=== PATIENT | female | born 1945 | race Caucasian/White ===

== ENCOUNTER 2019-06-09 15:03 | Inpatient (IN) | payer MEDICARE, MEDICAID, SELFPAY ==
[2019-06-09 15:04] VITALS: BP 131/70; PULSE 100; RESP 18; TEMP 37.2; O2SAT 91; BMI 32.3
--- NOTE | 2019-06-09 15:06 | ED_ITS ---
Entered by Jenni Bateman, acting as scribe for Aiden Drew DO HPI - SOB/Dyspnea General: Chief Complaint: Shortness of Breath/Dyspnea Stated Complaint: SHORT OF BREATH Time Seen by Provider: 06/09/19 15:05 Source: EMS Mode of arrival: EMS Limitations: other History of Present Illness: HPI Narrative: [facility] with increased shortness of breath and fever. per nursing staff pt has dementia. pt states her head hurts from a fall. pt denies any other symptoms at this time. Patient has had a low-grade fever. Initially when I seen her she is somewhat responsive she is clutching at a stuffed animal on her chest. She denied any chest pain denies any shortness of breath patient is significantly demented. Later she really did not answer any questions at all. I did ask her several nonsensical questions to which she attempted to answer. Did not believe there is really much we can trust from her history. halfway reports that she had a T-max of 100.2. She had been caught had some cough and congestion. MD elicited complaint: shortness of breath Onset (ago): day(s) (today) Timing: constant and progressively worsening Severity: moderate Exacerbating factors: exertion and other (head, fall x 3 days pt has dementia) Relieving factors: nothing Known history of: other (dementia) Associated symptoms: Reports fever(s) and other (fever) Treatment prior to arrival: none Related Data: Home oxygen amount: none Review of Systems General: Reports: ROS unobtainable due to medical condition (dementia) Const: Reports: fever PFSH ED PFSH: Medical History (Updated 06/10/19 @ 15:53 by Aiden Drew DO) Anxiety Blindness Chronic kidney disease, stage III (moderate) Chronic pain Coronary artery disease Dementia Depression Diabetes mellitus GERD (gastroesophageal reflux disease) Hyperlipidemia Ischemic cardiomyopathy Obesity Seizure disorder Surgical History (Updated 06/09/19 @ 18:35 by Boubacar Mcmullen MD) H/O hemorrhoidectomy H/O hysterectomy for benign disease H/O knee surgery History of breast biopsy History of cholecystectomy History of hip surgery Stented coronary artery Family History (Updated 06/09/19 @ 18:35 by Boubacar Mcmullen MD) Brother Cancer Colon cancer Social History (Updated 03/11/20 @ 18:36 by Boubacar Mcmullen MD) Smoking and tobacco status: former smoker Alcohol intake: never Substance/Drug Use: never Physical Exam Const: COMMON NORMALS: no apparent distress GENERAL APPEARANCE: cooperative ORIENTATION/CONSCIOUSNESS: Yes awake; not oriented to person, not oriented to place and not oriented to time HENMT: COMMON NORMALS: normocephalic, head/scalp atraumatic, hearing grossly normal bilaterally, external ears normal, EAC's normal, TM's normal bilaterally, nasal mucous membranes and turbinates normal, moist oral mucous membranes and oropharynx normal HEAD & SCALP: normocephalic and atraumatic NOSE: nasal mucous membranes and turbinates normal EXTERNAL EAR: Yes external ears normal EXTERNAL AUDITORY CANAL: EAC's normal TYMPANIC MEMBRANE: TM's normal bi laterally Eye: COMMON NORMALS: PERRL, EOMs intact bilaterally, conjunctivae normal and no scleral icterus CONJUNCTIVA: Yes conjunctivae normal PUPIL: Yes PERRL Neck/C-Spine: COMMON NORMALS: full ROM, no lymphadenopathy, supple and no JVD Lymph: LYMPHATIC: no lymphadenopathy noted and no lymphedema noted Resp: COMMON NORMALS: normal respiratory effort, no retractions, no use of accessory muscles and clear to auscultation bilaterally AUSCULTATION: clear to auscultation bilaterally Cardio: COMMON NORMALS: no JVD, regular rate, regular rhythm and no murmurs RATE: regular rate RHYTHM: regular rhythm GI: COMMON NORMALS: soft to palpation and no hepatosplenomegaly AUSCULTATION: Yes normoactive bowel sounds PALPATION: Yes soft, No tender, No guarding and Yes no hepatosplenomegaly Extremity: COMMON NORMALS: normal to inspection, normal capillary refill, no clubbing, cyanosis or edema, no calf tenderness and no pedal edema Neuro: SENSORIUM/ORIENTATION: No oriented to person, No oriented to place and No oriented to time Skin: COMMON NORMALS: no rashes or lesions noted GENERAL SKIN EXAM: no rashes or lesions noted Course ED course: Distal EKG was a little concerning for some changes especially in V1 and 2 with some flipped T waves in 1 [address]VL[address] I discussed Dr. Garcia he did not feel there were acute at this time patient was denying any chest pain although that was somewhat subjective her dementia. Also assessed discussed Dr. Garcia that she was demented and probably not able to give legitimate consent for any kind of invasive procedures. Troponin did come back markedly elevated some which may be due to demand from her due to her congestive heart failure to BNP was also elevated. Discussed with Dr. Calle he was able to contact the next of kin that they did make the patient a no code. Vital Signs: Vital signs: Vital Signs Temperature 98.0 F 06/10/19 04:20 Pulse Rate 75 06/10/19 15:36 Respiratory Rate 16 06/10/19 15:36 Blood Pressure 113/68 06/10/19 15:36 Pulse Oximetry 100 06/10/19 15:36 MDM - SOB/Dyspnea Lab Data: Labs: Lab Results 06/09/19 06/09/19 06/09/19 Range/Units 15:28 15:28 15:28 WBC 10.0 (4.0-10.0) 10^3/ uL RBC 3.16 L (4.1-5.3) 10^6/u L Hgb 9.7 L (11.5-15.3) g/dL Hct 31.7 L (37.0-47.0) % MCV 100.3 H (81-99) fL MCH 30.7 (28.0-34.0) pg MCHC 30.6 (30.0-36.0) g/dL RDW 13.0 (12.1-15.1) % Plt Count 153 (130-400) 10^3/c mm MPV 9.3 (7.4-10.4) fL Neut % (Auto) 69.4 % Lymph % (Auto) 14.8 % [place] % (Auto) 15.2 % Eos % (Auto) 0.0 % Baso % (Auto) 0.3 % Neut # (Auto) 7.0 (1.8-7.7) 10^3/u L Lymph # (Auto) 1.5 (0.8-4.8) 10^3/u L [place] # (Auto) 1.5 H (0.2-0.9) 10^3/u L Eos # (Auto) 0.0 (0.0-0.8) 10^3/u L Baso # (Auto) 0.0 (0.0-0.1) 10^3/u L Nucleated RBC % (a uto) 0 % Nucleated RBCs # 0.0 /100WBC Sodium 137 (136-145) mmol/L Potassium 3.6 (3.5-5.1) mmol/L Chloride 105 (98-107) mmol/L Carbon Dioxide 19 L (22-29) mmol/L Anion Gap 16.6 (5-19) BUN 42 H (8-23) mg/dL Creatinine 2.1 H (0.5-0.9) mg/dL Glucose 344 H (65-115) mg/dL Calculated Osmolal ity 295 (285-295) mOsm/k g Calcium 9.0 (8.5-10.5) mg/dL Total Bilirubin 0.4 (0.15-1.2) mg/dL AST 34 H (0-32) U/L ALT 9 (0-33) U/L Alkaline Phosphata se 80 (35-105) IU/L Troponin T Baselin e 1805 H* (0-10) ng/mL Troponin T 120 Min [place] (0-10) ng/mL Delta Troponin T (0-10) ABS# NT-Pro-B Natriuret Pep > 55614 H (0-125) pg/mL Total Protein 6.9 (6.6-8.7) g/dL Albumin 2.9 L (3.5-5.2) g/dL Globulin 4.0 (1.3-4.6) g/dL Influenza Type A A g (Negative) POC Influenza B Ag (Negative) 06/09/19 06/09/19 Range/Units 15:45 17:10 WBC (4.0-10.0) 10^3/ uL RBC (4.1-5.3) 10^6/u L Hgb (11.5-15.3) g/dL Hct (37.0-47.0) % MCV (81-99) fL MCH (28.0-34.0) pg MCHC (30.0-36.0) g/dL RDW (12.1-15.1) % Plt Count (130-400) 10^3/c mm MPV (7.4-10.4) fL Neut % (Auto) % Lymph % (Auto) % [place] % (Auto) % Eos % (Auto) % Baso % (Auto) % Neut # (Auto) (1.8-7.7) 10^3/u L Lymph # (Auto) (0.8-4.8) 10^3/u L [place] # (Auto) (0.2-0.9) 10^3/u L Eos # (Auto) (0.0-0.8) 10^3/u L Baso # (Auto) (0.0-0.1) 10^3/u L Nucleated RBC % (a uto) % Nucleated RBCs # /100WBC Sodium (136-145) mmol/L Potassium (3.5-5.1) mmol/L Chloride (98-107) mmol/L Carbon Dioxide (22-29) mmol/L Anion Gap (5-19) BUN (8-23) mg/dL Creatinine (0.5-0.9) mg/dL Glucose (65-115) mg/dL Calculated Osmolal ity (285-295) mOsm/k g Calcium (8.5-10.5) mg/dL Total Bilirubin (0.15-1.2) mg/dL AST (0-32) U/L ALT (0-33) U/L Alkaline Phosphata se (35-105) IU/L Troponin T Baselin e (0-10) ng/mL Troponin T 120 Min [place] 1769 H (0-10) ng/mL Delta Troponin T -36 L (0-10) ABS# NT-Pro-B Natriuret Pep (0-125) pg/mL Total Protein (6.6-8.7) g/dL Albumin (3.5-5.2) g/dL Globulin (1.3-4.6) g/dL Influenza Type A A g Negative (Negative) POC Influenza B Ag Negative (Negative) Discharge Plan Discharge Patient Disposition: Admitted As Inpatient Admit Provider: Boubacar Mcmullen Clinical Impression: Non-ST elevation myocardial infarction (NSTEMI), Hypoxia, Acute systolic heart failure, UTI (urinary tract infection), Anemia Condition: Stable Interventions: ED Discharge Assessment Last Done: 06/09/19 18:49 Discharge Date/Time: 06/09/19 18:57 Coding Level of Care Code ED [place] Rug Setter for g Fwjud The documentation recorded by the Fransico ruby Bridget Annette, accurately reflects the service I personally performed and the decisions made by Viki wylie Curtis L, DO Jun 09, 2019 15:03
--- NOTE | 2019-06-09 15:18 | XR_ITS ---
WS: [id number] Portable AP upright chest, 06/09/2019 Clinical Data: dyspnea/cough Comparison: Portable chest, 11/09/2018. Findings: The heart remains enlarged. The aortic arch and descending aorta minimally tortuous. There are diffuse opacities throughout the right lung and the left lower lobe which could represent an unus ual pulmonary edema or diffuse pneumonia. Only the left upper lobe is clear. No nodules, masses or ef fusions are seen. No pneumothorax is present. There are clips in the right upper quadrant from stellar milagros. XR/XR chest 1V portable [id number] Impression: 1. Diffuse opacities in the right lung and left lower lobe which could represen t unusual pulmonary edema or acute pneumonia and recommend follow-up chest x-ra y in one to 2 days. 2. Cardiomegaly.
--- NOTE | 2019-06-09 15:19 | ECG_ITS ---
Measurements Intervals [place] Rate: 97 P: 13 MT: 193 QRS: -14 QRSD: 109 T: 178 QT: 362 QTc: 461 SINUS RHYTHM ANTERIOR MYOCARDIAL INFARCTION , PROBABLY RECENT [40+ ms Q WAVE AND/OR ST/T ABNORMALITY IN V3/V4] Compared to ECG 11/09/2018 21:46:37 First degree AV block no longer present Myocardial infarct finding still present Electronically Signed On 06-09-2019 19:34:36 CDT by Lorenzo Garcia M.D. [id number]
[2019-06-09 15:33] LABS: Basophils % 0.3 %; Hematocrit 31.7 % (37.0-47.0); Hemoglobin 9.7 g/dL (11.5-15.3); Lymphocytes # 1.5 10^3/uL (0.8-4.8); Lymphocytes % 14.8 %; Mean Corpuscular HGB Conc 30.6 g/dL (30.0-36.0); Mean Corpuscular Hemoglobin 30.7 pg (28.0-34.0); Mean Corpuscular Volume 100.3 fL (81-99); Mean Platelet Volume 9.3 fL (7.4-10.4); Monocytes # 1.5 10^3/uL (0.2-0.9); Monocytes % 15.2 %; Neutrophils % 69.4 %; Nucleated Red Blood Cells % 0 %; Platelet Count 153 10^3/cmm (130-400); Red Blood Count 3.16 10^6/uL (4.1-5.3)
[2019-06-09 16:00] LABS: Alanine Aminotransferase 9 U/L (0-33); Albumin Level 2.9 g/dL (3.5-5.2); Alkaline Phosphatase 80 IU/L (35-105); Anion Gap 16.6 (5-19); Aspartate Amino Transferase 34 U/L (0-32); Blood Urea Nitrogen 42 mg/dL (8-23); Carbon Dioxide 19 mmol/L (22-29); Chloride 105 mmol/L (98-107); Glucose 344 mg/dL (65-115); Osmolality Calculated 295 mOsm/kg (285-295); Potassium 3.6 mmol/L (3.5-5.1); Sodium 137 mmol/L (136-145); Total Bilirubin 0.4 mg/dL (0.15-1.2); Total Protein 6.9 g/dL (6.6-8.7)
[2019-06-09 16:15] LABS: Influenza A by IFA Negative (Negative); Influenza B by IFA Negative (Negative)
[2019-06-09 16:24] LABS: NT Pro B Type Natriuretic Pept > 70000 pg/mL (0-125)
[2019-06-09 16:32] LABS: Troponin(5th) Baseline 1805 ng/mL (0-10)
[2019-06-09] MEDS: aztreonam 1,000 MG in sodium chloride 0.9% (plus) 50 ML 100 MG IV (17:48)
[2019-06-09] MEDS: FUROsemide 10 mg/mL SDV 10mL 80 MG IVP (17:48)
[2019-06-09 17:50] LABS: Troponin 5 2HR 1769 ng/mL (0-10); Troponin 5 2HR Delta -36 ABS# (0-10)
[2019-06-09] MEDS: vancomycin 1,000 MG in sodium chloride 0.9% 250 ML 250 MG IV (18:00)
--- NOTE | 2019-06-09 18:30 | PM.HP ---
Providers/Chief Complaint Primary Care Provider: Kamlesh Stevens Chief Complaint: SHORT OF BREATH History of Present Illness Perla oRque is a 74 year old female who presents to the hospital from her [place] [facility] with history of dyspnea last night. She had temperature up to 100.2. She has been coughing and congested, and apparently had not felt well in general. halfway was concerned she had a UTI, as urine appeared dirty and they were awaiting a culture. This morning she seemed worse so was sent to the hospital. From discussion with the [place] [facility] she is confused, and delusional at all times, and has had gradual decline over the years they have been caring for her. Review of Systems General: Reports: ROS unobtainable due to mental status (Advanced dementia) Medications/Allergies Home Medications Medication Instructions Recorded Confirmed Last Taken Type PNV cmb#95-ferrous fumarate-FA 1 tab PO DAILY 06/09/19 06/09/19 Unknown History [] acetaminophen 650 mg PO QID PRN 06/09/19 06/09/19 Unknown History ascorbic acid (vitamin C) [Vitamin 500 mg PO DAILY 06/09/19 06/09/19 Unknown History C] bisacodyl [Dulcolax (bisacodyl)] 10 mg ID DAILY PRN 06/09/19 06/09/19 Unknown History brimonidine 1 drp OPHTHALMIC (EYE) TID 06/09/19 06/09/19 Unknown History cholecalciferol (vitamin D3) 1,000 unit PO DAILY 06/09/19 06/09/19 Unknown History [Vitamin D3] clopidogrel [Plavix] 75 mg PO DAILY 06/09/19 06/09/19 Unknown History divalproex [Depakote] 250 mg PO DAILY 06/09/19 06/09/19 Unknown History divalproex [Depakote] 500 mg PO BEDTIME 06/09/19 06/09/19 Unknown History docusate sodium 100 mg PO BID 06/09/19 06/09/19 Unknown History furosemide [Lasix] 10 mg PO DAILY 06/09/19 06/09/19 Unknown History hydrocodone-acetaminophen 1 tab PO Q6H PRN 06/09/19 06/09/19 Unknown History insulin NPH isoph U-100 human 10 unit SUBCUT DAILY 06/09/19 06/09/19 Unknown History [Novolin N Flexpen] insulin regular human [Novolin R See Rx Instructions .ROUTE .COMPLEX 06/09/19 06/09/19 Unknown History Flexpen] isosorbide dinitrate 15 mg PO DAILY 06/09/19 06/09/19 Unknown History latanoprost [Xalatan] 1 drp OPHTHALMIC (EYE) QPM 06/09/19 06/09/19 Unknown History loperamide 2 mg PO Q6H PRN 06/09/19 06/09/19 Unknown History lorazepam [Ativan] 0.5 mg PO Q6H PRN 06/09/19 06/09/19 Unknown History magnesium hydroxide [Milk of 30 ml PO DAILY PRN 06/09/19 06/09/19 Unknown History Magnesia] metoprolol tartrate 12.5 mg PO BID 06/09/19 06/09/19 Unknown History nitroglycerin [Nitrostat] 0.4 mg SUBLINGUAL Q5M PRN 06/09/19 06/09/19 Unknown History nystatin 1 applic TOPICAL BID 06/09/19 06/09/19 Unknown History polysaccharide iron complex 150 mg PO DAILY 06/09/19 06/09/19 Unknown History [Poly-Iron] promethazine 25 mg PO Q6H PRN 06/09/19 06/09/19 Unknown History quetiapine [Seroquel] 25 mg PO DAILY 06/09/19 06/09/19 Unknown History quetiapine [Seroquel] 100 mg PO BEDTIME 06/09/19 06/09/19 Unknown History senna 8.6 mg PO BID PRN 06/09/19 06/09/19 Unknown History simvastatin 20 mg PO BEDTIME 06/09/19 06/09/19 Unknown History tamsulosin [Flomax] 0.4 mg PO DAILY 06/09/19 06/09/19 Unknown History triamcinolone acetonide 1 applic TOPICAL QID 06/09/19 06/09/19 Unknown History venlafaxine 25 mg PO DAILY 06/09/19 06/09/19 Unknown History Allergies Allergy/AdvReac Type Severity Reaction Status Date / Time butorphanol [From Stadol] Allergy Unknown Verified 06/09/19 15:21 diphenhydramine Allergy Unknown Verified 06/09/19 15:21 [From Benadryl] indomethacin [From Indocin] Allergy Unknown Verified 06/09/19 15:21 ketorolac [From Toradol] Allergy Unknown Verified 06/09/19 15:21 levofloxacin [From Levaquin] Allergy Unknown Verified 06/09/19 15:21 methazolamide Allergy Unknown Verified 06/09/19 15:21 [From Neptazane] NSAIDS (Non-Steroidal Allergy Unknown Verified 06/09/19 15:21 Anti-Inflamma ondansetron [From Zofran] Allergy Unknown Verified 06/09/19 15:21 Penicillins Allergy Unknown Verified 06/09/19 15:21 prochlorperazine Allergy Unknown Verified 06/09/19 15:21 [From Compazine] Sulfa (Sulfonamide Allergy Unknown Verified 06/09/19 15:21 Antibiotics) sumatriptan [From Imitrex] Allergy Unknown Verified 06/09/19 15:21 tramadol [From Ultram] Allergy Unknown Verified 06/09/19 15:21 PFSH Acute PFSH: Medical History (Updated 06/09/19 @ 18:41 by Boubacar Mcmullen MD) Anxiety Blindness Chronic kidney disease, stage III (moderate) Chronic pain Coronary artery disease Dementia Depression Diabetes mellitus GERD (gastroesophageal reflux disease) Hyperlipidemia Ischemic cardiomyopathy Obesity Seizure disorder Surgical History (Updated 06/09/19 @ 18:35 by Boubacar Mcmullen MD) H/O hemorrhoidectomy H/O hysterectomy for benign disease H/O knee surgery History of breast biopsy History of cholecystectomy History of hip surgery Stented coronary artery Family History (Updated 06/09/19 @ 18:35 by Boubacar Mcmullen MD) Brother Cancer Colon cancer Social History (Updated 06/09/19 @ 18:36 by Boubacar Mcmullen MD) Smoking and tobacco status: former smoker Alcohol intake: never Substance/Drug Use: never Vitals/I&O/Wt Last Vital Signs Temp 98.9 F 06/09/19 15:04 Pulse 100 06/09/19 15:04 Resp 18 06/09/19 15:04 BP 131/70 06/09/19 15:04 Pulse Ox 91 06/09/19 15:04 Weight last 48 hrs Weight 90.718 kg Physical Exam Narrative: EXAM NARRATIVE: General exam demonstrates an obese white female, confused, yelling continually. Redirects and can answer yes or no but not reliably. HEENT: Left pupil anisochoric. Right appears normal Neck supple no lymphadenopathy Cardiovascular heart sounds distant. Regular rate and rhythm. Lungs diminished breath sounds bilaterally Abdomen is soft with positive bowel sounds. No obvious organomegaly demonstrates [place] Extremities no cyanosis clubbing or edema Skin no rash Neuro confused. Moves all 4 extremities. Data : 06/09/19 15:28 06/09/19 15:28 Other Labs: Troponin is 1800. BNP greater than 70,000. AST 34. Urinalysis pending. Chest X demonstrates pulmonary edema, cardiomegaly Culture was obtained EKG demonstrates small amount of ST elevation V1 and 2, with flipped T waves noted laterally Micro: Microbiology 06/09/19 17:10 Blood Culture - Preliminary Blood SPECIMEN COLLECTED 06/09/19 17:10 Blood Culture - Preliminary Blood SPECIMEN COLLECTED A&P Assessment and plan (1) Hypoxia: This is likely secondary to her acute pulmonary edema. Diuresis is indicated. She is received a dose of Lasix in the emergency department. Continue 60 mg IV every 12 hours Oxygen as needed Status: Acute Code(s): R09.02 - Hypoxemia (2) Acute systolic heart failure: Continue diuresis with Lasix as initiated by the emergency department Status: Acute Code(s): I50.21 - Acute systolic (congestive) heart failure (3) Non-ST elevation myocardial infarction (NSTEMI): Continue Plavix, statin, beta-melvin. At this point considering her underlying comorbidities, anemia, severe underlying dementia she will not be fully anticoagulated. Status: Acute Code(s): I21.4 - Non-ST elevation (NSTEMI) myocardial infarction (4) UTI (urinary tract infection): Probable UTI based on urinalysis taken at nursing facility. Secondary to her past history of ESBL, Primaxin will be initiated. Will await urinalysis here as well. She did have a history of temperature of 100.2 at the nursing facility as well. Status: Acute Code(s): N39.0 - Urinary tract infection, site not specified (5) Anemia: Appears to be chronic and stable Status: Acute Code(s): D64.9 - Anemia, unspecified Additional A&P Information Underlying advanced dementia. This will impair her ability to understand any invasive treatments. I called and discussed this with her brother who reports he is her contact and nearest relative. I discussed with him the situation. He reports she has had advanced dementia for quite some time. After reviewing the situation with him, she was made allow natural . He reports that this is what she would have wanted considering her underlying dementia. I will continue her behavioral medicine she receives at the nursing facility as this improves her quality of life. This includes antipsychotic as well as Ativan. Chronic kidney disease, appears to be at baseline Diabetes mellitus. Sliding scale insulin will be instituted A multitude of other medical problems, see past medical history Lovenox for DVT prophylaxis Allow natural If she worsens, family would consider comfort measures. Attestations Medical Necessity Statement*: Will need greater than 2 midnight stay for treatment of acute pulmonary edema Time Spent in Patient Care: Greater than 35 minutes Coding Level of Care Code Acute Billet Bed Operator for Stew Romero Diagnoses Hypoxia R09.02 Acute systolic heart failure I50.21 Non-ST elevation myocardial infarction (NSTEMI) I21.4 UTI (urinary tract infection) N39.0 Anemia D64.9
[2019-06-09 18:49] VITALS: BP 149/86; PULSE 94; RESP 18; O2SAT 97
[2019-06-09 18:58] LABS: Add Urine Microscopic? YES; Bilirubin Urine Neg (NEGATIVE); Blood Urine 3+ (Negative); Glucose Urine UA 2+ (Normal); Ketones Urine 1+ (Negative); Leukocyte Esterase Urine 2+ (Negative); Nitrate Urine Negative (Negative); Protein Urine 3+ (Negative); Urine Appearance Cloudy (CLEAR); Urine Color Yellow (Yellow); Urobilinogen Urine Norm (Negative); pH Urine 5 (5-7)
[2019-06-09 18:59] LABS: Add Urine Culture? Yes; Amorphous Sediment Urine 2+; Bacteria Urine 2+; WBC Urine >100 /hpf (0-5)
[2019-06-09 20:52] VITALS: BP 125/75; PULSE 92; RESP 21; TEMP 37.2; O2SAT 92
--- NOTE | 2019-06-09 21:52 | ECG_ITS ---
Measurements Intervals [place] Rate: 93 P: 19 NM: 197 QRS: -22 QRSD: 110 T: 168 QT: 382 QTc: 477 SINUS RHYTHM WITH SINUS ARRHYTHMIA POSSIBLE ANTERIOR MYOCARDIAL INFARCTION , OF INDETERMINATE AGE [30 ms Q WAVE IN V3/V4, OR R < 0.2 mV IN V4] ST DEVIATION AND MODERATE T-WAVE ABNORMALITY, CONSIDER LATERAL ISCHEMIA [-0.1+ mV T WAVE IN I/aVL/V5/V6] Compared to ECG 11/09/2018 21:46:37 T-wave abnormality now present Possible ischemia now present First degree AV block no longer present Myocardial infarct finding still present Electronically Signed On 06-09-2019 19:38:08 CDT by Lorenzo Garcia M.D. [id number]
[2019-06-09 22:05] LABS: Troponin 5 6HR 1608 ng/mL (0-10)
[2019-06-09] MEDS: quetiapine 100 mg Tablet PO (23:04)
[2019-06-09] MEDS: HYDROcodone-acetaminophen 5-325 mg Tablet 1 TAB PO (23:04)
[2019-06-09] MEDS: divalproex DR 500 mg Tablet PO (23:04)
[2019-06-09] MEDS: heparin 5,000 unit/mL INJ 1 mL 5000 UNIT SUBCUT (23:05)
[2019-06-09] MEDS: LORazepam 0.5 mg Tablet PO (23:05)
[2019-06-09] MEDS: atorvastatin 40 mg Tablet PO (23:09)
[2019-06-09 23:26] LABS: Glucose Point of Care 339 mg/dL (70-110)
[2019-06-10] VITALS (9 sets, daily range): BP systolic 92–122; BP diastolic 55–68; PULSE 69–82; RESP 14–20; TEMP 36.6–37.2; O2SAT 96–100
--- NOTE | 2019-06-10 02:18 | PC.NURSE ---
Addendum entered by Hina Ansari RN 06/10/19 04:59: Dr. Marino notified about patients blood pressure of 77/49 (a few others in that area) and he said to give her a 500 ml fluid bolus, but before we could administer it patients blood pressure came up to 109/56, and he was notified and said to hold the bolus but watch her. Original Note: patient came from ER via strecher. patient alert and oriented but cranky and vocally inappropriate regarding her catheter and hospital admission, she didnt want to be in the hospital and doesnt want the catheter in says it hurts. checked by two nurses and is in correctly but she was very innappropriate in her words for both to staff. with her night meds she was also given a hydro for pain and her dose of ativan for her high anxiety. A few hours later her bp had dropped some but started coming back up a few minutes later and her sats went to 89 and o2 was placed and they immediately went back to 92. will continue to monitor. patient resting quietly at this time.
--- NOTE | 2019-06-10 02:19 | PC.NURSE ---
Patient placed on 2 L NC due to oxygen saturation at 87 percent. Oxygen saturation is now 97 percent. Will continue to monitor on continuous pulse ox.
--- NOTE | 2019-06-10 03:32 | PC.NURSE ---
Dr. Marino notified of patient blood pressure running 70s-90s systolic. 500 mL bolus ordered. Soon, patient's blood pressure came up to 113/70 and maintained low 100s systolic. Bolus was held and Dr. Marino was notified.
[2019-06-10 04:10] LABS: Basophils % 0.4 %; Eosinophils % 0.3 %; Hematocrit 27.9 % (37.0-47.0); Hemoglobin 8.5 g/dL (11.5-15.3); Lymphocytes # 1.4 10^3/uL (0.8-4.8); Lymphocytes % 18.8 %; Mean Corpuscular HGB Conc 30.5 g/dL (30.0-36.0); Mean Corpuscular Hemoglobin 32.1 pg (28.0-34.0); Mean Corpuscular Volume 105.3 fL (81-99); Mean Platelet Volume 9.6 fL (7.4-10.4); Monocytes % 14.2 %; Neutrophils # 4.8 10^3/uL (1.8-7.7); Neutrophils % 66.2 %; Nucleated Red Blood Cells % 0 %; Platelet Count 144 10^3/cmm (130-400); Red Blood Count 2.65 10^6/uL (4.1-5.3); Red Cell Distribution Width 13.1 % (12.1-15.1); White Blood Count 7.3 10^3/uL (4.0-10.0)
[2019-06-10 04:26] LABS: Anion Gap 14.5 (5-19); Blood Urea Nitrogen 42 mg/dL (8-23); Calcium 8.7 mg/dL (8.5-10.5); Carbon Dioxide 21 mmol/L (22-29); Chloride 106 mmol/L (98-107); Glucose 218 mg/dL (65-115); Osmolality Calculated 290 mOsm/kg (285-295); Potassium 3.5 mmol/L (3.5-5.1); Sodium 138 mmol/L (136-145)
[2019-06-10] MEDS: FUROsemide 10 mg/mL SDV 10mL 60 MG IVP (05:26)
[2019-06-10] MEDS: sodium chloride 0.9% 500 ML 999 ML IV (06:09)
--- NOTE | 2019-06-10 06:15 | PC.NURSE ---
patients bp lowered to 80s over 40s, called Dr. Marino and we agreed on starting the 500 ml bolus. patient on q 15 min bps.
[2019-06-10 06:32] LABS: Glucose Point of Care 281 mg/dL (70-110)
--- NOTE | 2019-06-10 08:58 | P.PN_ITS ---
Subjective Subjective: Interval history: Perla was confused this morning but able to relate to me that she does not want her catheter. Medications: Reviewed: Yes Vitals/I&O/Wt Last Vital Signs Temp 98.0 F 06/10/19 04:20 Pulse 77 06/10/19 07:41 Resp 18 06/10/19 07:41 BP 117/61 06/10/19 07:41 Pulse Ox 100 06/10/19 07:41 06/09/19 06/10/19 06/10/19 22:59 06:59 14:59 Intake Total 260 / 260 120 / 120 Output Total 1650 / 1650 Balance -1390 / -1390 120 / 120 Weight last 48 hrs Weight 82.1 kg Weight 90.718 kg Physical Exam Narrative: EXAM NARRATIVE: General exam is no apparent distress. She is laying flat in bed. Cardiovascular regular rate and rhythm without murmur Lungs clear. No crackles Abdomen is soft with positive bowel sounds Extremities no cyanosis clubbing or edema Urinary Catheter Management^: Reagn: Cath Placed During This Visit: yes Urinary Catheter Date of Insertion: 06/09/19 Urinary Catheter Time of Insertion: 18:56 Data : 06/10/19 03:25 06/10/19 03:25 Micro: Microbiology 06/09/19 17:10 Blood Culture - Preliminary Blood SPECIMEN COLLECTED 06/09/19 17:10 Blood Culture - Preliminary Blood SPECIMEN COLLECTED A&P Assessment and plan (1) Hypoxia: This is likely secondary to her acute pulmonary edema. Diuresis initiated. She currently clinically does not appear fluid overloaded. Will discontinue IV Lasix Changed to Lasix 60 mg every morning Discontinue Regan, significantly uncomfortable for this patient who we are focusing on quality of life Oxygen as needed Secondary to fever, abnormal chest x-ray check MRSA PCR Status: Acute Code(s): R09.02 - Hypoxemia (2) Acute systolic heart failure: Change Lasix to 60 mg p.o. daily Status: Acute Code(s): I50.21 - Acute systolic (congestive) heart failure (3) Non-ST elevation myocardial infarction (NSTEMI): Continue Plavix, statin, beta-melvin. At this point considering her underlying comorbidities, anemia, severe underlying dementia she will not be fully anticoagulated. Status: Acute Code(s): I21.4 - Non-ST elevation (NSTEMI) myocardial infarction (4) UTI (urinary tract infection): Probable UTI based on urinalysis taken at nursing facility. Secondary to her past history of ESBL, Primaxin will be initiated. Will await urinalysis here as well. She did have a history of temperature of 100.2 at the nursing facility as well. Primaxin has been started. Await culture. Status: Acute Code(s): N39.0 - Urinary tract infection, site not specified (5) Anemia: Appears to be chronic and stable Status: Acute Code(s): D64.9 - Anemia, unspecified Additional A&P Information Underlying advanced dementia. This will impair her ability to understand any invasive treatments. I called and discussed this with her brother who reports he is her contact and nearest relative. I discussed with him the situation. He reports she has had advanced dementia for quite some time. After reviewing the situation with him, she was made allow natural . He reports that this is what she would have wanted considering her underlying dementia. I will continue her behavioral medicine she receives at the nursing facility as this improves her quality of life. This includes antipsychotic as well as Ativan. Chronic kidney disease, appears to be at baseline Diabetes mellitus. Sliding scale insulin will be instituted A multitude of other medical problems, see past medical history Lovenox for DVT prophylaxis Allow natural If she worsens, family would consider comfort measures. 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
[2019-06-10] MEDS: metoprolol tartrate 25 mg Tablet 12.5 MG PO ×2 (10:45→18:35)
[2019-06-10] MEDS: heparin 5,000 unit/mL INJ 1 mL 5000 UNIT SUBCUT ×2 (10:45→21:20)
[2019-06-10] MEDS: clopidogrel 75 mg Tablet PO (10:45)
[2019-06-10] MEDS: quetiapine 25 mg Tablet PO (10:46)
[2019-06-10] MEDS: divalproex DR 250 mg Tablet PO (10:47)
[2019-06-10] MEDS: isosorbide dinitrate 20 mg Tablet PO ×2 (10:47→10:49)
[2019-06-10] MEDS: tamsulosin 0.4 mg Capsule PO (10:47)
[2019-06-10] MEDS: venlafaxine ER (24HR) 75 mg Capsule PO (11:22)
[2019-06-10 11:49] LABS: Glucose Point of Care 165 mg/dL (70-110)
[2019-06-10 16:49] LABS: Glucose Point of Care 128 mg/dL (70-110)
[2019-06-10 21:18] LABS: Glucose Point of Care 265 mg/dL (70-110)
[2019-06-10] MEDS: atorvastatin 40 mg Tablet PO (21:20)
[2019-06-10] MEDS: quetiapine 100 mg Tablet PO (21:20)
[2019-06-10] MEDS: divalproex DR 500 mg Tablet PO (21:20)
[2019-06-10] MEDS: latanoprost 0.005% Op Soln 2.5 mL Btl 1 DROP EYE-BOTH (21:21)
[2019-06-11] VITALS (13 sets, daily range): BP systolic 103–127; BP diastolic 48–76; PULSE 73–94; RESP 10–18; TEMP 36.4–37.1; O2SAT 91–98
[2019-06-11 04:19] LABS: Basophils # 0.1 10^3/uL (0.0-0.1); Basophils % 0.8 %; Eosinophils # 0.4 10^3/uL (0.0-0.8); Eosinophils % 7.1 %; Hematocrit 25.9 % (37.0-47.0); Hemoglobin 7.8 g/dL (11.5-15.3); Lymphocytes # 1.9 10^3/uL (0.8-4.8); Lymphocytes % 32.2 %; Mean Corpuscular HGB Conc 30.1 g/dL (30.0-36.0); Mean Corpuscular Hemoglobin 30.6 pg (28.0-34.0); Mean Corpuscular Volume 101.6 fL (81-99); Mean Platelet Volume 9.8 fL (7.4-10.4); Monocytes # 0.8 10^3/uL (0.2-0.9); Monocytes % 13.3 %; Neutrophils # 2.8 10^3/uL (1.8-7.7); Neutrophils % 46.4 %; Nucleated Red Blood Cells % 0 %; Platelet Count 145 10^3/cmm (130-400); Red Blood Count 2.55 10^6/uL (4.1-5.3); Red Cell Distribution Width 13.1 % (12.1-15.1)
[2019-06-11 04:41] LABS: Anion Gap 16.7 (5-19); Blood Urea Nitrogen 44 mg/dL (8-23); Calcium 8.5 mg/dL (8.5-10.5); Carbon Dioxide 20 mmol/L (22-29); Chloride 107 mmol/L (98-107); Glucose 159 mg/dL (65-115); Osmolality Calculated 291 mOsm/kg (285-295); Potassium 3.7 mmol/L (3.5-5.1); Sodium 140 mmol/L (136-145)
[2019-06-11 06:35] LABS: Glucose Point of Care 197 mg/dL (70-110)
--- NOTE | 2019-06-11 07:36 | PM.PN ---
Subjective Subjective: Interval history: Perla awakens easily. She denies any complaints. She is confused but conversant. Medications: Reviewed: Yes Vitals/I&O/Wt Last Vital Signs Temp 97.9 F 06/11/19 00:00 Pulse 86 06/11/19 04:00 Resp 18 06/11/19 04:00 BP 111/69 06/11/19 04:00 Pulse Ox 97 06/11/19 04:00 06/10/19 06/11/19 06/11/19 22:59 06:59 14:59 Intake Total 680.000 / 1020.000 120 / 1140.000 Output Total 400 / 800 Balance 280.000 / 220.000 120 / 340.000 Weight last 48 hrs Weight 82.1 kg Weight 90.718 kg Physical Exam Narrative: EXAM NARRATIVE: General exam is no apparent distress. Cardiovascular regular rate and rhythm without murmur Lungs clear. No crackles Abdomen is soft with positive bowel sounds Extremities no cyanosis clubbing or edema Urinary Catheter Management^: Regan: Cath Placed During This Visit: yes Urinary Catheter Date of Insertion: 06/09/19 Urinary Catheter Time of Insertion: 18:56 Data : 06/11/19 03:15 06/11/19 03:15 Micro: Microbiology 06/09/19 17:10 Blood Culture - Preliminary Blood NEGATIVE TO DATE 06/09/19 17:10 Blood Culture - Preliminary Blood NEGATIVE TO DATE 06/10/19 11:10 MRSA Culture - Final Nose Other data: Chest x-ray per my read demonstrates persistent infiltrate right lung A&P Assessment and plan (1) Hypoxia: This is likely secondary to her acute pulmonary edema. Received IV diuresis on admission. This has been changed to p.o. which she is tolerating Renal function overall stable and appears to be at baseline. She is requiring only minimal oxygen Status: Acute Code(s): R09.02 - Hypoxemia (2) Acute systolic heart failure: Lasix 60 mg p.o. daily. She appears compensated. Clinically she does not appear fluid overloaded. Chest x-ray repeated today does not demonstrate much clearing of her right lung infiltrate. Will check a noncontrast CT chest. She was placed on Primaxin on admission secondary to UTI, past history of ESBL. This should be sufficient at this time for pneumonia. Status: Acute Code(s): I50.21 - Acute systolic (congestive) heart failure (3) Non-ST elevation myocardial infarction (NSTEMI): Continue Plavix, statin, beta-melvin. At this point considering her underlying comorbidities, anemia, severe underlying dementia she will not be fully anticoagulated. Status: Acute Code(s): I21.4 - Non-ST elevation (NSTEMI) myocardial infarction (4) UTI (urinary tract infection): Probable UTI based on urinalysis taken at nursing facility. Secondary to her past history of ESBL, Primaxin will be initiated. Will await urinalysis here as well. She did have a history of temperature of 100.2 at the nursing facility as well. Primaxin has been started. Awaiting culture Status: Acute Code(s): N39.0 - Urinary tract infection, site not specified (5) Anemia: Anemia is worse Check stool Hemoccult, anemia panel Discontinue heparin subcutaneous Continue Plavix for now Add Protonix twice daily Status: Acute Code(s): D64.9 - Anemia, unspecified Additional A&P Information Underlying advanced dementia. This will impair her ability to understand any invasive treatments. I called and discussed this with her brother who reports he is her contact and nearest relative. I discussed with him the situation. He reports she has had advanced dementia for quite some time. After reviewing the situation with him, she was made allow natural . He reports that this is what she would have wanted considering her underlying dementia. I will continue her behavioral medicine she receives at the nursing facility as this improves her quality of life. This includes antipsychotic as well as Ativan. Chronic kidney disease, appears to be at baseline Diabetes mellitus. Sliding scale insulin will be instituted A multitude of other medical problems, see past medical history Discontinue heparin for DVT prophylaxis secondary to worsening anemia Allow natural If she worsens, family would consider comfort measures. 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
--- NOTE | 2019-06-11 07:44 | CT_ITS ---
WS: [id number] CT CHEST TECHNIQUE: Noncontrast CT of the chest with coronal and sagittal reformatted images. CLINICAL INFORMATION: abnormal CXR COMPARISON: None. DLP: 864.[address] scans at [facility] use at least one of these dose optimization techniques: automat ed exposure control; mA and/or kV adjustment per patient size (includes targeted exams where dose is matched to clinical indication); or iterative reconstruction. FINDINGS: Small bilateral pleural effusions with compressive atelectasis in the lung bases. Pleural effusion la rger on the right. Both pleural effusions slightly increased compared to CT December 21, 2017. Hazy groundglass infiltrates in the upper lobes likely infectious in etiology. Mild chronic emphysematous changes. Cardiomegaly. Prominent and has a bronchovascular thickening likely reactive. Small thyroid nodules. Aortic calcification. Coronary calcification. Pneumobilia unchanged since 2018. Cholecystectomy. Splenic artery calcification. Pancreatic atrophy. Normal caliber upper abdominal aorta. Moderate thoracic kyphosis. Anterior hypertrophic changes thora cic spine. IMPRESSION: 1. Small right greater than left pleural effusions with compressive atelectasis in the lung bases. T his is increased slightly since the CT in 2018. Compressive consolidative atelectasis worse in the ri ght lung base. 2. Hazy groundglass infiltrates in the right greater than left upper lobes likely infectious in etio logy. 3. Bronchovascular thickening along the hilum with prominent hilar lymph nodes likely reactive. 4. Cardiomegaly. 5. Pneumobilia partially visualized in the liver unchanged since 2018
--- NOTE | 2019-06-11 07:57 | XR_ITS ---
WS: [id number] Portable AP upright chest, 06/11/2019 Clinical Data: Follow-up pneumonia Comparison: Portable chest, 06/09/2019. Findings: The diffuse opacities in both lungs have not changed. There may be an additional opacity no w in the left upper lobe. Again this may represent acute pneumonia or an unusual pulmonary edema. The heart remains enlarged. The aortic arch and descending aorta show calcification and tortuosity. Cortney tor leads are on the chest and upper abdominal wall. There are clips in the right upper quadrant from a cholecystectomy. XR/XR chest 1V portable [id number] Impression: 1. Diffuse opacities in right lung and left lower lobe unchanged. 2. Increase in opacity in left upper lobe. 3. Atherosclerosis and cardiomegaly.
[2019-06-11] MEDS: divalproex DR 250 mg Tablet PO (08:28)
[2019-06-11] MEDS: FUROsemide 10 mg/mL SDV 2mL 20 MG IVP (08:28)
[2019-06-11] MEDS: clopidogrel 75 mg Tablet PO (08:29)
[2019-06-11] MEDS: tamsulosin 0.4 mg Capsule PO (08:29)
[2019-06-11] MEDS: metoprolol tartrate 25 mg Tablet 12.5 MG PO ×2 (08:29→17:37)
[2019-06-11] MEDS: FUROsemide 40 mg Tablet 60 MG PO (08:29)
[2019-06-11] MEDS: venlafaxine ER (24HR) 75 mg Capsule PO (08:29)
[2019-06-11] MEDS: pantoprazole DR 40 mg Tablet PO ×2 (08:29→17:37)
[2019-06-11] MEDS: quetiapine 25 mg Tablet PO (08:29)
[2019-06-11 09:44] LABS: Ferritin 259 ng/mL (15-150); Iron 42 ug/dL (37-145); Percent Saturation 42.4 % (20-50); Total Iron Binding Capacity 99 mcg/dl; Unsaturated Iron Binding 57 ug/dL (112-347)
[2019-06-11 10:00] LABS: Vitamin B12 285 pg/mL (232-1245)
[2019-06-11 12:13] LABS: Glucose Point of Care 145 mg/dL (70-110)
[2019-06-11 17:06] LABS: Glucose Point of Care 120 mg/dL (70-110)
[2019-06-11] MEDS: latanoprost 0.005% Op Soln 2.5 mL Btl 1 DROP EYE-BOTH (17:37)
[2019-06-11] MEDS: quetiapine 100 mg Tablet PO (20:31)
[2019-06-11] MEDS: divalproex DR 500 mg Tablet PO (20:31)
[2019-06-11] MEDS: atorvastatin 40 mg Tablet PO (20:31)
[2019-06-11] MEDS: HYDROcodone-acetaminophen 5-325 mg Tablet 1 TAB PO (20:48)
[2019-06-12] VITALS: BP 126/68; PULSE 79; RESP 12; TEMP 36.8; O2SAT 96
[2019-06-12 02:48] LABS: Glucose Point of Care 207 mg/dL (70-110)
[2019-06-12 04:00] VITALS: BP 120/71; PULSE 78; RESP 10; TEMP 36.6; O2SAT 90
[2019-06-12 04:13] LABS: Basophils % 0.7 %; Eosinophils # 0.4 10^3/uL (0.0-0.8); Eosinophils % 7.8 %; Hematocrit 29.5 % (37.0-47.0); Hemoglobin 9.9 g/dL (11.5-15.3); Lymphocytes # 1.5 10^3/uL (0.8-4.8); Lymphocytes % 27.8 %; Mean Corpuscular HGB Conc 33.6 g/dL (30.0-36.0); Mean Corpuscular Hemoglobin 34.5 pg (28.0-34.0); Mean Corpuscular Volume 102.8 fL (81-99); Mean Platelet Volume 9.5 fL (7.4-10.4); Monocytes # 0.7 10^3/uL (0.2-0.9); Monocytes % 11.8 %; Neutrophils # 2.8 10^3/uL (1.8-7.7); Neutrophils % 51.5 %; Nucleated Red Blood Cells % 0 %; Platelet Count 177 10^3/cmm (130-400); Red Blood Count 2.87 10^6/uL (4.1-5.3); Red Cell Distribution Width 13.2 % (12.1-15.1); White Blood Count 5.5 10^3/uL (4.0-10.0)
--- NOTE | 2019-06-12 04:37 | PC.NURSE ---
1700 antibiotic was given late d/t blood still going until after 1900. one iv access, patient didnt want another iv in.
[2019-06-12 04:52] LABS: Anion Gap 14.8 (5-19); Blood Urea Nitrogen 48 mg/dL (8-23); Calcium 8.8 mg/dL (8.5-10.5); Carbon Dioxide 25 mmol/L (22-29); Chloride 104 mmol/L (98-107); Glucose 201 mg/dL (65-115); Osmolality Calculated 294 mOsm/kg (285-295); Potassium 3.8 mmol/L (3.5-5.1); Sodium 140 mmol/L (136-145)
[2019-06-12 06:26] LABS: Glucose Point of Care 186 mg/dL (70-110)
[2019-06-12 07:31] VITALS: BP 117/61; PULSE 83; RESP 14; O2SAT 94
[2019-06-12] MEDS: FUROsemide 40 mg Tablet PO (08:33)
[2019-06-12] MEDS: quetiapine 25 mg Tablet PO (08:33)
[2019-06-12] MEDS: promethazine 25 mg Tablet PO ×2 (08:33→22:21)
[2019-06-12] MEDS: clopidogrel 75 mg Tablet PO (08:34)
[2019-06-12] MEDS: isosorbide dinitrate 20 mg Tablet PO (08:34)
[2019-06-12] MEDS: tamsulosin 0.4 mg Capsule PO (08:34)
[2019-06-12] MEDS: metoprolol tartrate 25 mg Tablet 12.5 MG PO (08:35)
[2019-06-12] MEDS: venlafaxine ER (24HR) 75 mg Capsule PO (08:35)
[2019-06-12] MEDS: pantoprazole DR 40 mg Tablet PO ×2 (08:35→17:21)
--- NOTE | 2019-06-12 09:07 | DCPLANNER ---
Pg 2 of IM updated and attempted review with pt however she is sleepy, copy provided.
[2019-06-12] MEDS: divalproex DR 250 mg Tablet PO (09:54)
[2019-06-12 11:06] VITALS: BP 104/57; PULSE 76; RESP 18; TEMP 36.8; O2SAT 93
[2019-06-12 11:27] LABS: Glucose Point of Care 152 mg/dL (70-110)
--- NOTE | 2019-06-12 11:53 | P.PN_ITS ---
Subjective Subjective: Interval history: Patient this morning is laying in bed, she has a bucket at bedside, stating that she does not feel well this morning, feels nauseous, has no complaints of shortness of breath, no fevers, no chills, has baseline dementia afebrile overnight, normotensive, no reported bloody stools, no telemetry changes, no complaints of chest pain Vitals/I&O/Wt Last Vital Signs Temp 98.3 F 06/12/19 11:06 Pulse 76 06/12/19 11:06 Resp 18 06/12/19 11:06 BP 104/57 06/12/19 11:06 Pulse Ox 93 06/12/19 11:06 06/11/19 06/12/19 06/12/19 22:59 06:59 14:59 Intake Total 790 / 1270 280 / 1550 100 / 100 Output Total 400 / 400 Balance 390 / 870 280 / 1150 100 / 100 Weight last 48 hrs Weight 80.83 kg Physical Exam Const: COMMON NORMALS: no apparent distress EXAM LIMITATIONS: altered mental status HENMT: COMMON NORMALS: normocephalic HEAD & SCALP: normocephalic Neck/C-Spine: COMMON NORMALS: no JVD Resp: COMMON NORMALS: normal respiratory effort, no retractions, no use of accessory muscles and clear to auscultation bilaterally AUSCULTATION: clear to auscultation bilaterally Cardio: COMMON NORMALS: no JVD, regular rate, regular rhythm, S1 normal heart sound and S2 normal heart sound RATE: regular rate RHYTHM: regular rhythm HEART SOUNDS: S1 normal and S2 normal GI: COMMON NORMALS: normal to inspection, nondistended, normoactive bowel sounds, soft to palpation, non-tender, no hepatosplenomegaly, no masses and no bruits PALPATION: Yes soft and Yes no hepatosplenomegaly Extremity: COMMON NORMALS: normal capillary refill, no clubbing, cyanosis or edema, no calf tenderness and no pedal edema Urinary Catheter Management^: Regan: Cath Placed During This Visit: yes Urinary Catheter Date of Insertion: 06/09/19 Urinary Catheter Time of Insertion: 18:56 Data : 06/12/19 03:31 06/12/19 03:31 Micro: Microbiology 06/09/19 18:13 Urine Culture - Preliminary Urine,Clean Catch Gram Negative Rods A&P Assessment and plan (1) Hypoxia: -Acute hypoxic respiratory failure secondary to pulmonary edema and acute systolic heart failure -On Lasix 40 mg once daily -Creatinine is minimally elevated at 2.1 -She is requiring only minimal oxygen Status: Acute Code(s): R09.02 - Hypoxemia (2) Acute systolic heart failure: -Continue Lasix 40 mg once daily -Not in current exacerbation Status: Acute Code(s): I50.21 - Acute systolic (congestive) heart failure (3) Non-ST elevation myocardial infarction (NSTEMI): -Continue Plavix, statin, beta-melvin -tropnin 1805 baseline, 6 hour 1608, delta -197 -EKG showed deep Q waves in anterior chest leads concerning for anterior wall WA -Also has ST depressions in 1, aVL V5 V6 indicating lateral ischemia -Currently has no complaints of chest pain, shortness of breath -At this point considering her underlying comorbidities, anemia, severe underlying dementia, GI bleed she will not be fully anticoagulated -We will obtain an echocardiogram -Patient is DNR Status: Acute Code(s): I21.4 - Non-ST elevation (NSTEMI) myocardial infarction (4) UTI (urinary tract infection): -Has a history of ESBL E. coli UTIs in the past -Currently on Primaxin -Urine culture shows gram-negative rods Status: Acute Code(s): N39.0 - Urinary tract infection, site not specified (5) Anemia: Anemia is worse Check stool Hemoccult pedning Discontinue heparin subcutaneous Continue Plavix for now Add Protonix twice daily Status: Acute Code(s): D64.9 - Anemia, unspecified (6) PNA (pneumonia): -CT chest showed Hazy groundglass infiltrates in the right greater than left upper lobes likely infectious in etiology. -Cultures so far have been unremarkable -Continue Primaxin Status: Acute Code(s): J18.9 - Pneumonia, unspecified organism (7) GI bleed: -Status post 1 unit PRBC -Hemoglobin today 9.9 -Likely patient has an upper or lower GI bleed, anticoagulation has been held -Unfortunately given her NSTEMI, Plavix has to be continued unless hemoglobin starts to drop more significantly, or she starts to have bloody or black stools -We will continue to monitor hemoglobin Status: Acute Code(s): K92.2 - Gastrointestinal hemorrhage, unspecified Additional A&P Information Underlying advanced dementia. This will impair her ability to understand any invasive treatments. I called and discussed this with her brother who reports he is her contact and nearest relative. I discussed with him the situation. He reports she has had advanced dementia for quite some time. After reviewing the situation with him, she was made allow natural . He reports that this is what she would have wanted considering her underlying dementia. I will continue her behavioral medicine she receives at the nursing facility as this improves her quality of life. This includes antipsychotic as well as Ativan. Chronic kidney disease, appears to be at baseline Diabetes mellitus. Sliding scale insulin will be instituted A multitude of other medical problems, see past medical history Discontinue heparin for DVT prophylaxis secondary to worsening anemia Allow natural If she worsens, family would consider comfort measures. 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
[2019-06-12] MEDS: sodium chloride 0.9% 1,000 ML 75 ML IV (13:34)
[2019-06-12 15:50] VITALS: BP 118/56; PULSE 86; RESP 13; TEMP 36.8; O2SAT 97
[2019-06-12 16:56] LABS: Glucose Point of Care 155 mg/dL (70-110)
[2019-06-12] MEDS: latanoprost 0.005% Op Soln 2.5 mL Btl 1 DROP EYE-BOTH (18:35)
[2019-06-12 20:00] VITALS: BP 153/77; PULSE 88; RESP 13; TEMP 36.8; O2SAT 96
[2019-06-12] MEDS: atorvastatin 40 mg Tablet PO (20:18)
[2019-06-12] MEDS: quetiapine 100 mg Tablet PO (20:18)
[2019-06-12] MEDS: divalproex DR 500 mg Tablet PO (20:18)
[2019-06-12 20:59] LABS: Glucose Point of Care 214 mg/dL (70-110)
--- NOTE | 2019-06-12 21:43 | PC.NURSE ---
Patient turning self in bed. Bed alarm activated. Denies pain at this time. Will monitor.
--- NOTE | 2019-06-12 22:51 | PC.NURSE ---
Patient demanding a carton of milk. This nurse explained to patient that this nurse would like for her to stay away from milk at this time. Patient states, I want some milk and I want it now. Milk given;however, patient brought right back up. Promethazine PO given. Incontinent of large amount of urine. CLC done. Aloe Vera applied to buttocks. Denies any other complaints at this time. Will monitor.
[2019-06-13] VITALS (7 sets, daily range): BP systolic 122–153; BP diastolic 66–86; PULSE 85–90; RESP 13–20; TEMP 36.5–36.8; O2SAT 92–97
--- NOTE | 2019-06-13 00:29 | PC.NURSE ---
Repositioned patient to left side. Incontinent of urine. Reshma care performed. Denies pain or nausea at this time. Will monitor.
[2019-06-13] MEDS: sodium chloride 0.9% 1,000 ML 75 ML IV (03:51)
--- NOTE | 2019-06-13 05:08 | PC.NURSE ---
Patient complaining of SCD's. This nurse explained to patient why she needed to wear the SCD's. Voices understanding; however, states, They still hurt. This nurse asked patient if she would agree to wear them for 2 hours and then take them off for 2 hours. Patient in agreement with this. Will monitor.
[2019-06-13 05:10] LABS: Basophils % 0.6 %; Eosinophils # 0.3 10^3/uL (0.0-0.8); Eosinophils % 5.2 %; Hematocrit 33.7 % (37.0-47.0); Hemoglobin 10.8 g/dL (11.5-15.3); Lymphocytes % 21.3 %; Mean Corpuscular Hemoglobin 31.8 pg (28.0-34.0); Mean Corpuscular Volume 99.1 fL (81-99); Mean Platelet Volume 9.2 fL (7.4-10.4); Monocytes # 0.5 10^3/uL (0.2-0.9); Monocytes % 10.7 %; Nucleated Red Blood Cells % 0 %; Platelet Count 210 10^3/cmm (130-400); Red Cell Distribution Width 13.1 % (12.1-15.1); White Blood Count 4.8 10^3/uL (4.0-10.0)
[2019-06-13 05:30] LABS: Alanine Aminotransferase < 5 U/L (0-33); Albumin Level 2.7 g/dL (3.5-5.2); Alkaline Phosphatase 76 IU/L (35-105); Anion Gap 18.3 (5-19); Aspartate Amino Transferase 11 U/L (0-32); Blood Urea Nitrogen 42 mg/dL (8-23); Calcium 9.2 mg/dL (8.5-10.5); Carbon Dioxide 21 mmol/L (22-29); Chloride 101 mmol/L (98-107); Globulin 4.1 g/dL (1.3-4.6); Glucose 212 mg/dL (65-115); Magnesium 2.2 mg/dL (1.7-2.3); Osmolality Calculated 288 mOsm/kg (285-295); Phosphorus 3.5 mg/dL (2.5-4.5); Potassium 3.3 mmol/L (3.5-5.1); Sodium 137 mmol/L (136-145); Total Bilirubin 0.3 mg/dL (0.15-1.2); Total Protein 6.8 g/dL (6.6-8.7)
[2019-06-13 06:29] LABS: Glucose Point of Care 205 mg/dL (70-110)
[2019-06-13] MEDS: FUROsemide 40 mg Tablet PO (07:18)
[2019-06-13] MEDS: pantoprazole DR 40 mg Tablet PO ×2 (08:23→17:33)
[2019-06-13] MEDS: clopidogrel 75 mg Tablet PO (08:23)
[2019-06-13] MEDS: quetiapine 25 mg Tablet PO (08:23)
[2019-06-13] MEDS: isosorbide dinitrate 20 mg Tablet PO (08:23)
[2019-06-13] MEDS: divalproex DR 250 mg Tablet PO (08:23)
[2019-06-13] MEDS: venlafaxine ER (24HR) 75 mg Capsule PO (08:23)
[2019-06-13] MEDS: tamsulosin 0.4 mg Capsule PO (08:23)
[2019-06-13 11:37] LABS: Glucose Point of Care 160 mg/dL (70-110)
--- NOTE | 2019-06-13 12:02 | USCV_ITS ---
Perla Roque Age: 74 Gender: F : 1945 Exam Date: 06/13/2019 15:44 Ordering Phys: William Olivarez MD Technologist: Buffy Lima Exam Location: [facility] [place] Indication: SOB BP: 125 / 66 HR: 88 Rhythm: Sinus Technical Quality: Technically difficult study MEASUREMENTS (Male / Female) Normal Values 2D ECHO LV Diastolic Diameter PLAX 4.8 cm 4.2 - 5.9 / 3.9 - 5.3 cm LV Systolic Diameter PLAX 3.8 cm LV Chamber Size 3.9 cm IVS Diastolic Thickness 1.5 cm 0.6 - 1.0 / 0.6 - 0.9 cm IVS Systolic Thickness 2.0 cm LVPW Diastolic Thickness 1.4 cm 0.6 - 1.0 / 0.6 - 0.9 cm LVPW Systolic Thickness 1.1 cm RV Chamber Size 1.8 cm LVOT Diameter 2.0 cm LV Ejection Fraction 2D Teich 42.3 % LA Diameter 4.5 cm LA Width 2.6 cm LA Height 4.0 cm RA Width 1.8 cm RA Height 3.9 cm Aorta at Sinotubular Diameter 2.3 cm M-MODE LV Diastolic Diameter MM 6.3 cm 4.2 - 5.9 / 3.9 - 5.3 cm LV Systolic Diameter MM 5.2 cm LV Ejection Fraction MM Teich 34.3 % IVS Diastolic Thickness MM 1.9 cm 0.6 - 1.0 / 0.6 - 0.9 cm IVS Systolic Thickness MM 1.8 cm LVPW Diastolic Thickness MM 1.0 cm 0.6 - 1.0 / 0.6 - 0.9 cm LVPW Systolic Thickness MM 1.2 cm Aortic Annulus Diameter 3.4 cm LA Ao Ratio MM 1.3 MV E Point Septal Separation 0.6 cm DOPPLER AV Peak Velocity 84.0 cm/s LVOT Peak Velocity 62.0 cm/s AV Area Cont Eq vti 3.0 cm squared AV Area Cont Eq pk 2.3 cm squared MV Area PHT 4.0 cm squared Mitral E to A Ratio 0.8 MV E' Velocity 4.0 cm/s Mitral E to MV E' Ratio 18.1 Mitral E to LV E' Lateral Ratio 19.0 Mitral E to LV E' Septal Ratio 17.7 TV Peak E Velocity 68.0 cm/s Right Atrial Pressure 3.0 mmHg PV Peak Velocity 65.0 cm/s RV Acceleration Time 0.1 s RV Ejection Time 0.2 s RV AcT/ET 0.4 FINDINGS Left Ventricle Normal left ventricular cavity size. Normal left ventricular wall thickness. Moderately decreased left ventricular systolic function. Grade I/IV diastolic dysfunction (abnormal relaxation filling pattern), normal to mildly elevated filling pressures. Left ventricular ejection fraction is estimated at 35-40 %. Right Ventricle Normal right ventricular size and systolic function. Normal right ventricular systolic pressure. Right Atrium The right atrium is normal in size. Left Atrium Mildly increased left atrial size. Mitral Valve Mitral valve not well visualized. Aortic Valve Aortic valve not well visualized. No aortic valve stenosis. Tricuspid Valve Tricuspid valve not well visualized. Pulmonic Valve Pulmonic valve not well visualized. Pericardium Normal pericardium without effusion. Aorta Normal ascending aorta dimension. CONCLUSIONS Normal left ventricular cavity size. Normal left ventricular wall thickness. Moderately decreased left ventricular systolic function. Grade I/IV diastolic dysfunction (abnormal relaxation filling pattern), normal to mildly elevated filling pressures. Left ventricular ejection fraction is estimated at 35-40 %. Mildly increased left atrial size. Technically limited study. No significant valve abnormalities. From the previous study dated 12/13/2017, there has been no change Dr. Lorenzo Garcia MD (Electronically Signed) Final Date: 14 June 2019 10:54 S
--- NOTE | 2019-06-13 14:09 | XRR_ITS ---
PROCEDURE INFORMATION: Exam: XR Chest, 1 View Exam date and time: 06/13/2019 2:11 PM Age: 74 years old Clinical indication: Device placement; Picc; Additional info: Picc line placement TECHNIQUE: Imaging protocol: XR of the chest Views: 1 view. COMPARISON: CR XR chest 1V portable [id number] 06/11/2019 6:09 AM FINDINGS: Lungs: Diffuse parenchymal densities are noted throughout the right lung consistent with pulmonary edema. Pleural space: Bilateral lower lobe pleural effusions. No pneumothorax. Heart/Mediastinum: Unremarkable. No cardiomegaly. Bones/joints: Unremarkable. A PICC line is present on the right side extending into the SVC. XR/XR chest 1V portable [id number] IMPRESSION: Right hilar pulmonary edema Bilateral lower lobe pleural effusions Right side PICC line extends to the SVC
--- NOTE | 2019-06-13 16:25 | PM.PN ---
Subjective Subjective: Interval history: This morning patient is alert oriented x3, is quite cheerful, states that she enjoyed the grapes and pineapples that she had for lunch, she is answering all questions appropriately I spoke to the alf, patient makes her own decisions, only family members listed as a trampoline team coach, and her brother. I discussed with the patient her hospital course, her pneumonia, ESBL E. coli UTI, her new NSTEMI, voiced understanding, all questions answered In terms of her ESBL E. coli UTI, in my opinion the best course of action would be a PICC line placement with IV antibiotics, Primaxin for at least 14 days, as she came in with sepsis and altered mental status concerning for UTI. The other option would be suboptimal treatment with oral antibiotics for 14 days, with the risk of recurrence of the infection. I discussed the risks and benefits of a PICC line placement, patient voiced understanding, all questions answered. Patient agreed to PICC line placement with IV antibiotics for the next 14 days. I spoke to patient about her NSTEMI, we are currently medically managing, currently on Plavix only due to concerns of GI bleed, she does not want aggressive interventions, okay with intervention so far, cardiac echocardiogram ordered, 1 stents available, will discuss with cardiology for outpatient follow-up. Patient voiced understanding, all questions answered. Vitals/I&O/Wt Last Vital Signs Temp 98.3 F 06/13/19 03:53 Pulse 85 06/13/19 15:25 Resp 17 06/13/19 15:25 BP 146/67 06/13/19 15:25 Pulse Ox 97 06/13/19 11:32 06/13/19 06/13/19 06/13/19 06:59 14:59 22:59 Intake Total 1390 / 1930 280 / 280 Output Total 100 / 100 Balance 1290 / 1830 280 / 280 Weight last 48 hrs Weight 81.329 kg Weight 80.83 kg Physical Exam Const: COMMON NORMALS: no apparent distress and oriented x3 HENMT: COMMON NORMALS: normocephalic HEAD & SCALP: normocephalic Neck/C-Spine: COMMON NORMALS: no JVD Resp: COMMON NORMALS: normal respiratory effort, no retractions, no use of accessory muscles and clear to auscultation bilaterally AUSCULTATION: clear to auscultation bilaterally Cardio: COMMON NORMALS: no JVD, regular rate, regular rhythm, S1 normal heart sound and S2 normal heart sound RATE: regular rate RHYTHM: regular rhythm HEART SOUNDS: S1 normal and S2 normal GI: COMMON NORMALS: normal to inspection, nondistended, normoactive bowel sounds, soft to palpation, non-tender, no hepatosplenomegaly, no masses and no bruits PALPATION: Yes soft and Yes no hepatosplenomegaly Extremity: COMMON NORMALS: normal capillary refill, no clubbing, cyanosis or edema, no calf tenderness and no pedal edema Neuro: COMMON NORMALS: oriented x3 Psych: COMMON NORMALS: mental status grossly normal Urinary Catheter Management^: Regan: Cath Placed During This Visit: yes Urinary Catheter Date of Insertion: 06/09/19 Urinary Catheter Time of Insertion: 18:56 Data : 06/13/19 04:29 06/13/19 04:29 Micro: Microbiology 06/09/19 18:13 Urine Culture - Final Urine,Clean Catch Escherichia coli esbl A&P Assessment and plan (1) Hypoxia: -Acute hypoxic respiratory failure secondary to pulmonary edema and acute systolic heart failure -On Lasix 40 mg once daily -Creatinine is minimally elevated at 2.0 -She is requiring only minimal oxygen Status: Acute Code(s): R09.02 - Hypoxemia (2) Acute systolic heart failure: -Continue Lasix 40 mg once daily -Not in current exacerbation Status: Acute Code(s): I50.21 - Acute systolic (congestive) heart failure (3) Non-ST elevation myocardial infarction (NSTEMI): -Continue Plavix, statin, beta-melvin -tropnin 1805 baseline, 6 hour 1608, delta -197 -EKG showed deep Q waves in anterior chest leads concerning for anterior wall IA -Also has ST depressions in 1, aVL V5 V6 indicating lateral ischemia -Currently has no complaints of chest pain, shortness of breath -At this point considering her underlying comorbidities, anemia, severe underlying dementia, GI bleed she will not be fully anticoagulated -We will obtain an echocardiogram -Patient is is now full code Status: Acute Code(s): I21.4 - Non-ST elevation (NSTEMI) myocardial infarction (4) UTI (urinary tract infection): -Has a history of ESBL E. coli UTIs in the past, currently ESBL E. coli -Currently on Primaxin -PICC line will be placed for Primaxin for 14 days Status: Acute Code(s): N39.0 - Urinary tract infection, site not specified (5) Anemia: Anemia is stable at 10.8 Check stool Hemoccult pedning Discontinue heparin subcutaneous Continue Plavix for now Add Protonix twice daily Status: Acute Code(s): D64.9 - Anemia, unspecified (6) PNA (pneumonia): -CT chest showed Hazy groundglass infiltrates in the right greater than left upper lobes likely infectious in etiology. -Cultures so far have been unremarkable -Continue Primaxin Status: Acute Code(s): J18.9 - Pneumonia, unspecified organism (7) GI bleed: -Status post 1 unit PRBC -Hemoglobin today 9.9 -Likely patient has an upper or lower GI bleed, anticoagulation has been held -Unfortunately given her NSTEMI, Plavix has to be continued unless hemoglobin starts to drop more significantly, or she starts to have bloody or black stools -We will continue to monitor hemoglobin Status: Acute Code(s): K92.2 - Gastrointestinal hemorrhage, unspecified Additional A&P Information She has underlying dementia, is blind, perhaps with her sepsis secondary to UTI she had delirium, but this morning it was alert oriented x3, answers all questions appropriately, understands her current hospitalization, understands the risks and benefits, can make her own decisions for now, will keep her brother updated -Patient wants to care change her CODE STATUS full code Chronic kidney disease, appears to be at baseline Diabetes mellitus. Sliding scale insulin will be instituted A multitude of other medical problems, see past medical history Discontinue heparin for DVT prophylaxis secondary to worsening anemia Full code Attestations Medical Necessity Statement*: Patient requires continued hospitalization for ESBL E. coli UTI Coding Level of Care Code Acute Public Health Epidemiologist for [facility] Fwd Diagnoses Hypoxia R09.02 Acute systolic heart failure I50.21 Non-ST elevation myocardial infarction (NSTEMI) I21.4 UTI (urinary tract infection) N39.0 Anemia D64.9 PNA (pneumonia) J18.9 GI bleed K92.2
[2019-06-13 17:03] LABS: Glucose Point of Care 202 mg/dL (70-110)
[2019-06-13] MEDS: latanoprost 0.005% Op Soln 2.5 mL Btl 1 DROP EYE-BOTH (17:35)
--- NOTE | 2019-06-13 18:10 | PC.NURSE ---
imipenin retimed...due to iv infiltrated..and had to wait until pick line was put in to administer dose.
[2019-06-13] MEDS: HYDROcodone-acetaminophen 5-325 mg Tablet 1 TAB PO (20:13)
[2019-06-13] MEDS: quetiapine 100 mg Tablet PO (20:14)
[2019-06-13] MEDS: atorvastatin 40 mg Tablet PO (20:14)
[2019-06-13] MEDS: divalproex DR 500 mg Tablet PO (20:14)
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
[2019-06-13 20:40] LABS: Glucose Point of Care 185 mg/dL (70-110)
[2019-06-13] MEDS: LORazepam 2 mg/mL INJ 1 mL 0.5 MG IVP (22:35)
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
--- NOTE | 2019-06-14 00:19 | PC.NURSE ---
Patient refusing to let staff turn her except for once thus far this shift. Will continue to try. Refuses SCD's. Will monitor.l
[2019-06-14 04:00] VITALS: BP 135/72; PULSE 84; RESP 16; TEMP 36.4; O2SAT 95
[2019-06-14] MEDS: sodium chloride 0.9% 1,000 ML 75 ML IV (04:03)
--- NOTE | 2019-06-14 05:12 | PC.NURSE ---
Requesting staff leave her alone. This nurse went in to draw blood from PICC line. Patient states, Why in the hell can't you leave me alone? This nurse explained to patient that I was attempting to draw blood from PICC line so she wouldn't have to be stuck with another needle. Patient states, Well hell....go ahead...might as well. Labs drawn from PICC line. Patient covers her face up with covers. (This is normal for her). Will monitor.
[2019-06-14 05:19] LABS: Basophils % 0.4 %; Eosinophils # 0.4 10^3/uL (0.0-0.8); Eosinophils % 7.9 %; Hematocrit 30.1 % (37.0-47.0); Hemoglobin 9.7 g/dL (11.5-15.3); Lymphocytes # 1.6 10^3/uL (0.8-4.8); Lymphocytes % 29.6 %; Mean Corpuscular HGB Conc 32.2 g/dL (30.0-36.0); Mean Corpuscular Volume 99.3 fL (81-99); Mean Platelet Volume 9.1 fL (7.4-10.4); Monocytes # 0.7 10^3/uL (0.2-0.9); Monocytes % 12.4 %; Neutrophils # 2.7 10^3/uL (1.8-7.7); Neutrophils % 49.5 %; Nucleated Red Blood Cells % 0 %; Platelet Count 191 10^3/cmm (130-400); Red Blood Count 3.03 10^6/uL (4.1-5.3); Red Cell Distribution Width 13.3 % (12.1-15.1); White Blood Count 5.3 10^3/uL (4.0-10.0)
[2019-06-14 05:46] LABS: Alanine Aminotransferase < 5 U/L (0-33); Albumin Level 2.7 g/dL (3.5-5.2); Alkaline Phosphatase 68 IU/L (35-105); Anion Gap 14.6 (5-19); Aspartate Amino Transferase 11 U/L (0-32); Blood Urea Nitrogen 36 mg/dL (8-23); Calcium 9.1 mg/dL (8.5-10.5); Carbon Dioxide 26 mmol/L (22-29); Chloride 103 mmol/L (98-107); Globulin 3.4 g/dL (1.3-4.6); Glucose 163 mg/dL (65-115); Osmolality Calculated 291 mOsm/kg (285-295); Phosphorus 3.6 mg/dL (2.5-4.5); Potassium 3.6 mmol/L (3.5-5.1); Sodium 140 mmol/L (136-145); Total Bilirubin 0.2 mg/dL (0.15-1.2); Total Protein 6.1 g/dL (6.6-8.7)
[2019-06-14 06:09] LABS: Glucose Point of Care 156 mg/dL (70-110)
[2019-06-14] MEDS: FUROsemide 40 mg Tablet PO (07:39)
[2019-06-14 07:48] VITALS: BP 139/73; PULSE 82; RESP 16; TEMP 36.8; O2SAT 99
[2019-06-14] MEDS: venlafaxine ER (24HR) 75 mg Capsule PO (08:59)
[2019-06-14] MEDS: tamsulosin 0.4 mg Capsule PO (08:59)
[2019-06-14] MEDS: pantoprazole DR 40 mg Tablet PO (08:59)
[2019-06-14] MEDS: quetiapine 25 mg Tablet PO (09:00)
[2019-06-14] MEDS: isosorbide dinitrate 20 mg Tablet PO (09:00)
[2019-06-14] MEDS: clopidogrel 75 mg Tablet PO (09:00)
[2019-06-14] MEDS: divalproex DR 250 mg Tablet PO (09:38)
[2019-06-14] MEDS: HYDROcodone-acetaminophen 5-325 mg Tablet 1 TAB PO (09:45)
[2019-06-14 11:40] LABS: Glucose Point of Care 155 mg/dL (70-110)
[2019-06-14 12:00] VITALS: BP 90/54; PULSE 81; RESP 16; TEMP 36.2; O2SAT 91
[2019-06-14 12:30] VITALS: BP 90/54; PULSE 81; RESP 16; TEMP 36.2; O2SAT 91
--- NOTE | 2019-06-14 12:48 | DCPLANNER ---
Pg 2 of IM updated and reviewed with pt. No questions, copy provided.
--- NOTE | 2019-06-14 15:15 | PC.CHAP ---
Pastoral Care Encounter/Spiritual Assessment Type of Contact [] Declined child support officer visit [] Patient/Family/Request visit [] Outpatient visit [] Follow-up visit [] Physician referral [] Code/Alert [x] Routine visit [] Staff referral [] Actively dying [] Patient sleeping [] Family support [] [] Out of room [] Palliative care [] [] Receiving care in room [] Pre-surgical visit [] Trauma [] Long length of stay [x] ICU visit [] Other: Relational/Emotional Strength [] Patient feels connected with others/family/visitors/staff [] Distress [] Loneliness/isolation [] Abandonment Spirituality of Patient [] Person of Ivonne [] Attends Roman Catholic of their Ivonne [] Believes in Prayer [] Reads Bible or Latter-Day materials [] There are Spiritual issues to be addressed Raise Miner Interventions [] Prayer [] Active listening [] Non-anxious presence [] Spiritual/emotional support [] Crisis/trauma care [] Spiritual counseling [] Bereavement support [] Provided bereavement packet [] Provided Bible/devotional materials [] Provided toy/stuffed animal, coloring book to patient or family member [] Provided Communion [] Anointing/[place] [] Salvation [] Completed spiritual assessment [] Other: Impact on Illness or Injury [] Angry [] Fearful [] Anxious [] Often cries [] Exhaustion [] Unable to work [] Unable to attend alevism [] Unable to walk/stand [] Unable to read [] Unable to drive [] Unable to eat/drink [] Unable to sleep [] Unable to be with family [] Patient intubated [] Other: isolation Summary Patient was under precautions at the time of child support officer visit. Visit was attempted by Raise Minerkody Gruber. Time spent with patient 3 minutes
[2019-06-14 15:57] VITALS: BP 131/67; PULSE 84; RESP 16; TEMP 36.7; O2SAT 92
--- NOTE | 2019-06-14 18:28 | PM.DCS ---
Discharge Providers Date of Admission: 06/09/19 18:06 Date of Discharge: June 14, 2019 Attending Provider at Admission: Boubacar Mcmullen MD Attending Provider at Discharge: William Olivarez MD Primary Care Provider: Kamlesh Stevens Diagnoses at Discharge Discharge Diagnosis (1) Hypoxia: Status: Acute (2) Acute systolic heart failure: Status: Acute (3) Non-ST elevation myocardial infarction (NSTEMI): Status: Acute (4) UTI (urinary tract infection): Status: Acute (5) Anemia: Status: Acute (6) PNA (pneumonia): Status: Acute (7) GI bleed: Status: Acute Reason for Visit Reason for Visit: Reason For Visit: SHORT OF BREATH Hospital Course Discharge Summary: Perla Roque is a 74 year old female who presents to the hospital from her intermediate with history of dyspnea, temperature of 100.2, concerns for UTI Patient was admitted for acute hypoxic respiratory failure secondary to pulmonary edema, systolic heart failure, pneumonia, received IV antibiotics, diuretic therapy, improved. On discharge, required room air, discharged on Lasix therapy, IV antibiotics for ESBL E. coli UTI as below, with close follow-up with her physician as outpatient. Patient was found to have altered mental status secondary to ESBL E. coli UTI, PICC line was placed, and patient will receive a total 14 days of IV antibiotics, remaining 8 days of Invanz. Patient was also found to have a non-ST elevation myocardial infarct on admission, elevated troponins, with EKG showing deep Q waves in anterior chest leads, ST depressions in 1, aVL, V5 V6, but patient was asymptomatic. Echocardiogram had no wall motion abnormalities, due to patient's underlying coronary disease, anemia, severe underlying dementia, GI bleed, anticoagulation and antiplatelet therapy were minimized. Echocardiogram showed grade 1 out of 4 diastolic dysfunction, left ventricle ejection fraction 35 to 40%, compared to echo on 12/18/2017, no apparent change. Due to patient's present concerns of GI bleed, she was discharged on only Plavix, KLAUDIA inhibitor, beta-melvin. With close follow-up with cardiology as outpatient. During patient's admission she was also found to have a GI bleed, hemoglobin is low 7.8, status post 1 unit PRBC, discharged on Protonix 40 twice daily, with a follow-up with general surgery as outpatient. intermediate was also advised to monitor for bloody stools, monitor hemoglobin. At baseline patient has dementia, is blind, had episodes of confusion during her admission, at one point she could not make decisions for herself, so her brother made decisions for her, however in the last 72 hours before discharge, patient was alert oriented x3, answers all questions appropriately, wanted to remain a full code, wanted all interventions for her ESBL E. coli UTI including the PICC line, IV antibiotics, and wanted medical interventions for her non-ST elevation myocardial infarct. Wanted all interventions for a GI bleed. Physical Exam Const: COMMON NORMALS: no apparent distress and oriented x3 HENMT: COMMON NORMALS: normocephalic HEAD & SCALP: normocephalic Neck/C-Spine: COMMON NORMALS: no JVD Resp: COMMON NORMALS: normal respiratory effort, no retractions, no use of accessory muscles and clear to auscultation bilaterally AUSCULTATION: clear to auscultation bilaterally Cardio: COMMON NORMALS: no JVD, regular rate, regular rhythm, S1 normal heart sound and S2 normal heart sound RATE: regular rate RHYTHM: regular rhythm HEART SOUNDS: S1 normal and S2 normal GI: COMMON NORMALS: normal to inspection, nondistended, normoactive bowel sounds, soft to palpation, non-tender, no hepatosplenomegaly, no masses and no bruits PALPATION: Yes soft and Yes no hepatosplenomegaly Extremity: COMMON NORMALS: normal capillary refill, no clubbing, cyanosis or edema, no calf tenderness and no pedal edema Neuro: COMMON NORMALS: oriented x3 Psych: COMMON NORMALS: mental status grossly normal Urinary Catheter Management^: Regan: Cath Placed During This Visit: yes Urinary Catheter Date of Insertion: 06/09/19 Urinary Catheter Time of Insertion: 18:56 Discharge Data Data Completed and Pending: Completed Studies During Hospitalization Category Date Time Status CT chest wo con 7 1250 Routine Cat Scan 06/11/19 07:44 Completed XR chest 1V carroll ble [id number] Routine Exams 06/11/19 07:57 Completed XR chest 1V carroll ble [id number] Routine Exams 06/13/19 14:09 Completed XR chest 1V carroll ble [id number] Stat Exams 06/09/19 15:18 Completed CV echo complete* [id number] Stat Ultrasound 06/13/19 12:02 Completed Pending at discharge Category Date Time Status Arterial Blood Ga s Full Routine Lab 06/09/19 15:32 Received Labs from last 24 hours 06/14/19 06/14/19 06/14/19 11:03 06:00 04:45 WBC RBC Hgb Hct MCV MCH MCHC RDW Plt Count MPV Neut % (Auto) Lymph % (Auto) Rincon % (Auto) Eos % (Auto) Baso % (Auto) Neut # (Auto) Lymph # (Auto) Rincon # (Auto) Eos # (Auto) Baso # (Auto) Nucleated RBC % (a uto) Nucleated RBCs # Sodium 140 Potassium 3.6 Chloride 103 Carbon Dioxide 26 Anion Gap 14.6 BUN 36 H Creatinine 1.8 H Glucose 163 H POC Glucose 155 156 Calculated Osmolal ity 291 Calcium 9.1 Phosphorus 3.6 Magnesium 2.0 Total Bilirubin 0.2 AST 11 ALT < 5 Alkaline Phosphata se 68 Total Protein 6.1 L Albumin 2.7 L Globulin 3.4 06/14/19 06/13/19 04:45 20:25 WBC 5.3 RBC 3.03 L Hgb 9.7 L Hct 30.1 L MCV 99.3 H MCH 32.0 MCHC 32.2 RDW 13.3 Plt Count 191 MPV 9.1 Neut % (Auto) 49.5 Lymph % (Auto) 29.6 Rincon % (Auto) 12.4 Eos % (Auto) 7.9 Baso % (Auto) 0.4 Neut # (Auto) 2.7 Lymph # (Auto) 1.6 Rincon # (Auto) 0.7 Eos # (Auto) 0.4 Baso # (Auto) 0.0 Nucleated RBC % (a uto) 0 Nucleated RBCs # 0.0 Sodium Potassium Chloride Carbon Dioxide Anion Gap BUN Creatinine Glucose POC Glucose 185 Calculated Osmolal ity Calcium Phosphorus Magnesium Total Bilirubin AST ALT Alkaline Phosphata se Total Protein Albumin Globulin Vitals: Last Vital Signs Temp 98.0 F 06/14/19 15:57 Pulse 84 06/14/19 15:57 Resp 16 06/14/19 15:57 BP 131/67 06/14/19 15:57 Pulse Ox 92 06/14/19 15:57 Discharge Plan Discharge Patient Disposition: Xfer SNF Condition: Stable Prescriptions: New atorvastatin 40 mg Tablet 40 mg PO BEDTIME 30 Days Qty: 30 RF: 0 pantoprazole 40 mg Tablet,Delayed Release (Dr/Ec) 40 mg PO BID 30 Days Qty: 60 RF: 0 ertapenem 1 gram recon soln 500 mg IV DAILY 8 Days Qty: 10 RF: 0 lisinopril 5 mg tablet 5 mg PO DAILY 30 Days Qty: 30 RF: 0 Continued Seroquel 25 mg Tablet 25 mg PO DAILY RF: 0 Xalatan 0.005 % Drops 1 drp OPHTHALMIC (EYE) QPM RF: 0 acetaminophen 325 mg Tablet 650 mg PO QID PRN (Reason: Pain) RF: 0 Depakote 250 mg Tablet,Delayed Release (Dr/Ec) 250 mg PO DAILY RF: 0 nystatin 100,000 unit/gram Ointment 1 applic TOPICAL BID RF: 0 hydrocodone-acetaminophen 5-325 mg Tablet 1 tab PO Q6H PRN (Reason: Pain) RF: 0 venlafaxine 25 mg Tablet 25 mg PO DAILY RF: 0 Poly-Iron 150 mg iron Capsule 150 mg PO DAILY RF: 0 loperamide 2 mg Tablet 2 mg PO Q6H PRN (Reason: Diarrhea) RF: 0 Plavix 75 mg Tablet 75 mg PO DAILY RF: 0 Depakote 500 mg Tablet,Delayed Release (Dr/Ec) 500 mg PO BEDTIME RF: 0 Seroquel 100 mg Tablet 100 mg PO BEDTIME RF: 0 triamcinolone acetonide 0.1 % Cream 1 applic TOPICAL QID RF: 0 Ativan 0.5 mg Tablet 0.5 mg PO Q6H PRN (Reason: Anxiety) RF: 0 Milk of Magnesia 400 mg/5 mL Suspension 30 ml PO DAILY PRN (Reason: Constipation) RF: 0 Flomax 0.4 mg Capsule 0.4 mg PO DAILY RF: 0 Dulcolax (bisacodyl) 10 mg Suppository 10 mg DC DAILY PRN (Reason: Constipation) RF: 0 promethazine 25 mg Tablet 25 mg PO Q6H PRN (Reason: Nausea) RF: 0 Nitrostat 0.4 mg Tablet, Sublingual 0.4 mg SUBLINGUAL Q5M PRN (Reason: Chest Pain) RF: 0 Vitamin C 500 mg Capsule, Extended Release 500 mg PO DAILY RF: 0 docusate sodium 100 mg Capsule 100 mg PO BID RF: 0 Novolin R Flexpen 100 unit/mL (3 mL) Insulin Pen See Rx Instructions .ROUTE .COMPLEX RF: 0 Novolin N Flexpen 100 unit/mL (3 mL) Insulin Pen 10 unit SUBCUT DAILY RF: 0 metoprolol tartrate 25 mg Tablet 12.5 mg PO BID RF: 0 senna 8.6 mg Capsule 8.6 mg PO BID PRN (Reason: Constipation) RF: 0 brimonidine 0.1 % Drops 1 drp OPHTHALMIC (EYE) TID RF: 0 Vitamin D3 2,000 unit Tablet 1,000 unit PO DAILY RF: 0 28 mg iron- 800 mcg Tablet 1 tab PO DAILY RF: 0 Changed isosorbide dinitrate 10 mg Tablet 20 mg PO DAILY Qty: 0 RF: 0 Lasix 20 mg Tablet 40 mg PO DAILY Qty: 0 RF: 0 Discontinued simvastatin 20 mg Tablet 20 mg PO BEDTIME RF: 0 Discharge Orders: Discharge Order (Routine); Ordered 06/14/19 Ordered By: William Olivarez Other Ambulatory Orders: Complete Blood Count w/Auto (DAILY) Timeframe: 20190615 Location: Determined by Patient Ordered By: William Olivarez Complete Blood Count w/Auto (DAILY) Timeframe: 20190616 Location: Determined by Patient Ordered By: William Olivarez Complete Blood Count w/Auto (DAILY) Timeframe: 20190617 Location: Determined by Patient Ordered By: William Olivarez Complete Blood Count w/Auto (DAILY) Timeframe: 20190618 Location: Determined by Patient Ordered By: William Olivarez Complete Blood Count w/Auto (DAILY) Timeframe: 20190619 Location: Determined by Patient Ordered By: William Olivarez Complete Blood Count w/Auto (DAILY) Timeframe: 20190620 Location: Determined by Patient Ordered By: William Olivarez Complete Blood Count w/Auto (DAILY) Timeframe: 20190621 Location: Determined by Patient Ordered By: William Olivarez Comprehensive Metabolic Panel (Routine) Timeframe: 1 Week Facility: [facility] - Location: Lab - Main Lab Ordered By: William Olivarez Referrals: [facility] [Outside] Rodo Galaviz MD [Physician] - 2 weeks (GI bleed) Ana Ontiveros MD [Physician] - 1 week Discharge Diet: Advance as tolerated Discharge Activity: Resume usual activity Patient Instructions: GI Bleeding, Myocardial Infarction (DC), Gastrointestinal Bleeding (DC), Gastrointestinal Bleeding (GEN), Urinary Tract Infection in Women (DC), Extended Spectrum Beta Lactamase (GEN), Post Heart Attack Stoplight Activity Restrictions/Additional Instructions: -please invanz 500mg once daily for 8 days -please take plavix daily -please monitor for bloody stools -monitor hgb -For NSTEMI: plavix, beta melvin, lisinopril, atorvastatin, follow up with cardiology -For GI bleed, monitor for bloody stools, black stools, continue Protonix, monitor hemoglobin -for ARGENIS monior creatinine Discharge Date/Time: 06/14/19 16:41 Discharge Attestations Time Spent in Discharge Care*: less than 30 min Quality Metrics Clinical Quality Measures During this hospital stay, did patient experience: None Coding Level of Care Code Acute 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
[2019-06-17 18:28] LABS: ABG PCO2 32.3 mmHg (35-45); ABG PH Result 7.41 (7.35-7.45); Alveolar-Arterial Oxygen Gradi 89.3 mmHg (5-10); Arterial Blood Gas Hematocrit 31.7 % (37-47); Base Excess ABG -3.8 mmol/L (-2.0-2.0); Blood Gas Allen Test Pos; Blood Gas Sample Site Radial, right; Blood Gas Sample Type Arterial; HCO3 ABG 20.2 mmol/L (22-26); HGB O2 Sat 91.5 % (95-100); Ionized Calcium Level - ABG 1.2 mmol/L (1.1-1.4); Methemoglobin 0.7 % (0.4-1.5); Oxygen Device NC; Oxygen Saturation ABG 93.2; PO2 ABG 66.6 mmHg (80.0-100.0); Potassium Level - ABG 3.3 mmol/L (3.5-5.0); Total Hemoglobin 10.3 g/dL (12-16)
== END 2019-06-14 16:41 | disposition skilled nursing facility (03) | DRG 280 ==
LOC: ER 16:12 → CSU 18:44
PROVIDERS: Admitting Provider Internal Medicine; Emergency Provider Family Medicine; Family Provider Nurse Practitioner Family; PCP Family Medicine; Visit Provider Family Medicine
DX: I21.4 Non-ST elevation (NSTEMI) myocardial infarction (principal); J96.01 Acute respiratory failure with hypoxia; J18.9 Pneumonia, unspecified organism; I50.21 Acute systolic (congestive) heart failure; N39.0 Urinary tract infection, site not specified; K92.2 Gastrointestinal hemorrhage, unspecified; N18.3 Chronic kidney disease, stage 3 (moderate); B96.20 Unspecified Escherichia coli [E. coli] as the cause of diseases classified elsewhere; I25.10 Atherosclerotic heart disease of native coronary artery without angina pectoris; F03.90 Unspecified dementia, unspecified severity, without behavioral disturbance, psychotic disturbance, mood disturbance, and anxiety; E78.5 Hyperlipidemia, unspecified; E11.22 Type 2 diabetes mellitus with diabetic chronic kidney disease; D63.1 Anemia in chronic kidney disease; Z66 Do not resuscitate; E66.9 Obesity, unspecified; Z68.28 Body mass index [BMI] 28.0-28.9, adult; Z87.891 Personal history of nicotine dependence; Z79.82 Long term (current) use of aspirin; Z79.4 Long term (current) use of insulin; Z79.84 Long term (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 of oral hypoglycemic drugs; Z79.51 Long term (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 of inhaled steroids
CPT/HCPCS: 12345; 36415; 36416; 36430; 36569; 36592; 36600; 51702; 71045; 71250; 80048; 80051; 80053; 81001; 82607; 82728; 82810; 82962; 83540; 83550; 83735; 83880; 83986; 84100; 84484; 85025; 86850; 86900; 86920; 87040; 87077; 87086; 87186; 87641; 87804; 93005; 93306; 96372; 96375; 97110; 97161; 97165; 97530; 99283; J0743; J1335; J1644; J1815; J1940; J2060; J3370; J3490; J7030; J7040; J7050; P9016; Q0169

== ENCOUNTER 2019-06-16 10:41 | Inpatient (IN) | payer MEDICARE, MEDICAID, SELFPAY ==
[2019-06-16] VITALS (15 sets, daily range): BP systolic 108–160; BP diastolic 56–99; PULSE 79–88; RESP 14–17; TEMP 36.5–36.6; O2SAT 92–98; BMI 35.5
--- NOTE | 2019-06-16 10:42 | ED_ITS ---
Entered by Jenni Bateman, acting as scribe for Babak Flowers DO HPI - Chest Pain General: Chief Complaint: Chest Pain Stated Complaint: CP Time Seen by Provider: 06/16/19 10:42 Source: patient and EMS Mode of arrival: EMS Limitations: no limitations History of Present Illness: HPI narrative: 74 yo female presents with chest pain. pt is very lethargic. pt has had a cough. pt was recently admitted to the hospital for [facility]stem[facility]. pt denies any other symptoms at this time. complaint: chest pain Onset (ago): day(s) Timing of current episode: still present Prior episodes: Yes Onset: during rest Pain location: substernal Pain radiation: none Severity: mild Relieving factors: nothing Exacerbating factors: nothing Associated symptoms: Reports nausea and other (cough) Treatment prior to arrival: none Review of Systems General: Reports: 10 or more systems reviewed and unremarkable except in HPI and below Const: Reports: fatigue and other (lethargic) Card: Reports: chest pain Resp: Reports: productive cough GI: Reports: nausea PFSH ED PFSH: Medical History (Updated 06/12/19 @ 12:03 by William Olivarez MD) Anxiety Blindness Chronic kidney disease, stage III (moderate) Chronic pain Coronary artery disease Dementia Depression Diabetes mellitus GERD (gastroesophageal reflux disease) Hyperlipidemia Ischemic cardiomyopathy Obesity Seizure disorder Surgical History (Updated 06/09/19 @ 18:35 by Boubacar Mcmullen MD) H/O hemorrhoidectomy H/O hysterectomy for benign disease H/O knee surgery History of breast biopsy History of cholecystectomy History of hip surgery Stented coronary artery Family History (Updated 06/09/19 @ 18:35 by Boubacar Mcmullen MD) Brother Cancer Colon cancer Social History (Updated 06/09/19 @ 18:36 by Boubacar Mcmullen MD) Smoking and tobacco status: former smoker Alcohol intake: never Physical Exam Const: GENERAL APPEARANCE: lethargic ORIENTATION/CONSCIOUSNESS: Yes lethargic HENMT: MOUTH: moist mucous membranes abnormal Neuro: SENSORIUM/ORIENTATION: Yes lethargic Course Vital Signs: Vital signs: Vital Signs Temperature 97.7 F 06/16/19 10:42 Pulse Rate 82 06/16/19 15:46 Respiratory Rate 16 06/16/19 15:46 Blood Pressure 114/68 03/18/20 15:46 Pulse Oximetry 94 06/16/19 15:46 MDM - Chest Pain Lab Data: Labs: Lab Results 06/16/19 06/16/19 06/16/19 Range/Units 11:09 11:09 11:09 WBC 7.2 (4.0-10.0) 10^3/ uL RBC 3.33 L (4.1-5.3) 10^6/u L Hgb 10.6 L (11.5-15.3) g/dL Hct 32.8 L (37.0-47.0) % MCV 98.5 (81-99) fL MCH 31.8 (28.0-34.0) pg MCHC 32.3 (30.0-36.0) g/dL RDW 13.3 (12.1-15.1) % Plt Count 196 (130-400) 10^3/c mm MPV 8.8 (7.4-10.4) fL Neut % (Auto) 69.6 % Lymph % (Auto) 14.7 % [place] % (Auto) 11.2 % Eos % (Auto) 3.6 % Baso % (Auto) 0.6 % Neut # (Auto) 5.0 (1.8-7.7) 10^3/u L Lymph # (Auto) 1.1 (0.8-4.8) 10^3/u L [place] # (Auto) 0.8 (0.2-0.9) 10^3/u L Eos # (Auto) 0.3 (0.0-0.8) 10^3/u L Baso # (Auto) 0.0 (0.0-0.1) 10^3/u L Nucleated RBC % (a uto) 0 % Nucleated RBCs # 0.0 /100WBC Sodium 137 (136-145) mmol/L Potassium 3.7 (3.5-5.1) mmol/L Chloride 99 (98-107) mmol/L Carbon Dioxide 29 (22-29) mmol/L Anion Gap 12.7 (5-19) BUN 29 H (8-23) mg/dL Creatinine 2.0 H (0.5-0.9) mg/dL Glucose 185 H (65-115) mg/dL Calculated Osmolal ity 286 (285-295) mOsm/k g Calcium 8.9 (8.5-10.5) mg/dL Total Bilirubin 0.3 (0.15-1.2) mg/dL AST 17 (0-32) U/L ALT < 5 (0-33) U/L Alkaline Phosphata se 86 (35-105) IU/L Troponin T Jhonatan e 1523 H* (0-10) ng/mL Troponin T 120 Min [place] (0-10) ng/mL Delta Troponin T (0-10) ABS# NT-Pro-B Natriuret Pep 28616 H (0-125) pg/mL Total Protein 7.1 (6.6-8.7) g/dL Albumin 2.8 L (3.5-5.2) g/dL Globulin 4.3 (1.3-4.6) g/dL Urine Color (Yellow) Urine Appearance (CLEAR) Urine pH (5-7) Ur Specific Gravit y (1.005-1.030) Urine Protein (Negative) Urine Glucose (UA) (Normal) Urine Ketones (Negative) Urine Blood (Negative) Urine Nitrate (Negative) Urine Bilirubin (NEGATIVE) Urine Urobilinogen (Negative) mg/dL Ur Leukocyte Mary ase (Negative) Urine RBC (0-2) /hpf Urine WBC (0-5) /hpf Ur Squamous Epith Cells (0-5) Urine Bacteria (NONE) 06/16/19 06/16/19 Range/Units 11:37 13:15 WBC (4.0-10.0) 10^3/ uL RBC (4.1-5.3) 10^6/u L Hgb (11.5-15.3) g/dL Hct (37.0-47.0) % MCV (81-99) fL MCH (28.0-34.0) pg MCHC (30.0-36.0) g/dL RDW (12.1-15.1) % Plt Count (130-400) 10^3/c mm MPV (7.4-10.4) fL Neut % (Auto) % Lymph % (Auto) % [place] % (Auto) % Eos % (Auto) % Baso % (Auto) % Neut # (Auto) (1.8-7.7) 10^3/u L Lymph # (Auto) (0.8-4.8) 10^3/u L [place] # (Auto) (0.2-0.9) 10^3/u L Eos # (Auto) (0.0-0.8) 10^3/u L Baso # (Auto) (0.0-0.1) 10^3/u L Nucleated RBC % (a uto) % Nucleated RBCs # /100WBC Sodium (136-145) mmol/L Potassium (3.5-5.1) mmol/L Chloride (98-107) mmol/L Carbon Dioxide (22-29) mmol/L Anion Gap (5-19) BUN (8-23) mg/dL Creatinine (0.5-0.9) mg/dL Glucose (65-115) mg/dL Calculated Osmolal ity (285-295) mOsm/k g Calcium (8.5-10.5) mg/dL Total Bilirubin (0.15-1.2) mg/dL AST (0-32) U/L ALT (0-33) U/L Alkaline Phosphata se (35-105) IU/L Troponin T Baselin e (0-10) ng/mL Troponin T 120 Min [place] 1418 H (0-10) ng/mL Delta Troponin T -105 L (0-10) ABS# NT-Pro-B Natriuret Pep (0-125) pg/mL Total Protein (6.6-8.7) g/dL Albumin (3.5-5.2) g/dL Globulin (1.3-4.6) g/dL Urine Color Yellow (Yellow) Urine Appearance Hazy A (CLEAR) Urine pH 5 (5-7) Ur Specific Gravit y 1.015 (1.005-1.030) Urine Protein 2+ H (Negative) Urine Glucose (UA) Norm (Normal) Urine Ketones Negative (Negative) Urine Blood 3+ H (Negative) Urine Nitrate Negative (Negative) Urine Bilirubin Neg (NEGATIVE) Urine Urobilinogen Norm (Negative) mg/dL Ur Leukocyte Mary ase 2+ H (Negative) Urine RBC 0-4 H (0-2) /hpf Urine WBC >100 H (0-5) /hpf Ur Squamous Epith Cells 0-4 H (0-5) Urine Bacteria 1+ H (NONE) Discharge Plan Discharge Prescriptions: No Action quetiapine [Seroquel] 25 mg Tablet 25 mg PO QAM RF: 0 latanoprost [Xalatan] 0.005 % Drops 1 drp OPHTHALMIC (EYE) QPM RF: 0 acetaminophen 325 mg Tablet 650 mg PO Q6H PRN (Reason: Pain) RF: 0 divalproex [Depakote] 250 mg Tablet,Delayed Release (Dr/Ec) 250 mg PO DAILY RF: 0 hydrocodone-acetaminophen 5-325 mg Tablet 1 tab PO Q6H PRN (Reason: Pain) RF: 0 venlafaxine 25 mg Tablet 25 mg PO DAILY RF: 0 polysaccharide iron complex [Poly-Iron] 150 mg iron Capsule 150 mg PO DAILY RF: 0 loperamide 2 mg Tablet 2 mg PO Q6H PRN (Reason: Diarrhea) RF: 0 clopidogrel [Plavix] 75 mg Tablet 75 mg PO DAILY RF: 0 divalproex [Depakote] 500 mg Tablet,Delayed Release (Dr/Ec) 500 mg PO BEDTIME RF: 0 quetiapine [Seroquel] 100 mg Tablet 100 mg PO BEDTIME RF: 0 lorazepam [Ativan] 0.5 mg Tablet 0.5 mg PO Q6H PRN (Reason: Anxiety) RF: 0 magnesium hydroxide [Milk of Magnesia] 400 mg/5 mL Suspension 30 ml PO DAILY PRN (Reason: Constipation) RF: 0 tamsulosin [Flomax] 0.4 mg Capsule 0.4 mg PO DAILY RF: 0 bisacodyl [Dulcolax (bisacodyl)] 10 mg Suppository 10 mg MN DAILY PRN (Reason: Constipation) RF: 0 promethazine 25 mg Tablet 25 mg PO Q6H PRN (Reason: Nausea) RF: 0 nitroglycerin [Nitrostat] 0.4 mg Tablet, Sublingual 0.4 mg SUBLINGUAL Q5M PRN (Reason: Chest Pain) RF: 0 ascorbic acid (vitamin C) [Vitamin C] 500 mg Capsule, Extended Release 500 mg PO DAILY RF: 0 docusate sodium 100 mg Capsule 100 mg PO BID RF: 0 Novolin R Flexpen 100 unit/mL (3 mL) Insulin Pen See Rx Instructions .ROUTE .COMPLEX RF: 0 Novolin N Flexpen 100 unit/mL (3 mL) Insulin Pen 10 unit SUBCUT QAM RF: 0 metoprolol tartrate 25 mg Tablet 12.5 mg PO BID RF: 0 senna 8.6 mg Capsule 8.6 mg PO Q12H PRN (Reason: Constipation) RF: 0 brimonidine 0.1 % Drops 1 drp OPHTHALMIC (EYE) TID RF: 0 cholecalciferol (vitamin D3) [Vitamin D3] 2,000 unit Tablet 1,000 unit PO DAILY RF: 0 PNV cmb#95-ferrous fumarate-FA [] 28 mg iron- 800 mcg Tablet 1 tab PO DAILY RF: 0 atorvastatin 40 mg Tablet 40 mg PO BEDTIME 30 Days Qty: 30 RF: 0 pantoprazole 40 mg Tablet,Delayed Release (Dr/Ec) 40 mg PO BID 30 Days Qty: 60 RF: 0 ertapenem 1 gram recon soln 500 mg IV DAILY 8 Days Qty: 10 RF: 0 isosorbide dinitrate 10 mg Tablet 20 mg PO DAILY Qty: 0 RF: 0 furosemide [Lasix] 20 mg Tablet 40 mg PO DAILY Qty: 0 RF: 0 lisinopril 5 mg tablet 5 mg PO DAILY 30 Days Qty: 30 RF: 0 sodium chloride 0.9 % Solution See Rx Instructions .ROUTE .COMPLEX RF: 0 Coding Level of Care Code ED Law Clerk for Chg Fwd Exam Expanded Problem Focused The documentation recorded by the Fransico ruby Bridget Annette, accurately reflects the service I personally performed and the decisions made by Lionel wylie Donald P, Jun 16, 2019 10:41
--- NOTE | 2019-06-16 11:00 | XR_ITS ---
WS: [id number] XR chest 1V portable [id number] REASON FOR EXAM: dyspnea FINDINGS: Dramatic resolution of the pulmonary edema changes in both lung nath. The PICC line is again seen in good position. There is low-grade infiltrate in the left lower lung. There is borderline cardiomegaly seen. XR/XR chest 1V portable [id number] IMPRESSION: Resolved pulmonary edema Low-grade infiltrate basilar portion left lower lung PICC line in good position. Borderline cardiomegaly.
--- NOTE | 2019-06-16 11:00 | ECG_ITS ---
Measurements Intervals [place] Rate: 86 P: 31 CT: 205 QRS: -26 QRSD: 114 T: 153 QT: 389 QTc: 465 SINUS RHYTHM LEFT VENTRICULAR HYPERTROPHY AND ST-T CHANGE [VOLTAGE CRITERIA PLUS ST/T ABNO ABNORMALITY] ANTERIOR MYOCARDIAL INFARCTION , Old Electronically Signed On 06-17-2019 12:42:30 CDT by Kofi Ontiveros [id number]
[2019-06-16] MEDS: sodium chloride 0.9% 500 ML 999 ML IV (11:12)
[2019-06-16 11:14] LABS: Basophils % 0.6 %; Eosinophils # 0.3 10^3/uL (0.0-0.8); Eosinophils % 3.6 %; Hematocrit 32.8 % (37.0-47.0); Hemoglobin 10.6 g/dL (11.5-15.3); Lymphocytes # 1.1 10^3/uL (0.8-4.8); Lymphocytes % 14.7 %; Mean Corpuscular HGB Conc 32.3 g/dL (30.0-36.0); Mean Corpuscular Hemoglobin 31.8 pg (28.0-34.0); Mean Corpuscular Volume 98.5 fL (81-99); Mean Platelet Volume 8.8 fL (7.4-10.4); Monocytes # 0.8 10^3/uL (0.2-0.9); Monocytes % 11.2 %; Neutrophils % 69.6 %; Nucleated Red Blood Cells % 0 %; Platelet Count 196 10^3/cmm (130-400); Red Blood Count 3.33 10^6/uL (4.1-5.3); Red Cell Distribution Width 13.3 % (12.1-15.1); White Blood Count 7.2 10^3/uL (4.0-10.0)
--- NOTE | 2019-06-16 11:15 | PC.NURSE ---
XR performed at bedside
[2019-06-16 11:38] LABS: Alanine Aminotransferase < 5 U/L (0-33); Albumin Level 2.8 g/dL (3.5-5.2); Alkaline Phosphatase 86 IU/L (35-105); Anion Gap 12.7 (5-19); Aspartate Amino Transferase 17 U/L (0-32); Blood Urea Nitrogen 29 mg/dL (8-23); Calcium 8.9 mg/dL (8.5-10.5); Carbon Dioxide 29 mmol/L (22-29); Chloride 99 mmol/L (98-107); Globulin 4.3 g/dL (1.3-4.6); Glucose 185 mg/dL (65-115); Osmolality Calculated 286 mOsm/kg (285-295); Potassium 3.7 mmol/L (3.5-5.1); Sodium 137 mmol/L (136-145); Total Bilirubin 0.3 mg/dL (0.15-1.2); Total Protein 7.1 g/dL (6.6-8.7)
[2019-06-16 11:39] LABS: NT Pro B Type Natriuretic Pept 24465 pg/mL (0-125)
[2019-06-16 11:45] LABS: Troponin(5th) Baseline 1523 ng/mL (0-10)
[2019-06-16 12:23] LABS: Add Urine Microscopic? YES; Bilirubin Urine Neg (NEGATIVE); Blood Urine 3+ (Negative); Glucose Urine UA Norm (Normal); Ketones Urine Negative (Negative); Leukocyte Esterase Urine 2+ (Negative); Nitrate Urine Negative (Negative); Protein Urine 2+ (Negative); Specific Gravity, Urine 1.015 (1.005-1.030); Urine Appearance Hazy (CLEAR); Urine Color Yellow (Yellow); Urobilinogen Urine Norm (Negative); pH Urine 5 (5-7)
[2019-06-16 12:33] LABS: Add Urine Culture? Yes; Bacteria Urine 1+; RBC Urine 0-4 /hpf (0-2); Squamous Epithelial Cell Urine 0-4 (0-5); WBC Urine >100 /hpf (0-5)
--- NOTE | 2019-06-16 13:00 | ECG_ITS ---
Measurements Intervals [place] Rate: 83 P: 44 HI: 222 QRS: -23 QRSD: 112 T: 154 QT: 397 QTc: 469 SINUS RHYTHM WITH FIRST DEGREE AV BLOCK Old ANTERIOR MYOCARDIAL INFARCTION [40+ ms Q WAVE AND/OR ST/T ABNORMALITY IN V3/V4], PRO Electronically Signed On 06-17-2019 12:46:15 CDT by Kofi Ontiveros [email or web address]
[2019-06-16 13:49] LABS: Troponin 5 2HR 1418 ng/mL (0-10)
[2019-06-16] MEDS: cefTRIAXone 1,000 MG in sodium chloride 0.9% (plus) 50 ML 100 MG IV (14:07)
--- NOTE | 2019-06-16 14:53 | PC.NURSE ---
Spoke with PATIENCE Mcgrath at [facility] and gave update regarding pt admission.
--- NOTE | 2019-06-16 16:12 | PM.HP ---
Providers/Chief Complaint Primary Care Provider: Kamlesh Stevens Chief Complaint: CP History of Present Illness Perla Roque is a 74 year old female is a pleasant 74-year-old female with a past medical history of dementia, legally blind, insulin-dependent type 2 diabetes mellitus, recurrent history of ESBL E. coli UTIs, hypertension, hyperlipidemia, CAD status post stenting in [place] 2 to 3 years ago, systolic heart failure, transient ischemic attack, epilepsy, chronic back pain, chronic migraines, PTSD, anxiety and depression, history of mild to moderate anemia with low level monoclonal gammopathy, CKD stage II-III who presents to [facility] due to complaints of chest pain. According to the senior living at baseline, patient can carry on a conversation, is 1 person assist, can get up with help, uses a walker, can feed herself, she can make her own decisions, she is a full code. Patient was recently discharged from [facility] due to altered mental status secondary to ESBL E. coli UTI, she has been getting Invanz as outpatient. Her admission was also complicated by a NSTEMI, GI bleed, anemia, weakness. According to the senior living, this morning patient has severe substernal chest pain, was given 3 nitros, pain did not improve, so she was brought to the emergency room for further evaluation, for the last few days that she got the hospital, she is been ambulating with assistance, no complaints of shortness of breath, no complaints of chest pain other than the episode today. According to the senior living patient can make her own decisions, she is a full code, and she does not want her brother to make decisions for her. Speaking with the patient this this afternoon, her primary complaint is headache, weakness, fatigue, she she is hungry today, would like to eat something, and her hip has been bothering her, she has a lot of back pain. When prying her further, when I asked why she was here, she said because she has a lot of back pain, a lot of hip pain, and she is really hungry would like to eat something, and her head is hurting her. When I asked her if she had chest pain, she said yes, she this morning she had an episode of substernal chest pain, radiated down her left arm, lasted 10 to 15 minutes, no shortness of breath, no lightheadedness, dizziness, no diaphoresis, no nausea, no vomiting. Patient denies previous history of chest pain. She does state that she has a history of CAD, she was stented sometime in [place] maybe 2 to 3 years ago, but is not exactly sure. Patient is really not concerned with her chest pain today, she really want something for headache and would like to eat something. She states that she also feels really weak, fatigued, tired, would like us to help her with that. Review of Systems Const: Reports: fatigue and malaise; Denies: fever or chills Eyes: Denies: change in vision or blurry vision ENMT: Denies: nasal congestion Card: Reports: chest pain; Denies: irregular heart rhythm, edema or syncope Resp: Denies: shortness of breath, productive cough, non-productive cough or wheezing GI: Denies: abdominal pain, nausea, vomiting, vomiting blood, diarrhea, constipation, blood in stool or black tarry stool : Denies: flank pain, painful urination or urinary frequency Musc: Denies: neck pain or back pain Skin/Breast: Denies: rash Neuro: Denies: headache, dizziness or vertigo Psych: Denies: anxiety or depression Endo: Denies: excessive urination or excessive thirst Medications/Allergies Home Medications Medication Instructions Recorded Confirmed Last Taken Type sodium chloride 0.9 % See Rx Instructions .ROUTE .COMPLEX 06/16/19 06/16/19 06/15/19 History Allergies Allergy/AdvReac Type Severity Reaction Status Date / Time butorphanol [From Stadol] Allergy Unknown Verified 06/09/19 15:21 diphenhydramine Allergy Unknown Verified 06/09/19 15:21 [From Benadryl] indomethacin [From Indocin] Allergy Unknown Verified 06/09/19 15:21 ketorolac [From Toradol] Allergy Unknown Verified 06/09/19 15:21 levofloxacin [From Levaquin] Allergy Unknown Verified 06/09/19 15:21 methazolamide Allergy Unknown Verified 06/09/19 15:21 [From Neptazane] NSAIDS (Non-Steroidal Allergy Unknown Verified 06/09/19 15:21 Anti-Inflamma ondansetron [From Zofran] Allergy Unknown Verified 06/09/19 15:21 Penicillins Allergy Unknown Verified 06/09/19 15:21 prochlorperazine Allergy Unknown Verified 06/09/19 15:21 [From Compazine] Sulfa (Sulfonamide Allergy Unknown Verified 06/09/19 15:21 Antibiotics) sumatriptan [From Imitrex] Allergy Unknown Verified 06/09/19 15:21 tramadol [From Ultram] Allergy Unknown Verified 06/09/19 15:21 Additional Medication Information Additional Medication Information: atorvastatin 40 mg Tablet 40 mg PO BEDTIME 30 Days Qty: 30 RF: 0 pantoprazole 40 mg Tablet,Delayed Release (Dr/Ec) 40 mg PO BID 30 Days Qty: 60 RF: 0 ertapenem 1 gram recon soln 500 mg IV DAILY 8 Days Qty: 10 RF: 0 lisinopril 5 mg tablet 5 mg PO DAILY 30 Days Qty: 30 RF: 0 Seroquel 25 mg Tablet 25 mg PO DAILY RF: 0 Xalatan 0.005 % Drops 1 drp OPHTHALMIC (EYE) QPM RF: 0 acetaminophen 325 mg Tablet 650 mg PO QID PRN (Reason: Pain) RF: 0 Depakote 250 mg Tablet,Delayed Release (Dr/Ec) 250 mg PO DAILY RF: 0 nystatin 100,000 unit/gram Ointment 1 applic TOPICAL BID RF: 0 hydrocodone-acetaminophen 5-325 mg Tablet 1 tab PO Q6H PRN (Reason: Pain) RF: 0 venlafaxine 25 mg Tablet 25 mg PO DAILY RF: 0 Poly-Iron 150 mg iron Capsule 150 mg PO DAILY RF: 0 loperamide 2 mg Tablet 2 mg PO Q6H PRN (Reason: Diarrhea) RF: 0 Plavix 75 mg Tablet 75 mg PO DAILY RF: 0 Depakote 500 mg Tablet,Delayed Release (Dr/Ec) 500 mg PO BEDTIME RF: 0 Seroquel 100 mg Tablet 100 mg PO BEDTIME RF: 0 triamcinolone acetonide 0.1 % Cream 1 applic TOPICAL QID RF: 0 Ativan 0.5 mg Tablet 0.5 mg PO Q6H PRN (Reason: Anxiety) RF: 0 Milk of Magnesia 400 mg/5 mL Suspension 30 ml PO DAILY PRN (Reason: Constipation) RF: 0 Flomax 0.4 mg Capsule 0.4 mg PO DAILY RF: 0 Dulcolax (bisacodyl) 10 mg Suppository 10 mg NM DAILY PRN (Reason: Constipation) RF: 0 promethazine 25 mg Tablet 25 mg PO Q6H PRN (Reason: Nausea) RF: 0 Nitrostat 0.4 mg Tablet, Sublingual 0.4 mg SUBLINGUAL Q5M PRN (Reason: Chest Pain) RF: 0 Vitamin C 500 mg Capsule, Extended Release 500 mg PO DAILY RF: 0 docusate sodium 100 mg Capsule 100 mg PO BID RF: 0 Novolin R Flexpen 100 unit/mL (3 mL) Insulin Pen See Rx Instructions .ROUTE .COMPLEX RF: 0 Novolin N Flexpen 100 unit/mL (3 mL) Insulin Pen 10 unit SUBCUT DAILY RF: 0 metoprolol tartrate 25 mg Tablet 12.5 mg PO BID RF: 0 senna 8.6 mg Capsule 8.6 mg PO BID PRN (Reason: Constipation) RF: 0 brimonidine 0.1 % Drops 1 drp OPHTHALMIC (EYE) TID RF: 0 Vitamin D3 2,000 unit Tablet 1,000 unit PO DAILY RF: 0 28 mg iron- 800 mcg Tablet 1 tab PO DAILY RF: 0 isosorbide dinitrate 10 mg Tablet 20 mg PO DAILY Qty: 0 RF: 0 Lasix 20 mg Tablet 40 mg PO DAILY Qty: 0 RF: 0 PFSH Acute PFSH: Medical History (Updated 06/16/19 @ 16:21 by William Olivarez MD) Anxiety Blindness Chronic kidney disease, stage III (moderate) Chronic pain Coronary artery disease Dementia Depression Diabetes mellitus GERD (gastroesophageal reflux disease) Hyperlipidemia Ischemic cardiomyopathy Obesity Seizure disorder Surgical History (Updated 06/09/19 @ 18:35 by Boubacar Mcmullen MD) H/O hemorrhoidectomy H/O hysterectomy for benign disease H/O knee surgery History of breast biopsy History of cholecystectomy History of hip surgery Stented coronary artery Family History (Updated 06/09/19 @ 18:35 by Boubacar Mcmullen MD) Brother Cancer Colon cancer Social History (Updated 06/09/19 @ 18:36 by Boubacar Mcmullen MD) Smoking and tobacco status: former smoker Alcohol intake: never Vitals/I&O/Wt Last Vital Signs Temp 97.7 F 06/16/19 10:42 Pulse 82 06/16/19 15:46 Resp 16 06/16/19 15:46 BP 114/68 06/16/19 15:46 Pulse Ox 94 06/16/19 15:46 06/16/19 06/16/19 06/16/19 06:59 14:59 22:59 Intake Total 500 / 500 50 / 550 Balance 500 / 500 50 / 550 Weight last 48 hrs Weight 99.79 kg Physical Exam Const: COMMON NORMALS: no apparent distress and alert GENERAL APPEARANCE: cooperative and comfortable HENMT: COMMON NORMALS: normocephalic HEAD & SCALP: normocephalic Eye: COMMON NORMALS: PERRL, EOMs intact bilaterally and no papilledema GENERAL EYE: normal appearance of both eyes PUPIL: Yes PERRL DIRECT OPHTHALMOSCOPY: Yes no papilledema Neck/C-Spine: COMMON NORMALS: full ROM, no lymphadenopathy, no JVD and thyroid normal THYROID: thyroid normal Lymph: LYMPHATIC: no lymphadenopathy noted Resp: COMMON NORMALS: normal respiratory effort, no retractions, no use of accessory muscles and clear to auscultation bilaterally AUSCULTATION: clear to auscultation bilaterally Cardio: COMMON NORMALS: no JVD, regular rate, regular rhythm, S1 normal heart sound, S2 normal heart sound, no gallops, no clicks and no murmurs RATE: regular rate RHYTHM: regular rhythm HEART SOUNDS: S1 normal and S2 normal GI: COMMON NORMALS: normal to inspection, nondistended, normoactive bowel sounds, soft to palpation, non-tender and no hepatosplenomegaly PALPATION: Yes soft and Yes no hepatosplenomegaly Extremity: COMMON NORMALS: normal to inspection, full ROM and no pedal edema Neuro: COMMON NORMALS: CN's II-XII intact bilaterally, moves all extremities and no focal motor deficits SENSORIUM/ORIENTATION: Yes alert, Yes oriented to person, No oriented to place and No oriented to time Psych: COMMON NORMALS: mental status grossly normal, thought process normal and cooperative THOUGHT PROCESS: normal thought process Data : 06/16/19 11:09 06/16/19 11:09 A&P Assessment and plan (1) Non-ST elevation myocardial infarction (NSTEMI): -Patient had CAD status post stenting, patient is unsure how many stents, unsure when exactly, but was done in [place] maybe 2 to 3 years ago -Patient symptoms do sound cardiac in nature -Patient was seen at [facility] in November 2017, for NSTEMI, that admission she was also shown to have deep Q waves in the anterior leads, and ST depressions in lateral leads, at that point it was also medically managed, as she was deemed poor functional status, no stress test, no cardiac cath -During her last admission, she also had a NSTEMI, baseline troponin was 1805, 6hour 1608, delta 194. EKG showed deep Q waves in anterior chest leads, ST depressions in 1, aVL, V5, V6. Patient was asymptomatic on admission, asymptomatic on discharge, echocardiogram had no wall motion abnormalities, due to patient's underlying coronary disease, anemia, underlying dementia, GI bleed, anticoagulation and antiplatelet therapy were minimized. Echocardiogram showed grade 1 out of 4 diastolic dysfunction, left ventricle ejection fraction 35 to 40%, compared to echo on 12/18/2017, no apparent change. But compared to echocardiogram on 2016, ejection fraction was 60%. Due to patient's present concerns of GI bleed (hemoglobin is low at 7.8, required 1 unit of PRBC, on a Protonix, has a history of hematochezia in the past, was deemed a poor candidate for EGD and colonoscopy in the past), she was discharged on only Plavix, KLAUDIA inhibitor, beta-melvin, and has an aspirin allergy. Patient was supposed will follow up with cardiology, but is here in the hospital -I spoke to patient on her last admission about her history of anterior wall NM and indicated of lateral ischemia, NSTEMI, she opted for medical treatment -I have compared patient's EKG from today from her EKG on previous admission, from her EKG in 2018: It seems like patient has persistent Q waves in anterior leads, and T wave inversions, ST depressions interpretative of lateral ischemia, unchanged since 2018 -Troponin is 1523 -Patient is medically treated with Plavix, beta-melvin, lisinopril, Imdur -Her BNP is 24,000, compared to 70,000 on last admission, chest x-ray does show pulmonary vascular congestion, but significantly improved from her last admission, is on Lasix 40 mg once daily, has no shortness of breath complaints, is not requiring any oxygen -Patient has dementia, is legally blind, is a 1 person assist, answers most questions appropriately -When I asked patient what she wants, she states do what ever you want Plan -Admit to cardiac IMC -I have consulted cardiology, will await recommendations -Continue Plavix, lisinopril, metoprolol, Imdur -patient has an aspirin allergy -I have started patient on therapeutic Lovenox, will monitor hemoglobin closely, as there is concerns for GI bleed -Continue to monitor troponins -No active chest pain, nitro as needed -Is on Lasix 40 mg once daily, chest x-ray showing pulmonary vascular congestion, BNP 24,000, creatinine 2.0, will increase Lasix to 40 twice daily Status: Acute Code(s): I21.4 - Non-ST elevation (NSTEMI) myocardial infarction (2) Acute systolic heart failure: Status: Acute Code(s): I50.21 - Acute systolic (congestive) heart failure (3) Hypoxia: Status: Acute Code(s): R09.02 - Hypoxemia (4) UTI (urinary tract infection): -Switch her over to Primaxin as inpatient for ESBL E. coli UTI Status: Acute Code(s): N39.0 - Urinary tract infection, site not specified (5) Anemia: -Hemoglobin stable at 10.6 Status: Acute Code(s): D64.9 - Anemia, unspecified (6) PNA (pneumonia): Status: Acute Code(s): J18.9 - Pneumonia, unspecified organism (7) GI bleed: Hemoglobin 10.6 Continue to monitor for hematochezia, signs of GI bleeding given that she will be put on Lovenox Status: Acute Code(s): K92.2 - Gastrointestinal hemorrhage, unspecified (8) UTI due to extended-spectrum beta lactamase (ESBL) producing Escherichia coli: Status: Acute Code(s): N39.0 - Urinary tract infection, site not specified; B96.29 - Other Escherichia coli [E. coli] as the cause of diseases classified elsewhere; Z16.12 - Extended spectrum beta lactamase (ESBL) resistance (9) CKD (chronic kidney disease): Monitor creatinine Status: Acute Code(s): N18.9 - Chronic kidney disease, unspecified Attestations Medical Necessity Statement*: Patient requires hospitalization, outpatient, with observation, and NSTEMI Coding Level of Care Code Acute Shot Lighter for [facility] Fwd Diagnoses Non-ST elevation myocardial infarction (NSTEMI) I21.4 Acute systolic heart failure I50.21 Hypoxia R09.02 UTI (urinary tract infection) N39.0 Anemia D64.9 PNA (pneumonia) J18.9 GI bleed K92.2 UTI due to extended-spectrum beta lactamase (ESBL) producing Escherichia coli N39.0; B96.29; Z16.12 CKD (chronic kidney disease) N18.9
--- NOTE | 2019-06-16 17:00 | ECG_ITS ---
Measurements Intervals Guy Rate: 79 P: 16 ID: [id number] QRS: -24 QRSD: 112 T: 153 QT: 416 QTc: 480 SINUS RHYTHM WITH FIRST DEGREE AV BLOCK ANTERIOR MYOCARDIAL INFARCTION , PROBABLY RECENT [40+ ms Q WAVE AND/OR ST/T ABNORMALITY IN V3/V4] ACUTE ME Compared to ECG 06/09/2019 17:58:31 First degree AV block now present Sinus arrhythmia no longer present T-wave abnormality no longer present Possible ischemia no longer present Myocardial infarct finding still present Electronically Signed On 06-17-2019 12:47:10 CDT by Kofi Ontiveros [email or web address]
--- NOTE | 2019-06-16 17:15 | PM.CONSULT ---
Providers/Reason For Consult Consulting Physican/Specialty*: cardiology Reason for Consult*: chest pain Primary Care Provider: Kamlesh Stevens History of Present Illness History of Present Illness 74 year old female known to have dementia, retirement resident, legally blind, insulin dependent diabetes, essential hypertension, hyperlipidemia, known coronary artery disease, status post catheter intervention with stent placement in [facility] 3 years ago, ischemic cardiomyopathy, chronic kidney disease stage II, who is admitted after she was transferred to the ER likely at [facility], for evaluation of: 1. Precordial chest pain for 24 hrs 2. Lethargy weakness and tiredness together with headache for the past 24 hours. Please note history was acquired by reviewing the chart, and talking to the patient at bedside in the emergency room. Continued physician available, patient was at her baseline state of health until about 24 hours prior to presentation since then she has had problems with lethargy weakness tiredness with headaches and overall failure to thrive. In addition, she reports of chest pain radiation to her left arm and left lower extremity, with no associated nausea vomiting diaphoresis, pleuritic component. She does report of localized tenderness involving her left upper and lower extremity, which she states reproduces her discomfort. At the time of this interview, patient appears to be comfortable is chest pain-free, and denies any active cardiac or noncardiac complaints. Regarding her previous cardiac history, patient was used admitted to [facility], with E. coli urinary tract infection, with sepsis, associated mental status changes for which she was started on intravenous antibiotic which was continued on an outpatient basis. In addition during her hospitalization, patient ruled in for non-ST elevation myocardial infarction, for which she was at that time treated medically considering her other comorbid conditions. Review of Systems Const: Denies: fever, chills, change in appetite or change in weight ENMT: Denies: nasal discharge or post nasal drip Card: Reports: other Resp: Reports: other GI: Denies: abdominal pain, nausea, vomiting or heartburn/indigestion : Denies: flank pain, painful urination or urinary frequency Skin/Breast: Denies: rash or itching Neuro: Denies: weakness in extremities or difficulty walking Psych: Denies: mood swings Endo: Denies: cold intolerance or excessive sweating Meds/Allergies Home Medications and Allergies Home Medications Medication Instructions Recorded Confirmed Type Novolin N Flexpen 10 unit SUBCUT QAM 06/09/19 06/16/19 History Novolin R Flexpen See Rx Instructions .ROUTE .COMPLEX 06/09/19 06/16/19 History PNV cmb#95-ferrous fumarate-FA 1 tab PO DAILY 06/09/19 06/16/19 History [] acetaminophen 650 mg PO Q6H PRN 06/09/19 06/16/19 History ascorbic acid (vitamin C) [Vitamin 500 mg PO DAILY 06/09/19 06/16/19 History C] bisacodyl [Dulcolax (bisacodyl)] 10 mg MT DAILY PRN 06/09/19 06/16/19 History brimonidine 1 drp OPHTHALMIC (EYE) TID 06/09/19 06/16/19 History cholecalciferol (vitamin D3) 1,000 unit PO DAILY 06/09/19 06/16/19 History [Vitamin D3] clopidogrel [Plavix] 75 mg PO DAILY 06/09/19 06/16/19 History divalproex [Depakote] 250 mg PO DAILY 06/09/19 06/16/19 History divalproex [Depakote] 500 mg PO BEDTIME 06/09/19 06/16/19 History docusate sodium 100 mg PO BID 06/09/19 06/16/19 History hydrocodone-acetaminophen 1 tab PO Q6H PRN 06/09/19 06/16/19 History latanoprost [Xalatan] 1 drp OPHTHALMIC (EYE) QPM 06/09/19 06/16/19 History loperamide 2 mg PO Q6H PRN 06/09/19 06/16/19 History lorazepam [Ativan] 0.5 mg PO Q6H PRN 06/09/19 06/16/19 History magnesium hydroxide [Milk of 30 ml PO DAILY PRN 06/09/19 06/16/19 History Magnesia] metoprolol tartrate 12.5 mg PO BID 06/09/19 06/16/19 History nitroglycerin [Nitrostat] 0.4 mg SUBLINGUAL Q5M PRN 06/09/19 06/16/19 History polysaccharide iron complex 150 mg PO DAILY 06/09/19 06/16/19 History [Poly-Iron] promethazine 25 mg PO Q6H PRN 06/09/19 06/16/19 History quetiapine [Seroquel] 25 mg PO QAM 06/09/19 06/16/19 History quetiapine [Seroquel] 100 mg PO BEDTIME 06/09/19 06/16/19 History senna 8.6 mg PO Q12H PRN 06/09/19 06/16/19 History tamsulosin [Flomax] 0.4 mg PO DAILY 06/09/19 06/16/19 History venlafaxine 25 mg PO DAILY 06/09/19 06/16/19 History atorvastatin 40 mg PO BEDTIME 30 Days #30 tab 06/14/19 06/16/19 Rx ertapenem 500 mg IV DAILY 8 Days #10 each 06/14/19 06/16/19 Rx furosemide [Lasix] 40 mg PO DAILY #0 tab 06/14/19 06/16/19 Rx isosorbide dinitrate 20 mg PO DAILY #0 tab 06/14/19 06/16/19 Rx lisinopril 5 mg PO DAILY 30 Days #30 tab 06/14/19 06/16/19 Rx pantoprazole 40 mg PO BID 30 Days #60 tab 06/14/19 06/16/19 Rx sodium chloride 0.9 % See Rx Instructions .ROUTE .COMPLEX 06/16/19 06/16/19 History Allergies Allergy/AdvReac Type Severity Reaction Status Date / Time butorphanol [From Stadol] Allergy Unknown Verified 06/09/19 15:21 diphenhydramine Allergy Unknown Verified 06/09/19 15:21 [From Benadryl] indomethacin [From Indocin] Allergy Unknown Verified 06/09/19 15:21 ketorolac [From Toradol] Allergy Unknown Verified 06/09/19 15:21 levofloxacin [From Levaquin] Allergy Unknown Verified 06/09/19 15:21 methazolamide Allergy Unknown Verified 06/09/19 15:21 [From Neptazane] NSAIDS (Non-Steroidal Allergy Unknown Verified 06/09/19 15:21 Anti-Inflamma ondansetron [From Zofran] Allergy Unknown Verified 06/09/19 15:21 Penicillins Allergy Unknown Verified 06/09/19 15:21 prochlorperazine Allergy Unknown Verified 06/09/19 15:21 [From Compazine] Sulfa (Sulfonamide Allergy Unknown Verified 06/09/19 15:21 Antibiotics) sumatriptan [From Imitrex] Allergy Unknown Verified 06/09/19 15:21 tramadol [From Ultram] Allergy Unknown Verified 06/09/19 15:21 PFSH Acute PFSH: Medical History (Updated 06/16/19 @ 17:47 by Kofi Ontiveros MD) Anxiety Blindness Chronic kidney disease, stage III (moderate) Chronic pain Coronary artery disease Dementia Depression Diabetes mellitus GERD (gastroesophageal reflux disease) Hyperlipidemia Ischemic cardiomyopathy Non-ST elevation myocardial infarction (NSTEMI) Obesity Seizure disorder Surgical History H/O hemorrhoidectomy H/O hysterectomy for benign disease H/O knee surgery History of breast biopsy History of cholecystectomy History of hip surgery Stented coronary artery Family History Brother Cancer Colon cancer Social History Smoking and tobacco status: former smoker Alcohol intake: never Vitals/I&O/Wt Last Vital Signs Temp 97.7 F 06/16/19 10:42 Pulse 84 06/16/19 16:17 Resp 16 06/16/19 16:17 BP 118/63 06/16/19 16:17 Pulse Ox 94 06/16/19 16:17 06/16/19 06/16/19 06/16/19 06:59 14:59 22:59 Intake Total 500 / 500 50 / 550 Balance 500 / 500 50 / 550 Weight last 48 hrs Weight 220 lb Physical Exam Const: COMMON NORMALS: no apparent distress and oriented x3 GENERAL APPEARANCE: cooperative and comfortable HENMT: COMMON NORMALS: normocephalic, head/scalp atraumatic, nasal mucous membranes and turbinates normal and oropharynx normal HEAD & SCALP: normocephalic and atraumatic NOSE: nasal mucous membranes and turbinates normal Eye: COMMON NORMALS: PERRL and EOMs intact bilaterally PUPIL: Yes PERRL Neck/C-Spine: COMMON NORMALS: full ROM and no JVD Chest: COMMONS NORMALS: inspection of chest normal Resp: COMMON NORMALS: normal respiratory effort, no use of accessory muscles and clear to auscultation bilaterally AUSCULTATION: clear to auscultation bilaterally Cardio: COMMON NORMALS: no JVD, S1 normal heart sound, S2 normal heart sound, no gallops and no murmurs JUGULAR VENOUS DISTENTION: no JVD HEART SOUNDS: S1 normal and S2 normal GI: COMMON NORMALS: normal to inspection, nondistended, normoactive bowel sounds, soft to palpation and no masses PALPATION: Yes soft Extremity: COMMON NORMALS: normal to inspection and no pedal edema Neuro: COMMON NORMALS: oriented x3 A&P Assessment and plan (1) Chest pain, precordial: 1. Regarding chest pain, based on patient's description it appears chest pain is atypical. 2. Although patient does have ischemic heart disease, and may have obstructive coronary disease, but at this time based on her presentation and description of her pain, is uncertain if her primary presentation is secondary to ischemic heart disease. 3. Regarding elevated troponin values, since his since her recent discharge on 316, current value remains elevated. Will recommend to check serial troponin values to see a trend if this abnormal lab values are residual from previous admission or new to current admission and suggestive of non-ST elevation myocardial infarction. 4. Although at this time, medical and noninvasive treatment plan will be recommended. If patient, or her family, primary hospitalist service request aggressive evaluation recommend cardiac stress testing for re-stratification purposes for ischemic burden. Status: Acute Code(s): R07.2 - Precordial pain (2) CKD (chronic kidney disease): 1. Regarding elevated creatinine level, initiated continue IV hydration. 2. We will closely follow creatinine levels, and avoid KLAUDIA inhibitor's, nonsteroidals at this time. 3. We will closely monitor urine output, and encourage p.o. hydration and possibly IV hydration if required. Status: Acute Code(s): N18.9 - Chronic kidney disease, unspecified (3) Anemia: 1. Will defer treatment and evaluation of this condition to Dr. William Salomon. 2. Regarding CKD, this condition does factor in while determining recommendation regarding invasive cardiac evaluation. Status: Acute Code(s): D64.9 - Anemia, unspecified (4) Cardiomyopathy, ischemic: 1. Would closely follow oxygen requirements, daily I's and O's. 2. Will require echocardiogram for LV function evaluation. 3. We will also review echocardiogram for new wall motion abnormality. Thank you for this consultation, further recommendations will be made based on patient's response to above measures. Status: Acute Code(s): I25.5 - Ischemic cardiomyopathy Coding Level of Care Code Acute Real Estate Management Specialist for g Fwd Exam Comprehensive Diagnoses Chest pain, precordial R07.2 CKD (chronic kidney disease) N18.9 Anemia D64.9 Cardiomyopathy, ischemic I25.5
--- NOTE | 2019-06-16 17:50 | P.HP_ITS ---
Providers/Chief Complaint Primary Care Provider: Kamlesh Stevens Chief Complaint: CP History of Present Illness Perla Roque is a 74 year old female with a past medical history of CAD with recent stenting of diagonal branch, history of mid LAD stenting, hypertension, hyperlipidemia, mild to moderate aortic stenosis, mild aortic insufficiency, history of previous transient ischemic attacks, previous history of syncope Medications/Allergies Home Medications Medication Instructions Recorded Confirmed Last Taken Type sodium chloride 0.9 % See Rx Instructions .ROUTE .COMPLEX 06/16/19 06/16/19 06/15/19 History Allergies Allergy/AdvReac Type Severity Reaction Status Date / Time butorphanol [From Stadol] Allergy Unknown Verified 06/09/19 15:21 diphenhydramine Allergy Unknown Verified 06/09/19 15:21 [From Benadryl] indomethacin [From Indocin] Allergy Unknown Verified 06/09/19 15:21 ketorolac [From Toradol] Allergy Unknown Verified 06/09/19 15:21 levofloxacin [From Levaquin] Allergy Unknown Verified 06/09/19 15:21 methazolamide Allergy Unknown Verified 06/09/19 15:21 [From Neptazane] NSAIDS (Non-Steroidal Allergy Unknown Verified 06/09/19 15:21 Anti-Inflamma ondansetron [From Zofran] Allergy Unknown Verified 06/09/19 15:21 Penicillins Allergy Unknown Verified 06/09/19 15:21 prochlorperazine Allergy Unknown Verified 06/09/19 15:21 [From Compazine] Sulfa (Sulfonamide Allergy Unknown Verified 06/09/19 15:21 Antibiotics) sumatriptan [From Imitrex] Allergy Unknown Verified 06/09/19 15:21 tramadol [From Ultram] Allergy Unknown Verified 06/09/19 15:21 PFSH Acute PFSH: Medical History (Updated 06/16/19 @ 17:47 by Kofi Ontiveros MD) Anxiety Blindness Chronic kidney disease, stage III (moderate) Chronic pain Coronary artery disease Dementia Depression Diabetes mellitus GERD (gastroesophageal reflux disease) Hyperlipidemia Ischemic cardiomyopathy Non-ST elevation myocardial infarction (NSTEMI) Obesity Seizure disorder Surgical History H/O hemorrhoidectomy H/O hysterectomy for benign disease H/O knee surgery History of breast biopsy History of cholecystectomy History of hip surgery Stented coronary artery Family History Brother Cancer Colon cancer Social History Smoking and tobacco status: former smoker Alcohol intake: never Vitals/I&O/Wt Last Vital Signs Temp 97.7 F 06/16/19 10:42 Pulse 84 06/16/19 17:32 Resp 14 06/16/19 17:32 BP 120/62 06/16/19 17:32 Pulse Ox 94 06/16/19 17:32 06/16/19 06/16/19 06/16/19 06:59 14:59 22:59 Intake Total 500 / 500 50 / 550 Balance 500 / 500 50 / 550 Weight last 48 hrs Weight 99.79 kg Data : 06/16/19 11:09 06/16/19 11:09 Coding Level of Care Code Acute 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
--- NOTE | 2019-06-16 17:55 | USCV_ITS ---
Perla Roque Age: 74 Gender: F : 1945 Exam Date: 06/16/2019 18:44 Ordering Phys: Kofi Ontiveros MD ([email or web address]) Technologist: Tash Moctezuma [place] [facility] [place]: CP BP: 135 / 90 HR: 85 Rhythm: Sinus Technical Quality: Adequate MEASUREMENTS (Male / Female) Normal Values 2D ECHO LV Diastolic Diameter PLAX 4.4 cm 4.2 - 5.9 / 3.9 - 5.3 cm LV Systolic Diameter PLAX 3.4 cm LV Chamber Size 2.9 cm IVS Diastolic Thickness 1.2 cm 0.6 - 1.0 / 0.6 - 0.9 cm IVS Systolic Thickness 1.6 cm LVPW Diastolic Thickness 1.9 cm 0.6 - 1.0 / 0.6 - 0.9 cm LVPW Systolic Thickness 2.9 cm RV Chamber Size 2.0 cm LVOT Diameter 2.1 cm LV Ejection Fraction 2D Teich 45.6 % LV Ejection Fraction MOD 2C 45.0 % LV Ejection Fraction 2C AL 45.0 % LA Diameter 4.5 cm LA Width 3.3 cm LA Height 4.0 cm Aorta at Sinotubular Diameter 2.7 cm M-MODE LV Diastolic Diameter MM 5.3 cm 4.2 - 5.9 / 3.9 - 5.3 cm LV Systolic Diameter MM 3.6 cm LV Ejection Fraction MM Teich 58.3 % IVS Diastolic Thickness MM 1.2 cm 0.6 - 1.0 / 0.6 - 0.9 cm IVS Systolic Thickness MM 1.4 cm LVPW Diastolic Thickness MM 1.6 cm 0.6 - 1.0 / 0.6 - 0.9 cm LVPW Systolic Thickness MM 1.8 cm Aortic Annulus Diameter 3.2 cm LA Ao Ratio MM 1.4 MV E Point Septal Separation 1.2 cm DOPPLER AV Peak Velocity 91.0 cm/s LVOT Peak Velocity 76.0 cm/s AV Area Cont Eq vti 3.4 cm squared AV Area Cont Eq pk 2.8 cm squared MV Area PHT 6.9 cm squared Mitral E to A Ratio 8.2 MV E' Velocity 4.0 cm/s Mitral E to MV E' Ratio 21.2 Mitral E to LV E' Lateral Ratio 29.6 Mitral E to LV E' Septal Ratio 16.7 TV Peak E Velocity 43.0 cm/s Right Atrial Pressure 3.0 mmHg PV Peak Velocity 83.0 cm/s RV Acceleration Time 0.1 s RV Ejection Time 0.3 s RV AcT/ET 0.5 FINDINGS Left Ventricle Left ventricular ejection fraction is estimated at 30_ %. Moderately increased left ventricular cavity size. Moderately decreased left ventricular systolic function. Global left ventricular hypokinesis. Right Ventricle Normal right ventricular size. Mildly decreased right ventricular systolic function. Right Atrium Normal right atrial size. Left Atrium Mildly increased left atrial size. Mitral Valve Thickened mitral valve. No mitral valve stenosis. Trace mitral valve regurgitation. Mitral valve not well visualized. Aortic Valve Thickened aortic valve. No aortic valve stenosis. No aortic valve regurgitation. Tricuspid Valve Tricuspid valve not well visualized. Pulmonic Valve Pulmonic valve not well visualized. Pericardium No pericardial or pleural effusion. Aorta CONCLUSIONS Moderate LV dysfunction with EF 30 % No significant valvular abnormalities No pericardial effusion Gallo Ontiveros MD (Electronically Signed) Final Date: 17 June 2019 09:48 S
[2019-06-16 18:19] LABS: Troponin 5 6HR 1298 ng/mL (0-10); Troponin 5 6HR Delta -225 ng/L (0-12)
--- NOTE | 2019-06-16 19:00 | PC.NURSE ---
Admitted to room 104 from ED with complaint of CP. Patient denies complaints. Oriented to room only. I am at [facility]. When told she was in the hospital, patient states, That's bullshit....I'm not either.....I want a sandwich with bologna and onions....look up in that cabinet there and get me some cheetos. Gets upset when told that there are no cheetos. Color pale. Skin warm and dry. Speaking with her mom. SCD's hurts her legs. Refuses to let staff put them on at this time. Very non compliant with care at this time. Will monitor.
[2019-06-16] MEDS: enoxaparin 100 mg/mL Syringe SUBCUT (20:41)
[2019-06-16] MEDS: FUROsemide 10 mg/mL SDV 4mL 40 MG IVP (20:41)
[2019-06-16] MEDS: LORazepam 0.5 mg Tablet PO (20:42)
[2019-06-16] MEDS: divalproex DR 500 mg Tablet PO (20:42)
[2019-06-16] MEDS: pantoprazole DR 40 mg Tablet PO (20:42)
[2019-06-16] MEDS: quetiapine 100 mg Tablet PO (20:43)
[2019-06-16] MEDS: atorvastatin 40 mg Tablet PO (20:43)
[2019-06-16] MEDS: metoprolol tartrate 25 mg Tablet 12.5 MG PO (20:43)
[2019-06-16] MEDS: docusate sodium 100 mg Capsule PO (20:43)
--- NOTE | 2019-06-16 21:02 | PC.PHAR ---
Primaxin dose is adjusted from 500mg IVPB every 6 hours to 250mg IVPB every six hours due to creatinine clearance of 29.85.
[2019-06-16] MEDS: HYDROcodone-acetaminophen 5-325 mg Tablet 1 TAB PO (21:31)
[2019-06-16 22:34] LABS: Glucose Point of Care 158 mg/dL (70-110)
--- NOTE | 2019-06-16 23:04 | PC.NURSE ---
Lying on right side in bed with head covered with covers. Respirations even and unlabored with no distress noted at this time. Will monitor.
[2019-06-17] VITALS (17 sets, daily range): BP systolic 88–160; BP diastolic 40–97; PULSE 67–90; RESP 9–20; TEMP 36.3–36.8; O2SAT 91–99
--- NOTE | 2019-06-17 00:03 | PC.NURSE ---
Patient cussing staff. States, Can't get any sleep here from you bitches bugging me. This nurse explained to patient the reasoning for turning her and changing her. I don't give a shit....you need to leave me alone. Repositioned on right side. Band aid noted on inside of right knee. Dried blood noted on left ear. Patient states, Those damn lightening bugs bit me....I tried to tell them but all they do is mistreat me.....I'm tired of being mistreated. Attempted to obtain VS at this time;however, patient states, Leave me the hell alone.....you aren't doing anything.. Will attempt again later. Will monitor.
--- NOTE | 2019-06-17 04:22 | PC.NURSE ---
Patient placed on 2L/NC secondary to oxygen saturation running upper 80's. Patient slaps at staff when attempting to turn her and change her. Slapped at staff when staff applied oxygen. Why can't you leave me the hell alone. Will monitor.
[2019-06-17 04:26] LABS: Basophils # 0.1 10^3/uL (0.0-0.1); Basophils % 0.8 %; Eosinophils # 0.4 10^3/uL (0.0-0.8); Eosinophils % 6.6 %; Hematocrit 31.7 % (37.0-47.0); Lymphocytes # 1.7 10^3/uL (0.8-4.8); Lymphocytes % 27.8 %; Mean Corpuscular HGB Conc 31.5 g/dL (30.0-36.0); Mean Corpuscular Hemoglobin 31.8 pg (28.0-34.0); Monocytes # 0.7 10^3/uL (0.2-0.9); Monocytes % 11.2 %; Neutrophils # 3.3 10^3/uL (1.8-7.7); Neutrophils % 53.4 %; Nucleated Red Blood Cells % 0 %; Platelet Count 178 10^3/cmm (130-400); Red Blood Count 3.14 10^6/uL (4.1-5.3); Red Cell Distribution Width 13.2 % (12.1-15.1); White Blood Count 6.2 10^3/uL (4.0-10.0)
[2019-06-17 04:46] LABS: Alanine Aminotransferase < 5 U/L (0-33); Albumin Level 2.9 g/dL (3.5-5.2); Alkaline Phosphatase 76 IU/L (35-105); Anion Gap 15.5 (5-19); Aspartate Amino Transferase 14 U/L (0-32); Blood Urea Nitrogen 31 mg/dL (8-23); Carbon Dioxide 27 mmol/L (22-29); Chloride 102 mmol/L (98-107); Globulin 3.6 g/dL (1.3-4.6); Glucose 199 mg/dL (65-115); Magnesium 2.2 mg/dL (1.7-2.3); Osmolality Calculated 295 mOsm/kg (285-295); Phosphorus 4.3 mg/dL (2.5-4.5); Potassium 3.5 mmol/L (3.5-5.1); Sodium 141 mmol/L (136-145); Total Bilirubin 0.2 mg/dL (0.15-1.2); Total Protein 6.5 g/dL (6.6-8.7)
[2019-06-17 06:09] LABS: Glucose Point of Care 195 mg/dL (70-110)
[2019-06-17] MEDS: enoxaparin 100 mg/mL Syringe SUBCUT (06:13)
[2019-06-17] MEDS: insulin nph human 100 units/1 mL 10 UNIT SUBCUT (06:13)
--- NOTE | 2019-06-17 06:27 | PC.NURSE ---
Patient repositioned with brief changed. Cussing staff; however, right back to sleep. Refuses to open eyes. States, What....leave me the hell alone. Refuses to drink water. 0600 Seroquel held at this time. Will monitor.
--- NOTE | 2019-06-17 07:18 | PC.NURSE ---
Patient arousable but does not open eyes and refuses to eat breakfast.
--- NOTE | 2019-06-17 08:16 | P.PN_ITS ---
Subjective Subjective: Interval history: Patient somnolent this morning. Wakes wakes up to painful stimulus. Appears to be in no discomfort including chest pain, shortness of breath. Discussed with nursing staff, apparently got Xanax yesterday, and has been somnolent since. No fever nausea vomiting diarrhea reported per nursing staff and review of records. Medications: Reviewed: Yes Vitals/I&O/Wt Last Vital Signs Temp 97.9 F 06/17/19 07:09 Pulse 74 06/17/19 07:09 Resp 20 H 06/17/19 07:09 BP 110/58 06/17/19 07:09 Pulse Ox 99 06/17/19 07:09 06/16/19 06/17/19 06/17/19 22:59 06:59 14:59 Intake Total 610 / 1110 220 / 1330 Balance 610 / 1110 220 / 1330 Weight last 48 hrs Weight 220 lb Physical Exam 2 Neck/C-Spine: COMMON NORMALS: full ROM and no JVD Resp: COMMON NORMALS: normal respiratory effort, no use of accessory muscles and clear to auscultation bilaterally AUSCULTATION: clear to auscultation bilaterally Cardio: COMMON NORMALS: no JVD, S1 normal heart sound, S2 normal heart sound, no gallops and no murmurs JUGULAR VENOUS DISTENTION: no JVD HEART SOUNDS: S1 normal and S2 normal GI: COMMON NORMALS: normal to inspection, nondistended, normoactive bowel sounds, soft to palpation and no masses PALPATION: Yes soft Extremity: COMMON NORMALS: normal to inspection and no pedal edema Data : 06/17/19 03:00 06/17/19 03:00 Other Labs: Laboratory Tests 06/16/19 06/17/19 06/17/19 17:51 03:00 03:00 Hgb 10.0 L Creatinine 2.0 H Troponin I 6 Hour 1298 H Attestation for Other Data: I personally reviewed and interpreted the following: A&P Assessment and plan (1) Chest pain, precordial: 1. Regarding from presentation, based on the fact, that her troponin T is coming down, in addition to the atypical nature of her chest pain, it appears the patient has not had a reinjury from her recent non-ST elevation myocardial myocardial infarction, and would at this time therefore continue with the previous decision taken regarding conservative medical management. 2. If patient demonstrates recurrent refractory chest pain on exertion, a re- elevation of troponin I, may consider cardiac catheterization. 3. After patient is awake this morning, will discuss these options with the patient, including noninvasive testing. 4. Would optimize medications including antianginal regimen. 5. We will change Lovenox to DVT prophylaxis dosing. 6. Will start aspirin 80 mg p.o. once a day. 7. We will increase Imdur to 30 g p.o. once a day. 8. We will avoid KLAUDIA inhibitor due to renal insufficiency, continue statins, beta-melvin and Plavix. Status: Acute Code(s): R07.2 - Precordial pain (2) Cardiomyopathy, ischemic: 1. At this time patient appears to be compensated from a congestive heart failure standpoint. 2. Would continue continue to monitor I's and O's, daily weights. 3. If patient has increased oxygen requirement may consider diuretics. Status: Acute Code(s): I25.5 - Ischemic cardiomyopathy (3) CKD (chronic kidney disease): 1. At this time patient appears to be at her baseline renal function, will continue to monitor creatinine level during this hospitalization. Status: Acute Qualifiers: Chronic kidney disease stage: stage 3 (moderate) Qualified Code(s): N18.3 - Chronic kidney disease, stage 3 (moderate) Code(s): N18.9 - Chronic kidney disease, unspecified (4) Anemia: 1. Regarding anemia, will follow H&H, continue proton pump inhibitors. 2. Would primarily defer management of anemia to Dr. Salomon. Status: Acute Qualifiers: Anemia type: unspecified type Qualified Code(s): D64.9 - Anemia, unspecified Code(s): D64.9 - Anemia, unspecified (5) UTI (urinary tract infection): 1. Regarding abnormal UA findings, would continue and complete IV an tibiotics as recently initiated during her last hospitalization. Status: Acute Code(s): N39.0 - Urinary tract infection, site not specified Attestations Medical Necessity Statement*: Elevated troponin I, UTI recent, Coding Level of Care Code Acute Counter Top Maker for [facility] Fwd Exam Detailed Diagnoses Chest pain, precordial R07.2 Cardiomyopathy, ischemic I25.5 CKD (chronic kidney disease) N18.3 Chronic kidney disease stage: stage 3 (moderate) Anemia D64.9 Anemia type: unspecified type UTI (urinary tract infection) N39.0
[2019-06-17 09:11] LABS: Troponin T (5th) Once 1124 ng/mL (0-10)
[2019-06-17] MEDS: aspirin 81 mg EC Tablet PO (09:26)
[2019-06-17] MEDS: isosorbide dinitrate 20 mg Tablet 30 MG PO (09:26)
[2019-06-17] MEDS: metoprolol tartrate 25 mg Tablet 12.5 MG PO (09:28)
[2019-06-17] MEDS: tamsulosin 0.4 mg Capsule PO (09:29)
[2019-06-17] MEDS: lisinopril 5 mg Tablet PO (09:29)
[2019-06-17] MEDS: clopidogrel 75 mg Tablet PO (09:29)
[2019-06-17] MEDS: cholecalciferol (vitamin D3) 1,000 unit Tablet 1000 UNIT PO (09:30)
[2019-06-17] MEDS: iron polysaccharide complex 150 mg Capsule PO (09:30)
[2019-06-17] MEDS: pantoprazole DR 40 mg Tablet PO ×2 (09:31→17:51)
[2019-06-17] MEDS: docusate sodium 100 mg Capsule PO ×2 (09:32→17:51)
[2019-06-17] MEDS: divalproex DR 250 mg Tablet PO (09:32)
[2019-06-17] MEDS: ascorbic acid 500 mg Tablet PO (09:35)
[2019-06-17 11:33] LABS: Glucose Point of Care 164 mg/dL (70-110)
--- NOTE | 2019-06-17 15:16 | PC.OT ---
OT NOTE: OT EVALUATION ATTEMPTED. PATIENT IS SLEEPING IN BED WITH COVERS OVER HER HEAD. ASKS IF I COULD COME BACK TOMORROW. OT EVALUATION TO BE ATTEMPTED TOMORROW
--- NOTE | 2019-06-17 16:31 | PC.OT ---
OT EVALUATION ATTEMPTED TWICE. FIRST TIME PATIENT WAS SLEEPING WITH BLANKETS OVER HER HEAD AND MUMBLED NOT NOW . SECOND ATTEMPT WITH P.T.; PATIENT STATED X4 THAT SHE DID NOT WANT TO PARTICIPATE IN ANY TYPE OF THERAPY. DISCHARGE OT ORDERS
--- NOTE | 2019-06-17 16:34 | PC.PT ---
PT note: contacted [facility], pt 'has not stood with walker for months', max x 2 for bed to [facility] to bed transfers. attempted eval and sitting edge of bed though, pt refused, not interested in therapy . no further therapy at this time. D/C services.
--- NOTE | 2019-06-17 16:50 | PM.PN ---
Subjective Subjective: Interval history: This morning patient's has only complaints of knee pain, weakness, poor appetite, denies chest pain, she has received benzodiazepines and narcotic overnight, she is quite drowsy this morning Vitals/I&O/Wt Last Vital Signs Temp 97.6 F 06/17/19 16:00 Pulse 78 06/17/19 16:00 Resp 18 06/17/19 16:00 BP 90/40 06/17/19 16:00 Pulse Ox 94 06/17/19 16:00 06/17/19 06/17/19 06/17/19 06:59 14:59 22:59 Intake Total 220 / 1330 800 / 800 Balance 220 / 1330 800 / 800 Weight last 48 hrs Weight 99.79 kg Physical Exam Const: COMMON NORMALS: no apparent distress and oriented x3 HENMT: COMMON NORMALS: normocephalic HEAD & SCALP: normocephalic Neck/C-Spine: COMMON NORMALS: no JVD Resp: COMMON NORMALS: normal respiratory effort, no retractions, no use of accessory muscles and clear to auscultation bilaterally AUSCULTATION: clear to auscultation bilaterally Cardio: COMMON NORMALS: no JVD, regular rate, regular rhythm, S1 normal heart sound and S2 normal heart sound RATE: regular rate RHYTHM: regular rhythm HEART SOUNDS: S1 normal and S2 normal GI: COMMON NORMALS: normal to inspection, nondistended, normoactive bowel sounds, soft to palpation, non-tender, no hepatosplenomegaly, no masses and no bruits PALPATION: Yes soft and Yes no hepatosplenomegaly Extremity: COMMON NORMALS: normal capillary refill, no clubbing, cyanosis or edema, no calf tenderness and no pedal edema Neuro: COMMON NORMALS: oriented x3 Psych: COMMON NORMALS: mental status grossly normal Data : 06/17/19 03:00 06/17/19 03:00 Micro: Microbiology 06/16/19 11:37 Urine Culture - Preliminary Urine,Clean Catch A&P Assessment and plan (1) Non-ST elevation myocardial infarction (NSTEMI): -Patient had CAD status post stenting, patient is unsure how many stents, unsure when exactly, but was done in [place] maybe 2 to 3 years ago -Patient symptoms do sound cardiac in nature -Patient was seen at [facility] in November 2017, for NSTEMI, that admission she was also shown to have deep Q waves in the anterior leads, and ST depressions in lateral leads, at that point it was also medically managed, as she was deemed poor functional status, no stress test, no cardiac cath -During her last admission, she also had a NSTEMI, baseline troponin was 1805, 6hour 1608, delta 194. EKG showed deep Q waves in anterior chest leads, ST depressions in 1, aVL, V5, V6. Patient was asymptomatic on admission, asymptomatic on discharge, echocardiogram had no wall motion abnormalities, due to patient's underlying coronary disease, anemia, underlying dementia, GI bleed, anticoagulation and antiplatelet therapy were minimized. Echocardiogram showed grade 1 out of 4 diastolic dysfunction, left ventricle ejection fraction 35 to 40%, compared to echo on 12/18/2017, no apparent change. But compared to echocardiogram on 2016, ejection fraction was 60%. Due to patient's present concerns of GI bleed (hemoglobin is low at 7.8, required 1 unit of PRBC, on a Protonix, has a history of hematochezia in the past, was deemed a poor candidate for EGD and colonoscopy in the past), she was discharged on only Plavix, KLAUDIA inhibitor, beta-melvin, and has an aspirin allergy. Patient was supposed will follow up with cardiology, but is here in the hospital -I spoke to patient on her last admission about her history of anterior wall DC and indicated of lateral ischemia, NSTEMI, she opted for medical treatment -I have compared patient's EKG from today from her EKG on previous admission, from her EKG in 2018: It seems like patient has persistent Q waves in anterior leads, and T wave inversions, ST depressions interpretative of lateral ischemia, unchanged since 2018 -Troponin is 1523, has downward trended to 1124 -Patient is medically treated with Plavix, beta-melvin, lisinopril, Imdur -Her BNP is 24,000, compared to 70,000 on last admission, chest x-ray does show pulmonary vascular congestion, but significantly improved from her last admission, is on Lasix 40 mg once daily, has no shortness of breath complaints, is not requiring any oxygen -Patient has dementia, is legally blind, is a 1 person assist, answers most questions appropriately -When I asked patient what she wants, she states do what ever you want Plan -Admit to cardiac IMC -I have consulted cardiology, medically managing NSTEMI, with consideration for cardiac stress test tomorrow morning -Continue Plavix, lisinopril, metoprolol, Imdur -Aspirin will be initiated -Lovenox for DVT prophylaxis -Monitor for chest pain -No active chest pain, nitro as needed -Is on Lasix 40 mg once daily, chest x-ray showing pulmonary vascular congestion, BNP 24,000, creatinine 2.0, will increase Lasix to 40 twice daily Status: Acute Code(s): I21.4 - Non-ST elevation (NSTEMI) myocardial infarction (2) Acute systolic heart failure: Status: Acute Code(s): I50.21 - Acute systolic (congestive) heart failure (3) Hypoxia: Status: Acute Code(s): R09.02 - Hypoxemia (4) UTI (urinary tract infection): -Switch her over to Primaxin as inpatient for ESBL E. coli UTI Status: Acute Code(s): N39.0 - Urinary tract infection, site not specified (5) Anemia: -Hemoglobin stable at 10.6 Status: Acute Qualifiers: Anemia type: unspecified type Qualified Code(s): D64.9 - Anemia, unspecified Code(s): D64.9 - Anemia, unspecified (6) PNA (pneumonia): Status: Acute Code(s): J18.9 - Pneumonia, unspecified organism (7) GI bleed: Hemoglobin 10.6 Continue to monitor for hematochezia, signs of GI bleeding given that she will be put on Lovenox Status: Acute Code(s): K92.2 - Gastrointestinal hemorrhage, unspecified (8) UTI due to extended-spectrum beta lactamase (ESBL) producing Escherichia coli: Status: Acute Code(s): N39.0 - Urinary tract infection, site not specified; B96.29 - Other Escherichia coli [E. coli] as the cause of diseases classified elsewhere; Z16.12 - Extended spectrum beta lactamase (ESBL) resistance (9) CKD (chronic kidney disease): Monitor creatinine Status: Acute Qualifiers: Chronic kidney disease stage: stage 3 (moderate) Qualified Code(s): N18.3 - Chronic kidney disease, stage 3 (moderate) Code(s): N18.9 - Chronic kidney disease, unspecified Attestations Medical Necessity Statement*: Patient requires hospitalization for NSTEMI, will get cardiac stress test tomorrow Coding Level of Care Code Acute Store Operations Specialist for [facility] Diagnoses Non-ST elevation myocardial infarction (NSTEMI) I21.4 Acute systolic heart failure I50.21 Hypoxia R09.02 UTI (urinary tract infection) N39.0 Anemia D64.9 Anemia type: unspecified type PNA (pneumonia) J18.9 GI bleed K92.2 UTI due to extended-spectrum beta lactamase (ESBL) producing Escherichia coli N39.0; B96.29; Z16.12 CKD (chronic kidney disease) N18.3 Chronic kidney disease stage: stage 3 (moderate)
[2019-06-17 16:51] LABS: Glucose Point of Care 90 mg/dL (70-110)
--- NOTE | 2019-06-17 17:33 | PC.NURSE ---
Nurse bladder scanned 442 ml. Supplies gathered for straight cath. Nurse educated patient on the procedure. Patient stated, You won't be putting that damn thing in me. Nurse explained the complications from not voiding. Patient verbalized understanding but continued to refuse procedure. Nurse placed patient on bedpan. Patient voided 150 ml. Physician notified.
[2019-06-17] MEDS: latanoprost 0.005% Op Soln 2.5 mL Btl 1 DROP EYE-BOTH (17:53)
[2019-06-17] MEDS: atorvastatin 40 mg Tablet PO (20:05)
[2019-06-17] MEDS: divalproex DR 500 mg Tablet PO (20:05)
[2019-06-17] MEDS: quetiapine 100 mg Tablet PO (20:05)
[2019-06-17 20:16] LABS: Glucose Point of Care 169 mg/dL (70-110)
[2019-06-18] VITALS (9 sets, daily range): BP systolic 99–111; BP diastolic 45–62; PULSE 74–92; RESP 10–15; TEMP 35.9–38.2; O2SAT 95–100
[2019-06-18 04:12] LABS: Basophils % 0.5 %; Eosinophils # 0.6 10^3/uL (0.0-0.8); Eosinophils % 7.1 %; Hematocrit 31.1 % (37.0-47.0); Hemoglobin 9.6 g/dL (11.5-15.3); Lymphocytes # 1.4 10^3/uL (0.8-4.8); Mean Corpuscular HGB Conc 30.9 g/dL (30.0-36.0); Mean Corpuscular Volume 103.7 fL (81-99); Mean Platelet Volume 9.2 fL (7.4-10.4); Monocytes # 0.9 10^3/uL (0.2-0.9); Monocytes % 11.3 %; Neutrophils % 62.7 %; Nucleated Red Blood Cells % 0 %; Platelet Count 152 10^3/cmm (130-400); Red Cell Distribution Width 13.7 % (12.1-15.1)
[2019-06-18 04:36] LABS: Alanine Aminotransferase < 5 U/L (0-33); Albumin Level 2.6 g/dL (3.5-5.2); Alkaline Phosphatase 74 IU/L (35-105); Anion Gap 15.1 (5-19); Aspartate Amino Transferase 12 U/L (0-32); Blood Urea Nitrogen 30 mg/dL (8-23); Calcium 8.9 mg/dL (8.5-10.5); Carbon Dioxide 27 mmol/L (22-29); Chloride 102 mmol/L (98-107); Globulin 3.9 g/dL (1.3-4.6); Glucose 186 mg/dL (65-115); Magnesium 2.2 mg/dL (1.7-2.3); Osmolality Calculated 292 mOsm/kg (285-295); Phosphorus 4.6 mg/dL (2.5-4.5); Potassium 4.1 mmol/L (3.5-5.1); Sodium 140 mmol/L (136-145); Total Bilirubin 0.3 mg/dL (0.15-1.2); Total Protein 6.5 g/dL (6.6-8.7)
[2019-06-18] MEDS: insulin nph human 100 units/1 mL 10 UNIT SUBCUT (06:00)
[2019-06-18] MEDS: quetiapine 25 mg Tablet PO (06:00)
[2019-06-18 06:08] LABS: Glucose Point of Care 254 mg/dL (70-110)
--- NOTE | 2019-06-18 06:26 | PC.NURSE ---
Patient unable to be injected for Lexiscan stress test this am. Patient only has PICC IV access. Unable to obtain peripheral line at this time. Patient is also refusing to have a new IV attempted. Spoke with greenhouse instructor to see if anyone available to use ultrasound to attempt peripheral IV access.
--- NOTE | 2019-06-18 07:06 | P.PN_ITS ---
Subjective Subjective: Interval history: Patient appears comfortable this morning. Denies any chest pain reports and underwent uneventful night. Discussed with nursing staff, reports patient more awake compared to yesterday morning. No fever chills reported. Tolerating p.o. diet. Patient not completely awake this morning but does respond to questions and communicates. Patient at this time defers proceeding with cardiac stress testing with nursing staff present. Patient was encouraged to consider once she is more awake and will inform the nursing staff about her wishes about proceedin g with a stress test or deferring it at this time for outpatient procedure. Vitals/I&O/Wt Last Vital Signs Temp 96.7 F L 06/18/19 00:00 Pulse 85 06/18/19 02:00 Resp 15 06/18/19 02:00 BP 99/62 06/18/19 04:00 Pulse Ox 98 06/18/19 04:00 06/17/19 06/18/19 06/18/19 22:59 06:59 14:59 Intake Total 220 / 1020 420 / 1440 Output Total 150 / 150 Balance 70 / 870 420 / 1290 Weight last 48 hrs Weight 220 lb Physical Exam Const: COMMON NORMALS: no apparent distress and oriented x3 GENERAL APPEARANCE: cooperative and comfortable HENMT: COMMON NORMALS: normocephalic, head/scalp atraumatic, nasal mucous membranes and turbinates normal and oropharynx normal HEAD & SCALP: normocephalic and atraumatic NOSE: nasal mucous membranes and turbinates normal Eye: COMMON NORMALS: PERRL and EOMs intact bilaterally PUPIL: Yes PERRL Neck/C-Spine: COMMON NORMALS: full ROM and no JVD Chest: COMMONS NORMALS: inspection of chest normal Resp: COMMON NORMALS: normal respiratory effort, no use of accessory muscles and clear to auscultation bilaterally AUSCULTATION: clear to auscultation bilaterally Cardio: COMMON NORMALS: no JVD, S1 normal heart sound, S2 normal heart sound, no gallops and no murmurs JUGULAR VENOUS DISTENTION: no JVD HEART SOUNDS: S1 normal and S2 normal GI: COMMON NORMALS: normal to inspection, nondistended, normoactive bowel sounds, soft to palpation and no masses PALPATION: Yes soft Extremity: COMMON NORMALS: normal to inspection and no pedal edema Neuro: COMMON NORMALS: oriented x3 Data : 06/18/19 03:45 06/18/19 03:45 Micro: Microbiology 06/16/19 11:37 Urine Culture - Preliminary Urine,Clean Catch A&P Assessment and plan (1) Chest pain, precordial: 1. Regarding further evaluation for ischemic heart disease, would offer Lexiscan sestamibi as discussed with Dr. Salomon. 2. At this time patient defers proceeding with the test. Would return to evaluate her in a couple of hours when she is more awake and we discussed her options. 3. Further condition plans been made patient results of testing if completed. 4. We will continue with current antianginal regimen, and may consider adding Ranexa 500 mg p.o. twice daily if patient defers cardiac stress testing. 5. Based on her recent presentation during her last admission, initially in addition to her symptoms, patient has a very high likelihood of having ischemic heart disease of obstructive nature. Although patient would be at least moderate risk considering comorbid factors including renal insufficiency, lack of social support and compliance, but cardiac catheterization or at least cardiac stress testing would be strongly recommended considering her presentation during her previous admission, reduction in ejection fraction, and abnormal EKG findings. 6. We will continue DVT prophylaxis. Status: Acute Code(s): R07.2 - Precordial pain (2) UTI (urinary tract infection): 1. Agree with: The treatment plan as outlined by Dr. Turner. Status: Acute Code(s): N39.0 - Urinary tract infection, site not specified (3) Cardiomyopathy, ischemic: Status: Acute Code(s): I25.5 - Ischemic cardiomyopathy (4) Non-ST elevation myocardial infarction (NSTEMI): 1. Based on trend of troponin T's, it appears that that her current elevation of troponin T, is probably related to recent non-ST elevation microinfarction during her previous hospitalization. Status: Acute Code(s): I21.4 - Non-ST elevation (NSTEMI) myocardial infarction Attestations Medical Necessity Statement*: Recent NSTEMI- Monitoring UTI Coding Level of Care Code Acute C Programmer for [facility] Fwd Exam Comprehensive Diagnoses Chest pain, precordial R07.2 UTI (urinary tract infection) N39.0 Cardiomyopathy, ischemic I25.5 Non-ST elevation myocardial infarction (NSTEMI) I21.4
[2019-06-18] MEDS: sodium chloride 0.9% 1,000 ML 75 ML IV ×2 (08:38→22:29)
[2019-06-18] MEDS: iron polysaccharide complex 150 mg Capsule PO (08:42)
[2019-06-18] MEDS: divalproex DR 250 mg Tablet PO (08:42)
[2019-06-18] MEDS: tamsulosin 0.4 mg Capsule PO (08:43)
[2019-06-18] MEDS: cholecalciferol (vitamin D3) 1,000 unit Tablet 1000 UNIT PO (08:43)
[2019-06-18] MEDS: aspirin 81 mg EC Tablet PO (08:43)
[2019-06-18] MEDS: ascorbic acid 500 mg Tablet PO (08:43)
[2019-06-18] MEDS: pantoprazole DR 40 mg Tablet PO ×2 (08:43→17:37)
[2019-06-18] MEDS: clopidogrel 75 mg Tablet PO (08:43)
[2019-06-18] MEDS: docusate sodium 100 mg Capsule PO ×2 (08:43→17:36)
[2019-06-18] MEDS: enoxaparin 30 mg/0.3 mL Syringe SUBCUT (08:44)
--- NOTE | 2019-06-18 08:48 | PC.NURSE ---
verbal order from Dr. Olivarez hold morning dose of metoprolol and isosorbide. Contraindicated per VS.
--- NOTE | 2019-06-18 11:28 | P.PN_ITS ---
Subjective Subjective: Interval history: This morning patient was quite agitated, she refused blood draws, she refused IV placement, she refused her cardiac stress test I discussed patient's goals of care, patient states that she is tired, she is hungry, she does not want to have testing done as of today at, at other times she states that she does not know. Her primary complaint today is that she feels tired. Given that she has had a NSTEMI, I discussed her goals of care, I discussed options of hospice, patient stated that she was interested, and would like to discuss it with a hospice nurse Unfortunately patient is at times difficult to arouse, does have dementia, she is blind, I have instructed the nurses to hold all narcotics and benzodiazepines, so we can get a true sense of her mental status, as in the past she has been alert oriented x3 to me Vitals/I&O/Wt Last Vital Signs Temp 96.7 F L 06/18/19 00:00 Pulse 92 06/18/19 07:25 Resp 15 06/18/19 07:25 BP 104/54 06/18/19 07:25 Pulse Ox 95 06/18/19 07:25 06/17/19 06/18/19 06/18/19 22:59 06:59 14:59 Intake Total 220 / 1020 420 / 1440 Output Total 150 / 150 Balance 70 / 870 420 / 1290 Physical Exam Const: COMMON NORMALS: no apparent distress and alert HENMT: COMMON NORMALS: normocephalic HEAD & SCALP: normocephalic Neck/C-Spine: COMMON NORMALS: no JVD Resp: COMMON NORMALS: normal respiratory effort, no retractions, no use of accessory muscles and clear to auscultation bilaterally AUSCULTATION: clear to auscultation bilaterally Cardio: COMMON NORMALS: no JVD, regular rate, regular rhythm, S1 normal heart sound and S2 normal heart sound RATE: regular rate RHYTHM: regular rhythm HEART SOUNDS: S1 normal and S2 normal GI: COMMON NORMALS: normal to inspection, nondistended, normoactive bowel sounds, soft to palpation, non-tender, no hepatosplenomegaly, no masses and no bruits PALPATION: Yes soft and Yes no hepatosplenomegaly Extremity: COMMON NORMALS: normal capillary refill, no clubbing, cyanosis or edema, no calf tenderness and no pedal edema Neuro: SENSORIUM/ORIENTATION: Yes alert Data : 06/18/19 03:45 06/18/19 03:45 Micro: Microbiology 06/16/19 11:37 Urine Culture - Preliminary Urine,Clean Catch A&P Assessment and plan (1) Non-ST elevation myocardial infarction (NSTEMI): -Patient had CAD status post stenting, patient is unsure how many stents, unsure when exactly, but was done in [place] maybe 2 to 3 years ago -Patient symptoms do sound cardiac in nature -Patient was seen at [facility] in November 2017, for NSTEMI, that admission she was also shown to have deep Q waves in the anterior leads, and ST depressions in lateral leads, at that point it was also medically managed, as she was deemed poor functional status, no stress test, no cardiac cath -During her last admission, she also had a NSTEMI, baseline troponin was 1805, 6hour 1608, delta 194. EKG showed deep Q waves in anterior chest leads, ST depressions in 1, aVL, V5, V6. Patient was asymptomatic on admission, asymptomatic on discharge, echocardiogram had no wall motion abnormalities, due to patient's underlying coronary disease, anemia, underlying dementia, GI bleed, anticoagulation and antiplatelet therapy were minimized. Echocardiogram showed grade 1 out of 4 diastolic dysfunction, left ventricle ejection fraction 35 to 40%, compared to echo on 12/18/2017, no apparent change. But compared to echocardiogram on 2016, ejection fraction was 60%. Due to patient's present concerns of GI bleed (hemoglobin is low at 7.8, required 1 unit of PRBC, on a Protonix, has a history of hematochezia in the past, was deemed a poor candidate for EGD and colonoscopy in the past), she was discharged on only Plavix, KLAUDIA inhibitor, beta-melvin, and has an aspirin allergy. Patient was supposed will follow up with cardiology, but is here in the hospital -I spoke to patient on her last admission about her history of anterior wall CT and indicated of lateral ischemia, NSTEMI, she opted for medical treatment -I have compared patient's EKG from today from her EKG on previous admission, from her EKG in 2018: It seems like patient has persistent Q waves in anterior leads, and T wave inversions, ST depressions interpretative of lateral ischemia, unchanged since 2018 -Troponin is 1523, has downward trended to 1124 -Patient is medically treated with Plavix, beta-melvin, lisinopril, Imdur -Her BNP is 24,000, compared to 70,000 on last admission, chest x-ray does show pulmonary vascular congestion, but significantly improved from her last admission, is on Lasix 40 mg once daily, has no shortness of breath complaints, is not requiring any oxygen -Patient has dementia, is legally blind, is a 1 person assist, answers most questions appropriately -When I asked patient what she wants, she states do what ever you want Plan -Admit to cardiac IMC -I have consulted cardiology, medically managing NSTEMI, patient has refused cardiac stress testing, continue medical management -Continue Plavix, lisinopril, metoprolol, Imdur -Aspirin will be initiated -Lovenox for DVT prophylaxis -Monitor for chest pain -No active chest pain, nitro as needed -Hold Lasix as creatinine has increased to 2.5, start gentle IV hydration Status: Acute Code(s): I21.4 - Non-ST elevation (NSTEMI) myocardial infarction (2) Acute systolic heart failure: Status: Acute Code(s): I50.21 - Acute systolic (congestive) heart failure (3) Hypoxia: Status: Acute Code(s): R09.02 - Hypoxemia (4) UTI (urinary tract infection): -Switch her over to Primaxin as inpatient for ESBL E. coli UTI Status: Acute Code(s): N39.0 - Urinary tract infection, site not specified (5) Anemia: -Hemoglobin stable at 10.6 Status: Acute Qualifiers: Anemia type: unspecified type Qualified Code(s): D64.9 - Anemia, unspecified Code(s): D64.9 - Anemia, unspecified (6) PNA (pneumonia): Status: Acute Code(s): J18.9 - Pneumonia, unspecified organism (7) GI bleed: Hemoglobin 10.6 Continue to monitor for hematochezia, signs of GI bleeding given that she will be put on Lovenox Status: Acute Code(s): K92.2 - Gastrointestinal hemorrhage, unspecified (8) UTI due to extended-spectrum beta lactamase (ESBL) producing Escherichia coli: Status: Acute Code(s): N39.0 - Urinary tract infection, site not specified; B96.29 - Other Escherichia coli [E. coli] as the cause of diseases classified elsewhere; Z16.12 - Extended spectrum beta lactamase (ESBL) resistance (9) CKD (chronic kidney disease): Monitor creatinine Status: Acute Qualifiers: Chronic kidney disease stage: stage 3 (moderate) Qualified Code(s): N18.3 - Chronic kidney disease, stage 3 (moderate) Code(s): N18.9 - Chronic kidney disease, unspecified Additional A&P Information Patient's main complaint today is that she feels tired, she does not want testing, does not want blood draws, she does not want another IV, she wants to discuss possible hospice option, states she will states that she wants to above all be comfortable Attestations Medical Necessity Statement*: Patient requires admission for N STEMI Coding Level of Care Code Acute Plant Assigner for [facility] Fwd Diagnoses Non-ST elevation myocardial infarction (NSTEMI) I21.4 Acute systolic heart failure I50.21 Hypoxia R09.02 UTI (urinary tract infection) N39.0 Anemia D64.9 Anemia type: unspecified type PNA (pneumonia) J18.9 GI bleed K92.2 UTI due to extended-spectrum beta lactamase (ESBL) producing Escherichia coli N39.0; B96.29; Z16.12 CKD (chronic kidney disease) N18.3 Chronic kidney disease stage: stage 3 (moderate)
[2019-06-18 11:38] LABS: Glucose Point of Care 150 mg/dL (70-110)
--- NOTE | 2019-06-18 14:48 | PC.CHAP ---
Pastoral Care Encounter/Spiritual Assessment Type of Contact [] Declined solution engineer visit [] Patient/Family/Request visit [] Outpatient visit [] Follow-up visit [] Physician referral [] Code/Alert [] Routine visit [] Staff referral [] Actively dying [x] Patient sleeping [] Family support [] [] Out of room [] Palliative care [] [] Receiving care in room [] Pre-surgical visit [] Trauma [] Long length of stay [] ICU visit [] Other: Relational/Emotional Strength [] Patient feels connected with others/family/visitors/staff [] Distress [] Loneliness/isolation [] Abandonment Spirituality of Patient [] Person of Ivonne [] Attends Mu-Ism of their Ivonne [] Believes in Prayer [] Reads Bible or Anabaptist materials [] There are Spiritual issues to be addressed Mill Tender Interventions [] Prayer [] Active listening [] Non-anxious presence [] Spiritual/emotional support [] Crisis/trauma care [] Spiritual counseling [] Bereavement support [] Provided bereavement packet [] Provided Bible/devotional materials [] Provided toy/stuffed animal, coloring book to patient or family member [] Provided Communion [] Anointing/Fallentimber [] Salvation [] Completed spiritual assessment [] Other: Impact on Illness or Injury [] Angry [] Fearful [] Anxious [] Often cries [] Exhaustion [] Unable to work [] Unable to attend catholic [] Unable to walk/stand [] Unable to read [] Unable to drive [] Unable to eat/drink [] Unable to sleep [] Unable to be with family [] Patient intubated [] Other: Summary Patient sleeping at time of visit, solution engineer will request follow-up visit with in coming solution engineer. Time spent with patient 5 min
--- NOTE | 2019-06-18 16:00 | PC.NURSE ---
patient refusing bladder scan at this time.
--- NOTE | 2019-06-18 16:45 | PC.NURSE ---
Nurse notified of BG. Patient alert. Patterson juice given. Nurse to continue to monitor.
[2019-06-18 16:58] LABS: Glucose Point of Care 66 mg/dL (70-110)
[2019-06-18] MEDS: metoprolol tartrate 25 mg Tablet 12.5 MG PO (17:37)
[2019-06-18] MEDS: latanoprost 0.005% Op Soln 2.5 mL Btl 1 DROP EYE-BOTH (17:41)
[2019-06-18 18:25] LABS: Glucose Point of Care 127 mg/dL (70-110)
[2019-06-18 20:46] LABS: Glucose Point of Care 123 mg/dL (70-110)
[2019-06-18] MEDS: atorvastatin 40 mg Tablet PO (20:52)
[2019-06-18] MEDS: divalproex DR 500 mg Tablet PO (20:52)
[2019-06-18] MEDS: quetiapine 100 mg Tablet PO (20:52)
--- NOTE | 2019-06-18 22:07 | PC.NURSE ---
nurse informed patient that a bladder scan was ordered by physician. nurse informed patient what bladder scan was, patient agreed to have bladder scan done. while bladder scanning patient, patient got very agitated with nurse. patient stated i am going to leave this place. can they think of anything else to fucking do to me . nurse informed charge nurse of conflict.
[2019-06-19] VITALS (7 sets, daily range): BP systolic 90–117; BP diastolic 50–67; PULSE 78–88; RESP 14–22; TEMP 36.6; O2SAT 94–99
--- NOTE | 2019-06-19 00:42 | PC.NURSE ---
Bathed patient due to incontinence of urine. Patient yelling and swinging at RNs x2 in to help her stating, I just want to be left alone. Explained to patient that we could not and would not leave her lying in a wet bed. Patient continued to swing at RNs x2. Continued to talk with patient about her care and that we would not let anything bad happen to her and she stated, you don't care. Nobody cares. I just want to go back to senior care. Patient was cleaned and linens changed. Patient is refusing bladder scan at this time stating, I just want to be left alone. Will continue to monitor for incontinence.
[2019-06-19] MEDS: promethazine 25 mg Tablet PO (02:03)
--- NOTE | 2019-06-19 03:59 | PC.NURSE ---
Patient continues to refuse bladder scan
--- NOTE | 2019-06-19 04:00 | PC.NURSE ---
patient refusing to have bladder scanned.
[2019-06-19 05:05] LABS: Basophils # 0.1 10^3/uL (0.0-0.1); Basophils % 0.7 %; Eosinophils # 0.4 10^3/uL (0.0-0.8); Hematocrit 33.1 % (37.0-47.0); Hemoglobin 10.5 g/dL (11.5-15.3); Lymphocytes # 1.3 10^3/uL (0.8-4.8); Lymphocytes % 19.2 %; Mean Corpuscular HGB Conc 31.7 g/dL (30.0-36.0); Mean Corpuscular Hemoglobin 31.9 pg (28.0-34.0); Mean Corpuscular Volume 100.6 fL (81-99); Mean Platelet Volume 9.4 fL (7.4-10.4); Monocytes # 0.9 10^3/uL (0.2-0.9); Monocytes % 12.4 %; Neutrophils # 4.3 10^3/uL (1.8-7.7); Neutrophils % 62.6 %; Nucleated Red Blood Cells % 0 %; Platelet Count 173 10^3/cmm (130-400); Red Blood Count 3.29 10^6/uL (4.1-5.3); Red Cell Distribution Width 13.4 % (12.1-15.1); White Blood Count 6.9 10^3/uL (4.0-10.0)
[2019-06-19 05:18] LABS: Alanine Aminotransferase < 5 U/L (0-33); Albumin Level 2.7 g/dL (3.5-5.2); Alkaline Phosphatase 78 IU/L (35-105); Anion Gap 13.6 (5-19); Aspartate Amino Transferase 12 U/L (0-32); Blood Urea Nitrogen 26 mg/dL (8-23); Carbon Dioxide 27 mmol/L (22-29); Chloride 105 mmol/L (98-107); Globulin 4.2 g/dL (1.3-4.6); Glucose 140 mg/dL (65-115); Magnesium 2.1 mg/dL (1.7-2.3); Osmolality Calculated 293 mOsm/kg (285-295); Phosphorus 3.7 mg/dL (2.5-4.5); Potassium 3.6 mmol/L (3.5-5.1); Sodium 142 mmol/L (136-145); Total Bilirubin 0.4 mg/dL (0.15-1.2); Total Protein 6.9 g/dL (6.6-8.7)
[2019-06-19] MEDS: quetiapine 25 mg Tablet PO (05:42)
[2019-06-19 05:51] LABS: Glucose Point of Care 135 mg/dL (70-110)
--- NOTE | 2019-06-19 08:03 | PC.NURSE ---
bladder scan not performed. patient voided at 0730.
--- NOTE | 2019-06-19 09:04 | XR_ITS ---
WS: [id number] XR chest 1V portable [id number] REASON FOR EXAM: fever FINDINGS: Cardiomegaly is seen. There is arteriosclerotic changes in the arch of the aorta. Compariso n to previous exam on June 16, 2019 the infiltrate in the left lung and effusion have resolved almos t completely. A PICC line is seen the tip is noted at the entrance to the right atrium. XR/XR chest 1V portable [id number] IMPRESSION: PICC line in good position. Cardiomegaly with arteriosclerotic changes Resolved pleural effusions and infiltrate left lung base.
[2019-06-19] MEDS: enoxaparin 30 mg/0.3 mL Syringe SUBCUT (09:24)
[2019-06-19] MEDS: ascorbic acid 500 mg Tablet PO (09:26)
[2019-06-19] MEDS: aspirin 81 mg EC Tablet PO (09:26)
[2019-06-19] MEDS: metoprolol tartrate 25 mg Tablet 12.5 MG PO (09:26)
[2019-06-19] MEDS: isosorbide dinitrate 20 mg Tablet 60 MG PO (09:26)
[2019-06-19] MEDS: tamsulosin 0.4 mg Capsule PO (09:26)
[2019-06-19] MEDS: pantoprazole DR 40 mg Tablet PO (09:26)
[2019-06-19] MEDS: clopidogrel 75 mg Tablet PO (09:26)
[2019-06-19] MEDS: docusate sodium 100 mg Capsule PO (09:26)
[2019-06-19] MEDS: iron polysaccharide complex 150 mg Capsule PO (09:26)
[2019-06-19] MEDS: cholecalciferol (vitamin D3) 1,000 unit Tablet 1000 UNIT PO (09:27)
[2019-06-19] MEDS: divalproex DR 250 mg Tablet PO (09:27)
[2019-06-19 09:32] LABS: Procalcitonin 0.08 ng/mL (0-0.5)
[2019-06-19 09:45] LABS: Influenza A by IFA Negative (Negative); Influenza B by IFA Negative (Negative)
[2019-06-19 11:21] LABS: Glucose Point of Care 241 mg/dL (70-110)
--- NOTE | 2019-06-19 16:02 | PM.DCS ---
Discharge Providers Date of Admission: 06/17/19 17:30 Date of Discharge: June 19, 2019 Attending Provider at Admission: William Olivarez MD Attending Provider at Discharge: William Olivarez MD Primary Care Provider: Kamlesh Stevens Diagnoses at Discharge Discharge Diagnosis (1) Non-ST elevation myocardial infarction (NSTEMI): Status: Acute (2) Acute systolic heart failure: Status: Acute (3) Hypoxia: Status: Acute (4) UTI (urinary tract infection): Status: Acute (5) Anemia: Status: Acute Qualifiers: Anemia type: unspecified type Qualified Code(s): D64.9 - Anemia, unspecified (6) PNA (pneumonia): Status: Acute (7) GI bleed: Status: Acute (8) UTI due to extended-spectrum beta lactamase (ESBL) producing Escherichia coli: Status: Acute (9) CKD (chronic kidney disease): Status: Acute Qualifiers: Chronic kidney disease stage: stage 3 (moderate) Qualified Code(s): N18.3 - Chronic kidney disease, stage 3 (moderate) Reason for Visit Reason for Visit: Reason For Visit: CP Hospital Course Discharge Summary: Perla Roque is a 74 year old female is a pleasant 74-year-old female with a past medical history of dementia, legally blind, insulin-dependent type 2 diabetes mellitus, recurrent history of ESBL E. coli UTIs, hypertension, hyperlipidemia, CAD status post stenting in [place] 2 to 3 years ago, systolic heart failure, transient ischemic attack, epilepsy, chronic back pain, chronic migraines, PTSD, anxiety and depression, history of mild to moderate anemia with low level monoclonal gammopathy, CKD stage II-III who presents to [facility] due to complaints of chest pain. According to the [facility] at baseline, patient can carry on a conversation, is 1 person assist, can get up with help, uses a walker, can feed herself, she can make her own decisions, she is a full code. Patient was recently discharged from [facility] due to altered mental status secondary to ESBL E. coli UTI, she has been getting Invanz as outpatient. Her admission was also complicated by a NSTEMI, GI bleed, anemia, weakness. According to the [facility], this morning patient has severe substernal chest pain, was given 3 nitros, pain did not improve, so she was brought to the emergency room for further evaluation, for the last few days that she got the hospital, she is been ambulating with assistance, no complaints of shortness of breath, no complaints of chest pain other than the episode today. According to the [facility] patient can make her own decisions, she is a full code, and she does not want her brother to make decisions for her. Patient was admitted for an N STEMI: Non-ST elevation myocardial infarction (NSTEMI): -Patient had CAD status post stenting, patient is unsure how many stents, unsure when exactly, but was done in [place] maybe 2 to 3 years ago -Patient symptoms do sound cardiac in nature -Patient was seen at [facility] in November 2017, for NSTEMI, that admission she was also shown to have deep Q waves in the anterior leads, and ST depressions in lateral leads, at that point it was also medically managed, as she was deemed poor functional status, no stress test, no cardiac cath -During her last admission, she also had a NSTEMI, baseline troponin was 1805, 6hour 1608, delta 194. EKG showed deep Q waves in anterior chest leads, ST depressions in 1, aVL, V5, V6. Patient was asymptomatic on admission, asymptomatic on discharge, echocardiogram had no wall motion abnormalities, due to patient's underlying coronary disease, anemia, underlying dementia, GI bleed, anticoagulation and antiplatelet therapy were minimized. Echocardiogram showed grade 1 out of 4 diastolic dysfunction, left ventricle ejection fraction 35 to 40%, compared to echo on 12/18/2017, no apparent change. But compared to echocardiogram on 2016, ejection fraction was 60%. Due to patient's present concerns of GI bleed (hemoglobin is low at 7.8, required 1 unit of PRBC, on a Protonix, has a history of hematochezia in the past, was deemed a poor candidate for EGD and colonoscopy in the past), she was discharged on only Plavix, KLAUDIA inhibitor, beta-melvin, and has an aspirin allergy. Patient was supposed will follow up with cardiology, but is here in the hospital -I spoke to patient on her last admission about her history of anterior wall W[place] and indicated of lateral ischemia, NSTEMI, she opted for medical treatment -I have compared patient's EKG from today from her EKG on previous admission, from her EKG in 2018: It seems like patient has persistent Q waves in anterior leads, and T wave inversions, ST depressions interpretative of lateral ischemia, unchanged since 2018 -Troponin is 1523, has downward trended to 1124 -Patient is medically treated with Plavix, beta-melvin, lisinopril, Imdur -Her BNP is 24,000, compared to 70,000 on last admission, chest x-ray does show pulmonary vascular congestion, but significantly improved from her last admission, is on Lasix 40 mg once daily, has no shortness of breath complaints, is not requiring any oxygen -Patient has dementia, is legally blind, is a 1 person assist, answers most questions appropriately Patient was admitted to the cardiac interested in immediate care, her troponins downward trended, her echo showed ejection fraction 30%, cardiology was consulted, patient will start on aspirin, Plavix, therapeutic Lovenox. There were plans on doing a cardiac stress test, however patient refused cardiac stress testing. So the plan was to medically manage patient on aspirin, statin, Plavix, lisinopril, beta-melvin, Imdur. On the morning of 06/19/2019 an extensive discussion with patient in the presence of a nurse and Dr. Ontiveros. The day prior, patient was quite sleepy, somnolent at times, so all her benzodiazepines and narcotics were held. Today she was quite alert oriented x3, answering questions appropriately, quite sharp. Patient was advised of the previous information as outlined in my discharge summary, she understood that she has NSTEMI, she has significant cardiac stress, and she wants to be medically managed. Patient refused cardiac testing. Patient refused cardiac catheterization. She understands the risk and benefits, voiced understanding, all questions answered. In terms of her CODE STATUS, patient wants CPR, wants shocking, but does not want cardiac catheterization. She does not want mechanical ventilation or intubation. I had extensive discussion with the patient, with the concern of high risk of morbidity, mortality, futility of CPR and shocking without the rest of the ACLS algorithm and cardiac catheterization, but patient was adamant she wanted CPR and shocking. So the plan is to discharge to the [place] [facility], and have her medically managed for her NSTEMI, and her for her to follow-up with cardiology as outpatient. My worry here is that patient has a high risk of bounce back and readmission. But patient has a choice of changing her mind in the near future about stress testing and catheterization. In addition patient has no social support, she does not want us to reach out to her brother, so she makes all decisions for herself. Also I am quite worried that she has a high risk of cardiac arrhythmia, which will lead to aggressive interventions, high risk of morbidity and mortality and futility. Patient was advised of my worries, voiced understanding, all questions answered. I also had a discussion of hospice with the patient, she is presently interested in hospice, but would like to have a discussion at the [facility] with staff and their physician at the [facility]. For ESBL E. coli UTI, she has 4 more days of Invanz left, should PICC line should be removed. Also during her admission, patient had quite a few episodes of forgetfulness, somnolence, sleepiness which I feel are secondary to her narcotics and benzodiazepines. I have reduced the dose of her benzodiazepine and her narcotics, [facility] was advised to use sparingly. Physical Exam Const: COMMON NORMALS: no apparent distress and oriented x3 HENMT: COMMON NORMALS: normocephalic HEAD & SCALP: normocephalic Neck/C-Spine: COMMON NORMALS: no JVD Resp: COMMON NORMALS: normal respiratory effort, no retractions, no use of accessory muscles and clear to auscultation bilaterally AUSCULTATION: clear to auscultation bilaterally Cardio: COMMON NORMALS: no JVD, regular rate, regular rhythm, S1 normal heart sound and S2 normal heart sound RATE: regular rate RHYTHM: regular rhythm HEART SOUNDS: S1 normal and S2 normal GI: COMMON NORMALS: normal to inspection, nondistended, normoactive bowel sounds, soft to palpation, non-tender, no hepatosplenomegaly, no masses and no bruits PALPATION: Yes soft and Yes no hepatosplenomegaly Extremity: COMMON NORMALS: normal capillary refill, no clubbing, cyanosis or edema, no calf tenderness and no pedal edema Neuro: COMMON NORMALS: oriented x3 Psych: COMMON NORMALS: mental status grossly normal Discharge Data Data Completed and Pending: Completed Studies During Hospitalization Category Date Time Status XR chest 1V carroll ble [id number] Stat Exams 06/16/19 11:00 Completed XR chest 1V carroll ble [id number] Stat Exams 06/19/19 09:04 Completed CV echo complete* [id number] Stat Ultrasound 06/16/19 17:55 Completed Pending at discharge Category Date Time Status Sestamibi Stress Test Request Routi ne Exams 06/17/19 16:54 Stop Req Labs from last 24 hours 06/19/19 06/19/19 06/19/19 10:57 09:18 05:40 WBC RBC Hgb Hct MCV MCH MCHC RDW Plt Count MPV Neut % (Auto) Lymph % (Auto) [place] % (Auto) Eos % (Auto) Baso % (Auto) Neut # (Auto) Lymph # (Auto) [place] # (Auto) Eos # (Auto) Baso # (Auto) Nucleated RBC % (a uto) Nucleated RBCs # Sodium Potassium Chloride Carbon Dioxide Anion Gap BUN Creatinine Glucose POC Glucose 241 135 Calculated Osmolal ity Calcium Phosphorus Magnesium Total Bilirubin AST ALT Alkaline Phosphata se Total Protein Albumin Globulin Procalcitonin Influenza Type A A g Negative POC Influenza B Ag Negative 06/19/19 06/19/19 06/19/19 04:18 04:18 04:18 WBC 6.9 RBC 3.29 L Hgb 10.5 L Hct 33.1 L MCV 100.6 H MCH 31.9 MCHC 31.7 RDW 13.4 Plt Count 173 MPV 9.4 Neut % (Auto) 62.6 Lymph % (Auto) 19.2 [place] % (Auto) 12.4 Eos % (Auto) 5.0 Baso % (Auto) 0.7 Neut # (Auto) 4.3 Lymph # (Auto) 1.3 [place] # (Auto) 0.9 Eos # (Auto) 0.4 Baso # (Auto) 0.1 Nucleated RBC % (a uto) 0 Nucleated RBCs # 0.0 Sodium 142 Potassium 3.6 Chloride 105 Carbon Dioxide 27 Anion Gap 13.6 BUN 26 H Creatinine 2.2 H Glucose 140 H POC Glucose Calculated Osmolal ity 293 Calcium 9.0 Phosphorus 3.7 Magnesium 2.1 Total Bilirubin 0.4 AST 12 ALT < 5 Alkaline Phosphata se 78 Total Protein 6.9 Albumin 2.7 L Globulin 4.2 Procalcitonin 0.08 Influenza Type A A g POC Influenza B Ag 06/18/19 06/18/19 06/18/19 20:21 17:56 16:43 WBC RBC Hgb Hct MCV MCH MCHC RDW Plt Count MPV Neut % (Auto) Lymph % (Auto) [place] % (Auto) Eos % (Auto) Baso % (Auto) Neut # (Auto) Lymph # (Auto) [place] # (Auto) Eos # (Auto) Baso # (Auto) Nucleated RBC % (a uto) Nucleated RBCs # Sodium Potassium Chloride Carbon Dioxide Anion Gap BUN Creatinine Glucose POC Glucose 123 127 66 Calculated Osmolal ity Calcium Phosphorus Magnesium Total Bilirubin AST ALT Alkaline Phosphata se Total Protein Albumin Globulin Procalcitonin Influenza Type A A g POC Influenza B Ag Vitals: Last Vital Signs Temp 97.8 F 06/19/19 12:43 Pulse 82 06/19/19 12:43 Resp 14 06/19/19 12:43 BP 90/50 06/19/19 12:43 Pulse Ox 96 06/19/19 12:43 Discharge Plan Discharge Patient Disposition: Home, Self-Care Condition: Stable Prescriptions: New aspirin 81 mg Tablet,Delayed Release (Dr/Ec) 81 mg PO DAILY 30 Days Qty: 30 RF: 0 Coreg 3.125 mg tablet 3.125 mg PO BID 30 Days Qty: 60 RF: 0 Continued quetiapine [Seroquel] 25 mg Tablet 25 mg PO QAM RF: 0 latanoprost [Xalatan] 0.005 % Drops 1 drp OPHTHALMIC (EYE) QPM RF: 0 acetaminophen 325 mg Tablet 650 mg PO Q6H PRN (Reason: Pain) RF: 0 divalproex [Depakote] 250 mg Tablet,Delayed Release (Dr/Ec) 250 mg PO DAILY RF: 0 venlafaxine 25 mg Tablet 25 mg PO DAILY RF: 0 polysaccharide iron complex [Poly-Iron] 150 mg iron Capsule 150 mg PO DAILY RF: 0 loperamide 2 mg Tablet 2 mg PO Q6H PRN (Reason: Diarrhea) RF: 0 clopidogrel [Plavix] 75 mg Tablet 75 mg PO DAILY RF: 0 divalproex [Depakote] 500 mg Tablet,Delayed Release (Dr/Ec) 500 mg PO BEDTIME RF: 0 quetiapine [Seroquel] 100 mg Tablet 100 mg PO BEDTIME RF: 0 magnesium hydroxide [Milk of Magnesia] 400 mg/5 mL Suspension 30 ml PO DAILY PRN (Reason: Constipation) RF: 0 bisacodyl [Dulcolax (bisacodyl)] 10 mg Suppository 10 mg ME DAILY PRN (Reason: Constipation) RF: 0 promethazine 25 mg Tablet 25 mg PO Q6H PRN (Reason: Nausea) RF: 0 nitroglycerin [Nitrostat] 0.4 mg Tablet, Sublingual 0.4 mg SUBLINGUAL Q5M PRN (Reason: Chest Pain) RF: 0 ascorbic acid (vitamin C) [Vitamin C] 500 mg Capsule, Extended Release 500 mg PO DAILY RF: 0 docusate sodium 100 mg Capsule 100 mg PO BID RF: 0 Novolin R Flexpen 100 unit/mL (3 mL) Insulin Pen See Rx Instructions .ROUTE .COMPLEX RF: 0 Novolin N Flexpen 100 unit/mL (3 mL) Insulin Pen 10 unit SUBCUT QAM RF: 0 senna 8.6 mg Capsule 8.6 mg PO Q12H PRN (Reason: Constipation) RF: 0 brimonidine 0.1 % Drops 1 drp OPHTHALMIC (EYE) TID RF: 0 cholecalciferol (vitamin D3) [Vitamin D3] 2,000 unit Tablet 1,000 unit PO DAILY RF: 0 PNV cmb#[id number]-ferrous fumarate-FA [] 28 mg iron- 800 mcg Tablet 1 tab PO DAILY RF: 0 atorvastatin 40 mg Tablet 40 mg PO BEDTIME 30 Days Qty: 30 RF: 0 pantoprazole 40 mg Tablet,Delayed Release (Dr/Ec) 40 mg PO BID 30 Days Qty: 60 RF: 0 sodium chloride 0.9 % Solution See Rx Instructions .ROUTE .COMPLEX RF: 0 ertapenem 1 gram recon soln 500 mg IV DAILY 4 Days Qty: 10 RF: 0 Changed hydrocodone-acetaminophen 5-325 mg Tablet 1 tab PO Q24H PRN (Reason: Pain) Qty: 0 RF: 0 Ativan 0.5 mg Tablet 0.5 mg PO Q24H PRN (Reason: Anxiety) Qty: 0 RF: 0 lisinopril 5 mg tablet 2.5 mg PO DAILY 30 Days Qty: 30 RF: 0 Lasix 20 mg Tablet 20 mg PO DAILY Qty: 0 RF: 0 isosorbide dinitrate 10 mg Tablet 10 mg PO DAILY Qty: 0 RF: 0 Discontinued tamsulosin [Flomax] 0.4 mg Capsule 0.4 mg PO DAILY RF: 0 metoprolol tartrate 25 mg Tablet 12.5 mg PO BID RF: 0 Discharge Orders: Discharge Order (Routine); Ordered 06/19/19 Ordered By: William Olivarez Other Ambulatory Orders: Complete Blood Count w/Man Dif (Routine) Timeframe: 20190623 Facility: [facility] - Location: Lab - Main Lab Ordered By: William Olivarez Comprehensive Metabolic Panel (Routine) Timeframe: 20190623 Facility: [facility] - Location: Lab - Main Lab Ordered By: William Olivarez Referrals: Albertina Sage FNP [Family Provider] - 1 week Ana Ontiveros MD [Physician] - 1 week Discharge Diet: Cardiac Discharge Activity: Resume usual activity Patient Instructions: Myocardial Infarction (GEN) Activity Restrictions/Additional Instructions: -For your nstemi please use aspirin, Plavix, statin as prescribed -Please monitor blood pressures 3 times daily -Doses of lisinopril has been decreased to 2.5 mg once daily, Imdur to 10 mg once daily, due to low blood pressures, patient is asymptomatic -Please follow-up with cardiology in 1 week -As per patient's wishes she does not want to be intubated -She does want cardiac resuscitative measures -Patient is agreeable to discussion of hospice at the [place], will have the hospice team at the [facility] evaluate her for this -For her ESBL E. coli UTI, she has 4 remaining days of Invanz starting tomorrow -Please recheck CBC and CMP on last day of antibiotic treatment -After Invanz has finished, remove PICC line -Monitor for bloody or black stools, if so come back to the emergency room -PRN oxygen to maintain saturations above 92%. Discharge Date/Time: 06/19/19 14:54 Discharge Attestations Time Spent in Discharge Care*: less than 30 min Quality Metrics Clinical Quality Measures During this hospital stay, did patient experience: AMI Clinical Trial Participant: No Contraindication to aspirin (AMI): Aspirin given Contraindication to statin: Statin prescribed Coding Level of Care Code Acute Advertising Dispatch Clerk for [facility] Fwd Diagnoses Non-ST elevation myocardial infarction (NSTEMI) I21.4 Acute systolic heart failure I50.21 Hypoxia R09.02 UTI (urinary tract infection) N39.0 Anemia D64.9 Anemia type: unspecified type PNA (pneumonia) J18.9 GI bleed K92.2 UTI due to extended-spectrum beta lactamase (ESBL) producing Escherichia coli N39.0; B96.29; Z16.12 CKD (chronic kidney disease) N18.3 Chronic kidney disease stage: stage 3 (moderate)
== END 2019-06-19 14:54 | disposition home or self-care (01) | DRG 280 ==
LOC: ER 11:09 → CSU 17:59
PROVIDERS: Internal Medicine Cardiovascular Disease; Admitting Provider Family Medicine; Emergency Provider Family Medicine; Family Provider Nurse Practitioner Family; PCP Family Medicine; Visit Provider Family Medicine
DX: I21.4 Non-ST elevation (NSTEMI) myocardial infarction (principal); J18.9 Pneumonia, unspecified organism; I50.21 Acute systolic (congestive) heart failure; N39.0 Urinary tract infection, site not specified; K92.2 Gastrointestinal hemorrhage, unspecified; Z16.12 Extended spectrum beta lactamase (ESBL) resistance; R09.02 Hypoxemia; B96.20 Unspecified Escherichia coli [E. coli] as the cause of diseases classified elsewhere; N18.3 Chronic kidney disease, stage 3 (moderate); D63.1 Anemia in chronic kidney disease; I25.5 Ischemic cardiomyopathy; Z79.82 Long term (current) use of aspirin; Z87.891 Personal history of nicotine dependence; Z79.811 Long term (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 of aromatase inhibitors; Z79.4 Long term (current) use of insulin; Z79.2 Long term (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 of antibiotics
CPT/HCPCS: 12345; 36415; 36416; 36430; 36569; 36592; 36600; 51702; 51798; 71045; 71250; 80048; 80051; 80053; 81001; 82607; 82728; 82810; 82962; 83540; 83550; 83735; 83880; 83986; 84100; 84145; 84484; 85025; 86850; 86900; 86920; 87040; 87077; 87086; 87186; 87641; 87804; 93005; 93010; 93306; 96372; 96375; 97110; 97161; 97165; 99283; 99284; G0378; J0696; J0743; J1335; J1644; J1650; J1815; J1940; J2060; J3370; J3490; J7030; J7040; J7050; P9016; Q0169

== ENCOUNTER 2019-09-08 12:00 | Inpatient (IN) | payer MEDICARE, MEDICAID, SELFPAY ==
[2019-09-08] VITALS (31 sets, daily range): BP systolic 52–156; BP diastolic 26–80; PULSE 67–87; RESP 7–20; TEMP 36.6–36.8; O2SAT 79–100; BMI 26.8
--- NOTE | 2019-09-08 12:25 | CT_ITS ---
WS: [id number] CT HEAD NONCONTRAST HISTORY: AMS TECHNIQUE: Contiguous axial imaging performed through the brain in 2.5 mm imaging. Bone and soft tiss ue windows. Sagittal and coronal reformats reviewed. All CT scans at [facility] use at ast one of these dose optimization techniques: automated exposure control; mA and/or kV adjustment pe r patient size (includes targeted exams where dose is matched to clinical indication); or iterative r econstruction. DLP: 872.68 mGy.cm COMPARISON: 12/06/2018 No acute intracranial hemorrhage, midline shift or mass effect. Moderate to severe bilateral atrophy with mild chronic ischemic disease. Mild progression since the p rior study. Ventricles: Normal size with no hydrocephalus. Paranasal sinuses: As visualized are clear. Mastoid air cells: Small amount of fluid in the RIGHT mastoid tip. Calvarium and scalp: Diffuse thickening of the calvarium. No destructive bone lesions. Similar appear ance to the prior study. CT/CT head wo con* [id number] IMPRESSION: 1. No acute intracranial hemorrhage or edema. 2. Moderate to severe atrophy and mild chronic ischemic disease.
--- NOTE | 2019-09-08 12:26 | XR_ITS ---
WS: [id number] PORTABLE CHEST HISTORY: chest pain COMPARISON: 06/19/2019 Benign granuloma at the lung bases. Lungs are well expanded. No residual RIGHT pleural effusion. Very small thickening of the pleura at t he LEFT lung base. No pneumonia. Normal vasculature. No pneumothorax. Cardiac size: Mildly enlarged cardiac silhouette. Mediastinum/Aorta: Mild atherosclerosis aorta. Osteopenia. XR/XR chest 1V portable [id number] IMPRESSION: 1. No pneumonia. 2. Small residual LEFT pleural effusion and cardiomegaly.
--- NOTE | 2019-09-08 12:27 | W.ED.AMS ---
HPI - Altered Mental Status General: Chief Complaint: Urogenital-Female Stated Complaint: UTI, AMS, POSS SEPTIC Time Seen by Provider: 09/08/19 12:14 Source: patient Mode of arrival: EMS Limitations: altered mental status and physical limitation History of Present Illness: HPI narrative: Patient is a 74-year-old female with a history of dementia, DM2, recurrent history of ESBL E. coli UTIs, HTN, hyperlipidemia, CAD, CHF, TIA, anemia, and CKD here from her home of [facility] for complaints of altered mental status and hypotension. EMS states that patient's blood pressure was 50s/30s. Upon arrival to the emergency department she is 90s/60s. Patient herself is an extremely poor historian. She can tell me her name is Perla. [place] [facility] [place] She cannot tell me her date of , last name, where she currently lives, family member names, or any form of past medical history. Review of Systems General: Reports: ROS unobtainable due to medical condition and ROS unobtainable due to mental status [facility] ED PFSH: Medical History (Updated 09/08/19 @ 15:04 by LEO Lawrence) Anxiety Blindness Chronic kidney disease, stage III (moderate) Chronic pain Coronary artery disease Dementia Depression Diabetes mellitus GERD (gastroesophageal reflux disease) Hyperlipidemia Ischemic cardiomyopathy Non-ST elevation myocardial infarction (NSTEMI) Obesity Seizure disorder Surgical History H/O hemorrhoidectomy H/O hysterectomy for benign disease H/O knee surgery History of breast biopsy History of cholecystectomy History of hip surgery Stented coronary artery Family History Brother Cancer Colon cancer Social History Smoking and tobacco status: never smoked Alcohol intake: never Physical Exam Const: COMMON NORMALS: no acute distress, alert and well nourished EXAM LIMITATIONS: altered mental status and physical limitations HENMT: COMMON NORMALS: normocephalic and atraumatic HEAD & SCALP: normocephalic and atraumatic FACE & SINUS: normal facial exam Eye: OTHER: pt is legally blind Chest: COMMONS NORMALS: normal inspection of the chest and normal palpation of entire chest wall Resp: COMMON NORMALS: normal respiratory effort and clear to auscultation bilaterally AUSCULTATION: clear to auscultation bilaterally Cardio: COMMON NORMALS: regular rate and regular rhythm RATE: regular rate RHYTHM: regular rhythm GI: COMMON NORMALS: Normal to inspection, nondistended, normoactive bowel sounds present, Soft to palpation, No hepatosplenomegaly present and no masses PALPATION: Yes Soft to palpation and Yes No hepatosplenomegaly present Extremity: COMMON NORMALS: normal to inspection Neuro: SENSORIUM/ORIENTATION: Yes alert Skin: OTHER: pt with large 6cm x 4cm decub ulcer with granulation tissue and erythema localized to wound edges; there is no drainage however a very foul smell; unknown if this smell is from the ulcer or from urine in her brief Course Vital Signs: Vital signs: Vital Signs Temperature 97.9 F 09/08/19 12:08 Pulse Rate 86 09/08/19 12:08 Respiratory Rate 12 09/08/19 12:08 Blood Pressure 90/60 09/08/19 12:08 Pulse Oximetry 96 09/08/19 12:08 MDM - Altered Mental Status MDM Narrative: Medical decision making narrative: I spoke to patient's brother who does not have a DPOA. I have contacted [place] and spoken to administration who confirms that patient is her own guardian at this time. Dr. Orozco has also seen patient and will speak to hospitalist for admission. Lab Data: Labs: Lab Results 09/08/19 09/08/19 09/08/19 Range/Units 13:11 13:11 13:11 WBC 18.3 H (4.0-10.0) 10^3/ uL RBC 2.72 L (4.1-5.3) 10^6/u L Hgb 8.8 L (11.5-15.3) g/dL Hct 28.2 L (37.0-47.0) % MCV 103.7 H (81-99) fL MCH 32.4 (28.0-34.0) pg MCHC 31.2 (30.0-36.0) g/dL RDW 15.4 H (12.1-15.1) % Plt Count 229 (130-400) 10^3/c mm MPV 8.8 (7.4-10.4) fL Neut % (Auto) 81.4 % Lymph % (Auto) 5.9 % [place] % (Auto) 10.4 % Eos % (Auto) 0.1 % Baso % (Auto) 0.3 % Neut # (Auto) 14.9 H (1.8-7.7) 10^3/u L Lymph # (Auto) 1.1 (0.8-4.8) 10^3/u L [place] # (Auto) 1.9 H (0.2-0.9) 10^3/u L Eos # (Auto) 0.0 (0.0-0.8) 10^3/u L Baso # (Auto) 0.1 (0.0-0.1) 10^3/u L Nucleated RBC % (a uto) 0 % Nucleated RBCs # 0.0 /100WBC PT 14.80 H (10.5-13.3) SECO NDS INR 1.12 (0.8-1.2) APTT 48.8 H (23.9-36.7) SECO NDS Sodium 137 (136-145) mmol/L Potassium 6.1 H (3.5-5.1) mmol/L Chloride 103 (98-107) mmol/L Carbon Dioxide 20 L (22-29) mmol/L Anion Gap 20.1 H (5-19) BUN 73 H (8-23) mg/dL Creatinine 2.6 H (0.5-0.9) mg/dL Glucose 279 H (65-115) mg/dL Calculated Osmolal ity 294 (285-295) mOsm/k g Lactate (0.5-2.2) mmol/L Calcium 9.2 (8.5-10.5) mg/dL Magnesium 2.7 H (1.7-2.3) mg/dL Total Bilirubin 0.2 (0.15-1.2) mg/dL AST 9 (0-32) U/L ALT < 5 (0-33) U/L Alkaline Phosphata se 67 (35-105) IU/L C-Reactive Protein 149.3 H (0.0-4.9) mg/L Total Protein 6.7 (6.6-8.7) g/dL Albumin 2.6 L (3.5-5.2) g/dL Globulin 4.1 (1.3-4.6) g/dL Urine Color (Yellow) Urine Appearance (CLEAR) Urine pH (5-7) Ur Specific Gravit y (1.005-1.030) Urine Protein (Negative) Urine Glucose (UA) (Normal) Urine Ketones (Negative) Urine Blood (Negative) Urine Nitrate (Negative) Urine Bilirubin (NEGATIVE) Prot Sulfosalicyli c Acd (Negative) Urine Urobilinogen (Negative) mg/dL Ur Leukocyte Mary ase (Negative) Urine RBC (0-2) /hpf Urine WBC (0-5) /hpf Ur Squamous Epith Cells (0-5) Urine Bacteria (NONE) Urine Opiates Scre en (Negative) ng/mL Ur Barbiturates Sc reen (Negative) ng/mL Ur Phencyclidine S crn (Negative) ng/mL Ur Amphetamines Sc reen (Negative) ng/mL U Benzodiazepines Scrn (Negative) ng/mL Urine Cocaine Scre en (Negative) ng/mL U Marijuana (THC) Screen (Negative) ng/mL 09/08/19 09/08/19 09/08/19 Range/Units 13:11 13:11 13:11 WBC (4.0-10.0) 10^3/ uL RBC (4.1-5.3) 10^6/u L Hgb (11.5-15.3) g/dL Hct (37.0-47.0) % MCV (81-99) fL MCH (28.0-34.0) pg MCHC (30.0-36.0) g/dL RDW (12.1-15.1) % Plt Count (130-400) 10^3/c mm MPV (7.4-10.4) fL Neut % (Auto) % Lymph % (Auto) % [place] % (Auto) % Eos % (Auto) % Baso % (Auto) % Neut # (Auto) (1.8-7.7) 10^3/u L Lymph # (Auto) (0.8-4.8) 10^3/u L [place] # (Auto) (0.2-0.9) 10^3/u L Eos # (Auto) (0.0-0.8) 10^3/u L Baso # (Auto) (0.0-0.1) 10^3/u L Nucleated RBC % (a uto) % Nucleated RBCs # /100WBC PT (10.5-13.3) SECO NDS INR (0.8-1.2) APTT (23.9-36.7) SECO NDS Sodium (136-145) mmol/L Potassium (3.5-5.1) mmol/L Chloride (98-107) mmol/L Carbon Dioxide (22-29) mmol/L Anion Gap (5-19) BUN (8-23) mg/dL Creatinine (0.5-0.9) mg/dL Glucose (65-115) mg/dL Calculated Osmolal ity (285-295) mOsm/k g Lactate 1.0 (0.5-2.2) mmol/L Calcium (8.5-10.5) mg/dL Magnesium (1.7-2.3) mg/dL Total Bilirubin (0.15-1.2) mg/dL AST (0-32) U/L ALT (0-33) U/L Alkaline Phosphata se (35-105) IU/L C-Reactive Protein (0.0-4.9) mg/L Total Protein (6.6-8.7) g/dL Albumin (3.5-5.2) g/dL Globulin (1.3-4.6) g/dL Urine Color Yellow (Yellow) Urine Appearance Cloudy A (CLEAR) Urine pH 8 H (5-7) Ur Specific Gravit y 1.010 (1.005-1.030) Urine Protein 1+ H (Negative) Urine Glucose (UA) Norm (Normal) Urine Ketones Negative (Negative) Urine Blood 3+ H (Negative) Urine Nitrate Negative (Negative) Urine Bilirubin Neg (NEGATIVE) Prot Sulfosalicyli c Acd Positive (Negative) Urine Urobilinogen Neg (Negative) mg/dL Ur Leukocyte Mary ase 2+ H (Negative) Urine RBC 40-50 H (0-2) /hpf Urine WBC Too numerous to c nt H (0-5) /hpf Ur Squamous Epith Cells None (0-5) Urine Bacteria 4+ H (NONE) Urine Opiates Scre en Positive H (Negative) ng/mL Ur Barbiturates Sc reen Negative (Negative) ng/mL Ur Phencyclidine S crn Negative (Negative) ng/mL Ur Amphetamines Sc reen Negative (Negative) ng/mL U Benzodiazepines Scrn Negative (Negative) ng/mL Urine Cocaine Scre en Negative (Negative) ng/mL U Marijuana (THC) Screen Negative (Negative) ng/mL Imaging Data^: CXR: Radiologist's impression: [facility] [address] [place] [address] XRay Report Signed Patient: Perla Roque Unit #: [id number] : 1945 Age/Sex: 74 / F ADM Date: 09/08/19 Loc: ER Room/Bed: Attending Dr: Ordering Provider/Ordering MD: Shawnee Kim Date of Service: 09/08/19 Procedure(s): XR chest 1V portable [id number] Accession Number(s): [id number] Report Number: [id number] WS: [id number] PORTABLE CHEST HISTORY: chest pain COMPARISON: 06/19/2019 Benign granuloma at the lung bases. Lungs are well expanded. No residual RIGHT pleural effusion. Very small thickening of the pleura at the LEFT lung base. No pneumonia. Normal vasculature. No pneumothorax. Cardiac size: Mildly enlarged cardiac silhouette. Mediastinum/Aorta: Mild atherosclerosis aorta. Osteopenia. XR/XR chest 1V portable [id number] IMPRESSION: 1. No pneumonia. 2. Small residual LEFT pleural effusion and cardiomegaly. Dictated By: Anabell Calderón DO Signed By: Anabell Calderón DO Signed Date/Time: 09/08/19 1247 DD/ 1241 CT Head: Radiologist's impression: [facility] [address] [place] [address] CT Scan Report Signed Patient: Perla Roque Unit #: [id number] : 1945 Age/Sex: 74 / F ADM Date: 09/08/19 Loc: ER Room/Bed: Attending Dr: Ordering Provider/Ordering MD: Shawnee Kim Date of Service: 09/08/19 Procedure(s): CT head wo con* [id number] Accession Number(s): [id number] Report Number: [id number] WS: [id number] CT HEAD NONCONTRAST HISTORY: AMS TECHNIQUE: Contiguous axial imaging performed through the brain in 2.5 mm imaging. Bone and soft tissue windows. Sagittal and coronal reformats reviewed. All CT scans at [facility] use at least one of these dose optimization techniques: automated exposure control; mA and/or kV adjustment per patient size (includes targeted exams where dose is matched to clinical indication); or iterative reconstruction. DLP: 872.68 mGy.cm COMPARISON: 12/06/2018 No acute intracranial hemorrhage, midline shift or mass effect. Moderate to severe bilateral atrophy with mild chronic ischemic disease. Mild progression since the prior study. Ventricles: Normal size with no hydrocephalus. Paranasal sinuses: As visualized are clear. Mastoid air cells: Small amount of fluid in the RIGHT mastoid tip. Calvarium and scalp: Diffuse thickening of the calvarium. No destructive bone lesions. Similar appearance to the prior study. CT/CT head wo con* [id number] IMPRESSION: 1. No acute intracranial hemorrhage or edema. 2. Moderate to severe atrophy and mild chronic ischemic disease. Dictated By: Anabell Calderón DO Signed By: Anabell Calderón DO Signed Date/Time: 09/08/19 1406 DD/ 1352 Discharge Plan Discharge Patient Disposition: Admitted As Inpatient Clinical Impression: Acute hyperkalemia, Chronic anemia, Acute sepsis Acute on chronic renal failure Qualifiers: Acute renal failure type: unspecified Chronic kidney disease stage: unspecified stage Qualified Code(s): N17.9 - Acute kidney failure, unspecified Acute cystitis Qualifiers: Hematuria presence: with hematuria Qualified Code(s): N30.01 - Acute cystitis with hematuria Decubitus ulcer Qualifiers: Pressure injury location: sacral region Pressure injury stage: stage 3 Qualified Code(s): L89.153 - Pressure ulcer of sacral region, stage 3 Condition: Stable Referrals: Kamlesh Stevens [Primary Care Provider] - Coding Level of Care Code ED Pricing Actuary for g Fwd Exam Detailed
[2019-09-08 13:24] LABS: Urine Appearance Cloudy (CLEAR); Urine Color Yellow (Yellow)
[2019-09-08 13:25] LABS: Bilirubin Urine Neg (NEGATIVE); Blood Urine 3+ (Negative); Glucose Urine UA Norm (Normal); Ketones Urine Negative (Negative); Nitrate Urine Negative (Negative); Protein Urine 1+ (Negative); pH Urine 8 (5-7)
[2019-09-08 13:26] LABS: Add Urine Microscopic? YES; Leukocyte Esterase Urine 2+ (Negative); Sulfosalicylic Acid Urine Positive (Negative); Urobilinogen Urine Neg (Negative)
[2019-09-08 13:27] LABS: Amphetamines Screen Urine Negative (Negative); Barbiturates Screen Urine Negative (Negative); Basophils # 0.1 10^3/uL (0.0-0.1); Basophils % 0.3 %; Benzodiazepines Screen Urine Negative (Negative); Cocaine Screen Urine Negative (Negative); Eosinophils % 0.1 %; Hematocrit 28.2 % (37.0-47.0); Hemoglobin 8.8 g/dL (11.5-15.3); Lymphocytes # 1.1 10^3/uL (0.8-4.8); Lymphocytes % 5.9 %; Mean Corpuscular HGB Conc 31.2 g/dL (30.0-36.0); Mean Corpuscular Hemoglobin 32.4 pg (28.0-34.0); Mean Corpuscular Volume 103.7 fL (81-99); Mean Platelet Volume 8.8 fL (7.4-10.4); Monocytes # 1.9 10^3/uL (0.2-0.9); Monocytes % 10.4 %; Neutrophils # 14.9 10^3/uL (1.8-7.7); Neutrophils % 81.4 %; Nucleated Red Blood Cells % 0 %; Opiate Screen Urine Positive (Negative); PCP Screen Urine Negative (Negative); Platelet Count 229 10^3/cmm (130-400); Red Blood Count 2.72 10^6/uL (4.1-5.3); Red Cell Distribution Width 15.4 % (12.1-15.1); THC Screen Urine Negative (Negative); White Blood Count 18.3 10^3/uL (4.0-10.0)
[2019-09-08 13:28] LABS: Add Urine Culture? Yes; Bacteria Urine 4+; RBC Urine 40-50 /hpf (0-2); WBC Urine TOO NUMEROUS TO CNT /hpf (0-5)
[2019-09-08 13:35] LABS: Partial Thromboplastin Time 48.8 SECONDS (23.9-36.7)
[2019-09-08 13:38] LABS: Alanine Aminotransferase < 5 U/L (0-33); Albumin Level 2.6 g/dL (3.5-5.2); Alkaline Phosphatase 67 IU/L (35-105); Anion Gap 20.1 (5-19); Aspartate Amino Transferase 9 U/L (0-32); Blood Urea Nitrogen 73 mg/dL (8-23); C Reactive Protein 149.3 mg/L (0.0-4.9); Calcium 9.2 mg/dL (8.5-10.5); Carbon Dioxide 20 mmol/L (22-29); Chloride 103 mmol/L (98-107); Globulin 4.1 g/dL (1.3-4.6); Glucose 279 mg/dL (65-115); INR 1.12 (0.8-1.2); Magnesium 2.7 mg/dL (1.7-2.3); Osmolality Calculated 294 mOsm/kg (285-295); Potassium 6.1 mmol/L (3.5-5.1); Sodium 137 mmol/L (136-145); Total Bilirubin 0.2 mg/dL (0.15-1.2); Total Protein 6.7 g/dL (6.6-8.7)
[2019-09-08] MEDS: cefepime 2,000 MG in sodium chloride 0.9% (plus) 50 ML 100 MG IV (14:22)
--- NOTE | 2019-09-08 15:11 | P.HP_ITS ---
Providers/Chief Complaint Admitting Physician: Yvonne Wu MD Primary Care Provider: Kamlesh Stevens Chief Complaint: Low blood pressure, AMS History of Present Illness Perla Roque is a 74 year old female with extensive PMHx including CAD s/p stenting, DM type II, Recurrent complicated UTIs, Epilepsy, Chronic lower back pain, Chronic anemia, MGUS, Anxiety/Depression presented from [facility] for evaluation of altered mental status and hypotension noted earlier today. She is quite le thargic during my history taking in the ER so history taking limited. Collateral information obtained from review of correction paperwork as well as old medical records. Patient is known to me from previous admission. She was admitted at our facility in May when she was treated for chest pain following a prior admission for complicated UTI during which time she was treated with ertapenem as urine culture grew ESBL E. coli. alf had obtained a urine sample yesterday which was highly suspicious for infection and urine culture has resulted with E. coli, beta lactamase resistant. It is worth noting that urine sample was from straight cath sample. Status was recently reviewed and changed from full code to DNR. Family was contacted and confirms that patient is her own decision maker. Work-up indicates leukocytosis with neutrophilic predominance, white count of 18.3, anemia with a hemoglobin of 8.8, BUN of 73, creatinine of 2.6, blood glucose of 279, urinalysis is significantly indicative of infection. She is currently hypotensive even after 1 L normal saline bolus. Due to history of systolic CHF with most recent echo showing an ejection fraction of 30% decision was made to initiate pressor support. She has received a dose of cefepime. She also presents with an acutely infected sacral decubitus ulcer which she reports she has had for approximately 3 to 4 years though it is difficult to determine this as patient as previously stated is a lethargic. Per my examination she would likely need debridement as she is currently septic and this is due in some part to the acutely infected decubitus ulcer. Patient will be admitted to the ICU for closer monitoring and need for pressor support, close hemodynamic status monitoring and continued broad-spectrum IV antibiotic coverage. I have requested Regan catheter placement due to complicated UTI and acutely infected decubitus ulcer to prevent contamination. Due to her history of ESBL I will treat her with imipenem and add vancomycin for broader spectrum coverage due to dual sources of infection. She will need to be on contact isolation precautions. Review of Systems Const: Reports: change in appetite (decreased appetite) and fatigue; Denies: fever(s) or chills Eyes: Denies: change in vision ENMT: Reports: dry mouth Card: Denies: chest pain, swelling of feet/ankles or lightheadedness Resp: Reports: productive cough (green sputum); Denies: dyspnea GI: Denies: abdominal pain, nausea, vomiting, hematemesis or hematochezia : Reports: urinary frequency; Denies: difficulty voiding or dysuria Musc: Denies: back pain Skin/Breast: Denies: rash Neuro: Reports: weakness in extremities; Denies: numbness in extremities Psych: Denies: anxiety Medications/Allergies Home Medications Medication Instructions Recorded Confirmed Last Taken Type PNV cmb#95-ferrous fumarate-FA 1 tab PO DAILY 06/09/19 09/08/19 09/08/19 History [] acetaminophen 650 mg PO Q6H PRN 06/09/19 09/08/19 09/05/19 History bisacodyl [Dulcolax (bisacodyl)] 10 mg TX DAILY PRN 06/09/19 09/08/19 Unknown History brimonidine 1 drp OPHTHALMIC (EYE) TID 06/09/19 09/08/19 09/08/19 History clopidogrel [Plavix] 75 mg PO DAILY 06/09/19 09/08/19 09/08/19 History divalproex [Depakote] 250 mg PO DAILY 06/09/19 09/08/19 09/08/19 History divalproex [Depakote] 500 mg PO BEDTIME 06/09/19 09/08/19 09/07/19 History docusate sodium 100 mg PO BID 06/09/19 09/08/19 09/08/19 History latanoprost [Xalatan] 1 drp OPHTHALMIC (EYE) QPM 06/09/19 09/08/19 09/07/19 History loperamide 2 mg PO Q6H PRN 06/09/19 09/08/19 Unknown History magnesium hydroxide [Milk of 30 ml PO DAILY PRN 06/09/19 09/08/19 Unknown History Magnesia] nitroglycerin [Nitrostat] 0.4 mg SUBLINGUAL Q5M PRN 06/09/19 09/08/19 Unknown History polysaccharide iron complex 150 mg PO DAILY 06/09/19 09/08/19 09/08/19 History [Poly-Iron] promethazine 25 mg PO Q6H PRN 06/09/19 09/08/19 Unknown History quetiapine [Seroquel] 25 mg PO QAM 06/09/19 09/08/19 09/08/19 History quetiapine [Seroquel] 100 mg PO BEDTIME 06/09/19 09/08/19 09/07/19 History senna 8.6 mg PO Q12H PRN 06/09/19 09/08/19 09/08/19 History venlafaxine 25 mg PO DAILY 06/09/19 09/08/19 09/08/19 History furosemide [Lasix] 20 mg PO DAILY #0 tab 06/19/19 09/08/19 09/08/19 Rx hydrocodone-acetaminophen 1 tab PO Q24H PRN #0 tab 06/19/19 09/08/19 09/08/19 Rx isosorbide dinitrate 10 mg PO DAILY #0 tab 06/19/19 09/08/19 09/08/19 Rx lorazepam [Ativan] 0.5 mg PO Q24H PRN #0 tab 06/19/19 09/08/19 09/08/19 Rx aspirin 81 mg PO DAILY 09/08/19 09/08/19 09/08/19 History carvedilol 3.125 mg PO BID 09/08/19 09/08/19 09/08/19 History insulin regular human [Novolin R See Rx Instructions .ROUTE .COMPLEX 09/08/19 09/08/19 Unknown History Flexpen] lisinopril 2.5 mg PO DAILY 09/08/19 09/08/19 09/08/19 History pantoprazole 40 mg PO DAILY 09/08/19 09/08/19 09/08/19 History sennosides-docusate sodium 1 tab-cap PO BID PRN 09/08/19 09/08/19 09/08/19 History [Senna-S] Allergies Allergy/AdvReac Type Severity Reaction Status Date / Time butorphanol [From Stadol] Allergy Unknown Verified 06/09/19 15:21 diphenhydramine Allergy Unknown Verified 06/09/19 15:21 [From Benadryl] indomethacin [From Indocin] Allergy Unknown Verified 06/09/19 15:21 ketorolac [From Toradol] Allergy Unknown Verified 06/09/19 15:21 levofloxacin [From Levaquin] Allergy Unknown Verified 06/09/19 15:21 methazolamide Allergy Unknown Verified 06/09/19 15:21 [From Neptazane] NSAIDS (Non-Steroidal Allergy Unknown Verified 06/09/19 15:21 Anti-Inflamma ondansetron [From Zofran] Allergy Unknown Verified 06/09/19 15:21 Penicillins Allergy Unknown Verified 06/09/19 15:21 prochlorperazine Allergy Unknown Verified 06/09/19 15:21 [From Compazine] Sulfa (Sulfonamide Allergy Unknown Verified 06/09/19 15:21 Antibiotics) sumatriptan [From Imitrex] Allergy Unknown Verified 06/09/19 15:21 tramadol [From Ultram] Allergy Unknown Verified 06/09/19 15:21 PFSH Acute PFSH: Medical History (Updated 09/08/19 @ 20:46 by Yvonne Wu MD) Anxiety Blindness Chronic kidney disease, stage III (moderate) Chronic pain Coronary artery disease Dementia Depression Diabetes mellitus GERD (gastroesophageal reflux disease) Hyperlipidemia Ischemic cardiomyopathy MGUS (monoclonal gammopathy of unknown significance) Non-ST elevation myocardial infarction (NSTEMI) Obesity Seizure disorder Surgical History H/O hemorrhoidectomy H/O hysterectomy for benign disease H/O knee surgery History of breast biopsy History of cholecystectomy History of hip surgery Stented coronary artery Family History Brother Cancer Colon cancer Social History (Updated 09/08/19 @ 20:18 by Yvonne Wu MD) Smoking and tobacco status: never smoked Alcohol intake: never Housing: Alf Vitals/I&O/Wt Last Vital Signs Temp 97.9 F 09/08/19 12:08 Pulse 86 09/08/19 12:08 Resp 12 09/08/19 12:08 BP 90/60 09/08/19 12:08 Pulse Ox 96 09/08/19 12:08 Weight last 48 hrs Weight 75.296 kg Physical Exam Const: GENERAL APPEARANCE: not comfortable ORIENTATION/CONSCIOUSNESS: Yes oriented to place and Yes lethargic HENMT: COMMON NORMALS: normocephalic, atraumatic, hearing grossly normal bilaterally and moist oral mucous membranes HEAD & SCALP: normocephalic and atraumatic Eye: OTHER: -legally blind Neck/C-Spine: COMMON NORMALS: full ROM GENERAL: Yes normal visual inspection and Yes trachea midline Chest: CHEST: Yes Symmetrical chest wall rise Resp: COMMON NORMALS: normal respiratory effort, No retractions, No use of accessory muscles and clear to auscultation bilaterally EFFORT & INSPECTION: Yes able to speak in complete sentences, Yes symmetric chest movement and No tachypneic AUSCULTATION: clear to auscultation bilaterally OTHER: -on RA Cardio: COMMON NORMALS: regular rate, regular rhythm, S1 normal heart sound present, S2 normal heart sound present and No murmurs present (Cardio) RATE: regular rate RHYTHM: regular rhythm HEART SOUNDS: S1 normal heart sound present and S2 normal heart sound present OTHER: -initially hypotensive GI: COMMON NORMALS: Normal to inspection, nondistended, normoactive bowel sounds present, Soft to palpation and non-tender PALPATION: Yes Soft to palpation : BLADDER/KIDNEY EXAM: No catheter in place Extremity: COMMON NORMALS: normal to inspection, full ROM, no clubbing, cyanosis or edema and no pedal edema Neuro: COMMON NORMALS: patient oriented x3, moves all extremities, no focal motor deficits and no sensory deficits noted Psych: COMMON NORMALS: mental status grossly normal, Normal thought process present, cooperative, normal affect and speech normal SPEECH: Yes normal speech THOUGHT PROCESS: Normal thought process present Skin: COMMON NORMALS: no rashes or lesions noted, no jaundice, no petechiae and no mottling GENERAL SKIN EXAM: no rashes or lesions noted WOUNDS: Yes wounds noted malodorous OTHER: -well circumscribed wound on coccyx with necrotic tissue on wound bed, malodorous, very tender to palpation Sepsis: Is patient septic: Yes Focused sepsis exam performed: Yes Date exam was performed: 09/08/19 Time exam was performed: 17:15 Data : 09/08/19 13:11 09/08/19 13:11 Micro: Microbiology 09/08/19 13:11 Blood Culture - Preliminary Blood SPECIMEN COLLECTED 06/10/20 13:11 Blood Culture - Preliminary Blood SPECIMEN COLLECTED A&P Assessment and plan (1) UTI (urinary tract infection): -has had prior complicated UTIs including ESBL E.coli -UA strongly indicative of infection -requested Regan catheter placement due to complicated UTI and sacral decubitus ulcer -received dose of Cefepime in ED; will treat with Imipenem due to hx -contact isolation precautions -f/u urine cx -associated sepsis as evidenced by hypotension, leukocytosis, altered mental status -requiring pressor support currently -close monitoring of vital signs -lactate-1.0 Status: Acute Qualifiers: Urinary tract infection type: acute cystitis Hematuria presence: without hematuria Qualified Code(s): N30.00 - Acute cystitis without hematuria (2) AMS (altered mental status): -secondary to complicated UTI, infected decubitus ulcer -fall, aspiration precautions Status: Acute Qualifiers: Altered mental status type: disorientation Qualified Code(s): R41.0 - Disorientation, unspecified (3) Acute on chronic renal failure: -has known CKD stage 3; baseline Cr -now with superimposed ARGENIS -close monitoring of renal function, avoid nephrotoxins, renally dose meds, hold ACEi -very cautious IVF hydration due to underlying systolic CHF -monitor urine output Status: Acute Qualifiers: Acute renal failure type: unspecified Chronic kidney disease stage: unspecified stage Qualified Code(s): N17.9 - Acute kidney failure, unspecified; N18.9 - Chronic kidney disease, unspecified (4) Decubitus ulcer: -has noted decubitus ulcer on coccyx that is acutely infected and needs debridement -Surgery consult requested -OR tomorrow, NPO after midnight -will add Vanc (renally dosed) for broader spectrum coverage -f/u wound cx -this is likely also contributing to sepsis -pain control as needed Status: Acute Qualifiers: Pressure injury location: sacral region Pressure injury stage: stage 3 Qualified Code(s): L89.153 - Pressure ulcer of sacral region, stage 3 (5) Acute hyperkalemia: -monitor K -given dose of calcium gluconate, anticipate some improvement with hydration; may be able to resume low dose diuretic if BP improves -telemetry monitoring Status: Acute (6) CKD (chronic kidney disease): Status: Chronic Qualifiers: Chronic kidney disease stage: stage 3 (moderate) Qualified Code(s): N18.3 - Chronic kidney disease, stage 3 (moderate) (7) Coronary artery disease: -hold oral antihypertensives due to hypotension -hold dual antiplatelets due to surgery tomorrow -has had prior stenting Status: Chronic Qualifiers: Coronary Disease-Associated Artery/Lesion type: [place] artery [place] vs. transplanted heart: [place] heart Associated angina: without angina Qualified Code(s): I25.10 - Atherosclerotic heart disease of [place] coronary artery without angina pectoris (8) Cardiomyopathy, ischemic: -Echo (05/2019): EF=30%, global LV hypokinesis, trace MR Status: Chronic (9) Anemia: -has chronic macrocytic anemia -baseline Hg is around 10 -monitor H/H -has hx of MGUS Status: Chronic Qualifiers: Anemia type: unspecified type Qualified Code(s): D64.9 - Anemia, unspecified (10) Diabetes mellitus: -complicated by retinopathy, nephropathy -last A1c-8.4 (10/2018); repeat this -Accucheks, ISS, hypoglycemia precautions -consistent carb diet when PO appropriate Status: Chronic Qualifiers: Diabetes mellitus type: type 2 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: with [place] use Diabetes mellitus complication status: with other specified complication Qualified Code(s): E11.69 - Type 2 diabetes mellitus with other specified complication; Z79.4 - snf (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 of insulin (11) Seizure disorder: -seizure precautions -resume anti-epileptic meds Status: Chronic (12) Dementia: -has some behavioral issues at baseline including hallucinations, intermittent confusion and disorientation Status: Chronic Qualifiers: Dementia type: unspecified type Dementia behavioral disturbance: with behavioral disturbance Qualified Code(s): F03.91 - Unspecified dementia with behavioral disturbance (13) Depression: Status: Chronic Qualifiers: Depression Type: unspecified Qualified Code(s): F32.9 - Major depressive disorder, single episode, unspecified Additional A&P Information -GI ppx with PPI -DVT ppx with SCDs, hold AC due to surgery -Dispo: return to [facility] -Code status: DNR/DNI; paperwork in chart; patient is her own decision maker per family -ICU admission due to sepsis, pressor support Attestations Medical Necessity Statement*: Perla Roque's hospital stay will require greater than 2 midnights for management of complicated UTI and acutely infected sacral decubitus ulcer with associated sepsis requiring pressor support, IV antibiotic therapy and need for close monitoring of hemodynamic status. Time Spent in Patient Care: Greater than 35 minutes (>than 50% of time spent in counselling and/or direct pt care on unit) . Critical Care Time: The high probability of a clinically significant, sudden or life threatening deterioration of the patient's [cardiovascular] system(s) required my full and direct attention, intervention and personal management. The critical care time is as shown. This time is in addition to time spent performing any reported procedures but includes the following: [x] Data and vital sign review and interpretation [x] Patient assessment, examination and intervention [x] Documentation [x] Medication orders and management Critical Care Time (min): 20 Coding Level of Care Code Acute Diesel Engine Inspector for Chg Fwd Exam Comprehensive Diagnoses UTI (urinary tract infection) N30.00 Urinary tract infection type: acute cystitis Hematuria presence: without hematuria AMS (altered mental status) R41.0 Altered mental status type: disorientation Acute on chronic renal failure N17.9; N18.9 Acute renal failure type: unspecified Chronic kidney disease stage: unspecified stage Decubitus ulcer L89.153 Pressure injury location: sacral region Pressure injury stage: stage 3 Acute hyperkalemia E87.5 CKD (chronic kidney disease) N18.3 Chronic kidney disease stage: stage 3 (moderate) Coronary artery disease I25.10 Coronary Disease-Associated Artery/Lesion type: [place] artery [place] vs. 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 Diabetes mellitus complication status: with other specified complication Seizure disorder G40.909 Dementia F03.91 Dementia type: unspecified type Dementia behavioral disturbance: with behavioral disturbance Depression F32.9 Depression Type: unspecified Sepsis Event Note Evaluation Current stage of sepsis: sepsis Initial hypotension due to sepsis/infection: SBP < 90 mmHg and MAP < 65 mmHg Possible source: genitourinary and wound (Sacral decubitus ulcer) Focused Exam Vital Signs Temp Pulse Pulse Resp BP BP Pulse Ox 09/08/19 18:45 75 12 120/56 96 09/08/19 18:30 81 10 L 156/80 97 09/08/19 18:15 74 13 123/53 97 09/08/19 18:00 77 14 131/62 99 09/08/19 17:45 77 12 116/65 98 09/08/19 17:30 74 17 76/36 97 09/08/19 17:15 77 13 111/49 99 09/08/19 17:10 82 12 09/08/19 16:24 84 18 152/73 96 09/08/19 15:15 17 98 09/08/19 12:08 97.9 F 86 12 90/60 96 Respiratory exam: Present CTAB Cardiovascular exam: Present RRR, S1 and S2 Date exam was performed: 09/08/19 Time exam was performed: 20:51 Problem List (1) UTI (urinary tract infection): Status: Acute (2) Decubitus ulcer: Status: Acute (3) CKD (chronic kidney disease): Status: Chronic (4) Coronary artery disease: Status: Chronic (5) Cardiomyopathy, ischemic: Status: Chronic (6) Anemia: Status: Chronic (7) Acute hyperkalemia: Status: Acute (8) Diabetes mellitus: Status: Chronic (9) AMS (altered mental status): Status: Acute (10) Acute on chronic renal failure: Status: Acute (11) Seizure disorder: Status: Chronic (12) Dementia: Status: Chronic (13) Depression: Status: Chronic
[2019-09-08] MEDS: fentaNYL 50 mcg/mL INJ 2mL IVP (15:15)
[2019-09-08 17:38] LABS: Glucose Point of Care 245 mg/dL (70-110)
[2019-09-08] MEDS: vancomycin 1,000 MG in sodium chloride 0.9% 250 ML 250 MG IV (19:43)
[2019-09-08] MEDS: divalproex DR 500 mg Tablet PO (20:15)
[2019-09-08] MEDS: quetiapine 100 mg Tablet PO (20:19)
[2019-09-08] MEDS: dextrose 5%-sod chloride 0.45% 1,000 ML 50 ML IV (20:39)
[2019-09-09] VITALS (36 sets, daily range): BP systolic 64–139; BP diastolic 33–78; PULSE 70–104; RESP 8–20; TEMP 36.8–37.1; O2SAT 96–100; BMI 26.6
--- NOTE | 2019-09-09 00:49 | PC.NURSE ---
patient currently on levophed at 6 bp maintaining wnl. patient denies any pain. resp even and non labored on room air. Patient is going to be kept NPO for possible debridment of coocyx in am by dr. brown
[2019-09-09] MEDS: HYDROcodone-acetaminophen 5-325 mg Tablet 1 TAB PO ×2 (04:02→16:22)
[2019-09-09 05:30] LABS: Basophils # 0.1 10^3/uL (0.0-0.1); Basophils % 0.4 %; Eosinophils # 0.2 10^3/uL (0.0-0.8); Hemoglobin 10.1 g/dL (11.5-15.3); Lymphocytes # 1.7 10^3/uL (0.8-4.8); Lymphocytes % 10.6 %; Mean Corpuscular HGB Conc 29.7 g/dL (30.0-36.0); Mean Corpuscular Hemoglobin 31.7 pg (28.0-34.0); Mean Corpuscular Volume 106.6 fL (81-99); Mean Platelet Volume 8.8 fL (7.4-10.4); Monocytes # 1.4 10^3/uL (0.2-0.9); Monocytes % 8.8 %; Neutrophils # 12.5 10^3/uL (1.8-7.7); Neutrophils % 78.4 %; Nucleated Red Blood Cells % 0 %; Platelet Count 286 10^3/cmm (130-400); Red Blood Count 3.19 10^6/uL (4.1-5.3); Red Cell Distribution Width 15.1 % (12.1-15.1); White Blood Count 15.9 10^3/uL (4.0-10.0)
[2019-09-09 05:59] LABS: Anion Gap 26.4 (5-19); Blood Urea Nitrogen 63 mg/dL (8-23); Calcium 9.5 mg/dL (8.5-10.5); Carbon Dioxide 14 mmol/L (22-29); Chloride 102 mmol/L (98-107); Glucose 226 mg/dL (65-115); Magnesium 2.6 mg/dL (1.7-2.3); Osmolality Calculated 290 mOsm/kg (285-295); Potassium 5.4 mmol/L (3.5-5.1); Sodium 137 mmol/L (136-145)
[2019-09-09 06:08] LABS: Estmated Average Glucose 148; Hemoglobin A1C 6.8 % (4.0-6.0)
--- NOTE | 2019-09-09 07:28 | PC.NURSE ---
SURGERY CONSENT CONTACTED [facility] [phone] SPOKE WITH PAVITHRA IN REGARDS TO MS FLORES, SHE IS HER OWN DPOA. NEXT OF KIN MARCO ANTONIO CERVANTES [phone] CONTACTED, HE DOESN'T WANT TO GIVE CONSENT FOR PROCEDURE STATES THAT HE WOULD RATHER THE [facility] DO THAT. AWAITING CALL BACK FROM MANAGER FEDERAL OR DON FROM [facility]
--- NOTE | 2019-09-09 09:11 | PM.PN ---
Subjective Subjective: Interval history: Continues to require pressor support, OR today so NPO. More hemodynamically stable, afebrile. Decreasing leukocytosis, improved Hg and renal function. Noted anion gap metabolic acidosis. Remains confused. Seen both before and after surgical debridement of sacral wound. Remains on pressor support. Medications: Reviewed: Yes Medication Review Details: Active Medications Generic Name Dose Route Start Last Admin Trade Name Freq PRN Reason Stop Dose Admin Acetaminophen 650 mg 09/08/19 17:23 Tylenol PO Q6H PRN Mild pain or incr eased temp Hydrocodone Bitart /Acetaminophen 1 tab 09/08/19 17:23 09/09/19 04:02 [place] 5-325 Mg PO 1 tab Q6H PRN Administration MODERATE TO SEVER E PAIN Bisacodyl 10 mg 09/08/19 17:23 Bisac-Evac MO DAILY PRN Constipation Brimonidine Tartra te 1 drop 09/08/19 21:00 09/08/19 20:40 Alphagan P 0.1% EYE-BOTH 0.5 unit TID MANUEL Administration Dextrose 25 ml 09/08/19 17:23 D50w IVP ONCE PRN hypoglycemia prot ocol Protocol Dextrose 50 ml 09/08/19 17:23 D50w IVP PRN PRN hypoglycemia prot ocol Protocol Divalproex Sodium 250 mg 09/09/19 09:[address] PO DAILY MANUEL Divalproex Sodium 500 mg 09/08/19 21:00 09/08/19 20:[address] PO 500 mg BEDTIME MANUEL Administration Furosemide 20 mg 09/09/19 09:00 Lasix PO DAILY MANUEL Glucagon 1 mg 09/08/19 17:23 Glucagen IM ONCE PRN Adult Acute Hypog lycemia Prot. Protocol Norepinephrine Bit artrate 4 mg 254 mls @ 0 mls/h r 09/08/19 13:00 09/08/19 18:00 / Dextrose IV 4 mcg/min .Q0M MANUEL 15.2 mls/hr Titration Protocol Per Protocol Dextrose/Sodium Ch loride 1,000 mls @ 50 ml s/hr 09/08/19 21:00 09/08/19 20:39 Dextrose 5%-Sod Chloride 0.45% IV 50 mls/hr .Q20H MANUEL Administration Imipenem/Cilastati n Sodium 500 100 mls @ 200 mls /hr 09/08/19 18:00 09/09/19 05:03 mg/ Sodium Chlor sindy IV 200 mls/hr Q6H MANUEL Administration Protocol Dextrose 500 mls @ 100 mls /hr 09/08/19 17:23 D5w IV ONCE PRN Adult Acute Hypog lycemia Prot Protocol Vancomycin HCl 1,0 00 mg/ 250 mls @ 250 mls /hr 09/08/19 19:00 09/08/19 19:43 Sodium Chloride IV 250 mls/hr Q36H MANUEL Administration Insulin Aspart 0 unit 09/08/19 18:00 09/08/19 20:51 Novolog SUBCUT 2 unit WM&BEDTIME MANUEL Administration Protocol Latanoprost 1 drop 09/08/19 18:00 09/08/19 19:45 Xalatan EYE-BOTH Not Given QPM MANUEL Loperamide HCl 2 mg 09/08/19 17:27 Imodium Capsule PO Q6H PRN Diarrhea Lorazepam 0.5 mg 09/08/19 17:23 Ativan PO Q6H PRN Anxiety Nitroglycerin 0.4 mg 09/08/19 17:23 Nitrostat SUBLINGUAL Q5M PRN Chest Pain Pantoprazole Sodiu m 40 mg 09/09/19 09:00 Protonix PO DAILY MANUEL Quetiapine Fumarat e 25 mg 09/09/19 06:00 09/09/19 05:04 Seroquel PO Not Given QAM MANUEL Quetiapine Fumarat e 100 mg 09/08/19 21:00 09/08/19 20:19 Seroquel PO 100 mg BEDTIME MANUEL Administration Senna/Docusate Sod ium 1 tab 09/08/19 17:23 Senna-S PO BID PRN Constipation Sodium Bicarbonate 650 mg 09/09/19 09:15 Sodium Bicarbona te PO TID MANUEL butorphanol [From Stadol] Allergy (Verified 06/09/19 15:21) Unknown diphenhydramine [From Benadryl] Allergy (Verified 06/09/19 15:21) Unknown indomethacin [From Indocin] Allergy (Verified 06/09/19 15:21) Unknown ketorolac [From Toradol] Allergy (Verified 06/09/19 15:21) Unknown levofloxacin [From Levaquin] Allergy (Verified 06/09/19 15:21) Unknown methazolamide [From Neptazane] Allergy (Verified 06/09/19 15:21) Unknown NSAIDS (Non-Steroidal Anti-Inflamma Allergy (Verified 06/09/19 15:21) Unknown ondansetron [From Zofran] Allergy (Verified 06/09/19 15:21) Unknown Penicillins Allergy (Verified 06/09/19 15:21) Unknown prochlorperazine [From Compazine] Allergy (Verified 06/09/19 15:21) Unknown Sulfa (Sulfonamide Antibiotics) Allergy (Verified 06/09/19 15:21) Unknown sumatriptan [From Imitrex] Allergy (Verified 06/09/19 15:21) Unknown tramadol [From Ultram] Allergy (Verified 06/09/19 15:21) Unknown Vitals/I&O/Wt Last Vital Signs Temp 98.8 F 09/09/19 04:00 Pulse 91 09/09/19 05:30 Resp 18 09/09/19 05:30 BP 124/73 09/09/19 05:30 Pulse Ox 97 09/09/19 05:30 09/08/19 09/09/19 09/09/19 22:59 06:59 14:59 Intake Total 181.54 / 181.54 100 / 281.54 Output Total 200 / 200 750 / 950 Balance -18.46 / -18.46 -650 / -668.46 Weight last 48 hrs Weight 74.843 kg Weight 75.296 kg Physical Exam Const: COMMON NORMALS: no acute distress and patient oriented x3 GENERAL APPEARANCE: lethargic; not comfortable ORIENTATION/CONSCIOUSNESS: Yes oriented to place and Yes lethargic HENMT: COMMON NORMALS: normocephalic, atraumatic, hearing grossly normal bilaterally and moist oral mucous membranes HEAD & SCALP: normocephalic and atraumatic Eye: COMMON NORMALS: Equal, round and reactive pupils present, EOMs intact bilaterally and conjunctivae normal CONJUNCTIVA: Yes conjunctivae normal PUPIL: Yes Equal, round and reactive pupils present OTHER: -legally blind Neck/C-Spine: COMMON NORMALS: full ROM GENERAL: Yes normal visual inspection and Yes trachea midline Chest: CHEST: Yes Symmetrical chest wall rise Resp: COMMON NORMALS: normal respiratory effort, No retractions, No use of accessory muscles and clear to auscultation bilaterally EFFORT & INSPECTION: Yes able to speak in complete sentences, Yes symmetric chest movement and No tachypneic AUSCULTATION: clear to auscultation bilaterally OTHER: -on RA Cardio: COMMON NORMALS: regular rate, regular rhythm, S1 normal heart sound present, S2 normal heart sound present and No murmurs present (Cardio) RATE: regular rate RHYTHM: regular rhythm HEART SOUNDS: S1 normal heart sound present and S2 normal heart sound present OTHER: -hypotensive GI: COMMON NORMALS: Normal to inspection, nondistended, normoactive bowel sounds present, Soft to palpation and non-tender PALPATION: Yes Soft to palpation : BLADDER/KIDNEY EXAM: No catheter in place Extremity: COMMON NORMALS: normal to inspection, full ROM, no clubbing, cyanosis or edema and no pedal edema NARRATIVE EXTREMITY EXAM: -contracted bilateral LEs Neuro: COMMON NORMALS: patient oriented x3, moves all extremities, no focal motor deficits and no sensory deficits noted SENSORIUM/ORIENTATION: Yes oriented to place and Yes lethargic Psych: COMMON NORMALS: mental status grossly normal, Normal thought process present, cooperative, normal affect and speech normal SPEECH: Yes normal speech THOUGHT PROCESS: Normal thought process present Skin: COMMON NORMALS: no rashes or lesions noted, no jaundice, no petechiae and no mottling GENERAL SKIN EXAM: no rashes or lesions noted WOUNDS: Yes wounds noted malodorous OTHER: -well circumscribed wound on coccyx with necrotic tissue on wound bed, malodorous, very tender to palpation Urinary Catheter Management^: Regan: Cath Placed During This Visit: yes Reason for Continuing Indwelling Catheter: Other Urinary Catheter Date of Insertion: 09/08/19 Urinary Catheter Time of Insertion: 16:41 Data : 09/09/19 04:41 09/09/19 04:41 Micro: Microbiology 09/08/19 13:11 Blood Culture - Preliminary Blood SPECIMEN COLLECTED 09/08/19 13:11 Blood Culture - Preliminary Blood SPECIMEN COLLECTED A&P Assessment and plan (1) UTI (urinary tract infection): -has had prior complicated UTIs including ESBL E.coli -UA strongly indicative of infection -has Regan catheter in place due to complicated UTI and sacral decubitus ulcer -received dose of Cefepime in ED; on Imipenem due to hx -contact isolation precautions -f/u urine cx: GNRs, pending ID & sensitivity -blood cx: prelim negative -associated sepsis as evidenced by hypotension, leukocytosis, altered mental status -requiring pressor support currently -close monitoring of vital signs -lactate-1.0 Status: Acute Qualifiers: Hematuria presence: without hematuria Urinary tract infection type: acute cystitis Qualified Code(s): N30.00 - Acute cystitis without hematuria (2) AMS (altered mental status): -secondary to complicated UTI, infected decubitus ulcer -fall, aspiration precautions Status: Acute Qualifiers: Altered mental status type: disorientation Qualified Code(s): R41.0 - Disorientation, unspecified (3) Acute on chronic renal failure: -has known CKD stage 3; baseline Cr is around 1.6-1.9 -now with superimposed ARGENIS -close monitoring of renal function, avoid nephrotoxins, renally dose meds, hold ACEi -renal function improving -very cautious IVF hydration due to underlying systolic CHF -continue to monitor urine output Status: Acute Qualifiers: Acute renal failure type: unspecified Chronic kidney disease stage: unspecified stage Qualified Code(s): N17.9 - Acute kidney failure, unspecified; N18.9 - Chronic kidney disease, unspecified (4) Decubitus ulcer: -has noted decubitus ulcer on coccyx that is acutely infected and needs debridement -Surgery consult requested -OR today, NPO after midnight -on Vanc (renally dosed) + Imipenem -f/u wound cx; gram stain: moderate GPC -this is likely also contributing to sepsis -pain control as needed -reportedly per [facility], had wound cx obtained which has grown ESBL E.coli Status: Acute Qualifiers: Pressure injury location: sacral region Pressure injury stage: stage 3 Qualified Code(s): L89.153 - Pressure ulcer of sacral region, stage 3 (5) Acute hyperkalemia: -continue to monitor K; improved -given dose of calcium gluconate, anticipate some improvement with hydration; may be able to resume low dose diuretic if BP improves -telemetry monitoring Status: Acute (6) CKD (chronic kidney disease): Status: Chronic Qualifiers: Chronic kidney disease stage: stage 3 (moderate) Qualified Code(s): N18.3 - Chronic kidney disease, stage 3 (moderate) (7) Coronary artery disease: -hold oral antihypertensives due to hypotension -hold dual antiplatelets due to surgery today -has had prior stenting Status: Chronic Qualifiers: Associated angina: without angina Coronary Disease-Associated Artery/Lesion type: [place] artery [place] vs. transplanted heart: telida heart Qualified Code(s): I25.10 - Atherosclerotic heart disease of tel[place] coronary artery without angina pectoris (8) Cardiomyopathy, ischemic: -Echo (05/2019): EF=30%, global LV hypokinesis, trace MR Status: Chronic (9) Anemia: -has chronic macrocytic anemia -baseline Hg is around 10 -continue to monitor H/H -has hx of MGUS Status: Chronic Qualifiers: Anemia type: unspecified type Qualified Code(s): D64.9 - Anemia, unspecified (10) Diabetes mellitus: -complicated by retinopathy, nephropathy -A1c-6.8 -Accucheks, ISS, hypoglycemia precautions -consistent carb diet when PO appropriate Status: Chronic Qualifiers: Diabetes mellitus complication status: with other specified complication Diabetes 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 Diabetes mellitus type: type 2 Qualified Code(s): E11.69 - Type 2 diabetes mellitus with other specified complication; Z79.4 - [facility] (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 of insulin (11) Seizure disorder: -seizure precautions -on anti-epileptic meds Status: Chronic (12) Dementia: -has some behavioral issues at baseline including hallucinations, intermittent confusion and disorientation Status: Chronic Qualifiers: Dementia behavioral disturbance: with behavioral disturbance Dementia type: unspecified type Qualified Code(s): F03.91 - Unspecified dementia with behavioral disturbance (13) Depression: Status: Chronic Qualifiers: Depression Type: unspecified Qualified Code(s): F32.9 - Major depressive disorder, single episode, unspecified Additional A&P Information -GI ppx with PPI -DVT ppx with SCDs, hold AC due to surgery -Dispo: return to [facility] -Code status: DNR/DNI; paperwork in chart; patient is her own decision maker per family -ICU care due to sepsis, pressor support Attestations Medical Necessity Statement*: Patient requires hospitalization for continued treatment of complicated UTI with associated sepsis as well as infected sacral decubitus ulcer requiring surgical debridement, continued broad-spectrum IV antibiotics, pressor support. Time Spent in Patient Care: 16 - 35 minutes (>than 50% of time spent in counselling and/or direct pt care on unit). The high probability of a clinically significant, sudden or life threatening deterioration of the patient's [cardiovascular] system(s) required my full and direct attention, intervention and personal management. The critical care time is as shown. This time is in addition to time spent performing any reported procedures but includes the following: [x] Data and vital sign review and interpretation [x] Patient assessment, examination and intervention [x] Documentation [x] Medication orders and management Critical Care Time: Critical Care Time (min): 20 Coding Level of Care Code Acute [facility]ger Tester for [facility] Fwd Exam Comprehensive Diagnoses UTI (urinary tract infection) N30.00 Hematuria presence: without hematuria Urinary tract infection type: acute cystitis AMS (altered mental status) R41.0 Altered mental status type: disorientation Acute on chronic renal failure N17.9; N18.9 Acute renal failure type: unspecified Chronic kidney disease stage: unspecified stage Decubitus ulcer L89.153 Pressure injury location: sacral region Pressure injury stage: stage 3 Acute hyperkalemia E87.5 CKD (chronic kidney disease) N18.3 Chronic kidney disease stage: stage 3 (moderate) Coronary artery disease I25.10 Associated angina: without angina Coronary Disease-Associated Artery/Lesion type: [place] artery [place] vs. transplanted heart: [place] heart Cardiomyopathy, ischemic I25.5 Anemia D64.9 Anemia type: unspecified type Diabetes mellitus E11.69; Z79.4 Diabetes mellitus complication status: with other specified complication Diabetes mellitus fpc insulin use: with fpc use Diabetes mellitus type: type 2 Seizure disorder G40.909 Dementia F03.91 Dementia behavioral disturbance: with behavioral disturbance Dementia type: unspecified type Depression F32.9 Depression Type: unspecified
[2019-09-09 10:17] LABS: Glucose Point of Care 263 mg/dL (70-110)
--- NOTE | 2019-09-09 10:18 | P.ANESASSM_ITS ---
Pre-Anesthetic Assessment Pre-Anesthetic Assessment: Height/Weight: Height 1.68 m Weight 74.843 kg Temp Pulse Resp BP Pulse Ox 98.3 F 88 12 120/52 97 09/09/19 10:00 09/09/19 10:00 09/09/19 10:00 09/09/19 10:00 09/09/19 10:00 Preop Diagnosis: Sacral decubitus ulcer Proposed Procedure: Operation Date: 09/09/19 11:45 Proposed Procedures p Debridement coccyx wound(Not Applicable) - Rodo Galaviz MD Exam: Pre-Anes Outpt Exam: clear to auscultation bilaterally and regular rate & rhythm Pulmonary: Pulmonary: None reported Comments: hx pneumonia CV/HEM: CV/HEM: CAD (Stent) Comments: EF 30% with global hypokinesis on echo : : Chronic renal Insufficiency Metabolic: Metabolic: DM Comments: Hyperkalemia - given calcium gluconate Sepsis on levo Neuropsych: Neuropsych: Dementia and Seizure Comments: AMS Anesthetic Plan: ASA status: 4 Anesthesia: General Risk of > 500 ml blood loss (7ml/kg in children): No Meds/Allergies Current Medications: Current Medications Generic Name Dose Route Start Last Admin Trade Name Freq PRN Reason Stop Dose Admin Hydrocodone Bitart /Acetaminophen 1 tab 09/08/19 17:23 09/09/19 04:02 [place] 5-325 Mg PO 1 tab Q6H PRN Administration MODERATE TO SEVER E PAIN Brimonidine Tartra te 1 drop 09/08/19 21:00 09/08/19 20:40 Alphagan P 0.1% EYE-BOTH 0.5 unit TID MANUEL Administration Divalproex Sodium 500 mg 09/08/19 21:00 09/08/19 20:[address] PO 500 mg BEDTIME MNAUEL Administration Norepinephrine Bit artrate 4 mg 254 mls @ 0 mls/h r 09/08/19 13:00 09/08/19 18:00 / Dextrose IV 4 mcg/min .Q0M MANUEL 15.2 mls/hr Titration Protocol Per Protocol Dextrose/Sodium Ch loride 1,000 mls @ 50 ml s/hr 09/08/19 21:00 09/08/19 20:39 Dextrose 5%-Sod Chloride 0.45% IV 50 mls/hr .Q20H MANUEL Administration Imipenem/Cilastati n Sodium 500 100 mls @ 200 mls /hr 09/08/19 18:00 09/09/19 05:03 mg/ Sodium Chlor sindy IV 200 mls/hr Q6H MANUEL Administration Protocol Vancomycin HCl 1,0 00 mg/ 250 mls @ 250 mls /hr 09/08/19 19:00 09/08/19 19:43 Sodium Chloride IV 250 mls/hr Q36H MANUEL Administration Insulin Aspart 0 unit 09/08/19 18:00 09/08/19 20:51 Novolog SUBCUT 2 unit WM&BEDTIME MANUEL Administration Protocol Latanoprost 1 drop 09/08/19 18:00 09/08/19 19:45 Xalatan EYE-BOTH Not Given QPM MANUEL Quetiapine Fumarat e 25 mg 09/09/19 06:00 09/09/19 05:04 Seroquel PO Not Given QAM MANUEL Quetiapine Fumarat e 100 mg 09/08/19 21:00 09/08/19 20:19 Seroquel PO 100 mg BEDTIME MANUEL Administration Additional Medication Information: Active Medications Generic Name Dose Route Start Last Admin Trade Name Freq PRN Reason Stop Dose Admin Acetaminophen 650 mg 09/08/19 17:23 Tylenol PO Q6H PRN Mild pain or incr eased temp Hydrocodone Bitart /Acetaminophen 1 tab 09/08/19 17:23 09/09/19 04:02 [place] 5-325 Mg PO 1 tab Q6H PRN Administration MODERATE TO SEVER E PAIN Bisacodyl 10 mg 09/08/19 17:23 Bisac-Evac AL DAILY PRN Constipation Brimonidine Tartra te 1 drop 09/08/19 21:00 09/08/19 20:40 Al[place]agan P 0.1% EYE-BOTH 0.5 unit TID MANUEL Administration Dextrose 25 ml 09/08/19 17:23 D50w IVP ONCE PRN hypoglycemia prot ocol Protocol Dextrose 50 ml 09/08/19 17:23 D50w IVP PRN PRN hypoglycemia prot ocol Protocol Divalproex Sodium 250 mg 09/09/19 09:00 Michael Sequeira PO DAILY MANUEL Divalproex Sodium 500 mg 09/08/19 21:00 09/08/19 20:15 Michael Sequeira PO 500 mg BEDTIME MANUEL Administration Furosemide 20 mg 09/09/19 09:00 Lasix PO DAILY MANUEL Glucagon 1 mg 09/08/19 17:23 Glucagen IM ONCE PRN Adult Acute Hypog lycemia Prot. Protocol Norepinephrine Bit artrate 4 mg 254 mls @ 0 mls/h r 09/08/19 13:00 09/08/19 18:00 / Dextrose IV 4 mcg/min .Q0M MANUEL 15.2 mls/hr Titration Protocol Per Protocol Dextrose/Sodium Ch loride 1,000 mls @ 50 ml s/hr 09/08/19 21:00 09/08/19 20:39 Dextrose 5%-Sod Chloride 0.45% IV 50 mls/hr .Q20H MANUEL Administration Imipenem/Cilastati n Sodium 500 100 mls @ 200 mls /hr 09/08/19 18:00 09/09/19 05:03 mg/ Sodium Chlor sindy IV 200 mls/hr Q6H MANUEL Administration Protocol Dextrose 500 mls @ 100 mls /hr 09/08/19 17:23 D5w IV ONCE PRN Adult Acute Hypog lycemia Prot Protocol Vancomycin HCl 1,0 00 mg/ 250 mls @ 250 mls /hr 09/08/19 19:00 09/08/19 19:43 Sodium Chloride IV 250 mls/hr Q36H MANUEL Administration Insulin Aspart 0 unit 09/08/19 18:00 09/08/19 20:51 Novolog SUBCUT 2 unit WM&BEDTIME MANUEL Administration Protocol Latanoprost 1 drop 09/08/19 18:00 09/08/19 19:45 Xalatan EYE-BOTH Not Given QPM MANUEL Loperamide HCl 2 mg 09/08/19 17:27 Imodium Capsule PO Q6H PRN Diarrhea Lorazepam 0.5 mg 09/08/19 17:23 Ativan PO Q6H PRN Anxiety Nitroglycerin 0.4 mg 09/08/19 17:23 Nitrostat SUBLINGUAL Q5M PRN Chest Pain Pantoprazole Sodiu m 40 mg 09/09/19 09:00 Protonix PO DAILY MANUEL Quetiapine Fumarat e 25 mg 09/09/19 06:00 09/09/19 05:04 Seroquel PO Not Given QAM MANUEL Quetiapine Fumarat e 100 mg 09/08/19 21:00 09/08/19 20:19 Seroquel PO 100 mg BEDTIME MANUEL Administration Senna/Docusate Sod ium 1 tab 09/08/19 17:23 Senna-S PO BID PRN Constipation Sodium Bicarbonate 650 mg 09/09/19 09:15 Sodium Bicarbona te PO TID MANUEL butorphanol [From Stadol] Allergy (Verified 06/09/19 15:21) Unknown diphenhydramine [From Benadryl] Allergy (Verified 06/09/19 15:21) Unknown indomethacin [From Indocin] Allergy (Verified 06/09/19 15:21) Unknown ketorolac [From Toradol] Allergy (Verified 06/09/19 15:21) Unknown levofloxacin [From Levaquin] Allergy (Verified 06/09/19 15:21) Unknown methazolamide [From Neptazane] Allergy (Verified 06/09/19 15:21) Unknown NSAIDS (Non-Steroidal Anti-Inflamma Allergy (Verified 06/09/19 15:21) Unknown ondansetron [From Zofran] Allergy (Verified 06/09/19 15:21) Unknown Penicillins Allergy (Verified 06/09/19 15:21) Unknown prochlorperazine [From Compazine] Allergy (Verified 06/09/19 15:21) Unknown Sulfa (Sulfonamide Antibiotics) Allergy (Verified 06/09/19 15:21) Unknown sumatriptan [From Imitrex] Allergy (Verified 06/09/19 15:21) Unknown tramadol [From Ultram] Allergy (Verified 06/09/19 15:21) Unknown PFSH Anesthesia PFSH: Medical History (Updated 09/08/19 @ 20:46 by Yvonne Wu MD) Anxiety Blindness Chronic kidney disease, stage III (moderate) Chronic pain Coronary artery disease Dementia Depression Diabetes mellitus GERD (gastroesophageal reflux disease) Hyperlipidemia Ischemic cardiomyopathy MGUS (monoclonal gammopathy of unknown significance) Non-ST elevation myocardial infarction (NSTEMI) Obesity Seizure disorder Surgical History H/O hemorrhoidectomy H/O hysterectomy for benign disease H/O knee surgery History of breast biopsy History of cholecystectomy History of hip surgery Stented coronary artery Family History Brother Cancer Colon cancer Social History (Updated 09/08/19 @ 20:18 by Yvonne Wu MD) Smoking and tobacco status: never smoked Alcohol intake: never Housing: Skilled Nursing Data Anesthesia CBC & Chem 7: 09/09/19 04:41 09/09/19 04:41 Other Labs: Laboratory Results - last 48 hr 09/08/19 09/08/19 09/08/19 13:11 13:11 13:11 WBC 18.3 H RBC 2.72 L Hgb 8.8 L Hct 28.2 L MCV 103.7 H MCH 32.4 MCHC 31.2 RDW 15.4 H Plt Count 229 MPV 8.8 Neut % (Auto) 81.4 Lymph % (Auto) 5.9 [place] % (Auto) 10.4 Eos % (Auto) 0.1 Baso % (Auto) 0.3 Neut # (Auto) 14.9 H Lymph # (Auto) 1.1 [place] # (Auto) 1.9 H Eos # (Auto) 0.0 Baso # (Auto) 0.1 Nucleated RBC % (auto) 0 Nucleated RBCs # 0.0 PT 14.80 H INR 1.12 APTT 48.8 H Sodium 137 Potassium 6.1 H Chloride 103 Carbon Dioxide 20 L Anion Gap 20.1 H BUN 73 H Creatinine 2.6 H Glucose 279 H POC Glucose Estimat Average Glucose Hemoglobin A1c Calculated Osmolality 294 Lactate Calcium 9.2 Magnesium 2.7 H Total Bilirubin 0.2 AST 9 ALT < 5 Alkaline Phosphatase 67 C-Reactive Protein 149.3 H Total Protein 6.7 Albumin 2.6 L Globulin 4.1 Urine Color Urine Appearance Urine pH Ur Specific [place] Urine Protein Urine Glucose (UA) Urine Ketones Urine Blood Urine Nitrate Urine Bilirubin Prot Sulfosalicylic Acd Urine Urobilinogen Ur Leukocyte Esterase Urine RBC Urine WBC Ur Squamous Epith Cells Urine Bacteria Urine Opiates Screen Ur Barbiturates Screen Ur Phencyclidine Scrn Ur Amphetamines Screen U Benzodiazepines Scrn Urine Cocaine Screen U Marijuana (THC) Screen 09/08/19 09/08/19 09/08/19 13:11 13:11 13:11 WBC RBC Hgb Hct MCV MCH MCHC RDW Plt Count MPV Neut % (Auto) Lymph % (Auto) [place] % (Auto) Eos % (Auto) Baso % (Auto) Neut # (Auto) Lymph # (Auto) [place] # (Auto) Eos # (Auto) Baso # (Auto) Nucleated RBC % (auto) Nucleated RBCs # PT INR APTT Sodium Potassium Chloride Carbon Dioxide Anion Gap BUN Creatinine Glucose POC Glucose Estimat Average Glucose Hemoglobin A1c Calculated Osmolality Lactate 1.0 Calcium Magnesium Total Bilirubin AST ALT Alkaline Phosphatase C-Reactive Protein Total Protein Albumin Globulin Urine Color Yellow Urine Appearance Cloudy A Urine pH 8 H Ur Specific [place] 1.010 Urine Protein 1+ H Urine Glucose (UA) Norm Urine Ketones Negative Urine Blood 3+ H Urine Nitrate Negative Urine Bilirubin Neg Prot Sulfosalicylic Acd Positive Urine Urobilinogen Neg Ur Leukocyte Esterase 2+ H Urine RBC 40-50 H Urine WBC Too numerous to cnt H Ur Squamous Epith Cells None Urine Bacteria 4+ H Urine Opiates Screen Positive H Ur Barbiturates Screen Negative Ur Phencyclidine Scrn Negative Ur Amphetamines Screen Negative U Benzodiazepines Scrn Negative Urine Cocaine Screen Negative U Marijuana (THC) Screen Negative 09/08/19 09/09/19 09/09/19 17:35 04:41 04:41 WBC 15.9 H RBC 3.19 L Hgb 10.1 L Hct 34.0 L MCV 106.6 H MCH 31.7 MCHC 29.7 L RDW 15.1 Plt Count 286 MPV 8.8 Neut % (Auto) 78.4 Lymph % (Auto) 10.6 [place] % (Auto) 8.8 Eos % (Auto) 1.0 Baso % (Auto) 0.4 Neut # (Auto) 12.5 H Lymph # (Auto) 1.7 [place] # (Auto) 1.4 H Eos # (Auto) 0.2 Baso # (Auto) 0.1 Nucleated RBC % (auto) 0 Nucleated RBCs # 0.0 PT INR APTT Sodium 137 Potassium 5.4 H Chloride 102 Carbon Dioxide 14 L Anion Gap 26.4 H BUN 63 H Creatinine 2.2 H Glucose 226 H POC Glucose 245 Estimat Average Glucose Hemoglobin A1c Calculated Osmolality 290 Lactate Calcium 9.5 Magnesium 2.6 H Total Bilirubin AST ALT Alkaline Phosphatase C-Reactive Protein Total Protein Albumin Globulin Urine Color Urine Appearance Urine pH Ur Specific [place] Urine Protein Urine Glucose (UA) Urine Ketones Urine Blood Urine Nitrate Urine Bilirubin Prot Sulfosalicylic Acd Urine Urobilinogen Ur Leukocyte Esterase Urine RBC Urine WBC Ur Squamous Epith Cells Urine Bacteria Urine Opiates Screen Ur Barbiturates Screen Ur Phencyclidine Scrn Ur Amphetamines Screen U Benzodiazepines Scrn Urine Cocaine Screen U Marijuana (THC) Screen 09/09/19 09/09/19 04:41 09:59 WBC RBC Hgb Hct MCV MCH MCHC RDW Plt Count MPV Neut % (Auto) Lymph % (Auto) [place] % (Auto) Eos % (Auto) Baso % (Auto) Neut # (Auto) Lymph # (Auto) [place] # (Auto) Eos # (Auto) Baso # (Auto) Nucleated RBC % (auto) Nucleated RBCs # PT INR APTT Sodium Potassium Chloride Carbon Dioxide Anion Gap BUN Creatinine Glucose POC Glucose 263 Estimat Average Glucose 148 Hemoglobin A1c 6.8 H Calculated Osmolality Lactate Calcium Magnesium Total Bilirubin AST ALT Alkaline Phosphatase C-Reactive Protein Total Protein Albumin Globulin Urine Color Urine Appearance Urine pH Ur Specific [place] Urine Protein Urine Glucose (UA) Urine Ketones Urine Blood Urine Nitrate Urine Bilirubin Prot Sulfosalicylic Acd Urine Urobilinogen Ur Leukocyte Esterase Urine RBC Urine WBC Ur Squamous Epith Cells Urine Bacteria Urine Opiates Screen Ur Barbiturates Screen Ur Phencyclidine Scrn Ur Amphetamines Screen U Benzodiazepines Scrn Urine Cocaine Screen U Marijuana (THC) Screen Micro: Microbiology 09/08/19 13:11 Blood Culture - Preliminary Blood SPECIMEN COLLECTED 09/08/19 13:11 Blood Culture - Preliminary Blood SPECIMEN COLLECTED Cardiac Studies: No Data to Display
[2019-09-09 10:32] LABS: Glucose Point of Care 127 mg/dL (70-110)
[2019-09-09 10:32] LABS: Glucose Point of Care 159 mg/dL (70-110)
--- NOTE | 2019-09-09 11:58 | P.CONIM_ITS ---
Providers/Reason For Consult Consulting Physican/Specialty*: Dr. Wu Reason for Consult*: Sacral decubitus ulcer Attending Physician: Yvonne Wu MD Primary Care Provider: Kamlesh Stevens History of Present Illness History of Present Illness Perla Roque is a 74 year old female with multiple comorbidities who was admitted to the hospital from a correction with ESBL E. coli UTI history and a decubitus ulcer. Patient is noted to be in septic shock and was started on Levophed and broad-spectrum IV antibiotics. She appears to be confused and could not answer any questions. I was consulted for debridement of her sacral decubitus ulcer. Review of Systems General: Reports: ROS unobtainable due to mental status Meds/Allergies Home Medications and Allergies Home Medications Medication Instructions Recorded Confirmed Last Taken Type PNV [id number] fumarate-FA 1 tab PO DAILY 06/09/19 09/08/19 09/08/19 History [] acetaminophen 650 mg PO Q6H PRN 06/09/19 09/08/19 09/05/19 History bisacodyl [Dulcolax (bisacodyl)] 10 mg HI DAILY PRN 06/09/19 09/08/19 Unknown History brimonidine 1 drp OPHTHALMIC (EYE) TID 06/09/19 09/08/19 09/08/19 History clopidogrel [Plavix] 75 mg PO DAILY 06/09/19 09/08/19 09/08/19 History divalproex [Depakote] 250 mg PO DAILY 06/09/19 09/08/19 09/08/19 History divalproex [Depakote] 500 mg PO BEDTIME 06/09/19 09/08/19 09/07/19 History docusate sodium 100 mg PO BID 06/09/19 09/08/19 09/08/19 History latanoprost [Xalatan] 1 drp OPHTHALMIC (EYE) QPM 06/09/19 09/08/19 09/07/19 History loperamide 2 mg PO Q6H PRN 06/09/19 09/08/19 Unknown History magnesium hydroxide [Milk of 30 ml PO DAILY PRN 06/09/19 09/08/19 Unknown History Magnesia] nitroglycerin [Nitrostat] 0.4 mg SUBLINGUAL Q5M PRN 06/09/19 09/08/19 Unknown History polysaccharide iron complex 150 mg PO DAILY 06/09/19 09/08/19 09/08/19 History [Poly-Iron] promethazine 25 mg PO Q6H PRN 06/09/19 09/08/19 Unknown History quetiapine [Seroquel] 25 mg PO QAM 06/09/19 09/08/19 09/08/19 History quetiapine [Seroquel] 100 mg PO BEDTIME 06/09/19 09/08/19 09/07/19 History senna 8.6 mg PO Q12H PRN 06/09/19 09/08/19 09/08/19 History venlafaxine 25 mg PO DAILY 06/09/19 09/08/19 09/08/19 History furosemide [Lasix] 20 mg PO DAILY #0 tab 06/19/19 09/08/19 09/08/19 Rx hydrocodone-acetaminophen 1 tab PO Q24H PRN #0 tab 06/19/19 09/08/19 09/08/19 Rx isosorbide dinitrate 10 mg PO DAILY #0 tab 06/19/19 09/08/19 09/08/19 Rx lorazepam [Ativan] 0.5 mg PO Q24H PRN #0 tab 06/19/19 09/08/19 09/08/19 Rx aspirin 81 mg PO DAILY 09/08/19 09/08/19 09/08/19 History carvedilol 3.125 mg PO BID 09/08/19 09/08/19 09/08/19 History insulin regular human [Novolin R See Rx Instructions .ROUTE .COMPLEX 09/08/19 09/08/19 Unknown History Flexpen] lisinopril 2.5 mg PO DAILY 09/08/19 09/08/19 09/08/19 History pantoprazole 40 mg PO DAILY 09/08/19 09/08/19 09/08/19 History sennosides-docusate sodium 1 tab-cap PO BID PRN 09/08/19 09/08/19 09/08/19 History [Senna-S] Allergies Allergy/AdvReac Type Severity Reaction Status Date / Time butorphanol [From Stadol] Allergy Unknown Verified 06/09/19 15:21 diphenhydramine Allergy Unknown Verified 06/09/19 15:21 [From Benadryl] indomethacin [From Indocin] Allergy Unknown Verified 06/09/19 15:21 ketorolac [From Toradol] Allergy Unknown Verified 06/09/19 15:21 levofloxacin [From Levaquin] Allergy Unknown Verified 06/09/19 15:21 methazolamide Allergy Unknown Verified 06/09/19 15:21 [From Neptazane] NSAIDS (Non-Steroidal Allergy Unknown Verified 06/09/19 15:21 Anti-Inflamma ondansetron [From Zofran] Allergy Unknown Verified 06/09/19 15:21 Penicillins Allergy Unknown Verified 06/09/19 15:21 prochlorperazine Allergy Unknown Verified 06/09/19 15:21 [From Compazine] Sulfa (Sulfonamide Allergy Unknown Verified 06/09/19 15:21 Antibiotics) sumatriptan [From Imitrex] Allergy Unknown Verified 06/09/19 15:21 tramadol [From Ultram] Allergy Unknown Verified 06/09/19 15:21 Current Medications Current Medications Generic Name Dose Route Start Last Admin Trade Name Freq PRN Reason Stop Dose Admin Hydrocodone Bitart/Acetaminophen 1 tab 09/08/19 17:23 09/09/19 04:02 [place] 5-325 Mg PO 1 tab Q6H PRN Administration MODERATE TO SEVERE PAIN Brimonidine Tartrate 1 drop 09/08/19 21:00 09/08/19 20:40 [place] P 0.1% EYE-BOTH 0.5 unit TID MANUEL Administration Divalproex Sodium 250 mg 09/09/19 09:00 09/09/19 10:[address] PO Not Given DAILY MANUEL Divalproex Sodium 500 mg 09/08/19 21:00 09/08/19 20:[address] PO 500 mg BEDTIME MANUEL Administration Furosemide 20 mg 09/09/19 09:00 09/09/19 10:53 Lasix PO Not Given DAILY MANUEL Norepinephrine Bitartrate 4 mg 254 mls @ 0 mls/hr 09/08/19 13:00 09/09/19 10:55 / Dextrose IV Infused .Q0M MANUEL Titration Protocol Per Protocol Dextrose/Sodium Chloride 1,000 mls @ 50 mls/hr 09/08/19 21:00 09/08/19 20:39 Dextrose 5%-Sod Chloride 0.45% IV 50 mls/hr .Q20H MANUEL Administration Imipenem/Cilastatin Sodium 500 100 mls @ 200 mls/hr 09/08/19 18:00 09/09/19 05:03 mg/ Sodium Chloride IV 200 mls/hr Q6H MANUEL Administration Protocol Vancomycin HCl 1,000 mg/ 250 mls @ 250 mls/hr 09/08/19 19:00 09/08/19 19:43 Sodium Chloride IV 250 mls/hr Q36H MANUEL Administration Insulin Aspart 0 unit 09/08/19 18:00 09/09/19 10:53 Novolog SUBCUT Not Given WM&BEDTIME MANUEL Protocol Latanoprost 1 drop 09/08/19 18:00 09/08/19 19:45 Xalatan EYE-BOTH Not Given QPM MANUEL Pantoprazole Sodium 40 mg 09/09/19 09:00 09/09/19 10:54 Protonix PO Not Given DAILY MANUEL Quetiapine Fumarate 25 mg 09/09/19 06:00 09/09/19 05:04 Seroquel PO Not Given QAM MANUEL Quetiapine Fumarate 100 mg 09/08/19 21:00 09/08/19 20:19 Seroquel PO 100 mg BEDTIME MANUEL Administration Sodium Bicarbonate 650 mg 09/09/19 09:15 09/09/19 10:54 Sodium Bicarbonate PO Not Given TID MANUEL PFSH Acute PFSH: Medical History Anxiety Blindness Chronic kidney disease, stage III (moderate) Chronic pain Coronary artery disease Dementia Depression Diabetes mellitus GERD (gastroesophageal reflux disease) Hyperlipidemia Ischemic cardiomyopathy MGUS (monoclonal gammopathy of unknown significance) Non-ST elevation myocardial infarction (NSTEMI) Obesity Seizure disorder Surgical History H/O hemorrhoidectomy H/O hysterectomy for benign disease H/O knee surgery History of breast biopsy History of cholecystectomy History of hip surgery Stented coronary artery Family History Brother Cancer Colon cancer Social History Smoking and tobacco status: never smoked Alcohol intake: never Housing: Skilled Nursing Vitals/I&O/Wt Last Vital Signs Temp 98.3 F 09/09/19 10:00 Pulse 88 09/09/19 10:00 Resp 12 09/09/19 10:00 BP 120/52 09/09/19 10:00 Pulse Ox 97 09/09/19 10:00 09/08/19 09/09/19 09/09/19 22:59 06:59 14:59 Intake Total 181.54 / 281.54 100 / 281.54 222.46 / 222.46 Output Total 200 / 950 750 / 950 1350 / 1350 Balance -18.46 / -668.46 -650 / -668.46 -1127.54 / -1127.54 Weight last 48 hrs Weight 165 lb Weight 166 lb Physical Exam Narrative: EXAM NARRATIVE: HEENT: Normocephalic Eye: Sclera /conjunctiva normal Abdomen: Soft to palpation Neurological: Disoriented Skin: Intact, 5 x 5 cm unstageable decubitus ulcer on the sacrum Urinary Catheter Management^: Regan: Cath Placed During This Visit: yes Reason for Continuing Indwelling Catheter: Other Urinary Catheter Date of Insertion: 09/08/19 Urinary Catheter Time of Insertion: 16:41 Data Micro: Micro: Microbiology 09/08/19 13:11 Blood Culture - Pr eliminary Blood SPECIMEN [facility] [place] 09/08/19 13:11 Blood Culture - Pr eliminary Blood SPECIMEN [facility] A&P Assessment and plan (1) Decubitus ulcer: 74-year-old female in septic shock with unstageable decubitus ulcer on the sacrum that requires debridement. Plan for excisional debridement of decubitus ulcer under MAC today Status: Acute Qualifiers: Pressure injury location: sacral region Pressure injury stage: stage 3 Qualified Code(s): L89.153 - Pressure ulcer of sacral region, stage 3 Coding Level of Care Code Acute Full Time Babysitter for [facility] Nick Diagnoses Decubitus ulcer L89.153 Pressure injury location: sacral region Pressure injury stage: stage 3
[2019-09-09 12:11] LABS: Glucose Point of Care 265 mg/dL (70-110)
--- NOTE | 2019-09-09 12:47 | PC.NURSE ---
surgicel 4x8 lot#[id number] exp 11/29/23 placed in sacral/coccyx wound bed
--- NOTE | 2019-09-09 12:55 | PM.OP ---
Operative Report Date of procedure: September 09, 2019 Pre-op Diagnosis: Sacral decubitus ulcer Post-op Findings: 5 x 5 cm stage IV sacral decubitus ulcer Procedure Done: Excisional debridement of necrotic skin, subcutaneous tissue and muscle of sacral decubitus ulcer using 15 blade Pathology: Aerobic anaerobic cultures Surgeon: Rodo Galaviz Anesthesia: MAC Estimated blood loss (mL): 25 Condition: stable Disposition: ICU Procedure: The patient was taken to the waiting room and placed in the left lateral position under MAC. Patient is on therapeutic IV antibiotics. The sacral area was prepped and draped in a sterile manner. Using electrocautery excisional debridement of necrotic skin, subcutaneous tissue and muscle was performed down to the sacrum creating a wound measuring 5 x 5 x 1.7 cm. There was punctate bleeding noted which was controlled with cautery. Wound was irrigated saline and Surgicel was placed and packed with Kerlix gauze and covered with ABD. The patient was transferred to ICU. During surgery the Levophed had to be restarted since patient was hypotensive.
--- NOTE | 2019-09-09 13:35 | PC.NURSE ---
1300-- pt back from or. had debridement of sacrum, dressing intact at present. pt yells out continuously.
[2019-09-09] MEDS: sodium bicarbonate 650 mg Tablet PO ×2 (16:22→20:11)
[2019-09-09] MEDS: dextrose 5%-sod chloride 0.45% 1,000 ML 50 ML IV (16:27)
--- NOTE | 2019-09-09 19:06 | PC.NURSE ---
BP ALARMING 64/37, PT SLEEPING QUIETLY. MANUAL BP 80/58, LEVOPHED INCREASED TO 7MCG/KG/MIN BP 104/65, AFTER TITRATION
[2019-09-09] MEDS: quetiapine 100 mg Tablet PO (20:11)
[2019-09-09 20:17] LABS: Glucose Point of Care 182 mg/dL (70-110)
[2019-09-09 20:17] LABS: Glucose Point of Care 262 mg/dL (70-110)
[2019-09-09] MEDS: divalproex DR 250 mg Tablet PO (20:26)
[2019-09-09] MEDS: latanoprost 0.005% Op Soln 2.5 mL Btl 1 DROP EYE-BOTH (20:42)
[2019-09-10] VITALS (18 sets, daily range): BP systolic 64–140; BP diastolic 32–79; PULSE 71–103; RESP 10–22; TEMP 36.7–37.2; O2SAT 95–99
[2019-09-10] MEDS: HYDROcodone-acetaminophen 5-325 mg Tablet 1 TAB PO ×3 (03:58→20:50)
[2019-09-10] MEDS: quetiapine 25 mg Tablet PO (05:43)
[2019-09-10 07:41] LABS: Glucose Point of Care 226 mg/dL (70-110)
[2019-09-10] MEDS: vancomycin 1,000 MG in sodium chloride 0.9% 250 ML 250 MG IV (07:51)
[2019-09-10] MEDS: divalproex DR 250 mg Tablet PO (07:53)
[2019-09-10] MEDS: sodium bicarbonate 650 mg Tablet PO ×3 (07:53→20:50)
[2019-09-10] MEDS: FUROsemide 20 mg Tablet PO (07:53)
[2019-09-10] MEDS: sennosides-docusate Tablet 1 TAB PO (07:53)
[2019-09-10] MEDS: pantoprazole DR 40 mg Tablet PO (07:53)
[2019-09-10] MEDS: LORazepam 0.5 mg Tablet PO (08:07)
[2019-09-10 08:09] LABS: Basophils # 0.1 10^3/uL (0.0-0.1); Basophils % 0.5 %; Eosinophils # 0.5 10^3/uL (0.0-0.8); Eosinophils % 4.5 %; Hematocrit 30.3 % (37.0-47.0); Hemoglobin 9.4 g/dL (11.5-15.3); Lymphocytes % 18.5 %; Mean Corpuscular Hemoglobin 31.9 pg (28.0-34.0); Mean Corpuscular Volume 102.7 fL (81-99); Mean Platelet Volume 8.8 fL (7.4-10.4); Monocytes # 1.4 10^3/uL (0.2-0.9); Monocytes % 12.7 %; Neutrophils # 6.8 10^3/uL (1.8-7.7); Neutrophils % 62.8 %; Nucleated Red Blood Cells % 0 %; Platelet Count 259 10^3/cmm (130-400); Red Blood Count 2.95 10^6/uL (4.1-5.3); White Blood Count 10.8 10^3/uL (4.0-10.0)
--- NOTE | 2019-09-10 08:23 | PC.NURSE ---
PT PULLED IV OUT OF LEFT WRIST, 20G RESTARTED IN RIGHT FOREARM, TOLERATED WELL. YELLS THAT SHE HATES NURSES & TO STOP LOOKING AT HER BOOBS. MOANS THAT SHE IS IN PAIN, ATIVAN PRN GIVEN D/T ANXIETY DOESN'T LIKE TO BE REPOSITIONED. HEELS OFF BED.
[2019-09-10 08:32] LABS: Anion Gap 14.6 (5-19); Blood Urea Nitrogen 54 mg/dL (8-23); Calcium 9.3 mg/dL (8.5-10.5); Carbon Dioxide 22 mmol/L (22-29); Chloride 103 mmol/L (98-107); Glucose 254 mg/dL (65-115); Osmolality Calculated 287 mOsm/kg (285-295); Potassium 4.6 mmol/L (3.5-5.1); Sodium 135 mmol/L (136-145)
[2019-09-10 12:16] LABS: Glucose Point of Care 137 mg/dL (70-110)
--- NOTE | 2019-09-10 12:56 | P.PN_ITS ---
Subjective Subjective: Interval history: Hemodynamically stable, afebrile, had 200 mL urine output overnight but has had an additional 1000 mL so far this morning. Decreasing leukocytosis, stable hemoglobin, improving renal function. She is POD # 1 s/p surgical debridement of sacral decubitus ulcer. She is off pressor support. She is quite irritable and intermittently uncooperative which is closer to her baseline in terms of mental status, labile BP, remains on pressor support. Medications: Reviewed: Yes Medication Review Details: Active Medications Generic Name Dose Route Start Last Admin Trade Name Freq PRN Reason Stop Dose Admin Acetaminophen 650 mg 09/08/19 17:23 Tylenol PO Q6H PRN Mild pain or incr eased temp Hydrocodone Bitart /Acetaminophen 1 tab 09/08/19 17:23 09/10/19 03:58 [place] 5-325 Mg PO 1 tab Q6H PRN Administration MODERATE TO SEVER E PAIN Bisacodyl 10 mg 09/08/19 17:23 Bisac-Evac CO DAILY PRN Constipation Brimonidine Tartra te 1 drop 09/08/19 21:00 09/09/19 20:46 Alphagan P 0.1% EYE-BOTH Not Given TID MANUEL Dextrose 25 ml 09/08/19 17:23 D50w IVP ONCE PRN hypoglycemia prot ocol Protocol Dextrose 50 ml 09/08/19 17:23 D50w IVP PRN PRN hypoglycemia prot ocol Protocol Divalproex Sodium 250 mg 09/09/19 09:00 09/10/19 07:[address] PO 250 mg DAILY MANUEL Administration Divalproex Sodium 500 mg 09/08/19 21:00 09/09/19 20:[address] PO Not Given BEDTIME MANUEL Furosemide 20 mg 09/09/19 09:00 09/10/19 07:53 Lasix PO 20 mg DAILY MANUEL Administration Glucagon 1 mg 09/08/19 17:23 Glucagen IM ONCE PRN Adult Acute Hypog lycemia Prot. Protocol Norepinephrine Bit artrate 4 mg 254 mls @ 0 mls/h r 09/08/19 13:00 09/10/19 08:18 / Dextrose IV 4 mcg/min .Q0M MANUEL 15.2 mls/hr Administration Protocol Per Protocol Dextrose/Sodium Ch loride 1,000 mls @ 50 ml s/hr 09/08/19 21:00 09/09/19 16:27 Dextrose 5%-Sod Chloride 0.45% IV 50 mls/hr .Q20H MANUEL Administration Dextrose 500 mls @ 100 mls /hr 09/08/19 17:23 D5w IV ONCE PRN Adult Acute Hypog lycemia Prot Protocol Vancomycin HCl 1,0 00 mg/ 250 mls @ 250 mls /hr 09/08/19 19:00 09/10/19 07:51 Sodium Chloride IV 250 mls/hr Q36H MANUEL Administration Imipenem/Cilastati n Sodium 250 100 mls @ 200 mls /hr 09/10/19 12:00 mg/ Sodium Chlor sindy IV Q6H MANUEL Protocol Insulin Aspart 0 unit 09/08/19 18:00 09/10/19 12:56 Novolog SUBCUT Not Given WM&BEDTIME MANUEL Protocol Latanoprost 1 drop 09/09/19 21:00 09/09/19 20:42 Xalatan EYE-BOTH 0.05 ml BEDTIME MANUEL Administration Loperamide HCl 2 mg 09/08/19 17:27 Imodium Capsule PO Q6H PRN Diarrhea Lorazepam 0.5 mg 09/08/19 17:23 09/10/19 08:07 Ativan PO 0.5 mg Q6H PRN Administration Anxiety Nitroglycerin 0.4 mg 09/08/19 17:23 Nitrostat SUBLINGUAL Q5M PRN Chest Pain Pantoprazole Sodiu m 40 mg 09/09/19 09:00 09/10/19 07:53 Protonix PO 40 mg DAILY MANUEL Administration Quetiapine Fumarat e 25 mg 09/09/19 06:00 09/10/19 05:43 Seroquel PO 25 mg QAM MANUEL Administration Quetiapine Fumarat e 100 mg 09/08/19 21:00 09/09/19 20:11 Seroquel PO 100 mg BEDTIME MANUEL Administration Senna/Docusate Sod ium 1 tab 09/08/19 17:23 09/10/19 07:53 Senna-S PO 1 tab BID PRN Administration Constipation Sodium Bicarbonate 650 mg 09/09/19 16:19 09/10/19 07:53 Sodium Bicarbona te PO 650 mg TID MANUEL Administration butorphanol [From Stadol] Allergy (Verified 06/09/19 15:21) Unknown diphenhydramine [From Benadryl] Allergy (Verified 06/09/19 15:21) Unknown indomethacin [From Indocin] Allergy (Verified 06/09/19 15:21) Unknown ketorolac [From Toradol] Allergy (Verified 06/09/19 15:21) Unknown levofloxacin [From Levaquin] Allergy (Verified 06/09/19 15:21) Unknown methazolamide [From Neptazane] Allergy (Verified 06/09/19 15:21) Unknown NSAIDS (Non-Steroidal Anti-Inflamma Allergy (Verified 06/09/19 15:21) Unknown ondansetron [From Zofran] Allergy (Verified 06/09/19 15:21) Unknown Penicillins Allergy (Verified 06/09/19 15:) Unknown prochlorperazine [From Compazine] Allergy (Verified 06/09/19 15:21) Unknown Sulfa (Sulfonamide Antibiotics) Allergy (Verified 06/09/19 15:21) Unknown sumatriptan [From Imitrex] Allergy (Verified 06/09/19 15:21) Unknown tramadol [From Ultram] Allergy (Verified 06/09/19 15:21) Unknown Vitals/I&O/Wt Last Vital Signs Temp 98.6 F 09/10/19 12:00 Pulse 71 09/10/19 12:00 Resp 14 09/10/19 12:00 BP 107/51 09/10/19 12:00 Pulse Ox 99 09/10/19 12:00 09/09/19 09/10/19 09/10/19 22:59 06:59 14:59 Intake Total 320 / 1572.46 360 / 1932.46 120 / 120 Output Total 500 / 2860 200 / 3060 1000 / 1000 Balance -180 / -1287.54 160 / -1127.54 -880 / -880 Weight last 48 hrs Weight 73.964 kg Weight 74.843 kg Physical Exam Const: COMMON NORMALS: no acute distress and patient oriented x3 GENERAL APPEARANCE: lethargic; not comfortable ORIENTATION/CONSCIOUSNESS: Yes oriented to place and Yes lethargic HENMT: COMMON NORMALS: normocephalic, atraumatic, hearing grossly normal bilaterally and moist oral mucous membranes HEAD & SCALP: normocephalic and atraumatic Eye: COMMON NORMALS: Equal, round and reactive pupils present, EOMs intact bilaterally and conjunctivae normal CONJUNCTIVA: Yes conjunctivae normal PUPIL: Yes Equal, round and reactive pupils present OTHER: -legally blind Neck/C-Spine: COMMON NORMALS: full ROM GENERAL: Yes normal visual inspection and Yes trachea midline Chest: CHEST: Yes Symmetrical chest wall rise Resp: COMMON NORMALS: normal respiratory effort, No retractions, No use of accessory muscles and clear to auscultation bilaterally EFFORT & INSPECTION: Yes able to speak in complete sentences, Yes symmetric chest movement and No tac hypneic AUSCULTATION: clear to auscultation bilaterally OTHER: -on RA Cardio: COMMON NORMALS: regular rate, regular rhythm, S1 normal heart sound present, S2 normal heart sound present and No murmurs present (Cardio) RATE: regular rate RHYTHM: regular rhythm HEART SOUNDS: S1 normal heart sound present and S2 normal heart sound present GI: COMMON NORMALS: Normal to inspection, nondistended, normoactive bowel sounds present, Soft to palpation and non-tender PALPATION: Yes Soft to p alpation : BLADDER/KIDNEY EXAM: No catheter in place Extremity: COMMON NORMALS: normal to inspection, full ROM, no clubbing, cyanosis or edema and no pedal edema NARRATIVE EXTREMITY EXAM: -contracted bilateral LEs Neuro: COMMON NORMALS: patient oriented x3, moves all extremities, no focal motor deficits and no sensory deficits noted SENSORIUM/ORIENTATION: Yes oriented to place and Yes lethargic Psych: COMMON NORMALS: mental status grossly normal, Normal thought process present, cooperative, normal affect and speech normal SPEECH: Yes normal speech THOUGHT PROCESS: Normal thought process present Skin: COMMON NORMALS: no rashes or lesions noted, no jaundice, no petechiae and no mottling GENERAL SKIN EXAM: no rashes or lesions noted WOUNDS: Yes wounds noted OTHER: -well circumscribed wound on coccyx very tender to palpation, tunneling noted, no odor and no active drainage Urinary Catheter Management^: Regan: Cath Placed During This Visit: yes Reason for Continuing Indwelling Catheter: Accurate Measurement of Urinary Output in Critically Ill Patients Urinary Catheter Date of Insertion: 09/08/19 Urinary Catheter Time of Insertion: 16:41 Data : 09/10/19 07:43 09/10/19 07:43 Micro: Microbiology 09/08/19 13:11 Urine Culture - Preliminary Urine,Clean Catch Escherichia coli esbl 09/09/19 12:46 Gram Stain - Final Buttock Tissue Culture - Preliminary Gram Negative Rods 09/08/19 13:11 Blood Culture - Preliminary Blood NEGATIVE TO DATE 09/08/19 13:11 Blood Culture - Preliminary Blood NEGATIVE TO DATE A&P Assessment and plan (1) UTI (urinary tract infection): -has had prior complicated UTIs including ESBL E.coli -UA strongly indicative of infection -has Regan catheter in place due to complicated UTI and sacral decubitus ulcer -received dose of Cefepime in ED; on Imipenem due to hx -contact isolation precautions -urine cx: ESBL E.coli; sensitivity noted; request PICC line placement as will need to continue IV antibiotics -blood cx: prelim negative -associated sepsis as evidenced by hypotension, leukocytosis, altered mental status. More hemodynamically stable, leukocytosis improving -weaned off pressor support -close monitoring of vital signs -lactate-1.0 Status: Acute Qualifiers: Hematuria presence: without hematuria Urinary tract infection type: acute cystitis Qualified Code(s): N30.00 - Acute cystitis without hematuria (2) AMS (altered mental status): -secondary to complicated UTI, infected decubitus ulcer -fall, aspiration precautions Status: Acute Qualifiers: Altered mental status type: disorientation Qualified Code(s): R41.0 - Disorientation, unspecified (3) Acute on chronic renal failure: -has known CKD stage 3; baseline Cr is around 1.6-1.9 -now with superimposed RAGENIS -close monitoring of renal function, avoid nephrotoxins, renally dose meds, hold ACEi -renal function improving -very cautious IVF hydration due to underlying systolic CHF -continue to monitor urine output Status: Acute Qualifiers: Acute renal failure type: unspecified Chronic kidney disease stage: unspecified stage Qualified Code(s): N17.9 - Acute kidney failure, unspecified; N18.9 - Chronic kidney disease, unspecified (4) Decubitus ulcer: -has noted decubitus ulcer on coccyx that is acutely infected and needs debridement -Surgery consult by Dr. Guillaume caldera; s/p excisional debridement, POD # 1 -on Vanc (renally dosed) + Imipenem -f/u wound cx-GNRs, pending ID & sensitivity; gram stain: moderate GPC -this is likely also contributing to sepsis -pain control as needed -reportedly per [facility], had wound cx obtained which has grown ESBL E.coli -wound care per Dr. Galaviz Status: Acute Qualifiers: Pressure injury location: sacral region Pressure injury stage: stage 3 Qualified Code(s): L89.153 - Pressure ulcer of sacral region, stage 3 (5) Acute hyperkalemia: -continue to monitor K; resolved -given dose of calcium gluconate, anticipate some improvement with hydration; may be able to resume low dose diuretic if BP improves -telemetry monitoring Status: Resolved (6) CKD (chronic kidney disease): Status: Chronic Qualifiers: Chronic kidney disease stage: stage 3 (moderate) Qualified Code(s): N18.3 - Chronic kidney disease, stage 3 (moderate) (7) Coronary artery disease: -hold oral antihypertensives due to hypotension -hold dual antiplatelets due to surgery -has had prior stenting Status: Chronic Qualifiers: Associated angina: without angina Coronary Disease-Associated Artery/Lesion type: [place] artery [place] vs. transplanted heart: [place] heart Qualified Code(s): I25.10 - Atherosclerotic heart disease of [place] coronary artery without angina pectoris (8) Cardiomyopathy, ischemic: -Echo (05/2019): EF=30%, global LV hypokinesis, trace MR Status: Chronic (9) Anemia: -has chronic macrocytic anemia -baseline Hg is around 10 -continue to monitor H/H, stable so far -has hx of MGUS Status: Chronic Qualifiers: Anemia type: unspecified type Qualified Code(s): D64.9 - Anemia, unspecified (10) Diabetes mellitus: -complicated by retinopathy, nephropathy -A1c-6.8 -Accucheks, ISS, hypoglycemia precautions -consistent carb diet when PO appropriate Status: Chronic Qualifiers: Diabetes mellitus complication status: with other specified complication Diabetes mellitus terminal block assembler insulin use: with care home use Diabetes mellitus type: type 2 Qualified Code(s): E11.69 - Type 2 diabetes mellitus with other specified complication; Z79.4 - terminal block assembler (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 of insulin (11) Seizure disorder: -seizure precautions -on anti-epileptic meds Status: Chronic (12) Dementia: -has some behavioral issues at baseline including hallucinations, i ntermittent confusion and disorientation Status: Chronic Qualifiers: Dementia behavioral disturbance: with behavioral disturbance Dementia type: unspecified type Qualified Code(s): F03.91 - Unspecified dementia with behavioral disturbance (13) Depression: Status: Chronic Qualifiers: Depression Type: unspecified Qualified Code(s): F32.9 - Major depre ssive disorder, single episode, unspecified Additional A&P Information -GI ppx with PPI -DVT ppx with SCDs, hold AC due to surgery -Dispo: return to [facility] -Code status: DNR/DNI; paperwork in chart; patient is her own decision maker per family -ICU care due to sepsis, pressor support Attestations Medical Necessity Statement*: Patient requires hospitalization for continued IV antibiotic treatment for her complicated UTI and infected sacral decubitus ulcer status post excisional debridement pending finalization of culture results. Time Spent in Patient Care: 16 - 35 minutes (>than 50% of time spent in counselling and/or direct pt care on unit) . Coding Level of Care Code Acute Erp Implementation Consultant for Chg Fwd Exam Comprehensive Diagnoses UTI (urinary tract infection) N30.00 Hematuria presence: without hematuria Urinary tract infection type: acute cystitis AMS (altered mental status) R41.0 Altered mental status type: disorientation Acute on chronic renal failure N17.9; N18.9 Acute renal failure type: unspecified Chronic kidney disease stage: unspecified stage Decubitus ulcer L89.153 Pressure injury location: sacral region Pressure injury stage: stage 3 Acute hyperkalemia E87.5 CKD (chronic kidney disease) N18.3 Chronic kidney disease stage: stage 3 (moderate) Coronary artery disease I25.10 Associated angina: without angina Coronary Disease-Associated Artery/Lesion type: [place] artery [place] vs. transplanted heart: [place] heart Cardiomyopathy, ischemic I25.5 Anemia D64.9 Anemia type: unspecified type Diabetes mellitus E11.69; Z79.4 Diabetes mellitus complication status: with other specified complication Diabetes mellitus care home insulin use: with care home use Diabetes mellitus type: type 2 Seizure disorder G40.909 Dementia F03.91 Dementia behavioral disturbance: with behavioral disturbance Dementia type: unspecified type Depression F32.9 Depression Type: unspecified
[2019-09-10] MEDS: dextrose 5%-sod chloride 0.45% 1,000 ML 50 ML IV (13:04)
--- NOTE | 2019-09-10 13:52 | USCV_ITS ---
Perla Roque Age: 74 Gender: F : 1945 Exam Date: 09/10/2019 15:43 Ordering Phys: Yvonne Wu MD Technologist: Tash Mo[place]uma [place] [facility] [place]ication: SWELLING HISTORY: Upper extremity swelling. PROCEDURES: Venous duplex imaging was performed in only the left upper extremity. The following venous structures were evaluated: internal jugular vein, subclavian vein, axillary vein, and brachial veins. In addition, the basilic vein, cephalic vein, radial vein, and ulnar vein. Serial compression, augmentation maneuvers, and spectral Doppler flow evaluation were performed. FINDINGS: Normal 2-D, color Doppler and phasicity noted in the left upper extremity venous system extending from the left internal jugular vein through the main forearm. No thrombosis or occlusion noted. No evidence of venous thrombosis in the above-mentioned identifiable veins CONCLUSIONS No evidence of venous thrombosis in the above-mentioned identifiable veins Dr Lyndon Mejía MD [facility] (Electronically Signed) Final Date: 10 September 2019 18:49 S
[2019-09-10 17:07] LABS: Glucose Point of Care 165 mg/dL (70-110)
[2019-09-10] MEDS: quetiapine 100 mg Tablet PO (20:50)
[2019-09-10] MEDS: divalproex DR 500 mg Tablet PO (20:51)
[2019-09-10 21:01] LABS: Glucose Point of Care 218 mg/dL (70-110)
--- NOTE | 2019-09-10 22:12 | PC.NURSE ---
Patient arouses easily to verbal stimuli but has delayed response to question. Oriented to person and place, disoriented to time and situation. Complaining of pain in coccyx, medication given per MAY.
[2019-09-11] VITALS (83 sets, daily range): BP systolic 74–152; BP diastolic 37–86; PULSE 67–98; RESP 0–20; TEMP 36.3–36.6; O2SAT 84–100
[2019-09-11 05:05] LABS: Basophils # 0.1 10^3/uL (0.0-0.1); Basophils % 0.6 %; Eosinophils # 0.5 10^3/uL (0.0-0.8); Eosinophils % 5.2 %; Hematocrit 32.7 % (37.0-47.0); Hemoglobin 9.8 g/dL (11.5-15.3); Lymphocytes # 1.5 10^3/uL (0.8-4.8); Lymphocytes % 17.6 %; Mean Corpuscular Hemoglobin 31.6 pg (28.0-34.0); Mean Corpuscular Volume 105.5 fL (81-99); Mean Platelet Volume 8.6 fL (7.4-10.4); Monocytes % 11.7 %; Neutrophils # 5.5 10^3/uL (1.8-7.7); Neutrophils % 63.6 %; Nucleated Red Blood Cells % 0 %; Platelet Count 251 10^3/cmm (130-400); Red Cell Distribution Width 15.2 % (12.1-15.1); White Blood Count 8.7 10^3/uL (4.0-10.0)
[2019-09-11 05:23] LABS: Anion Gap 20.4 (5-19); Blood Urea Nitrogen 45 mg/dL (8-23); Calcium 9.4 mg/dL (8.5-10.5); Carbon Dioxide 18 mmol/L (22-29); Chloride 105 mmol/L (98-107); Glucose 187 mg/dL (65-115); Osmolality Calculated 291 mOsm/kg (285-295); Potassium 4.4 mmol/L (3.5-5.1); Sodium 139 mmol/L (136-145)
--- NOTE | 2019-09-11 06:42 | PC.NURSE ---
Patient resting comfortably in bed. Refused bathing but agreed to carl care, oral care, and repositioning. Refused morning PO meds, stated that she will take them later.
[2019-09-11 07:28] LABS: Glucose Point of Care 204 mg/dL (70-110)
[2019-09-11] MEDS: quetiapine 25 mg Tablet PO (07:37)
[2019-09-11] MEDS: sodium bicarbonate 650 mg Tablet PO ×3 (09:19→20:07)
[2019-09-11] MEDS: pantoprazole DR 40 mg Tablet PO (09:19)
[2019-09-11] MEDS: FUROsemide 20 mg Tablet PO (09:19)
[2019-09-11] MEDS: dextrose 5%-sod chloride 0.45% 1,000 ML 50 ML IV (09:22)
[2019-09-11 11:33] LABS: Glucose Point of Care 171 mg/dL (70-110)
--- NOTE | 2019-09-11 14:56 | PC.SOCIAL ---
IMM Not Updated Pg 2 of IMM left at bedside. It has not been signed yet, and patient resting with eyes closed in ICU. Per Dr. Wu, will be here a few more days, will need to update prior to d/c.
--- NOTE | 2019-09-11 15:57 | PM.PN ---
Subjective Subjective: Interval history: Afebrile, had 575 mL urine output overnight, leukocytosis resolved, BP low normal, improved renal function. Wound cultures prelim positive for Proteus mirabilis. She is POD # 2 s/p excisional debridement of sacral wound. Resting in bed, head under the covers as she feels cold, continues to complain of soreness in her bottom area, off pressor support. Medications: Reviewed: Yes Medication Review Details: Active Medications Generic Name Dose Route Start Last Admin Trade Name Freq PRN Reason Stop Dose Admin Acetaminophen 650 mg 09/08/19 17:23 Tylenol PO Q6H PRN Mild pain or incr eased temp Hydrocodone Bitart /Acetaminophen 1 tab 09/08/19 17:23 09/10/19 20:50 Clyde 5-325 Mg PO 1 tab Q6H PRN Administration MODERATE TO SEVER E PAIN Bisacodyl 10 mg 09/08/19 17:23 Bisac-Evac AR DAILY PRN Constipation Brimonidine Tartra te 1 drop 09/08/19 21:00 09/11/19 09:23 Alphagan P 0.1% EYE-BOTH 1 unit TID MANUEL Administration Dextrose 25 ml 09/08/19 17:23 D50w IVP ONCE PRN hypoglycemia prot ocol Protocol Dextrose 50 ml 09/08/19 17:23 D50w IVP PRN PRN hypoglycemia prot ocol Protocol Divalproex Sodium 250 mg 09/09/19 09:00 09/10/19 07:53 Depakote PO 250 mg DAILY MANUEL Administration Divalproex Sodium 500 mg 09/08/19 21:00 09/10/19 20:[address] PO 500 mg BEDTIME MANUEL Administration Furosemide 20 mg 09/09/19 09:00 09/11/19 09:19 Lasix PO 20 mg DAILY MANUEL Administration Glucagon 1 mg 09/08/19 17:23 Glucagen IM ONCE PRN Adult Acute Hypog lycemia Prot. Protocol Norepinephrine Bit artrate 4 mg 254 mls @ 0 mls/h r 09/08/19 13:00 09/11/19 14:52 / Dextrose IV Infused .Q0M MANUEL Titration Protocol Per Protocol Dextrose/Sodium Ch loride 1,000 mls @ 50 ml s/hr 09/08/19 21:00 09/11/19 09:22 Dextrose 5%-Sod Chloride 0.45% IV 50 mls/hr .Q20H MANUEL Administration Dextrose 500 mls @ 100 mls /hr 09/08/19 17:23 D5w IV ONCE PRN Adult Acute Hypog lycemia Prot Protocol Vancomycin HCl 1,0 00 mg/ 250 mls @ 250 mls /hr 09/08/19 19:00 09/10/19 09:00 Sodium Chloride IV Infused Q36H MANUEL Infusion Imipenem/Cilastati n Sodium 250 100 mls @ 200 mls /hr 09/10/19 12:00 09/11/19 11:43 mg/ Sodium Chlor sindy IV 200 mls/hr Q6H MANUEL Administration Protocol Insulin Aspart 0 unit 09/08/19 18:00 09/11/19 11:44 Novolog SUBCUT 2 unit WM&BEDTIME MANUEL Administration Protocol Latanoprost 1 drop 09/09/19 21:00 09/10/19 23:36 Xalatan EYE-BOTH Not Given BEDTIME MANUEL Loperamide HCl 2 mg 09/08/19 17:27 Imodium Capsule PO Q6H PRN Diarrhea Lorazepam 0.5 mg 09/08/19 17:23 09/10/19 08:07 Ativan PO 0.5 mg Q6H PRN Administration Anxiety Nitroglycerin 0.4 mg 09/08/19 17:23 Nitrostat SUBLINGUAL Q5M PRN Chest Pain Pantoprazole Sodiu m 40 mg 09/09/19 09:00 09/11/19 09:19 Protonix PO 40 mg DAILY MANUEL Administration Quetiapine Fumarat e 25 mg 09/09/19 06:00 09/11/19 07:37 Seroquel PO 25 mg QAM MANUEL Administration Quetiapine Fumarat e 100 mg 09/08/19 21:00 09/10/19 20:50 Seroquel PO 100 mg BEDTIME MANUEL Administration Senna/Docusate Sod ium 1 tab 09/08/19 17:23 09/10/19 07:53 Senna-S PO 1 tab BID PRN Administration Constipation Sodium Bicarbonate 650 mg 09/09/19 16:19 09/11/19 09:19 Sodium Bicarbona te PO 650 mg TID MANUEL Administration butorphanol [From Stadol] Allergy (Verified 06/09/19 15:21) Unknown diphenhydramine [From Benadryl] Allergy (Verified 06/09/19 15:21) Unknown indomethacin [From Indocin] Allergy (Verified 06/09/19 15:21) Unknown ketorolac [From Toradol] Allergy (Verified 06/09/19 15:21) Unknown levofloxacin [From Levaquin] Allergy (Verified 06/09/19 15:21) Unknown methazolamide [From Neptazane] Allergy (Verified 06/09/19 15:21) Unknown NSAIDS (Non-Steroidal Anti-Inflamma Allergy (Verified 06/09/19 15:21) Unknown ondansetron [From Zofran] Allergy (Verified 06/09/19 15:21) Unknown Penicillins Allergy (Verified 06/09/19 15:21) Unknown prochlorperazine [From Compazine] Allergy (Verified 06/09/19 15:21) Unknown Sulfa (Sulfonamide Antibiotics) Allergy (Verified 06/09/19 15:21) Unknown sumatriptan [From Imitrex] Allergy (Verified 06/09/19 15:21) Unknown tramadol [From Ultram] Allergy (Verified 06/09/19 15:21) Unknown Vitals/I&O/Wt Last Vital Signs Temp 97.8 F 09/11/19 00:00 Pulse 86 09/11/19 15:15 Resp 14 09/11/19 15:15 BP 84/47 09/11/19 15:15 Pulse Ox 97 09/11/19 15:15 09/11/19 09/11/19 09/11/19 06:59 14:59 22:59 Intake Total 333.795 / 2379.900 1228.100 / 1228.100 Output Total 400 / 1975 410 / 410 Balance -66.205 / 404.900 818.100 / 818.100 Weight last 48 hrs Weight 72.575 kg Weight 73.964 kg Physical Exam Const: COMMON NORMALS: no acute distress and patient oriented x3 GENERAL APPEARANCE: lethargic; not comfortable ORIENTATION/CONSCIOUSNESS: Yes oriented to place and Yes lethargic HENMT: COMMON NORMALS: normocephalic, atraumatic, hearing grossly normal bilaterally and moist oral mucous membranes HEAD & SCALP: normocephalic and atraumatic Eye: COMMON NORMALS: Equal, round and reactive pupils present, EOMs intact bilaterally and conjunctivae normal CONJUNCTIVA: Yes conjunctivae normal PUPIL: Yes Equal, round and reactive pupils present OTHER: -legally blind Neck/C-Spine: COMMON NORMALS: full ROM GENERAL: Yes normal visual inspection and Yes trachea midline Chest: CHEST: Yes Symmetrical chest wall rise Resp: COMMON NORMALS: normal respiratory effort, No retractions, No use of accessory muscles and clear to auscultation bilaterally EFFORT & INSPECTION: Yes able to speak in complete sentences, Yes symmetric chest movement and No tachypneic AUSCULTATION: clear to auscultation bilaterally OTHER: -on RA Cardio: COMMON NORMALS: regular rate, regular rhythm, S1 normal heart sound present, S2 normal heart sound present and No murmurs present (Cardio) RATE: regular rate RHYTHM: regular rhythm HEART SOUNDS: S1 normal heart sound present and S2 normal heart sound present OTHER: -hypotensive GI: COMMON NORMALS: Normal to inspection, nondistended, normoactive bowel sounds present, Soft to palpation and non-tender PALPATION: Yes Soft to palpation : BLADDER/KIDNEY EXAM: No catheter in place Extremity: COMMON NORMALS: normal to inspection, full ROM, no clubbing, cyanosis or edema and no pedal edema NARRATIVE EXTREMITY EXAM: -contracted bilateral LEs Neuro: COMMON NORMALS: patient oriented x3, moves all extremities, no focal motor deficits and no sensory deficits noted SENSORIUM/ORIENTATION: Yes oriented to place and Yes lethargic Psych: COMMON NORMALS: mental status grossly normal, Normal thought process present, cooperative, normal affect and speech normal SPEECH: Yes normal speech THOUGHT PROCESS: Normal thought process present Skin: COMMON NORMALS: no rashes or lesions noted, no jaundice, no petechiae and no mottling GENERAL SKIN EXAM: no rashes or lesions noted WOUNDS: Yes wounds noted malodorous OTHER: -well circumscribed wound on coccyx very tender to palpation, tunneling noted, no odor and no active drainage Urinary Catheter Management^: Regan: Cath Placed During This Visit: yes Reason for Continuing Indwelling Catheter: Accurate Measurement of Urinary Output in Critically Ill Patients Urinary Catheter Date of Insertion: 09/08/19 Urinary Catheter Time of Insertion: 16:41 Data : 09/11/19 04:14 09/11/19 04:14 Micro: Microbiology 09/08/19 13:11 Urine Culture - Preliminary Urine,Clean Catch Escherichia coli esbl Enterococcus species 09/09/19 12:46 Gram Stain - Final Buttock Tissue Culture - Preliminary Proteus mirabilis A&P Assessment and plan (1) UTI (urinary tract infection): -has had prior complicated UTIs including ESBL E.coli -UA strongly indicative of infection -has Regan catheter in place due to complicated UTI and sacral decubitus ulcer -received dose of Cefepime in ED; on Imipenem due to hx -contact isolation precautions -urine cx: ESBL E.coli; sensitivity noted; request PICC line placement as will need to continue IV antibiotics -blood cx: prelim negative -associated sepsis as evidenced by hypotension, leukocytosis, altered mental status. More hemodynamically stable, leukocytosis improving -weaned off pressor support -close monitoring of vital signs -lactate-1.0 Status: Acute Qualifiers: Hematuria presence: without hematuria Urinary tract infection type: acute cystitis Qualified Code(s): N30.00 - Acute cystitis without hematuria (2) AMS (altered mental status): -secondary to complicated UTI, infected decubitus ulcer -fall, aspiration precautions Status: Acute Qualifiers: Altered mental status type: disorientation Qualified Code(s): R41.0 - Disorientation, unspecified (3) Acute on chronic renal failure: -has known CKD stage 3; baseline Cr is around 1.6-1.9 -now with superimposed ARGENIS which has resolved -close monitoring of renal function, avoid nephrotoxins, renally dose meds, hold ACEi -renal function improving and at baseline -very cautious IVF hydration due to underlying systolic CHF -continue to monitor urine output Status: Acute Qualifiers: Acute renal failure type: unspecified Chronic kidney disease stage: unspecified stage Qualified Code(s): N17.9 - Acute kidney failure, unspecified; N18.9 - Chronic kidney disease, unspecified (4) Decubitus ulcer: -has noted decubitus ulcer on coccyx that is acutely infected and needs debridement -Surgery consult by Dr. Galaviz appreciated; s/p excisional debridement, POD # 2 -on Vanc (renally dosed) + Imipenem -f/u wound cx-Proteus mirabilis, sensitivity noted; gram stain: moderate GPC -this is likely also contributing to sepsis -pain control as needed -reportedly per [facility], had wound cx obtained which has grown ESBL E.coli -wound care per Dr. Galaviz Status: Acute Qualifiers: Pressure injury location: sacral region Pressure injury stage: stage 3 Qualified Code(s): L89.153 - Pressure ulcer of sacral region, stage 3 (5) Acute hyperkalemia: -continue to monitor K; resolved -given dose of calcium gluconate, anticipate some improvement with hydration; may be able to resume low dose diuretic if BP improves -telemetry monitoring Status: Resolved (6) CKD (chronic kidney disease): Status: Chronic Qualifiers: Chronic kidney disease stage: stage 3 (moderate) Qualified Code(s): N18.3 - Chronic kidney disease, stage 3 (moderate) (7) Coronary artery disease: -hold oral antihypertensives due to hypotension -resume ASA, hold plavix -has had prior stenting Status: Chronic Qualifiers: Associated angina: without angina Coronary Disease-Associated Artery/Lesion type: [place] artery [place] vs. transplanted heart: [place] heart Qualified Code(s): I25.10 - Atherosclerotic heart disease of [place] coronary artery without angina pectoris (8) Cardiomyopathy, ischemic: -Echo (05/2019): EF=30%, global LV hypokinesis, trace MR Status: Chronic (9) Anemia: -has chronic macrocytic anemia -baseline Hg is around 10 -continue to monitor H/H, stable so far -has hx of MGUS Status: Chronic Qualifiers: Anemia type: unspecified type Qualified Code(s): D64.9 - Anemia, unspecified (10) Diabetes mellitus: -complicated by retinopathy, nephropathy -A1c-6.8 -Accucheks, ISS, hypoglycemia precautions -consistent carb diet when PO appropriate Status: Chronic Qualifiers: Diabetes mellitus complication status: with other specified complication Diabetes mellitus intermediate manager insulin use: with intermediate manager use Diabetes mellitus type: type 2 Qualified Code(s): E11.69 - Type 2 diabetes mellitus with other specified complication; Z79.4 - MCFP (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 of insulin (11) Seizure disorder: -seizure precautions -on anti-epileptic meds Status: Chronic (12) Dementia: -has some behavioral issues at baseline including hallucinations, intermittent confusion and disorientation Status: Chronic Qualifiers: Dementia behavioral disturbance: with behavioral disturbance Dementia type: unspecified type Qualified Code(s): F03.91 - Unspecified dementia with behavioral disturbance (13) Depression: Status: Chronic Qualifiers: Depression Type: unspecified Qualified Code(s): F32.9 - Major depressive disorder, single episode, unspecified Additional A&P Information -LUE infiltration, negative DVT on venous duplex, continue elevation -GI ppx with PPI -DVT ppx with SCDs, hold AC due to surgery -Dispo: return to [facility] -Code status: DNR/DNI; paperwork in chart; patient is her own decision maker per family -continue ICU care due to need for close monitoring of BP, tendency to hypotension. Attestations Medical Necessity Statement*: Patient requires hospitalization for continued IV antibiotic treatment for complicated UTI secondary to ESBL E. coli as well as previously infected sacral decubitus ulcer status post debridement; pending PICC line placement. Time Spent in Patient Care: 16 - 35 minutes (>than 50% of time spent in counselling and/or direct pt care on unit). Coding Level of Care Code Acute Development Administrator for g Fwd Exam Comprehensive Diagnoses UTI (urinary tract infection) N30.00 Hematuria presence: without hematuria Urinary tract infection type: acute cystitis AMS (altered mental status) R41.0 Altered mental status type: disorientation Acute on chronic renal failure N17.9; N18.9 Acute renal failure type: unspecified Chronic kidney disease stage: unspecified stage Decubitus ulcer L89.153 Pressure injury location: sacral region Pressure injury stage: stage 3 Acute hyperkalemia E87.5 CKD (chronic kidney disease) N18.3 Chronic kidney disease stage: stage 3 (moderate) Coronary artery disease I25.10 Associated angina: without angina Coronary Disease-Associated Artery/Lesion type: [place] artery [place] vs. transplanted heart: [place] heart Cardiomyopathy, ischemic I25.5 Anemia D64.9 Anemia type: unspecified type Diabetes mellitus E11.69; Z79.4 Diabetes mellitus complication status: with other specified complication Diabetes mellitus intermediate manager insulin use: with intermediate manager use Diabetes mellitus type: type 2 Seizure disorder G40.909 Dementia F03.91 Dementia behavioral disturbance: with behavioral disturbance Dementia type: unspecified type Depression F32.9 Depression Type: unspecified
[2019-09-11 16:57] LABS: Glucose Point of Care 157 mg/dL (70-110)
[2019-09-11] MEDS: HYDROcodone-acetaminophen 5-325 mg Tablet 1 TAB PO ×2 (17:02→23:39)
[2019-09-11 18:19] LABS: Vancomycin Trough 18.3 ug/mL (10-15)
[2019-09-11] MEDS: vancomycin 1,000 MG in sodium chloride 0.9% 250 ML 250 MG IV (18:56)
[2019-09-11] MEDS: quetiapine 100 mg Tablet PO (20:07)
[2019-09-11] MEDS: divalproex DR 500 mg Tablet PO (20:19)
[2019-09-11] MEDS: latanoprost 0.005% Op Soln 2.5 mL Btl 1 DROP EYE-BOTH (20:19)
[2019-09-11 20:27] LABS: Glucose Point of Care 98 mg/dL (70-110)
--- NOTE | 2019-09-11 21:59 | PC.NURSE ---
Patient complaining of pain, states that her back and bottom are hurting. Offered PRN pain medications per MAR, patient states that she does not want pain medication and isn't going to just keep taking all these pills. Patient educated on PRN medication availability for pain, will continue to monitor.
[2019-09-12] VITALS (45 sets, daily range): BP systolic 76–128; BP diastolic 38–74; PULSE 69–90; RESP 0–23; TEMP 36.5–37; O2SAT 97–100
[2019-09-12 04:00] LABS: Basophils % 0.6 %; Eosinophils # 0.3 10^3/uL (0.0-0.8); Eosinophils % 4.8 %; Hematocrit 26.8 % (37.0-47.0); Hemoglobin 8.1 g/dL (11.5-15.3); Lymphocytes # 1.8 10^3/uL (0.8-4.8); Lymphocytes % 25.2 %; Mean Corpuscular HGB Conc 30.2 g/dL (30.0-36.0); Mean Corpuscular Hemoglobin 30.9 pg (28.0-34.0); Mean Corpuscular Volume 102.3 fL (81-99); Mean Platelet Volume 8.8 fL (7.4-10.4); Monocytes % 14.7 %; Neutrophils # 3.8 10^3/uL (1.8-7.7); Neutrophils % 53.6 %; Nucleated Red Blood Cells % 0 %; Platelet Count 206 10^3/cmm (130-400); Red Blood Count 2.62 10^6/uL (4.1-5.3); Red Cell Distribution Width 15.2 % (12.1-15.1); White Blood Count 7.1 10^3/uL (4.0-10.0)
[2019-09-12 04:33] LABS: Anion Gap 15.3 (5-19); Blood Urea Nitrogen 36 mg/dL (8-23); Calcium 8.7 mg/dL (8.5-10.5); Carbon Dioxide 23 mmol/L (22-29); Chloride 106 mmol/L (98-107); Glucose 160 mg/dL (65-115); Osmolality Calculated 291 mOsm/kg (285-295); Potassium 4.3 mmol/L (3.5-5.1); Sodium 140 mmol/L (136-145)
[2019-09-12] MEDS: dextrose 5%-sod chloride 0.45% 1,000 ML 50 ML IV (05:08)
[2019-09-12] MEDS: quetiapine 25 mg Tablet PO (06:21)
[2019-09-12 06:34] LABS: Glucose Point of Care 141 mg/dL (70-110)
[2019-09-12] MEDS: HYDROcodone-acetaminophen 5-325 mg Tablet 1 TAB PO ×2 (07:42→16:11)
--- NOTE | 2019-09-12 07:58 | P.PN_ITS ---
Subjective Subjective: Interval history: Status post debridement of sacral decubitus ulcer, no significant issues, patient is noted to have E EBSL E. coli in urine Vitals/I&O/Wt Last Vital Signs Temp 98.5 F 09/12/19 07:45 Pulse 79 09/12/19 07:45 Resp 10 L 09/12/19 07:45 BP 93/48 09/12/19 07:45 Pulse Ox 99 09/12/19 07:45 09/11/19 09/12/19 09/12/19 22:59 06:59 14:59 Intake Total 295 / 2915.456 1292.356 / 2915.456 120 / 120 Output Total 1225 / 2160 525 / 2160 200 / 200 Balance -930 / 755.456 767.356 / 755.456 -80 / -80 Weight last 48 hrs Weight 161 lb 14.4 oz Weight 160 lb Physical Exam Narrative: EXAM NARRATIVE: Sacrum: Stage IV decubitus ulcer measuring about 5 x 5 cm. Minimal necrotic tissue, no surrounding cellulitis, no purulent drainage noted Urinary Catheter Management^: Regan: Cath Placed During This Visit: yes Reason for Continuing Indwelling Catheter: Assist Healing of Perineal & Sacral Wounds- Incontinent Patients Urinary Catheter Date of Insertion: 09/08/19 Urinary Catheter Time of Insertion: 16:41 Data : 09/12/19 03:24 09/12/19 03:24 Micro: Microbiology 09/08/19 13:11 Urine Culture - Preliminary Urine,Clean Catch Escherichia coli esbl Enterococcus species 09/09/19 12:46 Gram Stain - Final Buttock Tissue Culture - Preliminary Proteus mirabilis A&P Assessment and plan (1) Sacral decubitus ulcer: Status post debridement of stage IV sacral decubitus ulcer Patient waiting for a PICC line prior to discharge Daily dressing change with Santyl Follow-up in wound care Status: Acute Attestations Medical Necessity Statement*: Sacral decubitus ulcer Coding Level of Care Code Acute Manager Roofing for ming Romero Diagnoses Sacral decubitus ulcer L89.159
[2019-09-12] MEDS: aspirin 81 mg EC Tablet PO (09:18)
[2019-09-12] MEDS: FUROsemide 20 mg Tablet PO (09:18)
[2019-09-12] MEDS: divalproex DR 250 mg Tablet PO (09:18)
[2019-09-12] MEDS: pantoprazole DR 40 mg Tablet PO (09:18)
[2019-09-12] MEDS: sodium bicarbonate 650 mg Tablet PO ×3 (09:18→21:08)
--- NOTE | 2019-09-12 10:40 | P.PN_ITS ---
Subjective Subjective: Interval history: Blood pressure stable, afebrile, on room air, slight drop in hemoglobin from 9.8-8.1 today, improving renal function, had 850 mL urine output overnight. She is POD # 3 s/p excisional debridement of sacral wound. Will discontinue vancomycin based on wound and urine cultures as she is on Primaxin which provides appropriate coverage for dual sources of infection. Pending PICC line placement tomorrow. Medications: Reviewed: Yes Medication Review Details: Active Medications Generic Name Dose Route Start Last Admin Trade Name Freq PRN Reason Stop Dose Admin Acetaminophen 650 mg 09/08/19 17:23 Tylenol PO Q6H PRN Mild pain or incr eased temp Hydrocodone Bitart /Acetaminophen 1 tab 09/08/19 17:23 09/12/19 07:42 [place] 5-325 Mg PO 1 tab Q6H PRN Administration MODERATE TO SEVER E PAIN Aspirin 81 mg 09/12/19 09:00 09/12/19 09:18 Aspirin Ec PO 81 mg DAILY MANUEL Administration Bisacodyl 10 mg 09/08/19 17:23 Bisac-Evac CA DAILY PRN Constipation Brimonidine Tartra te 1 drop 09/08/19 21:00 09/12/19 09:18 Alphagan P 0.1% EYE-BOTH 1 unit TID MANUEL Administration Dextrose 25 ml 09/08/19 17:23 D50w IVP ONCE PRN hypoglycemia prot ocol Protocol Dextrose 50 ml 09/08/19 17:23 D50w IVP PRN PRN hypoglycemia prot ocol Protocol Divalproex Sodium 250 mg 09/09/19 09:00 09/12/19 09:[address] PO 250 mg DAILY MANUEL Administration Divalproex Sodium 500 mg 09/08/19 21:00 09/11/19 20:[address] PO 500 mg BEDTIME MANUEL Administration Furosemide 20 mg 09/09/19 09:00 09/12/19 09:18 Lasix PO 20 mg DAILY MANUEL Administration Glucagon 1 mg 09/08/19 17:23 Glucagen IM ONCE PRN Adult Acute Hypog lycemia Prot. Protocol Norepinephrine Bit artrate 4 mg 254 mls @ 0 mls/h r 09/08/19 13:00 09/12/19 05:30 / Dextrose IV 1 mcg/min .Q0M MANUEL 3.8 mls/hr Titration Protocol Per Protocol Dextrose/Sodium Ch loride 1,000 mls @ 50 ml s/hr 09/08/19 21:00 09/12/19 05:08 Dextrose 5%-Sod Chloride 0.45% IV 50 mls/hr .Q20H MANUEL Administration Dextrose 500 mls @ 100 mls /hr 09/08/19 17:23 D5w IV ONCE PRN Adult Acute Hypog lycemia Prot Protocol Imipenem/Cilastati n Sodium 250 100 mls @ 200 mls /hr 09/10/19 12:00 09/12/19 05:38 mg/ Sodium Chlor sindy IV Infused Q6H MANUEL Infusion Protocol Insulin Aspart 0 unit 09/08/19 18:00 09/12/19 06:30 Novolog SUBCUT 2 unit WM&BEDTIME MANUEL Administration Protocol Latanoprost 1 drop 09/09/19 21:00 09/11/19 20:19 Xalatan EYE-BOTH 1 ml BEDTIME MANUEL Administration Loperamide HCl 2 mg 09/08/19 17:27 Imodium Capsule PO Q6H PRN Diarrhea Lorazepam 0.5 mg 09/08/19 17:23 09/10/19 08:07 Ativan PO 0.5 mg Q6H PRN Administration Anxiety Nitroglycerin 0.4 mg 09/08/19 17:23 Nitrostat SUBLINGUAL Q5M PRN Chest Pain Pantoprazole Sodiu m 40 mg 09/09/19 09:00 09/12/19 09:18 Protonix PO 40 mg DAILY MANUEL Administration Quetiapine Fumarat e 25 mg 09/09/19 06:00 09/12/19 06:21 Seroquel PO 25 mg QAM MANUEL Administration Quetiapine Fumarat e 100 mg 09/08/19 21:00 09/11/19 20:07 Seroquel PO 100 mg BEDTIME MANUEL Administration Senna/Docusate Sod ium 1 tab 09/08/19 17:23 09/10/19 07:53 Senna-S PO 1 tab BID PRN Administration Constipation Sodium Bicarbonate 650 mg 09/09/19 16:19 09/12/19 09:18 Sodium Bicarbona te PO 650 mg TID MANUEL Administration butorphanol [From Stadol] Allergy (Verified 06/09/19 15:21) Unknown diphenhydramine [From Benadryl] Allergy (Verified 06/09/19 15:21) Unknown indomethacin [From Indocin] Allergy (Verified 06/09/19 15:21) Unknown ketorolac [From Toradol] Allergy (Verified 06/09/19 15:21) Unknown levofloxacin [From Levaquin] Allergy (Verified 06/09/19 15:21) Unknown methazolamide [From Neptazane] Allergy (Verified 06/09/19 15:21) Unknown NSAIDS (Non-Steroidal Anti-Inflamma Allergy (Verified 06/09/19 15:21) Unknown ondansetron [From Zofran] Allergy (Verified 06/09/19 15:21) Unknown Penicillins Allergy (Verified 06/09/19 15:21) Unknown prochlorperazine [From Compazine] Allergy (Verified 06/09/19 15:21) Unknown Sulfa (Sulfonamide Antibiotics) Allergy (Verified 06/09/19 15:21) Unknown sumatriptan [From Imitrex] Allergy (Verified 06/09/19 15:21) Unknown tramadol [From Ultram] Allergy (Verified 06/09/19 15:21) Unknown Vitals/I&O/Wt Last Vital Signs Temp 98.5 F 09/12/19 07:45 Pulse 77 09/12/19 08:45 Resp 6 L 09/12/19 08:45 BP 88/44 09/12/19 08:45 Pulse Ox 100 09/12/19 08:45 09/11/19 09/12/19 09/12/19 22:59 06:59 14:59 Intake Total 295 / 9293.628 9522.356 / 2915.456 240 / 240 Output Total 1225 / 1635 525 / 2160 200 / 200 Balance -930 / -11.900 767.356 / 755.456 40 / 40 Weight last 48 hrs Weight 73.437 kg Weight 72.575 kg Physical Exam Const: COMMON NORMALS: no acute distress and patient oriented x3 GENERAL APPEARANCE: comfortable ORIENTATION/CONSCIOUSNESS: Yes oriented to place HENMT: COMMON NORMALS: normocephalic, atraumatic, hearing grossly normal bila terally and moist oral mucous membranes HEAD & SCALP: normocephalic and a traumatic Eye: COMMON NORMALS: Equal, round and reactive pupils present, EOMs intact bilaterally and conjunctivae normal CONJUNCTIVA: Yes conjunctivae normal PUPIL: Yes Equal, round and reactive pupils present OTHER: -legally blind Neck/C-Spine: COMMON NORMALS: full ROM GENERAL: Yes normal visual inspection and Yes trachea midline Chest: CHEST: Yes Symmetrical chest wall rise Resp: COMMON NORMALS: normal respiratory effort, No retractions, No use of accessory muscles and clear to auscultation bilaterally EFFORT & INSPECTION: Yes able to speak in complete sentences, Yes symmetric chest movement and No tachypneic AUSCULTATION: clear to auscultation bilaterally OTHER: -on RA Cardio: COMMON NORMALS: regular rate, regular rhythm, S1 normal heart sound present, S2 normal heart sound present and No murmurs present (Cardio) RATE: regular rate RHYTHM: regular rhythm HEART SOUNDS: S1 normal heart sound present and S2 normal heart sound present OTHER: -low normal BP GI: COMMON NORMALS: Normal to inspection, nondistended, normoactive bowel sounds present, Soft to palpation and non-tender PALPATION: Yes Soft to palpation : BLADDER/KIDNEY EXAM: No catheter in place Extremity: COMMON NORMALS: normal to inspection, full ROM, no clubbing, cyanosis or edema and no pedal edema NARRATIVE EXTREMITY EXAM: -contracted bilateral LEs Neuro: COMMON NORMALS: patient oriented x3, moves all extremities, no focal motor deficits and no sensory deficits noted SENSORIUM/ORIENTATION: Yes brianda ented to place Psych: COMMON NORMALS: mental status grossly normal, Normal thought process present, cooperative, normal affect and speech normal SPEECH: Yes normal speech THOUGHT PROCESS: Normal thought process present Skin: COMMON NORMALS: no rashes or lesions noted, no jaundice, no petechiae and no mottling GENERAL SKIN EXAM: no rashes or lesions noted WOUNDS: Yes wounds noted malodorous OTHER: -well circumscribed wound on coccyx very tender to palpation, tunneling noted, no odor and no active drainage, wound bed with noted granulation tissue (cauterized) Urinary Catheter Management^: Regan: Cath Placed During This Visit: yes Reason for Continuing Indwelling Catheter: Accurate Measurement of Urinary Output in Critically Ill Patients Urinary Catheter Date of Insertion: 09/08/19 Urinary Catheter Time of Insertion: 16:41 Data : 09/12/19 03:24 09/12/19 03:24 Micro: Microbiology 09/08/19 13:11 Urine Culture - Preliminary Urine,Clean Catch Escherichia coli esbl Enterococcus species 09/09/19 12:46 Gram Stain - Final Buttock Tissue Culture - Preliminary Proteus mirabilis A&P Assessment and plan (1) UTI (urinary tract infection): -has had prior complicated UTIs including ESBL E.coli -UA strongly indicative of infection -has Regan catheter in place due to complicated UTI and sacral decubitus ulcer -received dose of Cefepime in ED; on Imipenem due to hx -contact isolation precautions -urine cx: ESBL E.coli; sensitivity noted; pending PICC line placement as will need to continue IV antibiotics -blood cx: prelim negative -associated sepsis as evidenced by hypotension, leukocytosis, altered mental status. More hemodynamically stable, leukocytosis resolved, afebrile, mental status at baseline -weaned off pressor support -close monitoring of vital signs -lactate-1.0 Status: Acute Qualifiers: Hematuria presence: without hematuria Urinary tract infection type: acute cystitis Qualified Code(s): N30.00 - Acute cystitis without hematuria (2) AMS (altered mental status): -secondary to complicated UTI, infected decubitus ulcer -fall, aspiration precautions -mental status at baseline Status: Resolved Qualifiers: Altered mental status type: disorientation Qualified Code(s): R41.0 - Disorientation, unspecified (3) Acute on chronic renal failure: -has known CKD stage 3; baseline Cr is around 1.6-1.9 -now with superimposed ARGENIS which has resolved -close monitoring of renal function, avoid nephrotoxins, renally dose meds, hold ACEi -renal function improving and at baseline -very cautious IVF hydration due to underlying systolic CHF -continue to monitor urine output Status: Acute Qualifiers: Acute renal failure type: unspecified Chronic kidney disease stage: unspecified stage Qualified Code(s): N17.9 - Acute kidney failure, unspecified; N18.9 - Chronic kidney disease, unspecified (4) Decubitus ulcer: -has noted decubitus ulcer on coccyx that is acutely infected and needs debridement -Surgery consult by Dr. Guillaume caldera; s/p excisional debridement, POD # 3 -on Imipenem; d/c Vancomycin -wound cx-Proteus mirabilis, sensitivity noted; gram stain: moderate GPC -this is likely also contributing to sepsis -pain control as needed -reportedly per [facility], had wound cx obtained which has grown ESBL E.coli -wound care per Dr. Galaviz Status: Acute Qualifiers: Pressure injury location: sacral region Pressure injury stage: stage 3 Qualified Code(s): L89.153 - Pressure ulcer of sacral region, stage 3 (5) Acute hyperkalemia: -continue to monitor K; resolved -given dose of calcium gluconate, anticipate some improvement with hydration; may be able to resume low dose diuretic if BP improves -telemetry monitoring Status: Resolved (6) CKD (chronic kidney disease): Status: Chronic Qualifiers: Chronic kidney disease stage: stage 3 (moderate) Qualified Code(s): N18.3 - Chronic kidney disease, stage 3 (moderate) (7) Coronary artery disease: -hold oral antihypertensives due to hypotension -on ASA, hold plavix -has had prior stenting Status: Chronic Qualifiers: Associated angina: without angina Coronary Disease-Associated Artery/Lesion type: [place] artery [place] vs. transplanted heart: [place] heart Qualified Code(s): I25.10 - Atherosclerotic heart disease of [place] coronary artery without angina pectoris (8) Cardiomyopathy, ischemic: -Echo (05/2019): EF=30%, global LV hypokinesis, trace MR Status: Chronic (9) Anemia: -has chronic macrocytic anemia -baseline Hg is around 10 -continue to monitor H/H, stable so far -has hx of MGUS Status: Chronic Qualifiers: Anemia type: unspecified type Qualified Code(s): D64.9 - Anemia, unsp ecified (10) Diabetes mellitus: -complicated by retinopathy, nephropathy -A1c-6.8 -Accucheks, ISS, hypoglycemia precautions -consistent carb diet when PO appropriate Status: Chronic Qualifiers: Diabetes mellitus complication status: with other specified complication Diabetes mellitus long-term insulin use: with rodent exterminator use Diabetes mellitus type: type 2 Qualified Code(s): E11.69 - Type 2 diabetes mellitus with other specified complication; Z79.4 - met[place] (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 of insulin (11) Seizure disorder: -seizure precautions -on anti-epileptic meds Status: Chronic (12) Dementia: -has some behavioral issues at baseline including hallucinations, intermittent confusion and disorientation Status: Chronic Qualifiers: Dementia behavioral disturbance: with behavioral disturbance Dementia type: unspecified type Qualified Code(s): F03.91 - Unspecified dementia with behavioral disturbance (13) Depression: Status: Chronic Qualifiers: Depression Type: unspecified Qualified Code(s): F32.9 - Major depressive disorder, single episode, unspecified Additional A&P Information -LUE infiltration, negative DVT on venous duplex, continue elevation -GI ppx with PPI -DVT ppx with SCDs, no AC due to anemia -Dispo: return to [facility]; anticipate discharge tomorrow after PICC line placement -Code status: DNR/DNI; paperwork in chart; patient is her own decision maker per family -transfer to floor Attestations Medical Necessity Statement*: Patient requires hospitalization for continued IV antibiotic treatment for infected sacral decubitus ulcer status post excisional debridement and complicated UTI secondary to ESBL E. coli; pending PICC line placement. Time Spent in Patient Care: 16 - 35 minutes (>than 50% of time spent in counselling and/or direct pt care on unit) . 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 Comprehensive Diagnoses UTI (urinary tract infection) N30.00 Hematuria presence: without hematuria Urinary tract infection type: acute cystitis AMS (altered mental status) R41.0 Altered mental status type: disorientation Acute on chronic renal failure N17.9; N18.9 Acute renal failure type: unspecified Chronic kidney disease stage: unspecified stage Decubitus ulcer L89.153 Pressure injury location: sacral region Pressure injury stage: stage 3 Acute hyperkalemia E87.5 CKD (chronic kidney disease) N18.3 Chronic kidney disease stage: stage 3 (moderate) Coronary artery disease I25.10 Associated angina: without angina Coronary Disease-Associated Artery/Lesion type: [place] artery [place] vs. transplanted heart: [place] heart Cardiomyopathy, ischemic I25.5 Anemia D64.9 Anemia type: unspecified type Diabetes mellitus E11.69; Z79.4 Diabetes mellitus complication status: with other specified complication Diabetes mellitus rodent exterminator insulin use: with rodent exterminator use Diabetes mellitus type: type 2 Seizure disorder G40.909 Dementia F03.91 Dementia behavioral disturbance: with behavioral disturbance Dementia type: unspecified type Depression F32.9 Depression Type: unspecified
--- NOTE | 2019-09-12 11:09 | PC.NURSE ---
let Dr Galaviz and Dr. Russell know that pt know that her wound culture was positive for Ecoli. No new orders at this time.
[2019-09-12 17:20] LABS: Glucose Point of Care 127 mg/dL (70-110)
[2019-09-12] MEDS: quetiapine 100 mg Tablet PO (21:08)
[2019-09-12] MEDS: divalproex DR 500 mg Tablet PO (21:08)
[2019-09-12] MEDS: latanoprost 0.005% Op Soln 2.5 mL Btl 1 DROP EYE-BOTH (21:09)
[2019-09-12 21:26] LABS: Glucose Point of Care 138 mg/dL (70-110)
[2019-09-13] MEDS: OLANZapine 10 mg VIAL IM (00:05)
[2019-09-13 04:00] VITALS: BP 114/69; PULSE 90; RESP 18; TEMP 36.5; O2SAT 98
[2019-09-13 06:27] LABS: Glucose Point of Care 120 mg/dL (70-110)
[2019-09-13] MEDS: quetiapine 25 mg Tablet PO (06:27)
[2019-09-13 07:16] VITALS: BP 112/64; PULSE 64; RESP 18; TEMP 36.7; O2SAT 96
[2019-09-13] MEDS: HYDROcodone-acetaminophen 5-325 mg Tablet 1 TAB PO (08:33)
[2019-09-13] MEDS: aspirin 81 mg EC Tablet PO (08:34)
[2019-09-13] MEDS: pantoprazole DR 40 mg Tablet PO (08:34)
[2019-09-13] MEDS: FUROsemide 20 mg Tablet PO (08:34)
[2019-09-13] MEDS: sodium bicarbonate 650 mg Tablet PO ×3 (08:34→21:13)
[2019-09-13] MEDS: divalproex DR 250 mg Tablet PO (08:34)
--- NOTE | 2019-09-13 10:50 | PC.SOCIAL ---
Pg 2 IMM. Explained to pt Pg 2 IMM. Pt verbally understands. No questions voiced. Provided pt a copy & left on pt's bedside table. Signed, dated, & timed a copy & placed in pt's chart.
[2019-09-13 10:58] LABS: Glucose Point of Care 170 mg/dL (70-110)
[2019-09-13 11:26] VITALS: BP 116/64; PULSE 64; RESP 22; TEMP 36.6; O2SAT 94
--- NOTE | 2019-09-13 15:11 | P.PN_ITS ---
Subjective Subjective: Interval history: Patient seen and examined, required dose of Zyprexa overnight due to agitation. Declined PICC line placement earlier this morning so we will plan on continuation of antibiotics via IM route. Informed by halfway that she will require COVID-19 testing prior to return to facility so we will go ahead and order this today. She is POD # 4 s/p debridemen t of sacral ulcer. Medications: Reviewed: Yes Medication Review Details: Active Medications Generic Name Dose Route Start Last Admin Trade Name Freq PRN Reason Stop Dose Admin Acetaminophen 650 mg 09/08/19 17:23 Tylenol PO Q6H PRN Mild pain or incr eased temp Hydrocodone Bitart /Acetaminophen 1 tab 09/08/19 17:23 09/13/19 08:33 [place] 5-325 Mg PO 1 tab Q6H PRN Administration MODERATE TO SEVER E PAIN Aspirin 81 mg 09/12/19 09:00 09/13/19 08:34 Aspirin Ec PO 81 mg DAILY MANUEL Administration Bisacodyl 10 mg 09/08/19 17:23 Bisac-Evac GA DAILY PRN Constipation Brimonidine Tartra te 1 drop 09/08/19 21:00 09/13/19 14:09 [place] P 0.1% EYE-BOTH 1 drop TID MANUEL Administration Dextrose 25 ml 09/08/19 17:23 D50w IVP ONCE PRN hypoglycemia prot ocol Protocol Dextrose 50 ml 09/08/19 17:23 D50w IVP PRN PRN hypoglycemia prot ocol Protocol Divalproex Sodium 250 mg 09/09/19 09:00 09/13/19 08:34 [place] Sequeira PO 250 mg DAILY MANUEL Administration Divalproex Sodium 500 mg 09/08/19 21:00 09/12/19 21:08 Depakote PO 500 mg BEDTIME MANUEL Administration Furosemide 20 mg 09/09/19 09:00 09/13/19 08:34 Lasix PO 20 mg DAILY MANUEL Administration Glucagon 1 mg 09/08/19 17:23 Glucagen IM ONCE PRN Adult Acute Hypog lycemia Prot. Protocol Dextrose 500 mls @ 100 mls /hr 09/08/19 17:23 D5w IV ONCE PRN Adult Acute Hypog lycemia Prot Protocol Imipenem/Cilastati n Sodium 250 100 mls @ 200 mls /hr 09/10/19 12:00 09/13/19 11:50 mg/ Sodium Chlor sindy IV 200 mls/hr Q6H MANUEL Administration Protocol Insulin Aspart 0 unit 09/08/19 18:00 09/13/19 11:49 Novolog SUBCUT 2 unit WM&BEDTIME MANUEL Administration Protocol Latanoprost 1 drop 09/09/19 21:00 09/12/19 21:09 Xalatan EYE-BOTH 1 ml BEDTIME MANUEL Administration Loperamide HCl 2 mg 09/08/19 17:27 Imodium Capsule PO Q6H PRN Diarrhea Lorazepam 0.5 mg 09/08/19 17:23 09/10/19 08:07 Ativan PO 0.5 mg Q6H PRN Administration Anxiety Nitroglycerin 0.4 mg 09/08/19 17:23 Nitrostat SUBLINGUAL Q5M PRN Chest Pain Pantoprazole Sodiu m 40 mg 09/09/19 09:00 09/13/19 08:34 Protonix PO 40 mg DAILY MANUEL Administration Quetiapine Fumarat e 25 mg 09/09/19 06:00 09/13/19 06:27 Seroquel PO 25 mg QAM MANUEL Administration Quetiapine Fumarat e 100 mg 09/08/19 21:00 09/12/19 21:08 Seroquel PO 100 mg BEDTIME MANUEL Administration Senna/Docusate Sod ium 1 tab 09/08/19 17:23 09/10/19 07:53 Senna-S PO 1 tab BID PRN Administration Constipation Sodium Bicarbonate 650 mg 09/09/19 16:19 09/13/19 14:09 Sodium Bicarbona te PO 650 mg TID MANUEL Administration butorphanol [From Stadol] Allergy (Verified 06/09/19 15:21) Unknown diphenhydramine [From Benadryl] Allergy (Verified 06/09/19 15:21) Unknown indomethacin [From Indocin] Allergy (Verified 06/09/19 15:21) Unknown ketorolac [From Toradol] Allergy (Verified 06/09/19 15:21) Unknown levofloxacin [From Levaquin] Allergy (Verified 06/09/19 15:21) Unknown methazolamide [From Neptazane] Allergy (Verified 06/09/19 15:21) Unknown NSAIDS (Non-Steroidal Anti-Inflamma Allergy (Verified 06/09/19 15:21) Unknown ondansetron [From Zofran] Allergy (Verified 06/09/19 15:21) Unknown Penicillins Allergy (Verified 06/09/19 15:21) Unknown prochlorperazine [From Compazine] Allergy (Verified 06/09/19 15:21) Unknown Sulfa (Sulfonamide Antibiotics) Allergy (Verified 06/09/19 15:21) Unknown sumatriptan [From Imitrex] Allergy (Verified 06/09/19 15:21) Unknown tramadol [From Ultram] Allergy (Verified 06/09/19 15:21) Unknown Vitals/I&O/Wt Last Vital Signs Temp 97.9 F 09/13/19 11:26 Pulse 64 09/13/19 11:26 Resp 22 H 09/13/19 11:26 BP 116/64 09/13/19 11:26 Pulse Ox 94 09/13/19 11:26 09/13/19 09/13/19 09/13/19 06:59 14:59 22:59 Intake Total 200 / 1040 180 / 180 Output Total 450 / 1850 250 / 250 Balance -250 / -810 -70 / -70 Weight last 48 hrs Weight 76.459 kg Weight 73.437 kg Physical Exam Const: COMMON NORMALS: no acute distress and patient oriented x3 GENERAL APPEARANCE: comfortable ORIENTATION/CONSCIOUSNESS: Yes oriented to place HENMT: COMMON NORMALS: normocephalic, atraumatic, hearing grossly normal bilaterally and moist oral mucous membranes HEAD & SCALP: normocephalic and atraumatic Eye: COMMON NORMALS: Equal, round and reactive pupils present, EOMs intact bilaterally and conjunctivae normal CONJUNCTIVA: Yes conjunctivae normal PUPIL: Yes Equal, round and reactive pupils present OTHER: -legally blind Neck/C-Spine: COMMON NORMALS: full ROM GENERAL: Yes normal visual inspection and Yes trachea midline Chest: CHEST: Yes Symmetrical chest wall rise Resp: COMMON NORMALS: normal respiratory effort, No retractions, No use of accessory muscles and clear to auscultation bilaterally EFFORT & INSPECTION: Yes able to speak in complete sentences, Yes symmetric chest movement and No tachypneic AUSCULTATION: clear to auscultation bilaterally OTHER: -on RA Cardio: COMMON NORMALS: regular rate, regular rhythm, S1 normal heart sound present, S2 normal heart sound present and No murmurs present (Cardio) RATE: regular rate RHYTHM: regular rhythm HEART SOUNDS: S1 normal heart sound pr esent and S2 normal heart sound present OTHER: -normotensive GI: COMMON NORMALS: Normal to inspection, nondistended, normoactive bowel sounds present, Soft to palpation and non-tender PALPATION: Yes Soft to palpation : BLADDER/KIDNEY EXAM: No catheter in place Extremity: COMMON NORMALS: normal to inspection, full ROM, no clubbing, cyanosis or edema and no pedal edema NARRATIVE EXTREMITY EXAM: -contracted bilateral LEs Neuro: COMMON NORMALS: patient oriented x3, moves all extremities, no focal motor deficits and no sensory deficits noted SENSORIUM/ORIENTATION: Yes oriented to place Psych: COMMON NORMALS: mental status grossly normal, Normal thought process present, cooperative, normal affect and speech normal SPEECH: Yes normal speech THOUGHT PROCESS: Normal thought process present Skin: COMMON NORMALS: no rashes or lesions noted, no jaundice, no petechiae and no mottling GENERAL SKIN EXAM: no rashes or lesions noted WOUNDS: Yes wounds noted malodorous OTHER: -well circumscribed wound on coccyx very tender to palpation, tunneling noted, no odor and no active drainage, wound bed with noted granulation tissue (cauterized) Urinary Catheter Management^: Regan: Cath Placed During This Visit: yes Reason for Continuing Indwelling Catheter: Other Urinary Catheter Date of Insertion: 09/08/19 Urinary Catheter Time of Insertion: 16:41 Data : 09/12/19 03:24 09/12/19 03:24 Micro: Microbiology 09/08/19 13:11 Blood Culture - Final Blood NO GROWTH AFTER 5 DAYS 09/08/19 13:11 Blood Culture - Final Blood NO GROWTH AFTER 5 DAYS 09/09/19 12:46 Gram Stain - Final Buttock Tissue Culture - Preliminary Proteus mirabilis Escherichia coli esbl Enterococcus species Streptococcus species 09/08/19 13:11 Urine Culture - Final Urine,Clean Catch Escherichia coli esbl Enterococcus faecalis A&P Assessment and plan (1) UTI (urinary tract infection): -has had prior complicated UTIs including ESBL E.coli -UA strongly indicative of infection -has Regan catheter in place due to complicated UTI and sacral decubitus ulcer -received dose of Cefepime in ED; on Imipenem due to hx -contact isolation precautions -urine cx: ESBL E.coli; sensitivity noted; declined PICC line placement so will plan on d/c with Ertapenem 1 g once daily IM to complete treatment course. -blood cx: negative -associated sepsis as evidenced by hypotension, leukocytosis, altered mental status. More hemodynamically stable, leukocytosis resolved, afebrile, mental status at baseline -weaned off pressor support -close monitoring of vital signs; stable -lactate-1.0 Status: Acute Qualifiers: Hematuria presence: without hematuria Urinary tract infection type: acu te cystitis Qualified Code(s): N30.00 - Acute cystitis without hematuria (2) AMS (altered mental status): -secondary to complicated UTI, infected decubitus ulcer -fall, aspiration precautions -mental status at baseline Status: Resolved Qualifiers: Altered mental status type: disorientation Qualified Code(s): R41.0 - Disorientation, unspecified (3) Acute on chronic renal failure: -has known CKD stage 3; baseline Cr is around 1.6-1.9 -with superimposed ARGENIS which has resolved -close monitoring of renal function, avoid nephrotoxins, renally dose meds, hold ACEi -renal function improving and at baseline -very cautious IVF hydration due to underlying systolic CHF -continue to monitor urine output Status: Acute Qualifiers: Acute renal failure type: unspecified Chronic kidney disease stage: unspecified stage Qualified Code(s): N17.9 - Acute kidney failure, unspecified; N18.9 - Chronic kidney disease, unspecified (4) Decubitus ulcer: -has noted decubitus ulcer on coccyx that is acutely infected and needs debridement -Surgery consult by Dr. Galaviz appreciated; s/p excisional debridement, POD # 4 -on Imipenem; d/c Vancomycin -wound cx-Proteus mirabilis, ESBL E. coli, enterococcus and Streptococcus species sensitivity noted; gram stain: moderate GPC -this was likely also contributing to sepsis -pain control as needed -reportedly per [facility], had wound cx obtained which has grown ESBL E.coli -wound care per Dr. Galaviz Status: Acute Qualifiers: Pressure injury location: sacral region Pressure injury stage: stage 3 Qualified Code(s): L89.153 - Pressure ulcer of sacral region, stage 3 (5) Acute hyperkalemia: -continue to monitor K; resolved -given dose of calcium gluconate, anticipate some improvement with hydration; may be able to resume low dose diuretic if BP improves -telemetry monitoring Status: Resolved (6) CKD (chronic kidney disease): Status: Chronic Qualifiers: Chronic kidney disease stage: stage 3 (moderate) Qualified Code(s): N18.3 - Chronic kidney disease, stage 3 (moderate) (7) Coronary artery disease: -hold oral antihypertensives due to hypotension -on ASA, hold plavix -has had prior stenting Status: Chronic Qualifiers: Coronary Disease-Associated Artery/Lesion type: [place] artery [place] vs. transplanted heart: [place] heart Associated angina: without angina Qualified Code(s): I25.10 - Atherosclerotic heart disease of [place] coronary artery without angina pectoris (8) Cardiomyopathy, ischemic: -Echo (05/2019): EF=30%, global LV hypokinesis, trace MR Status: Chronic (9) Anemia: -has chronic macrocytic anemia -baseline Hg is around 10 -continue to monitor H/H, stable so far -has hx of MGUS Status: Chronic Qualifiers: Anemia type: unspecified type Qualified Code(s): D64.9 - Anemia, unspecified (10) Diabetes mellitus: -complicated by retinopathy, nephropathy -A1c-6.8 -Accucheks, ISS, hypoglycemia precautions -consistent carb diet when PO appropriate Status: Chronic Qualifiers: Diabetes mellitus type: type 2 Diabetes mellitus long goods drier insulin use: with long goods drier use Diabetes mellitus complication status: with other specified complication Qualified Code(s): E11.69 - Type 2 diabetes mellitus with other specified complication; Z79.4 - termination clerk (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 of insulin (11) Seizure disorder: -seizure precautions -on anti-epileptic meds Status: Chronic (12) Dementia: -has some behavioral issues at baseline including hallucinations, inte rmittent confusion and disorientation Status: Chronic Qualifiers: Dementia type: unspecified type Dementia behavioral disturbance: with behavioral disturbance Qualified Code(s): F03.91 - Unspecified dementia with behavioral disturbance (13) Depression: Status: Chronic Qualifiers: Depression Type: unspecified Qualified Code(s): F32.9 - Major depressi ve disorder, single episode, unspecified Additional A&P Information -LUE infiltration, negative DVT on venous duplex, continue elevation -high fall risk, and unable to effectively use call light due to vision impairment, so will have frequent rounding and location close to nursing station, bed alarm on, assistance with all activity -GI ppx with PPI -DVT ppx with SCDs, no AC due to anemia -Dispo: return to [facility]; anticipate discharge after COVID-19 testing requested by NH -Code status: DNR/DNI; paperwork in chart; patient is her own decision maker per family Attestations Medical Necessity Statement*: Patient requires hospitalization for continued IV antibiotic treatment pending COVID-19 testing to return to halfway facility. Time Spent in Patient Care: 16 - 35 minutes (>than 50% of time spent in counselling and/or direct pt care on unit) . Coding Level of Care Code Acute Processing [employer] Supervisor for Chg Fwd Diagnoses UTI (urinary tract infection) N30.00 Hematuria presence: without hematuria Urinary tract infection type: acute cystitis AMS (altered mental status) R41.0 Altered mental status type: disorientation Acute on chronic renal failure N17.9; N18.9 Acute renal failure type: unspecified Chronic kidney disease stage: unspecified stage Decubitus ulcer L89.153 Pressure injury location: sacral region Pressure injury stage: stage 3 Acute hyperkalemia E87.5 CKD (chronic kidney disease) N18.3 Chronic kidney disease stage: stage 3 (moderate) Coronary artery disease I25.10 Coronary Disease-Associated Artery/Lesion type: [place] artery [place] vs. transplanted heart: [place] heart Associated angina: without angina Cardiomyopathy, ischemic I25.5 Anemia D64.9 Anemia type: unspecified type Diabetes mellitus E11.69; Z79.4 Diabetes mellitus type: type 2 Diabetes mellitus long goods drier insulin use: with long goods drier use Diabetes mellitus complication status: with other specified complication Seizure disorder G40.909 Dementia F03.91 Dementia type: unspecified type Dementia behavioral disturbance: with behavioral disturbance Depression F32.9 Depression Type: unspecified
[2019-09-13 15:44] VITALS: BP 90/48; PULSE 86; RESP 18; TEMP 36.5; O2SAT 91
[2019-09-13 16:31] LABS: Glucose Point of Care 123 mg/dL (70-110)
[2019-09-13 20:00] VITALS: BP 85/49; PULSE 83; RESP 16; TEMP 36.6; O2SAT 95
[2019-09-13] MEDS: divalproex DR 500 mg Tablet PO (21:13)
[2019-09-13] MEDS: quetiapine 100 mg Tablet PO (21:13)
[2019-09-13] MEDS: latanoprost 0.005% Op Soln 2.5 mL Btl 1 DROP EYE-BOTH (21:14)
[2019-09-13 21:44] LABS: Glucose Point of Care 158 mg/dL (70-110)
[2019-09-14] VITALS (9 sets, daily range): BP systolic 80–111; BP diastolic 50–75; PULSE 70–96; RESP 16–20; TEMP 36.6–37; O2SAT 92–98
[2019-09-14] MEDS: quetiapine 25 mg Tablet PO (05:17)
[2019-09-14 07:09] LABS: Glucose Point of Care 124 mg/dL (70-110)
[2019-09-14] MEDS: FUROsemide 20 mg Tablet PO (08:08)
[2019-09-14] MEDS: sodium bicarbonate 650 mg Tablet PO ×2 (08:08→15:53)
[2019-09-14] MEDS: aspirin 81 mg EC Tablet PO (08:08)
[2019-09-14] MEDS: pantoprazole DR 40 mg Tablet PO (08:08)
[2019-09-14] MEDS: divalproex DR 250 mg Tablet PO (08:13)
[2019-09-14] MEDS: HYDROcodone-acetaminophen 5-325 mg Tablet 1 TAB PO (08:15)
[2019-09-14 11:52] LABS: Glucose Point of Care 168 mg/dL (70-110)
--- NOTE | 2019-09-14 12:17 | P.PN_ITS ---
Subjective Subjective: Interval history: Overnight was hypotensive with lowest BP of 80/50, improved this AM. No reported urine output overnight, has Regan catheter. COVID-19 negative. Afebrile. Resting in bed, head covered. Medications: Reviewed: Yes Medication Review Details: Active Medications Generic Name Dose Route Start Last Admin Trade Name Freq PRN Reason Stop Dose Admin Acetaminophen 650 mg 09/08/19 17:23 Tylenol PO Q6H PRN Mild pain or incr eased temp Hydrocodone Bitart /Acetaminophen 1 tab 09/08/19 17:23 09/14/19 08:15 [place] 5-325 Mg PO 1 tab Q6H PRN Administration MODERATE TO SEVER E PAIN Aspirin 81 mg 09/12/19 09:00 09/14/19 08:08 Aspirin Ec PO 81 mg DAILY MANUEL Administration Bisacodyl 10 mg 09/08/19 17:23 Bisac-Evac ME DAILY PRN Constipation Brimonidine Tartra te 1 drop 09/08/19 21:00 09/14/19 09:32 [place] P 0.1% EYE-BOTH 1 drop TID MANUEL Administration Dextrose 25 ml 09/08/19 17:23 D50w IVP ONCE PRN hypoglycemia prot ocol Protocol Dextrose 50 ml 09/08/19 17:23 D50w IVP PRN PRN hypoglycemia prot ocol Protocol Divalproex Sodium 250 mg 09/09/19 09:00 09/14/19 08:13 [place] Sequeira PO 250 mg DAILY MANUEL Administration Divalproex Sodium 500 mg 09/08/19 21:00 09/13/19 21:13 Deplogan Sequeira PO 500 mg BEDTIME MANUEL Administration Furosemide 20 mg 09/09/19 09:00 09/14/19 08:08 Lasix PO 20 mg DAILY MANUEL Administration Glucagon 1 mg 09/08/19 17:23 Glucagen IM ONCE PRN Adult Acute Hypog lycemia Prot. Protocol Dextrose 500 mls @ 100 mls /hr 09/08/19 17:23 D5w IV ONCE PRN Adult Acute Hypog lycemia Prot Protocol Imipenem/Cilastati n Sodium 250 100 mls @ 200 mls /hr 09/10/19 12:00 09/14/19 05:18 mg/ Sodium Chlor sindy IV 200 mls/hr Q6H MANUEL Administration Protocol Insulin Aspart 0 unit 09/08/19 18:00 09/14/19 08:04 Novolog SUBCUT Not Given WM&BEDTIME MANUEL Protocol Latanoprost 1 drop 09/09/19 21:00 09/13/19 21:14 Xalatan EYE-BOTH 1 drop BEDTIME MANUEL Administration Loperamide HCl 2 mg 09/08/19 17:27 Imodium Capsule PO Q6H PRN Diarrhea Lorazepam 0.5 mg 09/08/19 17:23 09/10/19 08:07 Ativan PO 0.5 mg Q6H PRN Administration Anxiety Nitroglycerin 0.4 mg 09/08/19 17:23 Nitrostat SUBLINGUAL Q5M PRN Chest Pain Pantoprazole Sodiu m 40 mg 09/09/19 09:00 09/14/19 08:08 Protonix PO 40 mg DAILY MANUEL Administration Quetiapine Fumarat e 25 mg 09/09/19 06:00 09/14/19 05:17 Seroquel PO 25 mg QAM MANUEL Administration Quetiapine Fumarat e 100 mg 09/08/19 21:00 09/13/19 21:13 Seroquel PO 100 mg BEDTIME MANUEL Administration Senna/Docusate Sod ium 1 tab 09/08/19 17:23 09/10/19 07:53 Senna-S PO 1 tab BID PRN Administration Constipation Sodium Bicarbonate 650 mg 09/09/19 16:19 09/14/19 08:08 Sodium Bicarbona te PO 650 mg TID MANUEL Administration butorphanol [From Stadol] Allergy (Verified 06/09/19 15:21) Unknown diphenhydramine [From Benadryl] Allergy (Verified 06/09/19 15:21) Unknown indomethacin [From Indocin] Allergy (Verified 06/09/19 15:21) Unknown ketorolac [From Toradol] Allergy (Verified 06/09/19 15:21) Unknown levofloxacin [From Levaquin] Allergy (Verified 06/09/19 15:21) Unknown methazolamide [From Neptazane] Allergy (Verified 06/09/19 15:21) Unknown NSAIDS (Non-Steroidal Anti-Inflamma Allergy (Verified 06/09/19 15:21) Unknown ondansetron [From Zofran] Allergy (Verified 06/09/19 15:21) Unknown Penicillins Allergy (Verified 06/09/19 15:21) Unknown prochlorperazine [From Compazine] Allergy (Verified 06/09/19 15:21) Unknown Sulfa (Sulfonamide Antibiotics) Allergy (Verified 06/09/19 15:21) Unknown sumatriptan [From Imitrex] Allergy (Verified 06/09/19 15:21) Unknown tramadol [From Ultram] Allergy (Verified 06/09/19 15:21) Unknown Vitals/I&O/Wt Last Vital Signs Temp 98.6 F 09/14/19 11:23 Pulse 96 09/14/19 11:23 Resp 18 09/14/19 11:23 BP 94/58 09/14/19 11:23 Pulse Ox 96 09/14/19 11:23 09/13/19 09/14/19 09/14/19 22:59 06:59 14:59 Intake Total 160 / 440 220 / 660 120 / 120 Output Total 650 / 900 Balance -490 / -460 220 / -240 120 / 120 Weight last 48 hrs Weight 76.459 kg Physical Exam Const: COMMON NORMALS: no acute distress and patient oriented x3 GENERAL APPEARANCE: comfortable ORIENTATION/CONSCIOUSNESS: Yes oriented to place HENMT: COMMON NORMALS: normocephalic, atraumatic, hearing grossly normal bilaterally and moist oral mucous membranes HEAD & SCALP: normocephalic and atraumatic Eye: COMMON NORMALS: Equal, round and reactive pupils present, EOMs intact bilaterally and conjunctivae normal CONJUNCTIVA: Yes conjunctivae normal PUPIL: Yes Equal, round and reactive pupils present OTHER: -legally blind Neck/C-Spine: COMMON NORMALS: full ROM GENERAL: Yes normal visual inspection and Yes trachea midline Chest: CHEST: Yes Symmetrical chest wall rise Resp: COMMON NORMALS: normal respiratory effort, No retractions, No use of accessory muscles and clear to auscultation bilaterally EFFORT & INSPECTION: Yes able to speak in complete sentences, Yes symmetric chest movement and No tachypneic AUSCULTATION: clear to auscultation bilaterally OTHER: -on RA Cardio: COMMON NORMALS: regular rate, regular rhythm, S1 normal heart sound present, S2 normal heart sound present and No murmurs present (Cardio) RATE: regular rate RHYTHM: regular rhythm HEART SOUNDS: S1 normal heart sound present and S2 normal heart sound present OTHER: -normotensive GI: COMMON NORMALS: Normal to inspection, nondistended, normoactive bowel sounds present, Soft to palpation and non-tender PALPATION: Yes Soft to palpation : BLADDER/KIDNEY EXAM: No catheter in place Extremity: COMMON NORMALS: normal to inspection, full ROM, no clubbing, cyanosis or edema and no pedal edema NARRATIVE EXTREMITY EXAM: -contracted bilateral LEs Neuro: COMMON NORMALS: patient oriented x3, moves all extremities, no focal motor deficits and no sensory deficits noted SENSORIUM/ORIENTATION: Yes oriented to place Psych: COMMON NORMALS: mental status grossly normal, Normal thought process present, cooperative, normal affect and speech normal SPEECH: Yes normal speech THOUGHT PROCESS: Normal thought process present Skin: COMMON NORMALS: no rashes or lesions noted, no jaundice, no petechiae and no mottling GENERAL SKIN EXAM: no rashes or lesions noted WOUNDS: Yes wounds noted malodorous OTHER: -well circumscribed wound on coccyx very tender to palpation, tunneling noted, no odor and no active drainage, wound bed with noted granulation tissue (cauterized) Urinary Catheter Management^: Regan: Cath Placed During This Visit: yes Reason for Continuing Indwelling Catheter: Assist Healing of Perineal & Sacral Wounds- Incontinent Patients Urinary Catheter Date of Insertion: 09/08/19 Urinary Catheter Time of Insertion: 16:41 Data : 09/12/19 03:24 09/12/19 03:24 Micro: Microbiology 09/08/19 13:11 Blood Culture - Final Blood NO GROWTH AFTER 5 DAYS 09/08/19 13:11 Blood Culture - Final Blood NO GROWTH AFTER 5 DAYS 09/09/19 12:46 Gram Stain - Final Buttock Tissue Culture - Preliminary Proteus mirabilis Escherichia coli esbl Enterococcus species Streptococcus species A&P Assessment and plan (1) UTI (urinary tract infection): -has had prior complicated UTIs including ESBL E.coli -UA strongly indicative of infection -has Regan catheter in place due to complicated UTI and sacral decubitus ulcer -received dose of Cefepime in ED; on Imipenem due to hx (day 5) -contact isolation precautions -urine cx: ESBL E.coli; sensitivity noted; declined PICC line placement so will plan on d/c with Ertapenem 1 g once daily IM to complete treatment course. -blood cx: negative -associated sepsis as evidenced by hypotension, leukocytosis, altered mental status. More hemodynamically stable, leukocytosis resolved, afebrile, mental status at baseline -weaned off pressor support -close monitoring of vital signs; stable -lactate-1.0 Status: Acute Qualifiers: Hematuria presence: without hematuria Urinary tract infection type: acute cystitis Qualified Code(s): N30.00 - Acute cystitis without hematuria (2) AMS (altered mental status): -secondary to complicated UTI, infected decubitus ulcer -fall, aspiration precautions -mental status at baseline Status: Resolved Qualifiers: Altered mental status type: disorientation Qualified Code(s): R41.0 - Disorientation, unspecified (3) Acute on chronic renal failure: -has known CKD stage 3; baseline Cr is around 1.6-1.9 -with superimposed ARGENIS which has resolved -close monitoring of renal function, avoid nephrotoxins, renally dose meds, hold ACEi -renal function improving and at baseline -very cautious IVF hydration due to underlying systolic CHF -continue to monitor urine output Status: Acute Qualifiers: Acute renal failure type: unspecified Chronic kidney disease stage: unspecified stage Qualified Code(s): N17.9 - Acute kidney failure, unspecified; N18.9 - Chronic kidney disease, unspecified (4) Decubitus ulcer: -has noted decubitus ulcer on coccyx that is acutely infected and needs debridement -Surgery consult by Dr. Galaviz appreciated; s/p excisional debridement, POD # 4 -on Imipenem; d/c Vancomycin -wound cx-Proteus mirabilis, ESBL E. coli, enterococcus and Streptococcus species sensitivity noted; gram stain: moderate GPC -this was likely also contributing to sepsis -pain control as needed -reportedly per [facility], had wound cx obtained which has grown ESBL E.coli -wound care per Dr. Galaviz Status: Acute Qualifiers: Pressure injury location: sacral region Pressure injury stage: stage 3 Qualified Code(s): L89.153 - Pressure ulcer of sacral region, stage 3 (5) Acute hyperkalemia: -continue to monitor K; resolved -given dose of calcium gluconate, anticipate some improvement with hydration; may be able to resume low dose diuretic if BP improves -telemetry monitoring Status: Resolved (6) CKD (chronic kidney disease): Status: Chronic Qualifiers: Chronic kidney disease stage: stage 3 (moderate) Qualified Code(s): N18.3 - Chronic kidney disease, stage 3 (moderate) (7) Coronary artery disease: -hold oral antihypertensives due to hypotension -on ASA, hold plavix -has had prior stenting Status: Chronic Qualifiers: Associated angina: without angina Coronary Disease-Associated Artery/Lesion type: [place] artery [place] vs. transplanted heart: [place] heart Qualified Code(s): I25.10 - Atherosclerotic heart disease of [place] coronary artery without angina pectoris (8) Cardiomyopathy, ischemic: -Echo (05/2019): EF=30%, global LV hypokinesis, trace MR Status: Chronic (9) Anemia: -has chronic macrocytic anemia -baseline Hg is around 10 -continue to monitor H/H, stable so far -has hx of MGUS Status: Chronic Qualifiers: Anemia type: unspecified type Qualified Code(s): D64.9 - Anemia, unspecified (10) Diabetes mellitus: -complicated by retinopathy, nephropathy -A1c-6.8 -Accucheks, ISS, hypoglycemia precautions -consistent carb diet when PO appropriate Status: Chronic Qualifiers: Diabetes mellitus complication status: with other specified complication Diabetes mellitus fdc insulin use: with rodent exterminator use Diabetes mellitus type: type 2 Qualified Code(s): E11.69 - Type 2 diabetes mellitus with other s pecified complication; Z79.4 - intermediate frame tender (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 of insulin (11) Seizure disorder: -seizure precautions -on anti-epileptic meds Status: Chronic (12) Dementia: -has some behavioral issues at baseline including hallucinations, intermittent confusion and disorientation Status: Chronic Qualifiers: Dementia behavioral disturbance: with behavioral disturbance Dementia type: unspecified type Qualified Code(s): F03.91 - Unspecified dementia with behavioral disturbance (13) Depression: Status: Chronic Qualifiers: Depression Type: unspecified Qualified Code(s): F32.9 - Major depressive disorder, single episode, unspecified Additional A&P Information -LUE infiltration, negative DVT on venous duplex, continue elevation -high fall risk, and unable to effectively use call light due to vision impairment, so will have frequent rounding and location close to nursing station, bed alarm on, assistance with all activity -GI ppx with PPI -DVT ppx with SCDs, no AC due to anemia -Dispo: return to [facility]; anticipate discharge after COVID-19 testing requested by NH -Code status: DNR/DNI; paperwork in chart; patient is her own decision maker per family Attestations Medical Necessity Statement*: Discharge to [facility] today as COVID-19 negative. Time Spent in Patient Care: 16 - 35 minutes (>than 50% of time spent in counselling and/or direct pt care on unit) . Coding Level of Care Code Acute Balance Wheel Screw Hole Tapper for Chg Fwd Exam Comprehensive Diagnoses UTI (urinary tract infection) N30.00 Hematuria presence: without hematuria Urinary tract infection type: acute cystitis AMS (altered mental status) R41.0 Altered mental status type: disorientation Acute on chronic renal failure N17.9; N18.9 Acute renal failure type: unspecified Chronic kidney disease stage: unspecified stage Decubitus ulcer L89.153 Pressure injury location: sacral region Pressure injury stage: stage 3 Acute hyperkalemia E87.5 CKD (chronic kidney disease) N18.3 Chronic kidney disease stage: stage 3 (moderate) Coronary artery disease I25.10 Associated angina: without angina Coronary Disease-Associated Artery/Lesion type: [place] artery [place] vs. transplanted heart: [place] heart Cardiomyopathy, ischemic I25.5 Anemia D64.9 Anemia type: unspecified type Diabetes mellitus E11.69; Z79.4 Diabetes mellitus complication status: with other specified complication Diabetes mellitus fdc insulin use: with rodent exterminator use Diabetes mellitus type: type 2 Seizure disorder G40.909 Dementia F03.91 Dementia behavioral disturbance: with behavioral disturbance Dementia type: unspecified type Depression F32.9 Depression Type: unspecified
--- NOTE | 2019-09-14 15:12 | P.DS_ITS ---
Discharge Providers Date of Admission: 09/08/19 14:54 Date of Discharge: September 14, 2019 Attending Provider at Admission: Yvonne Wu MD Attending Provider at Discharge: Yvonne Wu MD Primary Care Provider: Kamelsh Stevens Diagnoses at Discharge Discharge Diagnosis (1) UTI (urinary tract infection): Status: Acute Problem details: -has had prior complicated UTIs including ESBL E.coli -UA strongly indicative of infection -has Regan catheter in place due to complicated UTI and sacral decubitus ulcer -received dose of Cefepime in ED; on Imipenem due to hx (day 5) -contact isolation precautions -urine cx: ESBL E.coli; sensitivity noted; declined PICC line placement so will plan on d/c with Ertapenem 1 g once daily IM to complete treatment course. -blood cx: negative -associated sepsis as evidenced by hypotension, leukocytosis, altered mental status. More hemodynamically stable, leukocytosis resolved, afebrile, mental status at baseline -weaned off pressor support -close monitoring of vital signs; stable -lactate-1.0 Qualifiers: Hematuria presence: without hematuria Urinary tract infection type: acute cystitis Qualified Code(s): N30.00 - Acute cystitis without hematuria (2) AMS (altered mental status): Status: Resolved Problem details: -secondary to complicated UTI, infected decubitus ulcer -fall, aspiration precautions -mental status at baseline Qualifiers: Altered mental status type: disorientation Qualified Code(s): R41.0 - Disorientation, unspecified (3) Acute on chronic renal failure: Status: Resolved Problem details: -has known CKD stage 3; baseline Cr is around 1.6-1.9 -with superimposed ARGENIS which has resolved -close monitoring of renal function, avoid nephrotoxins, renally dose meds, hold ACEi -renal function improving and at baseline -very cautious IVF hydration due to underlying systolic CHF -continue to monitor urine output Qualifiers: Acute renal failure type: unspecified Chronic kidney disease stage: unspecified stage Qualified Code(s): N17.9 - Acute kidney failure, unspecified; N18.9 - Chronic kidney disease, unspecified (4) Decubitus ulcer: Status: Acute Problem details: -has noted decubitus ulcer on coccyx that is acutely infected and needs debridement -Surgery consult by Dr. Guillaume caldera; s/p excisional debridement, POD # 4 -on Imipenem; d/c Vancomycin -wound cx-Proteus mirabilis, ESBL E. coli, enterococcus and Streptococcus species sensitivity noted; gram stain: moderate GPC -this was likely also contributing to sepsis -pain control as needed -reportedly per BTP, had wound cx obtained which has grown ESBL E.coli -wound care per Dr. Galaviz Qualifiers: Pressure injury location: sacral region Pressure injury stage: stage 3 Qualified Code(s): L89.153 - Pressure ulcer of sacral region, stage 3 (5) Acute hyperkalemia: Status: Resolved Problem details: -continue to monitor K; resolved -given dose of calcium gluconate, anticipate some improvement with hydration; may be able to resume low dose diuretic if BP improves -telemetry monitoring (6) CKD (chronic kidney disease): Status: Chronic Qualifiers: Chronic kidney disease stage: stage 3 (moderate) Qualified Code(s): N18.3 - Chronic kidney disease, stage 3 (moderate) (7) Coronary artery disease: Status: Chronic Problem details: -hold oral antihypertensives due to hypotension -on ASA, hold plavix -has had prior stenting Qualifiers: Coronary Disease-Associated Artery/Lesion type: [place] artery [place] vs. transplanted heart: [place] heart Associated angina: without angina Qualified Code(s): I25.10 - Atherosclerotic heart disease of [place] coronary artery without angina pectoris (8) Cardiomyopathy, ischemic: Status: Chronic Problem details: -Echo (05/2019): EF=30%, global LV hypokinesis, trace MR (9) Anemia: Status: Chronic Qualifiers: Anemia type: unspecified type Qualified Code(s): D64.9 - Anemia, unspecified (10) Diabetes mellitus: Status: Chronic Problem details: -complicated by retinopathy, nephropathy -A1c-6.8 -Accucheks, ISS, hypoglycemia precautions -consistent carb diet when PO appropriate Qualifiers: Diabetes mellitus type: type 2 Diabetes mellitus mcc insulin use: with mcc use Diabetes mellitus complication status: with other specified complication Qualified Code(s): E11.69 - Type 2 diabetes mellitus with other specified complication; Z79.4 - oysterman (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 of insulin (11) Seizure disorder: Status: Chronic Problem details: -seizure precautions -on anti-epileptic meds (12) Dementia: Status: Chronic Problem details: -has some behavioral issues at baseline including hallucinations, intermittent confusion and disorientation Qualifiers: Dementia type: unspecified type Dementia behavioral disturbance: with behavioral disturbance Qualified Code(s): F03.91 - Unspecified dementia with behavioral disturbance (13) Depression: Status: Chronic Qualifiers: Depression Type: unspecified Qualified Code(s): F32.9 - Major depressive disorder, single episode, unspecified Reason for Visit Reason for Visit: Low blood pressure, AMS Hospital Course Hospital Course: Patient was admitted to ICU due to need for close hemodynamic status monitoring and started on IV antibiotic treatment given sepsis on presentation secondary to complicated UTI and infected sacral decubitus ulcer. She was started on Primaxin secondary to history of ESBL E. coli. She was found to have an acutely infected sacral decubitus ulcer for which surgery was consulted. She had excisional debridement of her sacral wound done by Dr. Galaviz and is postop day #5 today. Her wound has been cleaned and dressings changed at least once daily with frequent repositioning done as tolerated by patient. Mental status has improved significantly with treatment of infection and she is back to her baseline mental status. Once more hemodynamically stable she was transferred to the floor for continued care. She has remained on imipenem with urine cultures resulted as ESBL E. coli and wound cultures been polymicrobial including enterococcus and Streptococcus species, Proteus mirabilis. Initial plan was for PICC line placement to continue IV antibiotic treatment course, however patient declined this and as such will be continued on ertapenem IM to complete her treatment. She had a Regan catheter placed in the ER on admission and this has been maintained to allow for appropriate healing of her sacral decubitus ulcer. She will be discharged with Regan catheter in place with recommendation made to discontinue this once she has completed her antibiotic course. She will need to continue contact isolation precautions. COVID-19 [facility] for [facility] to [facility] to the facility which delayed discharge for at least 24 hours. However complete testing is negative and patient will be discharged back to [facility] today. Discharge Summary: -Patient to follow-up with her primary care provider per SNF or within 1 week -Please continue wound care for sacral decubitus ulcer to consist of cleaning wound with normal saline and clean gauze, plication of Santyl ointment, packing with Kerlix and application of ABD pad. Dressing changes should be done at least once daily or more frequently if soiled. Physical Exam Const: COMMON NORMALS: no acute distress and patient oriented x3 GENERAL APPEARANCE: comfortable ORIENTATION/CONSCIOUSNESS: Yes oriented to place HENMT: COMMON NORMALS: normocephalic, atraumatic, hearing grossly normal bilaterally and moist oral mucous membranes HEAD & SCALP: normocephalic and atraumatic Eye: COMMON NORMALS: Equal, round and reactive pupils present, EOMs intact bilaterally and conjunctivae normal CONJUNCTIVA: Yes conjunctivae normal PUPIL: Yes Equal, round and reactive pupils present OTHER: -legally blind Neck/C-Spine: COMMON NORMALS: full ROM GENERAL: Yes normal visual inspection and Yes trachea midline Chest: CHEST: Yes Symmetrical chest wall rise Resp: COMMON NORMALS: normal respiratory effort, No retractions, No use of accessory muscles and clear to auscultation bilaterally EFFORT & INSPECTION: Yes able to speak in complete sentences, Yes symmetric chest movement and No tachypneic AUSCULTATION: clear to auscultation bilaterally OTHER: -on RA Cardio: COMMON NORMALS: regular rate, regular rhythm, S1 normal heart sound present, S2 normal heart sound present and No murmurs present (Cardio) RATE: regular rate RHYTHM: regular rhythm HEART SOUNDS: S1 normal heart sound present and S2 normal heart sound present OTHER: -normotensive GI: COMMON NORMALS: Normal to inspection, nondistended, normoactive bowel sounds present, Soft to palpation and non-tender PALPATION: Yes Soft to palpation : BLADDER/KIDNEY EXAM: No catheter in place Extremity: COMMON NORMALS: normal to inspection, full ROM, no clubbing, cyanosis or edema and no pedal edema NARRATIVE EXTREMITY EXAM: -contracted bilateral LEs Neuro: COMMON NORMALS: patient oriented x3, moves all extremities, no focal motor deficits and no sensory deficits noted SENSORIUM/ORIENTATION: Yes oriented to place Psych: COMMON NORMALS: mental status grossly normal, Normal thought process present, cooperative, normal affect and speech normal SPEECH: Yes normal speech THOUGHT PROCESS: Normal thought process present Skin: COMMON NORMALS: no rashes or lesions noted, no jaundice, no petechiae and no mottling GENERAL SKIN EXAM: no rashes or lesions noted WOUNDS: Yes wounds noted malodorous OTHER: -well circumscribed wound on coccyx very tender to palpation, tunneling noted, no odor and no active drainage, wound bed with noted granulation tissue (cauterized) Urinary Catheter Management^: Regan: Cath Placed During This Visit: yes Reason for Continuing Indwelling Catheter: Assist Healing of Perineal & Sacral Wounds- Incontinent Patients Urinary Catheter Date of Insertion: 09/08/19 Urinary Catheter Time of Insertion: 16:41 Discharge Data Data Completed and Pending: Completed Studies During Hospitalization Category Date Time Status CT head wo con* 7 0450 Urgent Cat Scan 09/08/19 12:25 Completed XR chest 1V carroll ble [id number] Urgent Exams 09/08/19 12:26 [place] [id number] Routin e Ultrasound 09/10/19 13:52 Completed Pending at discharge Category Date Time Status Tissue Culture an d Gram Stain Routi ne Lab 09/09/19 12:46 Results Labs from last 24 hours 09/14/19 09/14/19 09/13/19 11:21 06:24 20:54 POC Glucose 168 124 158 Nasal/Oral COVID-1 9 PCR 09/13/19 09/13/19 18:00 16:28 POC Glucose 123 Nasal/Oral COVID-1 9 PCR See comment Vitals: Last Vital Signs Temp 98.6 F 09/14/19 11:23 Pulse 96 09/14/19 11:23 Resp 18 09/14/19 11:23 BP 94/58 09/14/19 11:23 Pulse Ox 96 09/14/19 11:23 Discharge Plan Discharge Patient Disposition: Xfer SNF Condition: Stable Prescriptions: New ertapenem 1 gram recon soln 1 gm IM DAILY 10 Days Qty: 10 RF: 0 hydrocodone-acetaminophen 5-325 mg Tablet 1 tab PO Q24H PRN (Reason: Pain) Qty: 30 RF: 0 Santyl 250 unit/gram ointment 1 applic TOPICAL DAILY Qty: 30 RF: 0 Continued pantoprazole 40 mg Tablet,Delayed Release (Dr/Ec) 40 mg PO DAILY RF: 0 aspirin 81 mg Tablet,Chewable 81 mg PO DAILY RF: 0 Senna-S 8.6-50 mg Tablet 1 tab-cap PO BID PRN (Reason: Constipation) RF: 0 Novolin R Flexpen 100 unit/mL (3 mL) Insulin Pen See Rx Instructions .ROUTE .COMPLEX RF: 0 quetiapine [Seroquel] 25 mg Tablet 25 mg PO QAM RF: 0 latanoprost [Xalatan] 0.005 % Drops 1 drp OPHTHALMIC (EYE) QPM RF: 0 acetaminophen 325 mg Tablet 650 mg PO Q6H PRN (Reason: Pain) RF: 0 divalproex [Depakote] 250 mg Tablet,Delayed Release (Dr/Ec) 250 mg PO DAILY RF: 0 venlafaxine 25 mg Tablet 25 mg PO DAILY RF: 0 polysaccharide iron complex [Poly-Iron] 150 mg iron Capsule 150 mg PO DAILY RF: 0 loperamide 2 mg Tablet 2 mg PO Q6H PRN (Reason: Diarrhea) RF: 0 clopidogrel [Plavix] 75 mg Tablet 75 mg PO DAILY RF: 0 divalproex [Depakote] 500 mg Tablet,Delayed Release (Dr/Ec) 500 mg PO BEDTIME RF: 0 quetiapine [Seroquel] 100 mg Tablet 100 mg PO BEDTIME RF: 0 magnesium hydroxide [Milk of Magnesia] 400 mg/5 mL Suspension 30 ml PO DAILY PRN (Reason: Constipation) RF: 0 bisacodyl [Dulcolax (bisacodyl)] 10 mg Suppository 10 mg TX DAILY PRN (Reason: Constipation) RF: 0 promethazine 25 mg Tablet 25 mg PO Q6H PRN (Reason: Nausea) RF: 0 nitroglycerin [Nitrostat] 0.4 mg Tablet, Sublingual 0.4 mg SUBLINGUAL Q5M PRN (Reason: Chest Pain) RF: 0 docusate sodium 100 mg Capsule 100 mg PO BID RF: 0 senna 8.6 mg Capsule 8.6 mg PO Q12H PRN (Reason: Constipation) RF: 0 brimonidine 0.1 % Drops 1 drp OPHTHALMIC (EYE) TID RF: 0 PNV [id number]-ferrous fumarate-FA [] 28 mg iron- 800 mcg Tablet 1 tab PO DAILY RF: 0 lorazepam [Ativan] 0.5 mg Tablet 0.5 mg PO Q24H PRN (Reason: Anxiety) Qty: 0 RF: 0 furosemide [Lasix] 20 mg Tablet 20 mg PO DAILY Qty: 0 RF: 0 isosorbide dinitrate 10 mg Tablet 10 mg PO DAILY Qty: 0 RF: 0 Discontinued carvedilol 3.125 mg Tablet 3.125 mg PO BID RF: 0 lisinopril 2.5 mg Tablet 2.5 mg PO DAILY RF: 0 Discharge Orders: Discharge Order (Routine); Ordered 09/14/19 Ordered By: Yvonne Zuñiga: [facility] [Outside] Kamlesh Stevens [Primary Care Provider] - 4-7 days (Post hospital discharge follow up. Had excisional debridement of sacral decubitus ulcer. On Ertapenem for treatment of ESBL E.coli UTI and on wound cx. ) Discharge Diet: Cardiac Discharge Activity: Increase activity as tolerated Patient Instructions: Depression, Hydrocodone/Acetaminophen (By mouth), Ertapenem (Injection), Dementia (GEN), Decubitus Ulcers Activity Restrictions/Additional Instructions: -Please continue fall precautions -Please continue to monitor blood pressure closely, note that Coreg and Lisinopril have been DISCONTINUED due to need to avoid hypotension -Please continue wound care to sacral decubitus ulcer-clean with normal saline, apply Santyl ointment, and pack with kerlix, cover with ABD. Dressing should be changed at least once daily or more often if soiled -Regan catheter can removed once antibiotic treatment is complete. She is to remain in contact isolation precautions due to ESBL E.coli in urine and sacral wound. Discharge Attestations Time Spent in Discharge Care*: greater than 30 min Specific Discharge Activities: Specific discharge activities: educating patient, discussing with geriatric case manager/social workers/dc planners, documenting/other paperwork and evaluating patient/reviewing data Status at Discharge: Cognitive status at discharge: cognitively intact , Behavioral status at discharge: can be uncooperative and dependent in ADL's , Functional status at discharge: bed bound Overall status at discharge: patient is progressing back to baseline Quality Metrics Clinical Quality Measures During this hospital stay, did patient experience: None Coding Level of Care Code Acute [employer] Specialist for [facility] Fwd Diagnoses UTI (urinary tract infection) N30.00 Hematuria presence: without hematuria Urinary tract infection type: acute cystitis AMS (altered mental status) R41.0 Altered mental status type: disorientation Acute on chronic renal failure N17.9; N18.9 Acute renal failure type: unspecified Chronic kidney disease stage: unspecified stage Decubitus ulcer L89.153 Pressure injury location: sacral region Pressure injury stage: stage 3 Acute hyperkalemia E87.5 CKD (chronic kidney disease) N18.3 Chronic kidney disease stage: stage 3 (moderate) Coronary artery disease I25.10 Coronary Disease-Associated Artery/Lesion type: [place] artery [place] vs. transplanted heart: [place] heart Associated angina: without angina Cardiomyopathy, ischemic I25.5 Anemia D64.9 Anemia type: unspecified type Diabetes mellitus E11.69; Z79.4 Diabetes mellitus type: type 2 Diabetes mellitus mcc insulin use: with oysterman use Diabetes mellitus complication status: with other specified complication Seizure disorder G40.909 Dementia F03.91 Dementia type: unspecified type Dementia behavioral disturbance: with behavioral disturbance Depression F32.9 Depression Type: unspecified
[2019-09-14 16:46] LABS: Glucose Point of Care 79 mg/dL (70-110)
--- NOTE | 2019-09-14 17:18 | PM.PN ---
Subjective Subjective: Interval history: No issues overnight Vitals/I&O/Wt Last Vital Signs Temp 98.3 F 09/14/19 15:59 Pulse 73 09/14/19 15:59 Resp 16 09/14/19 15:59 BP 89/57 09/14/19 15:59 Pulse Ox 92 09/14/19 15:33 09/14/19 09/14/19 09/14/19 06:59 14:59 22:59 Intake Total 320 / 760 220 / 220 Balance 320 / -140 220 / 220 Weight last 48 hrs Weight 168 lb 9 oz Physical Exam Narrative: EXAM NARRATIVE: Sacrum: Stage IV decubitus ulcer, minimal necrotic tissue, no significant cellulitis or purulent drainage noted Urinary Catheter Management^: Regan: Cath Placed During This Visit: yes Reason for Continuing Indwelling Catheter: Assist Healing of Perineal & Sacral Wounds- Incontinent Patients Urinary Catheter Date of Insertion: 09/08/19 Urinary Catheter Time of Insertion: 16:41 Data : 09/12/19 03:24 09/12/19 03:24 Micro: Microbiology 09/08/19 13:11 Blood Culture - Final Blood NO GROWTH AFTER 5 DAYS 09/08/19 13:11 Blood Culture - Final Blood NO GROWTH AFTER 5 DAYS 09/09/19 12:46 Gram Stain - Final Buttock Tissue Culture - Preliminary Proteus mirabilis Escherichia coli esbl Enterococcus species Streptococcus species A&P Assessment and plan (1) Sacral decubitus ulcer: Continue with wet-to-dry daily dressing change Follow-up with wound care Status: Acute Attestations Medical Necessity Statement*: Sacral decubitus ulcer Coding Level of Care Code Acute Neurocritical Care Physician for ming Romero Diagnoses Sacral decubitus ulcer L89.159
== END 2019-09-14 17:15 | disposition skilled nursing facility (03) | DRG 853 ==
LOC: ER 15:04 → ICU 15:11 → MEDSURG 09-11 19:04 → ICU 09-11 19:30 → MEDSURG 09-12 14:23
PROVIDERS: Physician Assistant; Surgery; Admitting Provider Family Medicine; PCP Family Medicine; Visit Provider Family Medicine
PROC: 0JB70ZZ Excision of Back Subcutaneous Tissue and Fascia, Open Approach (ICD-10-PCS; principal; 2019-09-09 11:45)
DX: A41.9 Sepsis, unspecified organism (principal); L89.154 Pressure ulcer of sacral region, stage 4; R65.21 Severe sepsis with septic shock; N30.00 Acute cystitis without hematuria; Z16.12 Extended spectrum beta lactamase (ESBL) resistance; N17.9 Acute kidney failure, unspecified; F03.91 Unspecified dementia, unspecified severity, with behavioral disturbance; I50.22 Chronic systolic (congestive) heart failure; B96.20 Unspecified Escherichia coli [E. coli] as the cause of diseases classified elsewhere; Z66 Do not resuscitate; Z91.81 History of falling; E87.5 Hyperkalemia; N18.3 Chronic kidney disease, stage 3 (moderate); I25.10 Atherosclerotic heart disease of native coronary artery without angina pectoris; Z95.5 Presence of coronary angioplasty implant and graft; I25.5 Ischemic cardiomyopathy; E11.319 Type 2 diabetes mellitus with unspecified diabetic retinopathy without macular edema; E11.21 Type 2 diabetes mellitus with diabetic nephropathy; G40.909 Epilepsy, unspecified, not intractable, without status epilepticus; Z20.828 Contact with and (suspected) exposure to other viral communicable diseases; Z79.82 Long term (current) use of aspirin; Z79.02 Long term (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 of antithrombotics/antiplatelets; E78.5 Hyperlipidemia, unspecified; Z86.73 Personal history of transient ischemic attack (TIA), and cerebral infarction without residual deficits; H54.7 Unspecified visual loss; K21.9 Gastro-esophageal reflux disease without esophagitis; G89.29 Other chronic pain; I25.2 Old myocardial infarction; M54.5 Low back pain; F41.8 Other specified anxiety disorders; D47.2 Monoclonal gammopathy; D53.9 Nutritional anemia, unspecified; E11.22 Type 2 diabetes mellitus with diabetic chronic kidney disease
CPT/HCPCS: 12345; 36415; 36416; 51702; 70450; 71045; 80048; 80053; 80202; 80306; 81001; 82962; 83036; 83605; 83735; 85025; 85610; 85730; 86140; 87040; 87070; 87077; 87086; 87176; 87186; 87205; 87635; 93971; 96372; 96375; 99282; J0610; J0692; J0743; J1815; J3010; J3370; J3490; J7050; J7799